=== PATIENT | female | born 1965 | race Caucasian/White ===

== ENCOUNTER → 2020-09-01 12:28 | Outpatient (BNVA) | payer MEDICAID, SELFPAY | PROVIDERS: Family Provider Family Medicine; PCP Family Medicine; Visit Provider Psychiatry & Neurology Psychiatry | DX: F32.9 Major depressive disorder, single episode, unspecified (principal); F41.9 Anxiety disorder, unspecified | CPT/HCPCS: 90792 ==

== ENCOUNTER → 2020-10-15 08:15 | Outpatient (BNVA) | payer MEDICAID, SELFPAY | PROVIDERS: Family Provider Family Medicine; PCP Family Medicine; Visit Provider Psychiatry & Neurology Psychiatry | DX: F41.9 Anxiety disorder, unspecified (principal); F32.9 Major depressive disorder, single episode, unspecified | CPT/HCPCS: 99214 ==

== ENCOUNTER → 2021-01-19 14:35 | Outpatient (BNVA) | payer MEDICAID, SELFPAY | PROVIDERS: Family Provider Family Medicine; PCP Nurse Practitioner Family; Visit Provider Psychiatry & Neurology Psychiatry | DX: F41.9 Anxiety disorder, unspecified (principal); F32.9 Major depressive disorder, single episode, unspecified | CPT/HCPCS: 99214 ==

== ENCOUNTER → 2021-02-18 12:47 | Outpatient (BNVA) | payer MEDICAID, SELFPAY | PROVIDERS: Family Provider Family Medicine; PCP Nurse Practitioner Family; Visit Provider Psychiatry & Neurology Psychiatry | DX: F41.9 Anxiety disorder, unspecified (principal); F32.9 Major depressive disorder, single episode, unspecified | CPT/HCPCS: 99214 ==

== ENCOUNTER → 2021-05-17 18:03 | Outpatient (BNVA) | payer MEDICAID, SELFPAY | PROVIDERS: Family Provider Family Medicine; PCP Nurse Practitioner Family; Visit Provider Nurse Practitioner | DX: R39.9 Unspecified symptoms and signs involving the genitourinary system (principal); R31.9 Hematuria, unspecified | CPT/HCPCS: 81000 ==

== ENCOUNTER 2021-05-18 18:59 | Emergency (ER) | payer MEDICAID, SELFPAY ==
[2021-05-18 19:32] VITALS: BP 135/88; PULSE 81; RESP 16; TEMP 36.7; O2SAT 97; BMI 24.3
--- NOTE | 2021-05-18 19:43 | W.ED.FEMALGU ---
HPI - Female Genitourinary General: Chief complaint: Urogenital-Female Stated complaint: Cant Pee Time Seen by Provider: 05/18/21 19:38 History of Present Illness: HPI Narrative: Patient is a 56-year-old female comes to the ED with urinary retention. Patient says for the past 3 weeks she is been having decreased urine output. Its progressed and gotten worse over the past couple days. She states that today she is only been able to urinate out a small amount. Denies any pain with urination. She currently feels like her bladder is really full and that she needs to urinate but is unable to. Associated symptoms: Deny abdominal pain, headache(s) or nausea Review of Systems Const: Denies: fever(s), chills or fatigue Eyes: Denies: change in vision or eye discomfort ENMT: Denies: throat pain, odynophagia, nasal discharge or nasal congestion Card: Denies: chest pain, palpitations, edema, swelling of feet/ankles, dyspnea on exertion or orthopnea Resp: Denies: dyspnea, productive cough or non-productive cough GI: Denies: abdominal pain, nausea, vomiting, diarrhea, constipation or hematochezia : Reports: difficulty voiding and oliguria; Denies: flank pain, dysuria or hematuria Musc: Denies: neck pain, back pain or extremity swelling Skin/Breast: Denies: rash or new lesions Neuro: Denies: headache(s), numbness in extremities or weakness in extremities [facility] ED PFSH: Medical History Anxiety Anxiety MDD (major depressive disorder) Family History Other Family history unremarkable Social History Smoking and tobacco status: current every day smoker cigarettes Packs smoked per day: 1 Years cigarettes smoked: 22 Second hand smoke exposure: Yes Alcohol intake: never Lives independently: No Household members: family Marital status: Single service: No Current occupational status: disabled History of recent travel: No Current gender identity: Female Special ramin needs: No Agree to transfusion: Yes Physical Exam Const: COMMON NORMALS: patient oriented x3, healthy appearing and alert GENERAL APPEARANCE: cooperative and in distress (Patient appears uncomfortable and in some pain) HENMT: COMMON NORMALS: normocephalic HEAD & SCALP: normocephalic MOUTH: Normal oral and palatal mucosa present THROAT: posterior oropharynx normal and uvula midline Neck/C-Spine: COMMON NORMALS: supple GENERAL: Yes normal visual inspection Resp: COMMON NORMALS: normal respiratory effort, No retractions, No use of accessory muscles and clear to auscultation bilaterally AUSCULTATION: clear to auscultation bilaterally Cardio: COMMON NORMALS: regular rate, regular rhythm, S1 normal heart sound present, S2 normal heart sound present, No gallops present (Cardio), No clicks present (Cardio), No murmurs present (Cardio) and Peripheral pulses 2+ throughout RATE: regular rate RHYTHM: regular rhythm HEART SOUNDS: S1 normal heart sound present and S2 normal heart sound present PERIPHERAL PULSES: Peripheral pulses 2+ throughout GI: COMMON NORMALS: Normal to inspection, nondistended, normoactive bowel sounds present, Soft to palpation, non-tender and no masses PALPATION: Yes Soft to palpation and Yes Bladder palpation abnormal : COMMON NORMALS: Yes no CVA tenderness BLADDER/KIDNEY EXAM: Yes no CVA tenderness and Yes Bladder palpation abnormal Bladder abnormal details: tender and distended midway to the umbilicus Back/Pelvis: COMMON NORMALS: no CVA tenderness Extremity: COMMON NORMALS: normal to inspection Neuro: COMMON NORMALS: patient oriented x3 and moves all extremities SENSORIUM/ORIENTATION: Yes alert Skin: GENERAL SKIN EXAM: dry skin Course ED course: Nurse performed bladder scan and there is over 700 mL captured on scan. Reevaluation(s): Reevaluation #1: After nurse placed Eli catheter over 600 mL of urine drained into catheter bag. Patient felt immediate relief. Patient's bladder was no longer distended and firm. She reports feeling a lot better. Vital Signs: Vital signs: Vital Signs Temperature 98.1 F 05/18/21 19:32 Pulse Rate 87 05/18/21 20:21 Respiratory Rate 16 05/18/21 20:21 Blood Pressure 130/90 05/18/21 20:21 Pulse Oximetry 97 05/18/21 20:21 MDM - Female MDM Narrative: Medical decision making narrative: Patient is a 56-year-old female comes to the ED with urinary retention. Over the past 3 weeks she has had increased urinary retention and difficulty with urination. Over the past couple days has gotten worse and today she is only been able to urinate a little bit. Her bladder feels full and painful she feels like she has to urinate is unable to. Vitals stable. Exam shows a palpable bladder that is distended about midway to the umbilicus and is firm and tender. Nurse performed a bladder scan and over 700 mL were captured on scan. Eli catheter was then placed and patient had well over 600 mils of urine drained into cath bag. UA was unremarkable. I placed an order with case management to have patient referred to Dr. Rodríguez the urologist for further evaluation. Patient diagnosed with acute urinary retention. Eli catheter was left in place and patient was discharged with it and given instructions on how to care for Eli catheter. She was told case maker will contact her in the next several days set up appoint with Dr. Rodríguez. Return to ED precautions given. Patient understood agree with plan. Lab Data: Attestation: I reviewed the patient's lab results. Labs: Lab Results 05/18/21 20:14 Urine Color Yellow (Yellow) Urine Appearance Clear (CLEAR) Urine pH 5 (5-7) Ur Specific Gravit y 1.010 (1.005-1.030) Urine Protein Neg (Negative) Urine Glucose (UA) Norm (Normal) Urine Ketones Negative (Negative) Urine Blood Neg (Negative) Urine Nitrate Negative (Negative) Urine Bilirubin Neg (Negative) Urine Urobilinogen Neg mg/dL mg/dL (Negative) Ur Leukocyte Kiana ase Negative (Negative) Discharge Plan Discharge Patient Disposition: Home Clinical Impression: Acute urinary retention Condition: Stable Prescriptions: No Action buspirone 10 mg tablet 10 mg PO TID 30 Days Qty: 90 RF: 3 mupirocin 2 % ointment 1 applic topical TID 7 Days Qty: 22 RF: 0 ondansetron HCl [Zofran] 4 mg tablet 4 mg PO Q6H PRN (Reason: nausea and vomiting) Qty: 10 RF: 0 Discharge Orders: Discharge ED (Routine); Ordered 05/18/21 Ordered By: Andrew Grey Discharge Diet: Regular Discharge Activity: Increase activity as tolerated Patient Instructions: Eli Catheter Placement and Care (ED), Acute Urinary Retention in Women (ED) Activity Restrictions/Additional Instructions: Follow-up with medical provider as directed. Case management will be contacting you next several days set up an appointment with Dr. Rodríguez the urologist. Continue taking all home medications as previously prescribed. Follow Eli catheter care instructions given by nurse before DC. Return to the ER or your medical provider if condition worsens. Please read and understand discharge instructions. Thank you for choosing [facility] for your healthcare needs today. Please realize this is an emergency room and that we are providing you with a medical screening exam and this may not be complete and all inclusive of all the testing and or work up that you may need to determine your ailment or severity of your illness. It is very important that you follow up as instructed or that you return to the Emergency Department should you have concerns or if your condition changes or worsens in any way. Coding Level of Care Code ED [employer] for Pritesh Gill Exam Comprehensive
[2021-05-18 20:21] VITALS: BP 130/90; PULSE 87; RESP 16; O2SAT 97
[2021-05-18 20:28] LABS: Add Urine Microscopic? NO; Charge for UA Resulting for Rev
[2021-05-18 20:35] LABS: Bilirubin Urine Neg (Negative); Blood Urine Neg (Negative); Glucose Urine UA Norm (Normal); Ketones Urine Negative (Negative); Leukocyte Esterase Urine Negative (Negative); Nitrate Urine Negative (Negative); Protein Urine Neg (Negative); Urine Appearance Clear (CLEAR); Urine Color Yellow (Yellow); Urobilinogen Urine Neg (Negative); pH Urine 5 (5-7)
--- NOTE | 2021-05-19 10:56 | DCPLANNER ---
senior risk manager had message to schedule a followup appointment for patient with Dr. Rordíguez. senior risk manager emailed patients information to Pascual Chow and Sudha at the office of Dr. Rodríguez. Patients information will be printed and reviewed. Clinic will call patient with appointment information.
--- NOTE | 2021-05-26 08:33 | DCPLANNER ---
Patient has a follow up appointment scheduled for Monday, May 31, 2021 at 3:[address] Rodríguez. Clinic will call patient with appointment information.
--- NOTE | 2021-06-18 11:49 | DCPLANNER ---
Patient had a follow up appointment scheduled for 05.31.[address] Rodríguez - patient did not attend appointment.
== END 2021-05-18 22:05 | disposition home or self-care (01) ==
PROVIDERS: Emergency Provider Physician Assistant
DX: R33.9 Retention of urine, unspecified (principal); F17.210 Nicotine dependence, cigarettes, uncomplicated
CPT/HCPCS: 51702; 51798; 81003; 99283

== ENCOUNTER 2021-05-19 22:16 | Emergency (ER) | payer MEDICAID, SELFPAY ==
[2021-05-19 22:31] VITALS: BP 132/79; PULSE 86; RESP 16; TEMP 36.6; O2SAT 98; BMI 23.8
--- NOTE | 2021-05-19 22:37 | ED_ITS ---
Documented by User: ANGEL Cuevas 05/20/21 01:13 HPI - Female Genitourinary General: Chief complaint: Urogenital-Female Stated complaint: Cant Pee Time Seen by Provider: 05/19/21 22:37 History of Present Illness: HPI Narrative: Patient is a 56-year-old female comes to the ED with catheter complaint. Patient was seen here in the ED yesterday for acute urinary retention and Benoit catheter was placed and patient was discharged home. She says her Benoit catheter has been working good last night and into today. She feels like the last couple hours the catheter is not draining as much. She feels like her bladder might be filling a little bit. She denies any pain or discomfort. She says her bladder does not hurt like it did yesterday when she came to the ED and could not urinate. Associated symptoms: Deny abdominal pain, headache(s) or nausea Review of Systems Const: Denies: fever(s), chills or fatigue Eyes: Denies: change in vision or eye discomfort ENMT: Denies: throat pain, odynophagia, nasal discharge or nasal congestion Card: Denies: chest pain, palpitations, edema, swelling of feet/ankles, dyspnea on exertion or orthopnea Resp: Denies: dyspnea, productive cough or non-productive cough GI: Denies: abdominal pain, nausea, vomiting, diarrhea, constipation or hematochezia : Reports: difficulty voiding and other (benoit catheter issue); Denies: flank pain, dysuria or hematuria Musc: Denies: neck pain, back pain or extremity swelling Skin/Breast: Denies: rash or new lesions Neuro: Denies: headache(s), numbness in extremities or weakness in extremities PFSH ED PFSH: Medical History Anxiety Anxiety MDD (major depressive disorder) Family History Other Family history unremarkable Social History Smoking and tobacco status: current every day smoker cigarettes Packs smoked per day: 1 Years cigarettes smoked: 22 Second hand smoke exposure: Yes Alcohol intake: never Lives independently: No Household members: family Marital status: Single service: No Current occupational status: disabled History of recent travel: No Current gender identity: Female Special ramin needs: No Agree to transfusion: Yes Physical Exam Const: COMMON NORMALS: no acute distress, patient oriented x3 and alert GENERAL APPEARANCE: cooperative and comfortable HENMT: COMMON NORMALS: normocephalic HEAD & SCALP: normocephalic MOUTH: Normal oral and palatal mucosa present THROAT: posterior oropharynx normal and uvula midline Neck/C-Spine: COMMON NORMALS: supple GENERAL: Yes normal visual inspection Resp: COMMON NORMALS: normal respiratory effort, No retractions, No use of accessory muscles and clear to auscultation bilaterally AUSCULTATION: clear to auscultation bilaterally Cardio: COMMON NORMALS: regular rate, regular rhythm, S1 normal heart sound present, S2 normal heart sound present, No gallops present (Cardio), No clicks present (Cardio), No murmurs present (Cardio) and Peripheral pulses 2+ throughout RATE: regular rate RHYTHM: regular rhythm HEART SOUNDS: S1 normal heart sound present and S2 normal heart sound present PERIPHERAL PULSES: Peripheral pulses 2+ throughout GI: COMMON NORMALS: Normal to inspection, nondistended, normoactive bowel sounds present, Soft to palpation, non-tender and no masses PALPATION: Yes Soft to palpation and Yes Bladder palpation abnormal : COMMON NORMALS: Yes no CVA tenderness BLADDER/KIDNEY EXAM: Yes no CVA tenderness and Yes Bladder palpation abnormal Bladder abnormal details: tender and distended midway to the umbilicus Back/Pelvis: COMMON NORMALS: no CVA tenderness Extremity: COMMON NORMALS: normal to inspection Neuro: COMMON NORMALS: patient oriented x3 and moves all extremities SENSORIUM/ORIENTATION: Yes alert Skin: GENERAL SKIN EXAM: dry skin Course Vital Signs: Vital signs: Vital Signs Temperature 97.8 F 05/19/21 22:31 Pulse Rate 71 05/20/21 00:50 Respiratory Rate 20 H 05/20/21 00:50 Blood Pressure 128/78 05/20/21 01:18 Pulse Oximetry 97 05/20/21 00:50 MDM - Female MDM Narrative: Medical decision making narrative: Patient is a 56-year-old female comes to the ED with urinary catheter issue. Patient was seen here in the ED yesterday for urinary retention and a Benoit catheter was placed and she was discharged with it and. Said her Benoit had been draining well nurse performed flush on the Benoit catheter couple times and that did not seem to help flush Benoit. Nurse then performed a bladder scan and she had over 900 mils of urine in her bladder. I told the nurse to pull existing Benoit catheter and to insert new Benoit catheter and patient. After reinserting new Benoit, she was still having minimal output in bag and bladder scan was showing over [address] Tran went in and performed an ultrasound and it showed that the Benoit catheter was not fully in bladder. They reinserted Benoit and still minimal to no urine drained out. Dr. Tran thought issue was likely false tract of urethra. [facility] did not have a urologist business analyst consultant, so Dr. Tran contacted [facility] and patient is being transferred to [facility] for further treatment/management. Lab Data: Attestation: I reviewed the patient's lab results. Labs: Lab Results 05/19/21 23:33 Urine Color Yellow (Yellow) Urine Appearance Clear (CLEAR) Urine pH 5 (5-7) Ur Specific Gravit y 1.010 (1.005-1.030) Urine Protein 1+ H (Negative) Urine Glucose (UA) Norm (Normal) Urine Ketones Negative (Negative) Urine Blood 3+ H (Negative) Urine Nitrate Negative (Negative) Urine Bilirubin Neg (Negative) Urine Urobilinogen Neg mg/dL mg/dL (Negative) Ur Leukocyte Kiana ase 1+ H (Negative) Urine RBC 5-10 /hpf H /hpf (0-2) Urine WBC 25-40 /hpf H /hpf (0-5) Ur Squamous Epith Cells 0-4 /hpf H /hpf (0-5) Amorphous Sediment Not Reportable Urine Bacteria Trace /hpf /hpf (NONE) Discharge Plan Discharge Patient Disposition: Transfer to ED Clinical Impression: False passage of urethra Condition: Stable Prescriptions: No Action buspirone 10 mg tablet 10 mg PO TID 30 Days Qty: 90 RF: 3 mupirocin 2 % ointment 1 applic topical TID 7 Days Qty: 22 RF: 0 ondansetron HCl [Zofran] 4 mg tablet 4 mg PO Q6H PRN (Reason: nausea and vomiting) Qty: 10 RF: 0 Coding Level of Care Code ED [employer]p [employer] for Chg Fwd Exam Comprehensive Documented by User: Carla Tran MD 05/20/21 01:27 HPI - Female Genitourinary General: Chief complaint: Urogenital-Female Stated complaint: Cant Pee Time Seen by Provider: 05/19/21 22:37 PFSH ED PFSH: Medical History Anxiety Anxiety MDD (major depressive disorder) Family History Other Family history unremarkable Social History Smoking and tobacco status: current every day smoker cigarettes Packs smoked per day: 1 Years cigarettes smoked: 22 Second hand smoke exposure: Yes Alcohol intake: never Lives independently: No Household members: family Marital status: Single service: No Current occupational status: disabled History of recent travel: No Current gender identity: Female Special ramin needs: No Agree to transfusion: Yes Course Vital Signs: Vital signs: Vital Signs Temperature 97.8 F 05/19/21 22:31 Pulse Rate 71 05/20/21 00:50 Respiratory Rate 20 H 05/20/21 00:50 Blood Pressure 128/78 05/20/21 01:18 Pulse Oximetry 97 05/20/21 00:50 MDM - Female MDM Narrative: Medical decision making narrative: I saw patient with above midlevel I was in the room I nurses made multiple attempts at Benoit I believe patient likely has a false passage did ultrasound of abdomen was able to see the Benoit bulb above the bladder was not in the bladder will transfer to [facility] as we do not have urology here and she will need urology to place a Benoit likely or suprapubic catheter. Lab Data: Labs: Lab Results 05/19/21 23:33 Urine Color Yellow (Yellow) Urine Appearance Clear (CLEAR) Urine pH 5 (5-7) Ur Specific Gravit y 1.010 (1.005-1.030) Urine Protein 1+ H (Negative) Urine Glucose (UA) Norm (Normal) Urine Ketones Negative (Negative) Urine Blood 3+ H (Negative) Urine Nitrate Negative (Negative) Urine Bilirubin Neg (Negative) Urine Urobilinogen Neg mg/dL mg/dL (Negative) Ur Leukocyte Kiana ase 1+ H (Negative) Urine RBC 5-10 /hpf H /hpf (0-2) Urine WBC 25-40 /hpf H /hpf (0-5) Ur Squamous Epith Cells 0-4 /hpf H /hpf (0-5) Amorphous Sediment Not Reportable Urine Bacteria Trace /hpf /hpf (NONE) Discharge Plan Discharge Patient Disposition: Transfer to ED Clinical Impression: False passage of urethra Condition: Stable Prescriptions: No Action buspirone 10 mg tablet 10 mg PO TID 30 Days Qty: 90 RF: 3 mupirocin 2 % ointment 1 applic topical TID 7 Days Qty: 22 RF: 0 ondansetron HCl [Zofran] 4 mg tablet 4 mg PO Q6H PRN (Reason: nausea and vomiting) Qty: 10 RF: 0 Coding Level of Care Code ED Vp [employer] for Chg Fwd Exam Comprehensive
[2021-05-19 23:49] LABS: Add Urine Microscopic? YES; Bilirubin Urine Neg (Negative); Blood Urine 3+ (Negative); Glucose Urine UA Norm (Normal); Ketones Urine Negative (Negative); Leukocyte Esterase Urine 1+ (Negative); Nitrate Urine Negative (Negative); Protein Urine 1+ (Negative); Urine Appearance Clear (CLEAR); Urine Color Yellow (Yellow); Urobilinogen Urine Neg (Negative); pH Urine 5 (5-7)
[2021-05-19 23:52] LABS: Squamous Epithelial Cell Urine 0-4 /hpf (0-5); WBC Urine 25-40 /hpf (0-5)
[2021-05-19 23:53] LABS: Add Urine Culture? Yes; Bacteria Urine TRACE /hpf
[2021-05-20] MEDS: HYDROcodone-acetaminophen 5-325 mg Tablet 1 TAB PO (00:12)
[2021-05-20 00:50] VITALS: BP 148/95; PULSE 71; RESP 20; O2SAT 97
[2021-05-20 01:18] VITALS: BP 128/78
[2021-05-20 02:30] VITALS: BP 123/87; PULSE 78; RESP 18; O2SAT 97
--- NOTE | 2021-05-20 06:15 | PC.NURSE ---
pt rq to go outside to her car at this time. this nurse educated pt on our policy for pts not leaving the facility when they are admitted. this nurse offered to go pt car and get pt phone conveyor line battery charger and pt stated 'no i dont allow anyone to to do that'
[2021-05-20 06:18] VITALS: BP 124/81; PULSE 78; RESP 16; O2SAT 98
== END 2021-05-20 07:10 ==
PROVIDERS: Emergency Provider Physician Assistant
DX: N36.5 Urethral false passage (principal); F17.210 Nicotine dependence, cigarettes, uncomplicated; F41.9 Anxiety disorder, unspecified
CPT/HCPCS: 51702; 51798; 81001; 87086; 99284

== ENCOUNTER 2021-09-18 10:41 | Emergency (ER) | payer MEDICAID, SELFPAY ==
[2021-09-18 11:37] VITALS: BP 99/65; PULSE 87; RESP 16; TEMP 36.8; O2SAT 97; BMI 23.8
[2021-09-18 14:36] LABS: Basophils % 0.5 %; Eosinophils # 0.1 10^3/uL (0.0-0.8); Eosinophils % 1.8 %; Hematocrit 41.3 % (37.0-47.0); Hemoglobin 13.4 g/dL (11.5-15.3); Lymphocytes # 0.9 10^3/uL (0.8-4.8); Lymphocytes % 21.8 %; Mean Corpuscular HGB Conc 32.4 g/dL (30.0-36.0); Mean Corpuscular Hemoglobin 29.1 pg (28.0-34.0); Mean Corpuscular Volume 89.6 fl (81-99); Mean Platelet Volume 9.2 fL (7.4-10.4); Monocytes # 0.6 10^3/uL (0.2-0.9); Monocytes % 14.5 %; Neutrophils % 60.9 %; Nucleated Red Blood Cells % 0 %; Platelet Count 283 10^3/cmm (130-400); Red Blood Count 4.61 10^6/uL (4.1-5.3); Red Cell Distribution Width 12.6 % (12.1-15.1); White Blood Count 3.9 10^3/uL (4.0-10.0)
[2021-09-18 14:44] LABS: Alanine Aminotransferase 11 U/L (0-33); Albumin Level 4.5 g/dL (3.5-5.2); Alkaline Phosphatase 71 IU/L (35-105); Anion Gap 13.8 (5-19); Aspartate Amino Transferase 14 U/L (0-32); Blood Urea Nitrogen 7 mg/dL (6-20); Calcium 9.3 mg/dL (8.5-10.5); Carbon Dioxide 26 mmol/L (22-29); Chloride 98 mmol/L (98-107); Globulin 2.6 g/dL (1.3-4.6); Glomerular Filtration Rate 104.2 mL/min (90-130); Glucose 98 mg/dL (65-115); Lipase 25 U/L (13-60); Osmolality Calculated 276 mOsm/kg (285-295); Potassium 3.8 mmol/L (3.5-5.1); Sodium 134 mmol/L (136-145); Total Bilirubin 0.4 mg/dL (0.15-1.2); Total Protein 7.1 g/dL (6.6-8.7)
--- NOTE | 2021-09-18 15:01 | ED_ITS ---
HPI - Nausea/Vomiting/Diarrhea General: Chief complaint: Nausea/Vomiting/Diarrhea Stated complaint: nausea diarrhea vomiting Time Seen by Provider: 09/18/21 14:59 Source: patient Mode of arrival: ambulatory Limitations: no limitations History of Present Illness: Patient is a 56-year-old female who presents to ED today with a complaint of nausea, vomiting, diarrhea that began about 2 hours after eating [place] food. Patient states she has had approximately 20 episodes of non-bloody watery diarrhea and has vomited 5-6 times. Patient states she does feel better today but still feels a little weak. She reports low-grade fevers yesterday. She states 3 other individuals that she ate with also became ill. She is not having any abdominal pain currently. MD elicited complaint: nausea, vomiting and diarrhea Onset (ago): hour(s) Description of diarrhea: watery Associated nausea: Yes Associated abdominal pain: No Exacerbating factors: eating Associated symtoms: Reports nausea; Denies change in vision, chest pain, dysuria, fatigue, headache(s) or malaise Review of Systems Const: Reports: fever(s) (subjective low grade); Denies: body aches, fatigue or malaise Eyes: Denies: change in vision Card: Denies: chest pain Resp: Denies: dyspnea GI: Reports: nausea, vomiting and diarrhea; Denies: abdominal pain, hematemesis, hematochezia or melena : Denies: flank pain or dysuria Musc: Denies: neck pain or back pain Skin/Breast: Denies: rash Neuro: Denies: headache(s) PFSH ED PFSH: Medical History Anxiety Anxiety MDD (major depressive disorder) Family History Other Family history unremarkable Social History Smoking and tobacco status: current every day smoker cigarettes Packs smoked per day: 1 Years cigarettes smoked: 22 Second hand smoke exposure: Yes Alcohol intake: never Lives independently: No Household members: family Marital status: Single service: No Current occupational status: disabled History of recent travel: No Current gender identity: Female Special ramin needs: No Agree to transfusion: Yes Physical Exam Const: COMMON NORMALS: no acute distress, average body habitus, patient oriented x3, no limitations, alert and well nourished HENMT: COMMON NORMALS: normocephalic and atraumatic HEAD & SCALP: normocephalic and atraumatic Resp: COMMON NORMALS: normal respiratory effort and clear to auscultation bilaterally AUSCULTATION: clear to auscultation bilaterally Cardio: COMMON NORMALS: regular rate and regular rhythm RATE: regular rate RHYTHM: regular rhythm GI: COMMON NORMALS: Normal to inspection, nondistended, normoactive bowel sounds present, Soft to palpation, non-tender, No hepatosplenomegaly present and no masses PALPATION: Yes Soft to palpation and Yes No hepatosplenomegaly present Extremity: COMMON NORMALS: normal to inspection Neuro: ANGELO COMA SCALE: document GCS findings Summers coma scale eye opening: Spontaneous Angelo coma scale verbal response: Orientated Angelo coma scale motor response: Obey commands Angelo coma scale total score: 15 COMMON NORMALS: patient oriented x3, moves all extremities, no focal motor deficits, no sensory deficits noted and gait normal SENSORIUM/ORIENTATION: Yes alert Skin: COMMON NORMALS: no rashes or lesions noted GENERAL SKIN EXAM: no rashes or lesions noted Course Vital Signs: Vital signs: Vital Signs Temperature 98.2 F 09/18/21 11:37 Pulse Rate 87 09/18/21 11:37 Respiratory Rate 16 09/18/21 11:37 Blood Pressure 99/65 09/18/21 11:37 Pulse Oximetry 97 09/18/21 11:37 MDM - Nausea/Vomiting/Diarrhea Medical Decision Making Patient clinically appears in no acute distress. She has no abdominal pain at this time. Labs are unremarkable. Symptoms began 2 hours after eating [place] food and she had several other individuals who ate the same food and also became ill. Discussed how most cases of gastroenteritis/food poisoning are self- limited and treatment is geared towards staying hydrated. She does states she feels better today than she did yesterday I would anticipate she continue to improve over the next 24 to 48 hours. She was given a liter of fluids here. Give her something for the nausea at home if needed. Return to ED precautions given. Lab Data : 09/18/21 14:21 09/18/21 14:21 Laboratory Results WBC 3.9 10^3/uL (4.0-10.0) L 09/18/21 14: RBC 4.61 10^6/uL (4.1-5.3) 09/18/21 14:21 Hgb 13.4 g/dL (11.5-15.3) 09/18/21 14:21 Hct 41.3 % (37.0-47.0) 09/18/21 14:21 MCV 89.6 fl (81-99) 09/18/21 14:21 MCH 29.1 pg (28.0-34.0) 09/18/21 14:21 MCHC 32.4 g/dL (30.0-36.0) 09/18/21 14:21 RDW 12.6 % (12.1-15.1) 09/18/21 14:21 Plt Count 283 10^3/cmm (130-400) 09/18/21 14:21 MPV 9.2 fL (7.4-10.4) 09/18/21 14:21 Neut % (Auto) 60.9 % 09/18/21 14:21 Lymph % (Auto) 21.8 % 09/18/21 14:21 Gregg % (Auto) 14.5 % 09/18/21 14:21 Eos % (Auto) 1.8 % 09/18/21 14:21 Baso % (Auto) 0.5 % 09/18/21 14: Neut # (Auto) 2.40 10^3/uL (1.8-7.7) 09/18/21 14:21 Lymph # (Auto) 0.9 10^3/uL (0.8-4.8) 09/18/21 14:21 Gregg # (Auto) 0.6 10^3/uL (0.2-0.9) 09/18/21 14:21 Eos # (Auto) 0.1 10^3/uL (0.0-0.8) 09/18/21 14:21 Baso # (Auto) 0.0 10^3/uL (0.0-0.1) 09/18/21 14:21 Nucleated RBC % (auto) 0 % 09/18/21 14: Nucleated RBCs # 0.0 /100WBC 09/18/21 14:21 Sodium 134 mmol/L (136-145) L 09/18/21 14:21 Potassium 3.8 mmol/L (3.5-5.1) 09/18/21 14:21 Chloride 98 mmol/L (98-107) 09/18/21 14:21 Carbon Dioxide 26 mmol/L (22-29) 09/18/21 14:21 Anion Gap 13.8 (5-19) 09/18/21 14:21 BUN 7 mg/dL (6-20) 09/18/21 14:21 Creatinine 0.6 mg/dL (0.5-0.9) 09/18/21 14:21 GFR Calculation 104.2 mL/min (90-130) 09/18/21 14:21 Glucose 98 mg/dL (65-115) 09/18/21 14:21 Calculated Osmolality 276 mOsm/kg (285-295) L 09/18/21 14:21 Calcium 9.3 mg/dL (8.5-10.5) 09/18/21 14:21 Total Bilirubin 0.4 mg/dL (0.15-1.2) 09/18/21 14:21 AST 14 U/L (0-32) 09/18/21 14:21 ALT 11 U/L (0-33) 09/18/21 14:21 Alkaline Phosphatase 71 IU/L (35-105) 09/18/21 14:21 Total Protein 7.1 g/dL (6.6-8.7) 09/18/21 14:21 Albumin 4.5 g/dL (3.5-5.2) 09/18/21 14:21 Globulin 2.6 g/dL (1.3-4.6) 09/18/21 14:21 Lipase 25 U/L (13-60) 09/18/21 14:21 Urine Color Straw (Yellow) 09/18/21 14:30 Urine Appearance Clear (CLEAR) 09/18/21 14:30 Urine pH 5 (5-7) 09/18/21 14:30 Ur Specific [place] 1.005 (1.005-1.030) 09/18/21 14:30 Urine Protein Neg (Negative) 09/18/21 14:30 Urine Glucose (UA) Norm (Normal) 09/18/21 14:30 Urine Ketones Negative (Negative) 09/18/21 14:30 Urine Blood Neg (Negative) 09/18/21 14:30 Urine Nitrate Negative (Negative) 09/18/21 14:30 Urine Bilirubin Neg (Negative) 09/18/21 14:30 Urine Urobilinogen Norm mg/dL (Negative) 09/18/21 14:30 Ur Leukocyte Esterase Negative (Negative) 09/18/21 14:30 Discharge Plan Discharge Patient Disposition: Home Clinical Impression: Gastroenteritis Condition: Stable Prescriptions: Continued Zofran 4 mg tablet 4 mg PO Q6H PRN (Reason: nausea and vomiting) Qty: 10 0RF No Action buspirone 10 mg tablet 10 mg PO TID 30 Days Qty: 90 3RF mupirocin 2 % ointment 1 applic topical TID 7 Days Qty: 22 0RF cephalexin 750 mg capsule 750 mg PO BID Qty: 20 0RF Discharge Orders: Discharge ED (Routine); Ordered 09/18/21 Ordered By: Roberta Brooks Patient Instructions: Gastroenteritis (ED), Food Poisoning - Adult Coding Level of Care Code ED Industrial Engineering Director for Chg Fwd Exam Comprehensive
[2021-09-18 15:11] LABS: Add Urine Microscopic? NO; Charge for UA Resulting for Rev
[2021-09-18] MEDS: sodium chloride 0.9% 1,000 ML 999 ML IV (15:18)
[2021-09-18 15:19] LABS: Bilirubin Urine Neg (Negative); Blood Urine Neg (Negative); Glucose Urine UA Norm (Normal); Ketones Urine Negative (Negative); Leukocyte Esterase Urine Negative (Negative); Nitrate Urine Negative (Negative); Protein Urine Neg (Negative); Specific Gravity, Urine 1.005 (1.005-1.030); Urine Appearance Clear (CLEAR); Urine Color Straw (Yellow); Urobilinogen Urine Norm (Negative); pH Urine 5 (5-7)
[2021-09-18] MEDS: ondansetron 2 mg/ML SDV 2 mL 4 MG IVP (15:36)
== END 2021-09-18 17:03 | disposition home or self-care (01) ==
PROVIDERS: Emergency Provider Physician Assistant
DX: K52.9 Noninfective gastroenteritis and colitis, unspecified (principal); F17.210 Nicotine dependence, cigarettes, uncomplicated
CPT/HCPCS: 36415; 80053; 81003; 83690; 85025; 96361; 96374; 99283; J2405; J7030

== ENCOUNTER → 2021-10-28 15:35 | Outpatient (BNVA) | payer MEDICAID, SELFPAY | PROVIDERS: Visit Provider Obstetrics & Gynecology | DX: N83.209 Unspecified ovarian cyst, unspecified side (principal) | CPT/HCPCS: 76856 ==

== ENCOUNTER 2022-02-09 11:25 | Outpatient (CLI) | payer MEDICAID, SELFPAY ==
--- NOTE | 2022-02-09 11:33 | CT_ITS ---
WS: [id number] CT ABDOMEN PELVIS TECHNIQUE: Noncontrast CT of the abdomen and pelvis with coronal and sagittal reformatted images. CLINICAL INFORMATION: PELVIC MASS COMPARISON: US 10/28/21 DLP: 830.[address] scans at [facility] use at least one of these dose optimization techniques: automated e xposure control; mA and/or kV adjustment per patient size (includes targeted exams where dose is matc hed to clinical indication); or iterative reconstruction. FINDINGS: Noncontrast examination. Again seen is the large cystic pelvic mass suspicious for ovarian neoplasm. Associated septations wit h increased vascularity seen on the prior ultrasound. Today this measures approximately 11.0 x 18.8 x 25.0 cm. Previously this measured 10.7 x 16.7 x 20.6 cm. Recommend [employer] consultation for resection. 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 This is increased s lightly today compared to the prior ultrasound. Displacement of the surrounding bowel loops. Pelvic mass compresses the sigmoid colon posteriorly in the bladder/uterus anteriorly. Lung bases are well aerated. Noncontrast liver appears normal. Noncontrast spleen appears normal. Nor mal GE junction. Adrenal glands are normal. No hydronephrosis in either kidney. RIGHT renal cysts. No rmal caliber abdominal aorta. No visualized periaortic or inguinal lymphadenopathy. CT/CT abdomen pelvis con [id number] IMPRESSION: 1. Large cystic pelvic mass suspicious for ovarian neoplasm increased in size slightly compared to October 28, 2021 described above. Associated septations. Findi ngs suspicious for ovarian neoplasm and recommend [employer] consultation for resectio n. 2. No other acute findings on this noncontrast examination.
== END 2022-02-09 11:26 | disposition home or self-care (01) ==
LOC: RAD 11:26
PROVIDERS: Visit Provider Obstetrics & Gynecology
DX: R19.00 Intra-abdominal and pelvic swelling, mass and lump, unspecified site (principal)
CPT/HCPCS: 74176

== ENCOUNTER 2022-10-06 15:44 | Emergency (ER) | payer MEDICAID, SELFPAY | END 2022-10-06 16:33 | disposition left against medical advice (07) | LOC: ER 15:45 | PROVIDERS: Emergency Provider Family Medicine; PCP Family Medicine | DX: Z53.21 Procedure and treatment not carried out due to patient leaving prior to being seen by health care provider (principal) | CPT/HCPCS: 80053; 80306 ==

== ENCOUNTER 2022-11-30 13:47 | Emergency (ER) | payer MEDICAID, SELFPAY ==
[2022-11-30 14:17] VITALS: BP 108/79; PULSE 65; RESP 17; TEMP 36.6; O2SAT 94; BMI 23.8
--- NOTE | 2022-11-30 14:25 | W.ED.DENTAL ---
HPI - Dental/Oral General: Chief complaint: Dental/Oral Stated complaint: headache, red sore gums, slight fever Time Seen by Provider: 11/30/22 14:23 Source: patient Mode of arrival: ambulatory Limitations: no limitations History of Present Illness: Patient is a 57-year-old female presents to ED today with a complaint of gum pain. She is essentially edentulous to her lowers apart from a few teeth. She states the remainder of the teeth were extracted several months ago. She has not noticed any swelling to the gums or any obvious abscess formations. She is not complaining of facial or neck swelling. Patient reportedly has been seen multiple times for dental infections. Onset (ago): day(s) Duration: constant Severity: mild Relieving factors: nothing Exacerbating factors: chewing Context: history of dental caries and poor dental care Associated symptoms: Reports no associated symptoms; Denies fever(s) or odynophagia Treatment prior to arrival: none Review of Systems Const: Denies: fever(s), chills, body aches or fatigue ENMT: Reports: mouth pain; Denies: odynophagia, swelling of lips/tongue, oral sores, bleeding gums or halitosis Card: Denies: chest pain Resp: Denies: dyspnea GI: Denies: nausea or vomiting Musc: Denies: neck pain Neuro: Denies: headache(s) PFS ED PFSH: Medical History Anxiety Chronic headache Generalized anxiety disorder History of vaginal delivery MDD (major depressive disorder) Nicotine dependence, cigarettes, in remission Osteoarthritis Post-traumatic stress disorder, chronic Psychiatric care Surgical History History of tubal ligation Family History Other Family history unremarkable Social History Smoking and tobacco status: smoker, details unknown cigarettes [ Other cigarette details: 24yr Hx, 10PY] Alcohol intake: never Substance/Drug Use: never Female Reproductive History: Date of menopause: 06/26/19 Physical Exam Const: COMMON NORMALS: no acute distress, average body habitus, patient oriented x3, no limitations, alert and well nourished HENMT: FACE & SINUS: normal facial exam MOUTH: Normal oral and palatal mucosa present, lip normal and tongue normal TEETH & GINGIVA: Yes edentulous (to lower apart from 23-26 teeth which appear healthy) and Yes other (no obvious gingival inflammation or dental abscess present) THROAT: posterior oropharynx normal, tonsils normal and uvula midline Neck/C-Spine: COMMON NORMALS: full ROM and no lymphadenopathy GENERAL: No anterior neck swelling and No submandibular swelling Neuro: COMMON NORMALS: patient oriented x3 SENSORIUM/ORIENTATION: Yes alert Course Vital Signs: Vital signs: Vital Signs Temperature 98 F 11/30/22 14:17 Pulse Rate 65 11/30/22 14:17 Respiratory Rate 17 11/30/22 14:17 Blood Pressure 108/79 11/30/22 14:17 Pulse Oximetry 94 11/30/22 14:17 Oxygen Delivery Me thod Room Air 11/30/22 14:17 MDM - Dental/Oral Medical Decision Making I do not appreciate any dental infection or dental abscess at this time. We will give patient Peridex mouth rinse that she can use twice daily in addition to routine mouth care. Recommend she follow-up with a dentist. She does states she has an appointment scheduled next month. Discharge Plan Discharge Patient Disposition: Home Clinical Impression: Pain in gums Condition: Stable Prescriptions: New Peridex 0.12 % mouthwash 15 ml BUCCAL BID Qty: 473 0RF Rx Instructions: Swish 15ml for 60 seconds then spit; can do twice daily No Action cephalexin 500 mg capsule 500 mg PO Q8H 10 Days Qty: 30 0RF acetaminophen [Tylenol] 325 mg capsule 325 mg PO QID PRN (Reason: pain) Qty: 20 0RF bupropion HCl 100 mg tablet sustained-release 12 hr 100 mg PO BID Qty: 60 0RF Rx Instructions: Take one tablet twice daily- at 8 AM and at 2 PM lorazepam 0.5 mg tablet 0.5 mg PO BID PRN (Reason: anxiety) Qty: 60 0RF Rx Instructions: Take one tablet morning and evening, if needed for anxiety cephalexin 500 mg capsule 500 mg PO TID 7 Days Qty: 21 0RF OraMagicRx Mouthwash See Rx Instructions mucous membrane TID PRN (Reason: pain) Qty: 60 0RF Rx Instructions: swish 5ml to affected mucosal area three times daily PRN; swish then spit Discharge Orders: Discharge ED (Routine); Ordered 11/30/22 Ordered By: Roberta Brooks Referrals: Austin Salmeron MD [Primary Care Provider] - Coding Level of Care Code ED Toll Booth Operator for Pritesh Gill
== END 2022-11-30 14:54 | disposition home or self-care (01) ==
PROVIDERS: Emergency Provider Physician Assistant; PCP Family Medicine
DX: K06.9 Disorder of gingiva and edentulous alveolar ridge, unspecified (principal)
CPT/HCPCS: 99283

== ENCOUNTER → 2023-01-17 12:05 | Outpatient (BNVA) | payer MEDICAID, SELFPAY | PROVIDERS: Visit Provider Nurse Practitioner Family | DX: K04.7 Periapical abscess without sinus (principal); F41.9 Anxiety disorder, unspecified; F32.9 Major depressive disorder, single episode, unspecified; F33.1 Major depressive disorder, recurrent, moderate | CPT/HCPCS: 80053; 84443 ==

== ENCOUNTER 2023-01-20 09:37 | Emergency (ER) | payer MEDICAID, SELFPAY ==
[2023-01-20 09:41] VITALS: BP 125/105; PULSE 75; RESP 16; TEMP 36.5; O2SAT 98; BMI 23.2
--- NOTE | 2023-01-20 09:52 | ED_ITS ---
HPI - Animal Bite General: Chief Complaint: Animal Bite Stated Complaint: bug bites on left foot Time Seen by Provider: 01/20/23 09:40 Source: patient Mode of arrival: ambulatory History of Present Illness: 57-year-old female who presents emergency room complaining of being bitten by a spider. States she found a spider in her sock off her left foot she has 8 small raised areas with no erythema no necrosis no induration no vesicles. They are moderately tender. No drainage. complaint: other (Insect bite) Onset (ago): day(s) Animal: other (Insect) Mechanism: bite Location - Extremities: Left: foot Associated symptoms: Deny chills or fever(s) Review of Systems Const: Denies: fever(s) or chills Skin/Breast: Reports: skin tenderness and new lesions [facility] ED PFSH: Medical History Anxiety Chronic headache Generalized anxiety disorder History of vaginal delivery MDD (major depressive disorder) Nicotine dependence, cigarettes, in remission Osteoarthritis Post-traumatic stress disorder, chronic Psychiatric care Surgical History History of tubal ligation Family History Other Family history unremarkable Social History Smoking and tobacco status: smoker, details unknown cigarettes [ Other cigarette details: 24yr Hx, 10PY] Alcohol intake: never Substance/Drug Use: never Female Reproductive History: Date of menopause: 06/26/19 Physical Exam Const: COMMON NORMALS: no acute distress GENERAL APPEARANCE: cooperative and comfortable ORIENTATION/CONSCIOUSNESS: Yes awake, Yes oriented to person, Yes oriented to place and Yes oriented to time Extremity: OTHER: Left foot small distinct raised areas around no vesicles no drainage no purulence no erythema no induration. Did not appear to be fluid-filled. There is no urticarial wheal or flare. They are tender to the touch. No popliteal lymphadenopathy. No lymphangitic streaking. Neuro: SENSORIUM/ORIENTATION: Yes oriented to person, Yes oriented to place and Yes oriented to time Course Vital Signs: Vital signs: Vital Signs Temperature 97.7 F 01/20/23 09:41 Pulse Rate 75 01/20/23 09:41 Respiratory Rate 16 01/20/23 09:41 Blood Pressure 125/105 01/20/23 09:41 Pulse Oximetry 98 01/20/23 09:41 Oxygen Delivery Me thod Room Air 01/20/23 09:41 MDM - Animal Bite Medical Decision Making Localized irritation from potential insect bite no centralized necrosis. No sign of infection. Apply topical triamcinolone twice daily if not improving or change recheck with primary care Medical Records I reviewed the patient's medical records. Lab Data I reviewed the patient's lab results. Discharge Plan Discharge Patient Disposition: Home Clinical Impression: Insect bite Condition: Stable Prescriptions: New triamcinolone acetonide 0.1 % cream 1 applic topical BID Qty: 30 0RF No Action bupropion HCl 100 mg tablet sustained-release 12 hr 100 mg PO BID Qty: 60 1RF Rx Instructions: Take one tablet twice daily- at 8 AM and at 2 PM lorazepam 0.5 mg tablet 0.5 mg PO BID PRN (Reason: anxiety) Qty: 60 1RF Rx Instructions: Take one tablet morning and evening, if needed for anxiety Discharge Orders: Discharge ED (Routine); Ordered 01/20/23 Ordered By: Brendon Lentz Discharge Diet: Usual diet Discharge Activity: Resume usual activity Patient Instructions: Opioid Safety, Pain Management Activity Restrictions/Additional Instructions: Apply topical steroid cream twice daily to the affected areas. If not improving follow-up with your primary care doctor. Coding Level of Care Code ED Truck Switcher for Pritesh Gill
== END 2023-01-20 09:55 | disposition home or self-care (01) ==
LOC: ER 09:51
PROVIDERS: Emergency Provider Family Medicine
DX: T63.301A Toxic effect of unspecified spider venom, accidental (unintentional), initial encounter (principal); L98.9 Disorder of the skin and subcutaneous tissue, unspecified; F17.210 Nicotine dependence, cigarettes, uncomplicated
CPT/HCPCS: 99283

== ENCOUNTER 2023-04-02 21:11 | Emergency (ER) | payer MEDICAID, SELFPAY ==
[2023-04-02 21:14] VITALS: BP 144/89; PULSE 75; RESP 14; TEMP 36.6; O2SAT 98; BMI 23.0
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
[2023-04-02] MEDS: ketorolac 60 mg/2 mL INJ IM (21:56)
[2023-04-02 21:59] VITALS: BP 134/91; PULSE 78; RESP 14; O2SAT 100
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
[2023-04-02 23:19] VITALS: BP 136/89; PULSE 76; RESP 14; O2SAT 99
== END 2023-04-02 23:23 | disposition home or self-care (01) ==
PROVIDERS: Emergency Provider Emergency Medicine
DX: Z04.1 Encounter for examination and observation following transport accident (principal); M79.18 Myalgia, other site; F17.210 Nicotine dependence, cigarettes, uncomplicated; V89.2XXA Person injured in unspecified motor-vehicle accident, traffic, initial encounter
CPT/HCPCS: 72125; 72128; 72131; 96372; 99284; J1885

== ENCOUNTER 2023-09-02 12:48 | Emergency (ER) | payer MEDICAID, SELFPAY ==
[2023-09-02 12:57] VITALS: BP 133/82; PULSE 71; RESP 16; TEMP 36.6; O2SAT 100; BMI 26.2
[2023-09-02 13:10] VITALS: BP 133/82; PULSE 70; RESP 18; O2SAT 98
--- NOTE | 2023-09-02 13:26 | CTR_ITS ---
PROCEDURE INFORMATION: Exam: CT Abdomen And Pelvis With Contrast Exam date and time: 09/02/2023 2:09 PM Age: 58 years old Clinical indication: Pain; Bloating; Other: Back; Prior surgery; Surgery date: 6+ months; Surgery type: Tubal; Additional info: Dizziness, reported HX of mass TECHNIQUE: Imaging protocol: Computed tomography of the abdomen and pelvis with contrast. Radiation optimization: All CT scans at this facility use at least one of these dose optimization techniques: automated exposure control; mA and/or kV adjustment per patient size (includes targeted exams where dose is matched to clinical indication); or iterative reconstruction. Contrast material: [id number]; Contrast volume: 80 ml; Contrast route: INTRAVENOUS (IV); COMPARISON: CT abdomen pelvis wo con [id number] 02/09/2022 11:42 AM RADIATION DOSE METRICS: Total DLP (mGy-cm): 431.47 FINDINGS: Lungs: Lung bases are clear. Liver: The liver is normal. Gallbladder and bile ducts: The gallbladder is normal. There is no biliary dilation. Pancreas: There is a 7 mm cyst in the pancreatic body along the course of the pancreatic duct. Spleen: The spleen is unremarkable. Adrenal glands: The adrenal glands are unremarkable. Kidneys and ureters: There are simple cysts in the right kidney. Largest right renal cyst measures 3 cm. There are subcentimeter simple cysts in the left kidney. Moderate right hydronephrosis and hydroureter to the level of the pelvic inlet where the ureter is compressed by the large abdominal cystic lesion. No stones. There is no hydronephrosis or ureteral dilation on the left. Stomach and bowel: The stomach is decompressed, preventing meaningful evaluation of wall thickness. The small bowel is nondilated. The colon is unremarkable. Appendix: The appendix is not visible. Intraperitoneal space: There is no free air or significant intraperitoneal free fluid. Vasculature: There is mild aortic atherosclerotic disease. The portal, splenic and superior mesenteric veins are patent. Lymph nodes: There is no lymphadenopathy in the retroperitoneum, mesentery, pelvis or inguinal regions. Urinary bladder: The urinary bladder is compressed and is thin walled. Reproductive: There is a multilocular cyst extending from the deep pelvis into the upper abdomen measuring 23 x 15 cm axial and 29 cm craniocaudal dimension. The cyst demonstrates a thin smooth wall and thin enhancing septations. The cyst is significantly increased in size since 02/09/2022 when it measured approximately 17 x 12 x 25 cm. The uterus is displaced anteriorly and the right. The ovaries are not clearly visible. Bones/joints: There is mild degenerative disease in the lower lumbar spine. The pelvis and hips are unremarkable. Soft tissues: There is a small fat containing umbilical hernia. CT/CT abdomen pelvis w con* [id number] IMPRESSION: 1. Massive multilocular cyst extending from the deep pelvis into the upper abdomen is increased in size since 02/09/2022 and is suspicious for ovarian neoplasm. Approximate volume is 5 L. Recommend surgical consultation. 2. New moderate right hydronephrosis likely due to ureteral compression at the pelvic inlet. 3. 7 mm pancreatic cyst. Reimaging every 1 year for 5 years is recommended. (Reference: Alysha, 2017) 4. Incidental findings above. COMMENTS: Consistent with the [employer]'s Incidental Findings Committee white paper (J Am Edward Radiol 2018): Any incidental renal lesion less than 1 cm or classified as too small to characterize, or any incidental cystic renal lesion characterized as simple-appearing, is likely benign. No follow-up imaging is recommended for these lesions per consensus recommendations based on imaging criteria. REFERENCES: Alysha YU, et al. Management of Incidental Pancreatic Cysts: A White Paper of the ACR Incidental Findings Committee. J Am Edward Radiol. 2017;14(7):911-923.
[2023-09-02 13:44] VITALS: BP 131/94; BP 137/91; BP 150/80; PULSE 63; PULSE 71; PULSE 72
--- NOTE | 2023-09-02 13:45 | ED_ITS ---
Documented by User: ANGEL Reagan 09/02/23 16:23 HPI - Dizziness 2 General: Chief Complaint: Dental/Oral Stated Complaint: Mouth Pain / Dizziness Time Seen by Provider: 09/02/23 13:00 Source: patient Mode of arrival: ambulatory Limitations: no limitations History of Present Illness: HPI Narrative: Patient is a 58-year-old female who presents the emergency department complaining of dizziness onset 2 days. Patient initially stated that 4-5 days ago she was having some dental pain, and soon started to become dizzy. She has never had this dizziness before, and states it feels like she is drunk. She says she takes buprenorphine as needed, and has been taking her doses infrequently. She also notes inadequate fluid intake. 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 The mass was diagnosed by imaging, per the patient, but has not been followed up since. She does not have a primary care doctor, and says her buprenorphine is prescribed from [facility]. She also notes significantly worsening back pain, and thinks that this might be attributing to her dizziness. She denies any visual changes, headaches, numbness/weakness/tingling, fevers, or any other symptoms. MD elicited complaint: dizziness Pertinent past history: other ( Ovarian mass x 2 years ) Onset (ago): day(s) (2) Timing: sudden onset Description: off-balance Context: other (infrequent buprenorphine use) History of similar symptoms: No Relieving factors: lying down Associated symptoms: Denies chest pain, chills, headache(s), nausea, palpitations, syncope or vomiting Review of Systems 2 General: Reports: 10 or more systems reviewed and unremarkable except in HPI and below Const: Denies: fever(s), chills or fatigue Eyes: Denies: change in vision or blurry vision ENMT: Reports: mouth pain; Denies: throat pain Card: Denies: chest pain, palpitations, irregular heart rhythm, edema, lightheadedness or syncope Resp: Denies: dyspnea, productive cough or wheezing GI: Reports: bloating; Denies: abdominal pain, nausea, vomiting, diarrhea, constipation, change in bowel habits or hematochezia : Denies: flank pain, difficulty voiding, dysuria, urinary frequency, urinary urgency, urinary hesitancy or hematuria Musc: Reports: back pain; Denies: neck pain, extremity pain or joint pain Skin/Breast: Denies: rash or pruritus Neuro: Reports: dizziness; Denies: headache(s) PFSH ED 2 PFSH: Medical History Insect bite Nicotine dependence, cigarettes, in remission Post-traumatic stress disorder, chronic Generalized anxiety disorder Psychiatric care Chronic headache History of vaginal delivery Osteoarthritis Anxiety MDD (major depressive disorder) Surgical History History of tubal ligation Family History Other Family history unremarkable Social History Smoking and tobacco/nicotine status: tobacco/nicotine user, details unknown cigarettes [ Other cigarette details: 24yr Hx, 10PY] Alcohol intake: never Substance/Drug Use: never Female Reproductive History: Date of menopause: 06/26/19 Physical Exam 2 Const: COMMON NORMALS: no acute distress, patient oriented x3, no limitations and alert GENERAL APPEARANCE: cooperative and comfortable O RIENTATION/CONSCIOUSNESS: Yes awake, Yes oriented to person, Yes oriented to place and Yes oriented to time HENMT: COMMON NORMALS: normocephalic, atraumatic, hearing grossly normal bilaterally, external ears normal, EAC's normal, Normal nasal mucous membranes and turbinates present, moist oral mucous membranes and oropharynx normal H EAD & SCALP: normocephalic and atraumatic FACE & SINUS: normal facial exam NOSE: Normal nasal mucous membranes and turbinates present EXTERNAL EAR: Yes external ears normal EXTERNAL AUDITORY CANAL: EAC's normal MOUTH: Normal oral and palatal mucosa present and Abnormal salivary glands and ducts (Left salivary gland swollen with no signs of acute infection) TEETH & GINGIVA: Yes poor dentition THROAT: posterior oropharynx normal Eye: COMMON NORMALS: EOMs intact bilaterally and conjunctivae normal C ONJUNCTIVA: Yes conjunctivae normal Neck/C-Spine: COMMON NORMALS: full ROM and supple Resp: COMMON NORMALS: normal respiratory effort, No retractions, No use of accessory muscles and clear to auscultation bilaterally AUSCULTATION: clear to auscultation bilaterally Cardio: COMMON NORMALS: regular rate, regular rhythm, S1 normal heart sound present, S2 normal heart sound present, No gallops present (Cardio), No clicks present (Cardio), No murmurs present (Cardio) and No rub (Cardio) RATE: r egular rate RHYTHM: regular rhythm HEART SOUNDS: S1 normal heart sound present and S2 normal heart sound present GI: COMMON NORMALS: non-tender INSPECTION: No Anasarca, Yes abdominal distension and No scar AUSCULTATION: Yes normoactive bowel sounds P ALPATION: Yes Firmness to palpation present (GI) RECTAL EXAM: deferred Back/Pelvis: COMMON NORMALS: thoracic and lumbar spine normal to inspection, no thoracic nor lumbar tenderness and thoraco-lumbar ROM normal Extremity: COMMON NORMALS: normal to inspection and full ROM Neuro: COMMON NORMALS: patient oriented x3, CN's II-XII intact bilaterally, moves all extremities, no focal motor deficits and no sensory deficits noted SENSORIUM/ORIENTATION: Yes alert, Yes oriented to person, Yes oriented to place and Yes oriented to time SPEECH: speech normal GAIT: Yes Unable to assess gait MOTOR EXAM: 5/5 motor strength present throughout and Pronator motor function not present Psych: COMMON NORMALS: mental status grossly normal Skin: COMMON NORMALS: no rashes or lesions noted GENERAL SKIN EXAM: no rashes or lesions noted Course 2 Vital Signs: Vital signs: Vital Signs Temperature 97.8 F 09/02/23 16:11 Pulse Rate 13 L 09/02/23 16:11 Respiratory Rate 16 09/02/23 16:11 Blood Pressure 129/80 09/02/23 16:11 Pulse Oximetry 97 09/02/23 16:11 Oxygen Delivery Me thod Room Air 09/02/23 13:10 [facility] - Dizziness Medical Decision Making Patient was seen and evaluated in the emergency department today with 2 days of dizziness. Patient also dealing with no pain for the last 4-5 days, but upon further examination of this determine the patient dealing with inflammation versus stone in the salivary gland. On examination patient's abdomen was moderately distended and upon further history was able to gather that patient diagnosed with an ovarian mass 2 years ago, in which she never followed up. She also noting some increasing back pain that has steadily gotten worse. I ordered labs which were all essentially unremarkable. Vitals have also been normal throughout her ED course. Started on a liter of fluids and upon recheck states she felt better. Orthostatic vital signs were negative. I ordered an abdomen pelvis CT with contrast, that showed a massive multilocular cyst that extended from the pelvis into the upper abdomen that was suspicious for ovarian neoplasm. I consulted with Dr. Centeno, WASTE REDUCTION COORDINATOR, in regards to patient's case and CT findings. She recommended that patient follow-up with WASTE REDUCTION COORDINATOR to order a CA-125 with potential referral to oncology if this was positive. Patient will also be established with primary care so that she can be referred as necessary, however I will put in WASTE REDUCTION COORDINATOR referral from the ED. Dr. Centeno further stated that there was nothing acute that needed managed, so the patient would be okay to discharge home pending rest of her workup was negative. I discussed this with the patient and discussed with her the importance of following up for further evaluation, which she agrees with. I gave patient dose of IV Toradol prior to leaving, patient discharged home. Medical Records I reviewed the patient's medical records. Lab Data I reviewed the patient's lab results. 09/02/23 13:45 09/02/23 13:45 Radiology Impressions Abdomen/Pelvis CT 09/02/23 13:26 IMPRESSION: 1. Massive multilocular cyst extending from the deep pelvis into the upper abdomen is increased in size since 02/09/2022 and is suspicious for ovarian neoplasm. Approximate volume is 5 L. Recommend surgical consultation. 2. New moderate right hydronephrosis likely due to ureteral compression at the pelvic inlet. 3. 7 mm pancreatic cyst. Reimaging every 1 year for 5 years is recommended. (Reference: Alysha, 2017) 4. Incidental findings above. COMMENTS: Consistent with the [place] [employer]'s Incidental Findings Committee white paper (J Am Edward Radiol 2018): Any incidental renal lesion less than 1 cm or classified as too small to characterize, or any incidental cystic renal lesion characterized as simple-appearing, is likely benign. No follow-up imaging is recommended for these lesions per consensus recommendations based on imaging criteria. REFERENCES: Alysha YU, et al. Management of Incidental Pancreatic Cysts: A White Paper of the ACR Incidental Findings Committee. J Am Edward Radiol. 2017;14(7):911-923. Laboratory Results WBC 6.60 10^3/uL (3.29-11.43) 09/02/23 13:45 RBC 4.06 10^6/uL (3.85-5.65) 09/02/23 13:45 Hgb 11.90 g/dL (11.27-16.99) 09/02/23 13:45 Hct 38.0 % (36-47) 09/02/23 13:45 MCV 93.6 fl (85-98) 09/02/23 13:45 MCH 29.3 pg (27-33) 09/02/23 13:45 MCHC 31.3 g/dL (30-55) 09/02/23 13:45 RDW 12.7 % (12.1-15.1) 09/02/23 13:45 Plt Count 238 10^3/cmm (157-399) 09/02/23 13:45 MPV 8.9 fL (7.4-10.4) 09/02/23 13:45 Neut % (Auto) 62.7 % 09/02/23 13:45 Lymph % (Auto) 27.0 % 09/02/23 13:45 [place]ette % (Auto) 7.1 % 09/02/23 13:45 Eos % (Auto) 2.0 % 09/02/23 13:45 Baso % (Auto) 0.9 % 09/02/23 13:45 Neut # (Auto) 4.14 10^3/uL (1.8-7.7) 09/02/23 13:45 Lymph # (Auto) 1.8 10^3/uL (0.8-4.8) 09/02/23 13:45 [place] # (Auto) 0.5 10^3/uL (0.2-0.9) 09/02/23 13:45 Eos # (Auto) 0.1 10^3/uL (0.0-0.8) 09/02/23 13:45 Baso # (Auto) 0.1 10^3/uL (0.0-0.1) 09/02/23 13:45 Nucleated RBC % (auto) 0 % 09/02/23 13:45 Nucleated RBCs # 0.0 /100WBC 09/02/23 13:45 Sodium 139 mmol/L (136-145) 09/02/23 13:45 Potassium 4.4 mmol/L (3.5-5.1) 09/02/23 13:45 Chloride 104 mmol/L (98-107) 09/02/23 13:45 Carbon Dioxide 25 mmol/L (22-29) 09/02/23 13:45 Anion Gap 14.4 (5-19) 09/02/23 13:45 BUN 11 mg/dL (6-20) 09/02/23 13:45 Creatinine 0.6 mg/dL (0.5-0.9) 09/02/23 13:45 GFR Calculation 103.4 mL/min (90-130) 09/02/23 13:45 Glucose 92 mg/dL (65-115) 09/02/23 13:45 Calculated Osmolality 287 mOsm/kg (285-295) 09/02/23 13:45 Calcium 8.7 mg/dL (8.5-10.5) 09/02/23 13:45 Total Bilirubin 0.3 mg/dL (0.15-1.2) 09/02/23 13:45 AST 15 U/L (0-32) 09/02/23 13:45 ALT 11 U/L (0-33) 09/02/23 13:45 Alkaline Phosphatase 51 U/L (35-105) 09/02/23 13:45 Total Protein 6.6 g/dL (6.6-8.7) 09/02/23 13:45 Albumin 4.0 g/dL (3.5-5.2) 09/02/23 13:45 Globulin 2.6 g/dL (1.3-4.6) 09/02/23 13:45 Lipase 48 U/L (13-60) 09/02/23 13:45 Urine Color Straw (Yellow) 09/02/23 13:52 Urine Appearance Clear (CLEAR) 09/02/23 13:52 Urine pH 6 (5-7) 09/02/23 13:52 Ur Specific Isabella 1.010 (1.005-1.030) 09/02/23 13:52 Urine Protein Neg (Negative) 09/02/23 13:52 Urine Glucose (UA) Norm (Normal) 09/02/23 13:52 Urine Ketones Negative (Negative) 09/02/23 13:52 Urine Blood Neg (Negative) 09/02/23 13:52 Urine Nitrate Negative (Negative) 09/02/23 13:52 Urine Bilirubin Neg (Negative) 09/02/23 13:52 Urine Urobilinogen Norm mg/dL (Negative) 09/02/23 13:52 Ur Leukocyte Esterase Negative (Negative) 09/02/23 13:52 All radiology interpretation(s) finalized by discharge Discharge Plan Discharge Patient Disposition: Home Clinical Impression: Pelvic mass, Sialadenitis Condition: Stable Prescriptions: No Action doxepin 10 mg capsule 10 mg PO DAILY PRN (Reason: insomnia) Qty: 30 1RF bupropion HCl 200 mg tablet sustained-release 12 hr 200 mg PO QAM Qty: 30 1RF lorazepam 1 mg tablet 1 mg PO BID PRN (Reason: anxiety) Qty: 60 1RF meclizine 50 mg tablet 50 mg PO BID PRN (Reason: dizziness) Qty: 30 0RF ibuprofen 800 mg tablet 800 mg PO TID PRN (Reason: pain) Qty: 30 0RF magnesium 250 mg Tablet 250 mg PO DAILY vitamin E 268 mg (400 unit) Capsule 268 mg PO DAILY ferrous sulfate 27 mg iron Tablet 27 mg PO DAILY potassium citrate 99 mg Capsule 99 mg PO DAILY Collagen Skin Renewal 30-833.3 mg Tablet 1 tab PO DAILY Discharge Orders: Discharge ED (Routine); Ordered 09/02/23 Ordered By: Werner Brown Discharge Diet: Usual diet Discharge Activity: Increase activity as tolerated Patient Instructions: Sialoadenitis (ED) Activity Restrictions/Additional Instructions: Follow-up with primary care and WASTE REDUCTION COORDINATOR as instructed next week. Tylenol/ibuprofen for mouth pain. Gentle massage of the salivary gland as needed. Return if you develop any new or worsening symptoms. Coding Level of Care Code ED Unit Coordinator for Chg Fwd Documented by User: Brendon Lentz DO 09/04/23 09:31 HPI - Dizziness 2 General: Chief Complaint: Dental/Oral Stated Complaint: Mouth Pain / Dizziness Time Seen by Provider: 09/02/23 13:00 [facility] ED 2 PFSH: Medical History Insect bite Nicotine dependence, cigarettes, in remission Post-traumatic stress disorder, chronic Generalized anxiety disorder Psychiatric care Chronic headache History of vaginal delivery Osteoarthritis Anxiety MDD (major depressive disorder) Surgical History History of tubal ligation Family History Other Family history unremarkable Social History Smoking and tobacco/nicotine status: tobacco/nicotine user, details unknown cigarettes [ Other cigarette details: 24yr Hx, 10PY] Alcohol intake: never Substance/Drug Use: never Course 2 Vital Signs: Vital signs: Vital Signs Temperature 97.8 F 09/02/23 16:11 Pulse Rate 13 L 09/02/23 16:11 Respiratory Rate 16 09/02/23 16:11 Blood Pressure 129/80 09/02/23 16:11 Pulse Oximetry 97 09/02/23 16:11 Oxygen Delivery Me thod Room Air 09/02/23 13:10 MDM - Dizziness Medical Decision Making Patient was seen and evaluated in the emergency department today with 2 days of dizziness. Patient also dealing with no pain for the last 4-5 days, but upon further examination of this determine the patient dealing with inflammation versus stone in the salivary gland. On examination patient's abdomen was moderately distended and upon further history was able to gather that patient diagnosed with an ovarian mass 2 years ago, in which she never followed up. She also noting some increasing back pain that has steadily gotten worse. I ordered labs which were all essentially unremarkable. Vitals have also been normal throughout her ED course. Started on a liter of fluids and upon recheck states she felt better. Orthostatic vital signs were negative. I ordered an abdomen pelvis CT with contrast, that showed a massive multilocular cyst that extended from the pelvis into the upper abdomen that was suspicious for ovarian neoplasm. I consulted with Dr. Centeno, WASTE REDUCTION COORDINATOR, in regards to patient's case and CT findings. She recommended that patient follow-up with WASTE REDUCTION COORDINATOR to order a CA-125 with potential referral to oncology if this was positive. Patient will also be established with primary care so that she can be referred as necessary, however I will put in WASTE REDUCTION COORDINATOR referral from the ED. Dr. Centeno further stated that there was nothing acute that needed managed, so the patient would be okay to discharge home pending rest of her workup was negative. I discussed this with the patient and discussed with her the importance of following up for further evaluation, which she agrees with. I gave patient dose of IV Toradol prior to leaving, patient discharged home. Chart reviewed Lab Data 09/02/23 13:45 09/02/23 13:45 Radiology Impressions Abdomen/Pelvis CT 09/02/23 13:26 IMPRESSION: 1. Massive multilocular cyst extending from the deep pelvis into the upper abdomen is increased in size since 02/09/2022 and is suspicious for ovarian neoplasm. Approximate volume is 5 L. Recommend surgical consultation. 2. New moderate right hydronephrosis likely due to ureteral compression at the pelvic inlet. 3. 7 mm pancreatic cyst. Reimaging every 1 year for 5 years is recommended. (Reference: Alysha 2017) 4. Incidental findings above. COMMENTS: Consistent with the [place] [employer]'s Incidental Findings Committee white paper (J Am Edward Radiol 2018): Any incidental renal lesion less than 1 cm or classified as too small to characterize, or any incidental cystic renal lesion characterized as simple-appearing, is likely benign. No follow-up imaging is recommended for these lesions per consensus recommendations based on imaging criteria. REFERENCES: Alysha YU, et al. Management of Incidental Pancreatic Cysts: A White Paper of the ACR Incidental Findings Committee. J Am Edward Radiol. 2017;14(7):911-923. Laboratory Results WBC 6.60 10^3/uL (3.29-11.43) 09/02/23 13:45 RBC 4.06 10^6/uL (3.85-5.65) 09/02/23 13:45 Hgb 11.90 g/dL (11.27-16.99) 09/02/23 13:45 Hct 38.0 % (36-47) 09/02/23 13:45 MCV 93.6 fl (85-98) 09/02/23 13:45 MCH 29.3 pg (27-33) 09/02/23 13:45 MCHC 31.3 g/dL (30-55) 09/02/23 13:45 RDW 12.7 % (12.1-15.1) 09/02/23 13:45 Plt Count 238 10^3/cmm (157-399) 09/02/23 13:45 MPV 8.9 fL (7.4-10.4) 09/02/23 13:45 Neut % (Auto) 62.7 % 09/02/23 13:45 Lymph % (Auto) 27.0 % 09/02/23 13:45 Payette % (Auto) 7.1 % 09/02/23 13:45 Eos % (Auto) 2.0 % 09/02/23 13:45 Baso % (Auto) 0.9 % 09/02/23 13:45 Neut # (Auto) 4.14 10^3/uL (1.8-7.7) 09/02/23 13:45 Lymph # (Auto) 1.8 10^3/uL (0.8-4.8) 09/02/23 13:45 [place] # (Auto) 0.5 10^3/uL (0.2-0.9) 09/02/23 13:45 Eos # (Auto) 0.1 10^3/uL (0.0-0.8) 09/02/23 13:45 Baso # (Auto) 0.1 10^3/uL (0.0-0.1) 09/02/23 13:45 Nucleated RBC % (auto) 0 % 09/02/23 13:45 Nucleated RBCs # 0.0 /100WBC 09/02/23 13:45 Sodium 139 mmol/L (136-145) 09/02/23 13:45 Potassium 4.4 mmol/L (3.5-5.1) 09/02/23 13:45 Chloride 104 mmol/L (98-107) 09/02/23 13:45 Carbon Dioxide 25 mmol/L (22-29) 09/02/23 13:45 Anion Gap 14.4 (5-19) 09/02/23 13:45 BUN 11 mg/dL (6-20) 09/02/23 13:45 Creatinine 0.6 mg/dL (0.5-0.9) 09/02/23 13:45 GFR Calculation 103.4 mL/min (90-130) 09/02/23 13:45 Glucose 92 mg/dL (65-115) 09/02/23 13:45 Calculated Osmolality 287 mOsm/kg (285-295) 09/02/23 13:45 Calcium 8.7 mg/dL (8.5-10.5) 09/02/23 13:45 Total Bilirubin 0.3 mg/dL (0.15-1.2) 09/02/23 13:45 AST 15 U/L (0-32) 09/02/23 13:45 ALT 11 U/L (0-33) 09/02/23 13:45 Alkaline Phosphatase 51 U/L (35-105) 09/02/23 13:45 Total Protein 6.6 g/dL (6.6-8.7) 09/02/23 13:45 Albumin 4.0 g/dL (3.5-5.2) 09/02/23 13:45 Globulin 2.6 g/dL (1.3-4.6) 09/02/23 13:45 Lipase 48 U/L (13-60) 09/02/23 13:45 Urine Color Straw (Yellow) 09/02/23 13:52 Urine Appearance Clear (CLEAR) 09/02/23 13:52 Urine pH 6 (5-7) 09/02/23 13:52 Ur Specific Isabella 1.010 (1.005-1.030) 09/02/23 13:52 Urine Protein Neg (Negative) 09/02/23 13:52 Urine Glucose (UA) Norm (Normal) 09/02/23 13:52 Urine Ketones Negative (Negative) 09/02/23 13:52 Urine Blood Neg (Negative) 09/02/23 13:52 Urine Nitrate Negative (Negative) 09/02/23 13:52 Urine Bilirubin Neg (Negative) 09/02/23 13:52 Urine Urobilinogen Norm mg/dL (Negative) 09/02/23 13:52 Ur Leukocyte Esterase Negative (Negative) 09/02/23 13:52 Discharge Plan Discharge Patient Disposition: Home Clinical Impression: Pelvic mass, Sialadenitis Condition: Stable Prescriptions: No Action doxepin 10 mg capsule 10 mg PO DAILY PRN (Reason: insomnia) Qty: 30 1RF bupropion HCl 200 mg tablet sustained-release 12 hr 200 mg PO QAM Qty: 30 1RF lorazepam 1 mg tablet 1 mg PO BID PRN (Reason: anxiety) Qty: 60 1RF meclizine 50 mg tablet 50 mg PO BID PRN (Reason: dizziness) Qty: 30 0RF ibuprofen 800 mg tablet 800 mg PO TID PRN (Reason: pain) Qty: 30 0RF magnesium 250 mg Tablet 250 mg PO DAILY vitamin E 268 mg (400 unit) Capsule 268 mg PO DAILY ferrous sulfate 27 mg iron Tablet 27 mg PO DAILY potassium citrate 99 mg Capsule 99 mg PO DAILY Collagen Skin Renewal 30-833.3 mg Tablet 1 tab PO DAILY Discharge Orders: Discharge ED (Routine); Ordered 09/02/23 Ordered By: Werner Brown Discharge Diet: Usual diet Discharge Activity: Increase activity as tolerated Patient Instructions: Sialoadenitis (ED) Activity Restrictions/Additional Instructions: Follow-up with primary care and WASTE REDUCTION COORDINATOR as instructed next week. Tylenol/ibuprofen for mouth pain. Gentle massage of the salivary gland as needed. Return if you develop any new or worsening symptoms. Coding Level of Care Code ED Unit Coordinator for Pritesh Gill
[2023-09-02] MEDS: sodium chloride 0.9% 1,000 ML 999 ML IV (14:02)
[2023-09-02 14:03] LABS: Basophils # 0.1 10^3/uL (0.0-0.1); Basophils % 0.9 %; Eosinophils # 0.1 10^3/uL (0.0-0.8); Lymphocytes # 1.8 10^3/uL (0.8-4.8); Mean Corpuscular HGB Conc 31.3 g/dL (30-55); Mean Corpuscular Hemoglobin 29.3 pg (27-33); Mean Corpuscular Volume 93.6 fl (85-98); Mean Platelet Volume 8.9 fL (7.4-10.4); Monocytes # 0.5 10^3/uL (0.2-0.9); Monocytes % 7.1 %; Neutrophils # 4.14 10^3/uL (1.8-7.7); Neutrophils % 62.7 %; Nucleated Red Blood Cells % 0 %; Platelet Count 238 10^3/cmm (157-399); Red Blood Count 4.06 10^6/uL (3.85-5.65); Red Cell Distribution Width 12.7 % (12.1-15.1)
[2023-09-02 14:03] LABS: Add Urine Microscopic? NO; Charge for UA Resulting for Rev
[2023-09-02 14:10] LABS: Bilirubin Urine Neg (Negative); Blood Urine Neg (Negative); Glucose Urine UA Norm (Normal); Ketones Urine Negative (Negative); Leukocyte Esterase Urine Negative (Negative); Nitrate Urine Negative (Negative); Protein Urine Neg (Negative); Urine Appearance Clear (CLEAR); Urine Color Straw (Yellow); Urobilinogen Urine Norm (Negative); pH Urine 6 (5-7)
[2023-09-02] MEDS: iohexol 350 mg/mL 500 mL Btl (per mL) IV (14:10)
[2023-09-02 14:25] LABS: Alanine Aminotransferase 11 U/L (0-33); Alkaline Phosphatase 51 U/L (35-105); Anion Gap 14.4 (5-19); Aspartate Amino Transferase 15 U/L (0-32); Blood Urea Nitrogen 11 mg/dL (6-20); Calcium 8.7 mg/dL (8.5-10.5); Carbon Dioxide 25 mmol/L (22-29); Chloride 104 mmol/L (98-107); Globulin 2.6 g/dL (1.3-4.6); Glomerular Filtration Rate 103.4 mL/min (90-130); Glucose 92 mg/dL (65-115); Lipase 48 U/L (13-60); Osmolality Calculated 287 mOsm/kg (285-295); Potassium 4.4 mmol/L (3.5-5.1); Sodium 139 mmol/L (136-145); Total Bilirubin 0.3 mg/dL (0.15-1.2); Total Protein 6.6 g/dL (6.6-8.7)
--- NOTE | 2023-09-02 14:43 | PC.PHAR ---
Pt states she takes/uses k2.
[2023-09-02] MEDS: ketorolac 60 mg/2 mL INJ 10 MG IVP (15:57)
[2023-09-02 16:11] VITALS: BP 129/80; PULSE 13; RESP 16; TEMP 36.6; O2SAT 97
--- NOTE | 2023-09-04 07:24 | DCPLANNER ---
A message was sent to [facility] on 09/04/23 at 0724. [facility] to contact patient
[2023-09-04 12:03] LABS: CA 125 15.6 U/mL (0-35)
== END 2023-09-02 16:12 | disposition home or self-care (01) ==
PROVIDERS: Family Medicine; Emergency Provider Physician Assistant
DX: R19.00 Intra-abdominal and pelvic swelling, mass and lump, unspecified site (principal); K11.20 Sialoadenitis, unspecified; F17.210 Nicotine dependence, cigarettes, uncomplicated
CPT/HCPCS: 36415; 74177; 80053; 81003; 83690; 85025; 86304; 96361; 96374; 99285; J1885; J7030; Q9967

== ENCOUNTER → 2023-12-27 08:09 | Outpatient (BNVA) | payer MEDICAID, SELFPAY | PROVIDERS: Visit Provider Nurse Practitioner Psychiatric/Mental Health | DX: F33.1 Major depressive disorder, recurrent, moderate (principal) | CPT/HCPCS: 80061; 83036 ==

== ENCOUNTER 2024-01-31 18:39 | Emergency (ER) | payer MEDICAID, SELFPAY ==
[2024-01-05 11:20] VITALS: BP 117/83; BMI 22.0
[2024-01-31 19:13] VITALS: BP 128/78; PULSE 72; RESP 16; TEMP 36.5; O2SAT 98
--- NOTE | 2024-01-31 19:30 | ECG_ITS ---
[facility] Test Date: 2024-01-31 Pat Name: Jenifer Cesar Department: Room: Gender: Female Emotionally Impaired Teacher: : 1965 Requested By: Carla Tran Order Number: [id number] Vadim MD: Hugh Blancas M.D. Measurements Intervals [place] Rate: 67 P: 77 [place]: 153 QRS: 57 QRSD: 90 T: 74 QT: 407 QTc: 432 Interpretive Statements SINUS RHYTHM WITH SINUS ARRHYTHMIA No previous ECG available for comparison Electronically Signed On 02-01-2024 9:57:26 CDT by Hugh Blancas M.D. [id number]
--- NOTE | 2024-01-31 19:30 | XRR_ITS ---
PROCEDURE INFORMATION: Exam: XR Chest Exam date and time: 01/31/2024 7:47 PM Age: 58 years old Clinical indication: Shortness of breath; Additional info: SOB TECHNIQUE: Imaging protocol: Radiologic exam of the chest. Views: 1 view. COMPARISON: CT abdomen pelvis w con* [id number] 09/02/2023 2:09 PM FINDINGS: Lungs: The lungs are adequately expanded. No focal consolidations or pulmonary edema. Pleural spaces: No pleural effusions or pneumothorax. Heart/Mediastinum: No cardiomegaly. Bones/joints: No acute fractures. XR/XR chest 1V portable [id number] IMPRESSION: No acute pulmonary disease.
--- NOTE | 2024-01-31 19:50 | ED_ITS ---
HPI - Extremity Problem 2 General: Chief complaint: Extremity Problem,Nontraumatic Stated complaint: Swollen legs Time Seen by Provider: 01/31/24 19:29 Source: patient Mode of arrival: ambulatory Limitations: no limitations History of Present Illness: 58-year-old female who states that she h as had some extremity swelling over the last week. States she is on her feet a lot she had a history of a pelvic mass states she is getting followed for currently but has had no treatment. Since mild dyspnea she denies any difficulty urinating. Associated symptoms: Deny chest pain, fever(s) or rash Review of Systems 2 Const: Denies: fever(s), chills, body aches or change in appetite ENMT: Denies: throat pain or dental pain Card: Denies: chest pain Resp: Denies: dyspnea GI: Denies: abdominal pain, nausea, vomiting or diarrhea Musc: Reports: extremity swelling; Denies: neck pain or back pain Skin/Breast: Denies: rash Neuro: Denies: headache(s) PFSH ED 2 PFSH: Medical History Insect bite Nicotine dependence, cigarettes, in remission Post-traumatic stress disorder, chronic Generalized anxiety disorder Psychiatric care Chronic headache History of vaginal delivery Osteoarthritis Anxiety MDD (major depressive disorder) Surgical History History of tubal ligation Family History Other Family history unremarkable Social History Smoking and tobacco/nicotine status: never used tobacco/nicotine Alcohol intake: never Substance/Drug Use: never Adopted: No Caregiver/support person: No Lives independently: Yes Household members: none Housing: Apartment Marital status: Highest education level completed: High School Graduate service: No Current occupational status: unemployed Current occupational exposures/hazards: No Pets and animals: No Leisure activites: exercise, art and music Sexually active: No Do you think of yourself as: Straight/Heterosexual Current gender identity: Female Special ramin needs: No Agree to transfusion: Yes Female Reproductive History: Spontaneous abortions: No Date of menopause: 0 06/26/19 Physical Exam 2 Const: COMMON NORMALS: no acute distress, patient oriented x3 and healthy appearing HENMT: COMMON NORMALS: normocephalic and atraumatic HEAD & SCALP: n ormocephalic and atraumatic Neck/C-Spine: COMMON NORMALS: full ROM and supple Chest: COMMONS NORMALS: normal inspection of the chest Resp: COMMON NORMALS: normal respiratory effort, No retractions, No use of accessory muscles and clear to auscultation bilaterally AUSCULTATION: clear to auscultation bilaterally Cardio: COMMON NORMALS: regular rate, regular rhythm and No murmurs present (Cardio) RATE: regular rate RHYTHM: regular rhythm GI: OTHER: distended abdomen Extremity: COMMON NORMALS: normal to inspection and full ROM OTHER: Mild edema to lower extremities Neuro: COMMON NORMALS: patient oriented x3, moves all extremities and no focal motor deficits Psych: COMMON NORMALS: mental status grossly normal, Normal thought process present and cooperative THOUGHT PROCESS: Normal thought process present Skin: COMMON NORMALS: no rashes or lesions noted and no wounds GENERAL SKIN EXAM: no rashes or lesions noted Course 2 Vital Signs: Vital signs: Vital Signs Temperature 97.7 F 01/31/24 19:13 Pulse Rate 68 01/31/24 20:33 Respiratory Rate 16 01/31/24 20:33 Blood Pressure 128/78 01/31/24 19:13 Pulse Oximetry 96 01/31/24 20:33 Oxygen Delivery Me thod Room Air 01/31/24 20:33 MDM - Extremity (Nontraumatic) Medical Decision Making Patient presents for some mild lower extremity edema she has no signs of heart failure x-ray is normal no signs of DVTs or cellulitis she is stable for discharge she is to elevate her legs and wear compression stockings follow-up with her PCP return if worsening. Medical Records I reviewed the patient's medical records. Lab Data I reviewed the patient's lab results. 01/31/24 19:43 01/31/24 19:43 Radiology Impressions Chest X-Ray 01/31/24 19:30 IMPRESSION: No acute pulmonary disease. Laboratory Results WBC 7.33 10^3/uL (3.29-11.43) 01/31/24 19:43 RBC 4.01 10^6/uL (3.85-5.65) 01/31/24 19:43 Hgb 11.90 g/dL (11.27-16.99) 01/31/24 19:43 Hct 37.2 % (36-47) 01/31/24 19:43 MCV 92.8 fl (85-98) 01/31/24 19:43 MCH 29.7 pg (27-33) 01/31/24 19:43 MCHC 32.0 g/dL (30-55) 01/31/24 19:43 RDW 12.6 % (12.1-15.1) 01/31/24 19:43 Plt Count 224 10^3/cmm (157-399) 01/31/24 19:43 MPV 9.6 fL (7.4-10.4) 01/31/24 19:43 Neut % (Auto) 56.0 % 01/31/24 19:43 Lymph % (Auto) 33.4 % 01/31/24 19:43 [place] % (Auto) 7.2 % 01/31/24 19:43 Eos % (Auto) 2.3 % 01/31/24 19:43 Baso % (Auto) 0.7 % 01/31/24 19:43 Neut # (Auto) 4.10 10^3/uL (1.8-7.7) 01/31/24 19:43 Lymph # (Auto) 2.5 10^3/uL (0.8-4.8) 01/31/24 19:43 [place] # (Auto) 0.5 10^3/uL (0.2-0.9) 01/31/24 19:43 Eos # (Auto) 0.2 10^3/uL (0.0-0.8) 01/31/24 19:43 Baso # (Auto) 0.1 10^3/uL (0.0-0.1) 01/31/24 19:43 Nucleated RBC % (auto) 0 % 01/31/24 19:43 Nucleated RBCs # 0.0 /100WBC 01/31/24 19:43 Sodium 141 mmol/L (136-145) 01/31/24 19:43 Potassium 3.7 mmol/L (3.5-5.1) 01/31/24 19:43 Chloride 104 mmol/L (98-107) 01/31/24 19:43 Carbon Dioxide 25 mmol/L (22-29) 01/31/24 19:43 Anion Gap 15.7 (5-19) 01/31/24 19:43 BUN 10 mg/dL (6-20) 01/31/24 19:43 Creatinine 0.5 mg/dL (0.5-0.9) 01/31/24 19:43 GFR Calculation 127.6 mL/min (90-130) 01/31/24 19:43 Glucose 99 mg/dL (65-115) 01/31/24 19:43 Calculated Osmolality 291 mOsm/kg (285-295) 01/31/24 19:43 Calcium 9.0 mg/dL (8.5-10.5) 01/31/24 19:43 Total Bilirubin 0.2 mg/dL (0.15-1.2) 01/31/24 19:43 AST 17 U/L (0-32) 01/31/24 19:43 ALT 10 U/L (0-33) 01/31/24 19:43 Alkaline Phosphatase 51 U/L (35-105) 01/31/24 19:43 NT-Pro-B Natriuret Pep < 36 pg/mL (0-125) 01/31/24 19:43 Total Protein 6.9 g/dL (6.6-8.7) 01/31/24 19:43 Albumin 4.3 g/dL (3.5-5.2) 01/31/24 19:43 Globulin 2.6 g/dL (1.3-4.6) 01/31/24 19:43 All radiology interpretation(s) finalized by discharge EKG Data EKG 1: I personally reviewed and interpreted this EKG as follows: EKG interpretation date: 01/31/24 EKG interpretation time: 19:39 Interpretation: nsr hr [address] or t wave abnormalities qrs 90 qtc 423 Discharge Plan Discharge Patient Disposition: Home Clinical Impression: Lower extremity edema Condition: Stable Prescriptions: No Action bupropion HCl 200 mg tablet sustained-release 12 hr 200 mg PO QAM Qty: 30 2RF Rx Instructions: Take one tablet by mouth every morning doxepin 10 mg capsule 10 mg PO .q hs PRN (Reason: insomnia) Qty: 30 2RF Rx Instructions: Take one tablet daily at bedtime, if needed for insomnia lorazepam 0.5 mg tablet 0.5 mg PO TID PRN (Reason: anxiety) Qty: 90 2RF Rx Instructions: Take 1 tab up to 3 times a day, if needed for anxiety, at least 4 hours apart ibuprofen 800 mg tablet 800 mg PO TID PRN (Reason: pain) Qty: 30 0RF albuterol sulfate 90 mcg/actuation HFA aerosol inhaler 2 puff inhalation Q6H PRN (Reason: shortness of breath or wheezing) Qty: 8.5 0RF nystatin 100,000 unit/mL suspension 100,000 unit PO DAILY Qty: 60 0RF Rx Instructions: administer 1/2 of dose in each side of the mouth vitamin E 268 mg (400 unit) Capsule 268 mg PO DAILY potassium citrate 99 mg Capsule 99 mg PO DAILY Discharge Orders: Discharge ED (Routine); Ordered 01/31/24 Ordered By: Carla Tran Discharge Diet: Advance as tolerated Discharge Activity: Resume usual activity Patient Instructions: Leg Edema (ED) Coding Level of Care Code ED Hide And Skin Fleshing Machine Operator for Pritesh Gill
[2024-01-31 19:54] LABS: Basophils # 0.1 10^3/uL (0.0-0.1); Basophils % 0.7 %; Eosinophils # 0.2 10^3/uL (0.0-0.8); Eosinophils % 2.3 %; Hematocrit 37.2 % (36-47); Lymphocytes # 2.5 10^3/uL (0.8-4.8); Lymphocytes % 33.4 %; Mean Corpuscular Hemoglobin 29.7 pg (27-33); Mean Corpuscular Volume 92.8 fl (85-98); Mean Platelet Volume 9.6 fL (7.4-10.4); Monocytes # 0.5 10^3/uL (0.2-0.9); Monocytes % 7.2 %; Nucleated Red Blood Cells % 0 %; Platelet Count 224 10^3/cmm (157-399); Red Blood Count 4.01 10^6/uL (3.85-5.65); Red Cell Distribution Width 12.6 % (12.1-15.1); White Blood Count 7.33 10^3/uL (3.29-11.43)
[2024-01-31 20:28] LABS: Alanine Aminotransferase 10 U/L (0-33); Albumin Level 4.3 g/dL (3.5-5.2); Alkaline Phosphatase 51 U/L (35-105); Blood Urea Nitrogen 10 mg/dL (6-20); Carbon Dioxide 25 mmol/L (22-29); Chloride 104 mmol/L (98-107); Creatinine Clr Calc Pharmacy 111.5133; Globulin 2.6 g/dL (1.3-4.6); Glomerular Filtration Rate 127.6 mL/min (90-130); Glucose 99 mg/dL (65-115); NT Pro B Type Natriuretic Pept < 36 pg/mL (0-125); Osmolality Calculated 291 mOsm/kg (285-295); Sodium 141 mmol/L (136-145); Total Bilirubin 0.2 mg/dL (0.15-1.2); Total Protein 6.9 g/dL (6.6-8.7)
[2024-01-31 20:33] VITALS: PULSE 68; RESP 16; O2SAT 96
[2024-01-31] MEDS: FUROsemide 10 mg/mL SDV 4mL 40 MG IVP (20:42)
[2024-01-31 20:44] LABS: Anion Gap 15.7 (5-19); Aspartate Amino Transferase 17 U/L (0-32); Potassium 3.7 mmol/L (3.5-5.1)
[2024-01-31] MEDS: LORazepam 2 mg/mL INJ 1 mL 0.5 MG IVP (20:48)
== END 2024-01-31 21:18 | disposition home or self-care (01) ==
PROVIDERS: Emergency Provider Emergency Medicine
DX: R60.0 Localized edema (principal)
CPT/HCPCS: 36415; 71045; 80053; 83880; 85025; 93005; 96374; 96375; 99285; J1940; J2060

== ENCOUNTER 2024-03-06 08:25 | Emergency (ER) | payer MEDICAID, SELFPAY ==
[2024-01-05 11:20] VITALS: BP 117/83; BMI 22.0
[2024-03-06 08:38] VITALS: BP 139/86; PULSE 78; RESP 18; TEMP 36.9; O2SAT 100; BMI 21.1
[2024-03-06 08:42] VITALS: BP 139/86; PULSE 78; RESP 18; TEMP 36.9; O2SAT 100
--- NOTE | 2024-03-06 08:43 | CT_ITS ---
WS: [id number] CT ABDOMEN PELVIS TECHNIQUE: Contrast-enhanced CT of the abdomen and pelvis with coronal and sagittal reformatted image s. CLINICAL INFORMATION: abd pain/ovarian mass 08/2023 COMPARISON: CT 09/02/2023 and 02/09/2022 DLP: 390.[address] scans at [facility] use at least one of these dose optimization techniques: automated e xposure control; mA and/or kV adjustment per patient size (includes targeted exams where dose is matc hed to clinical indication); or iterative reconstruction. FINDINGS: Again seen is the massive low-attenuation multiloculated cystic mass extending from the deep pelvis i nto the upper abdomen. Findings suspicious for ovarian neoplasm. This is increased in size since 2021 and slightly increased in size since 09/02/2023. Today this measures approximately 17.1 x 24.4 x 30.6 cm Moderate RIGHT hydronephrosis similar to previous. Stable previously described 7 mm pancreatic cyst. Associated compression with displacement of the abdominal organs and vasculature. Bowel is displaced peripherally and into the upper abdomen. Compression of the liver portal vein and splenic vein. Compr ession and effacement of the IVC. Prominent LEFT extrarenal pelvis. Significant compression of the RI GHT common iliac artery. Lung bases are well aerated. CT/CT abdomen pelvis w con* [id number] IMPRESSION: 1. Similar-appearing massive multiloculated ovarian lesion suspicious for neop lasm slightly increased in size compared to 09/02/2023 and significantly increase d since 2021 described above. Recommend surgical resection 2. Associated displacement with compression of the abdominal organs and GI tra ct. 3. Moderate RIGHT hydronephrosis with multifocal cysts similar to previous. 4. Small 7 mm pancreatic cyst appears stable. 5. No other new findings.
--- NOTE | 2024-03-06 09:11 | ED_ITS ---
HPI - Abdominal Pain 2 General: Chief Complaint: Abdominal Pain Stated Complaint: stomach swelling and pain Time Seen by Provider: 03/06/24 08:26 History of Present Illness: 59-year-old female presents to the [facility] ency room she has a known large ovarian mass that was seen in August of this year. She had seen Dr. Rodriguez in [place] and had declined to go forward with an excision. She tells me she has a follow-up later this month she does not have surgery scheduled at this time. She feels like the mass is getting quite a bit bigger. She still is able to have normal bowel and bladder function although she did note significant decrease in bowel caliber. She also has noted significant weight loss. Denies any hematochezia or melena. Associated Symptoms: Denies chills, dysuria and fever(s) Related Data Home Medications Medication Instructions Recorded Confirmed budesonide-formoterol HFA 80 2 puff inhalation BID 03/06/24 03/06/24 mcg-4.5 mcg/actuation aerosol inhaler (Symbicort) tramadol 50 mg tablet 50 mg PO BID 03/06/24 03/06/24 Previous Rx's Medication Instructions Recorded bupropion HCl 200 mg tablet,12 hr 200 mg PO QAM #30 tabs 01/01/24 sustained-release lorazepam 0.5 mg tablet 0.5 mg PO TID PRN anxiety #90 tabs 01/02/24 albuterol sulfate 90 mcg/actuation 2 puff inhalation Q6H PRN 02/07/24 aerosol inhaler shortness of breath or wheezing #8.5 grams Allergies Allergy/AdvReac Type Severity Reaction Status Date / Time amoxicillin [From Amoxil] Allergy Unknown ALGY-Rash Verified 02/07/24 13:50 aspirin Allergy Unknown Verified 02/07/24 13:50 clindamycin AdvReac ADR-Abdominal Verified 02/07/24 13:50 Pain Review of Systems 2 Const: Denies: fever(s) or chills Card: Denies: chest pain Resp: Denies: dyspnea GI: Denies: abdominal pain : Denies: dysuria, urinary frequency or urinary urgency Musc: Denies: neck pain or back pain Skin/Breast: Denies: rash PFSH ED 2 PFSH: Medical History (Updated 03/06/24 @ 13:08 by Brendon Lentz DO) Asthma Insect bite Nicotine dependence, cigarettes, in remission Post-traumatic stress disorder, chronic Generalized anxiety disorder Psychiatric care Chronic headache History of vaginal delivery Osteoarthritis Anxiety MDD (major depressive disorder) Surgical History History of tubal ligation Family History Other Family history unremarkable Social History Smoking and tobacco/nicotine status: former use of tobacco/nicotine Alcohol intake: never Substance/Drug Use: never Adopted: No Caregiver/support person: No Lives independently: Yes Household members: none Housing: Apartment Marital status: Highest education level completed: High School Graduate service: No Current occupational status: unemployed Current occupational exposures/hazards: No Pets and animals: No Leisure activites: exercise, art and music Sexually active: No Do you think of yourself as: Straight/Heterosexual Current gender identity: Female Special ramin needs: No Agree to transfusion: Yes Female Reproductive History: Spontaneous abortions: No Date of menopause: 0 06/26/19 Physical Exam 2 Const: COMMON NORMALS: no acute distress GENERAL APPEARANCE: cooperative and comfortable ORIENTATION/CONSCIOUSNESS: Yes awake, Yes oriented to person, Yes oriented to place and Yes oriented to time HENMT: COMMON NORMALS: normocephalic, atraumatic and hearing grossly normal bilaterally HEAD & SCALP: normocephalic and atraumatic Resp: COMMON NORMALS: normal respiratory effort, No retractions, No use of accessory muscles and clear to auscultation bilaterally AUSCULTATION: clear to auscultation bilaterally Cardio: COMMON NORMALS: regular rate, regular rhythm and No murmurs present (Cardio) RATE: regular rate RHYTHM: regular rhythm GI: COMMON NORMALS: Soft to palpation and No hepatosplenomegaly present A USCULTATION: Yes normoactive bowel sounds PALPATION: Yes Soft to palpation, No Tenderness to palpation present (GI), No Guarding due to palpation present (GI) and Yes No hepatosplenomegaly present Extremity: COMMON NORMALS: normal to inspection, capillary refill normal, no clubbing, cyanosis or edema, no calf tenderness and no pedal edema Neuro: SENSORIUM/ORIENTATION: Yes oriented to person, Yes oriented to place and Yes oriented to time Skin: COMMON NORMALS: no rashes or lesions noted GENERAL SKIN EXAM: no rashes or lesions noted Course 2 Vital Signs: Vital signs: Vital Signs Temperature 98.4 F 03/06/24 08:42 Pulse Rate 80 03/06/24 11:46 Respiratory Rate 18 03/06/24 11:46 Blood Pressure 130/90 03/06/24 11:46 Pulse Oximetry 98 03/06/24 11:46 Oxygen Delivery Me thod Room Air 03/06/24 11:46 MDM - Abdominal Pain Medical Decision Making Patient has exceedingly large ovarian cyst she has been tracking this for a long period of time. She has seen Dr. Rodriguez multiple times I did discuss with him or forwarding me films for him to review that were done today. He is well aware of this issue he has recommended surgery to her multiple times. At this point given labs and her clinical presentation he does not feel that it is emergent. She can follow-up with him on outpatient basis. I discussed with the patient that she should follow-up with Dr. Rodriguez as soon as she is able if she still wishes to pursue removal and he can get something scheduled for her. At this point she is not scheduled for anything. She did express a desire to Dr. Rodriguez to have it done in April but is not actually scheduled. He asked that she contact his office. Medical Records I reviewed the patient's medical records. Lab Data I reviewed the patient's lab results. 03/06/24 08:58 03/06/24 08:58 Labs/Radiology: Radiology Impressions Abdomen/Pelvis CT 03/06/24 08:43 IMPRESSION: 1. Similar-appearing massive multiloculated ovarian lesion suspicious for neoplasm slightly increased in size compared to 09/02/2023 and significantly increased since 2021 described above. Recommend surgical resection 2. Associated displacement with compression of the abdominal organs and GI tract. 3. Moderate RIGHT hydronephrosis with multifocal cysts similar to previous. 4. Small 7 mm pancreatic cyst appears stable. 5. No other new findings. Laboratory Results WBC 5.46 10^3/uL (3.29-11.43) 03/06/24 08:58 RBC 4.50 10^6/uL (3.85-5.65) 03/06/24 08:58 Hgb 13.20 g/dL (11.27-16.99) 03/06/24 08:58 Hct 41.0 % (36-47) 03/06/24 08:58 MCV 91.1 fl (85-98) 03/06/24 08:58 MCH 29.3 pg (27-33) 03/06/24 08:58 MCHC 32.2 g/dL (30-55) 03/06/24 08:58 RDW 12.7 % (12.1-15.1) 03/06/24 08:58 Plt Count 281 10^3/cmm (157-399) 03/06/24 08:58 MPV 8.8 fL (7.4-10.4) 03/06/24 08:58 Neut % (Auto) 63.2 % 03/06/24 08:58 Lymph % (Auto) 25.6 % 03/06/24 08:58 [place] % (Auto) 8.4 % 03/06/24 08:58 Eos % (Auto) 1.5 % 03/06/24 08:58 Baso % (Auto) 0.9 % 03/06/24 08:58 Neut # (Auto) 3.45 10^3/uL (1.8-7.7) 03/06/24 08:58 Lymph # (Auto) 1.4 10^3/uL (0.8-4.8) 03/06/24 08:58 [place] # (Auto) 0.5 10^3/uL (0.2-0.9) 03/06/24 08:58 Eos # (Auto) 0.1 10^3/uL (0.0-0.8) 03/06/24 08:58 Baso # (Auto) 0.1 10^3/uL (0.0-0.1) 03/06/24 08:58 Nucleated RBC % (auto) 0 % 03/06/24 08:58 Nucleated RBCs # 0.0 /100WBC 03/06/24 08:58 Sodium 142 mmol/L (136-145) 03/06/24 08:58 Potassium 3.8 mmol/L (3.5-5.1) 03/06/24 08:58 Chloride 105 mmol/L (98-107) 03/06/24 08:58 Carbon Dioxide 27 mmol/L (22-29) 03/06/24 08:58 Anion Gap 13.8 (5-19) 03/06/24 08:58 BUN 11 mg/dL (6-20) 03/06/24 08:58 Creatinine 0.6 mg/dL (0.5-0.9) 03/06/24 08:58 GFR Calculation 103.0 mL/min (90-130) 03/06/24 08:58 Glucose 91 mg/dL (65-115) 03/06/24 08:58 Calculated Osmolality 293 mOsm/kg (285-295) 03/06/24 08:58 Lactic Acid 1.2 mmol/L (0.5-2.2) 03/06/24 08:58 Calcium 9.5 mg/dL (8.5-10.5) 03/06/24 08:58 Total Bilirubin 0.5 mg/dL (0.15-1.2) 03/06/24 08:58 AST 15 U/L (0-32) 03/06/24 08:58 ALT 11 U/L (0-33) 03/06/24 08:58 Alkaline Phosphatase 56 U/L (35-105) 03/06/24 08:58 Creatine Kinase 48 U/L (26-192) 03/06/24 08:58 Total Protein 7.3 g/dL (6.6-8.7) 03/06/24 08:58 Albumin 4.5 g/dL (3.5-5.2) 03/06/24 08:58 Globulin 2.8 g/dL (1.3-4.6) 03/06/24 08:58 Lipase 46 U/L (13-60) 03/06/24 08:58 Urine Color Yellow (Yellow) 03/06/24 09:18 Urine Appearance Clear (CLEAR) 03/06/24 09:18 Urine pH 8.5 (5-7) A 03/06/24 09:18 Ur Specific [place] 1.014 (1.005-1.030) 03/06/24 09:18 Urine Protein 2+ (Negative) A 03/06/24 09:18 Urine Glucose (UA) Negative (Normal) 03/06/24 09:18 Urine Ketones Negative (Negative) 03/06/24 09:18 Urine Blood Negative (Negative) 03/06/24 09:18 Urine Nitrate Negative (Negative) 03/06/24 09:18 Urine Bilirubin Negative (Negative) 03/06/24 09:18 Urine Urobilinogen 1.0 mg/dL (Negative) 03/06/24 09:18 Ur Leukocyte Esterase Negative (Negative) 03/06/24 09:18 Urine RBC 0-2 /hpf (0-2) 03/06/24 09:18 Urine WBC 0-5 /hpf (0-5) 03/06/24 09:18 Ur Squamous Epith Cells 0-5 /hpf (0-5) 03/06/24 09:18 Amorphous Sediment Not Reportable 03/06/24 09:18 Urine Bacteria None seen /hpf (NONE) 03/06/24 09:18 Hyaline Casts 7.42 /lpf 03/06/24 09:18 All radiology interpretation(s) finalized by discharge Discharge Plan Discharge Patient Disposition: Home Clinical Impression: Pelvic mass Condition: Stable Prescriptions: No Action bupropion HCl 200 mg tablet sustained-release 12 hr 200 mg PO QAM Qty: 30 2RF lorazepam 0.5 mg tablet 0.5 mg PO TID PRN (Reason: anxiety) Qty: 90 2RF albuterol sulfate 90 mcg/actuation HFA aerosol inhaler 2 puff inhalation Q6H PRN (Reason: shortness of breath or wheezing) Qty: 8.5 2RF Symbicort 80-4.5 mcg/actuation HFA aerosol inhaler 2 puff INHALATION BID tramadol 50 mg tablet 50 mg PO BID Discharge Orders: Discharge ED (Routine); Ordered 03/06/24 Ordered By: Brendon Lentz Referrals: Kelsea Matos NP [Primary Care Provider] - Discharge Diet: Usual diet Discharge Activity: Resume usual activity Patient Instructions: Opioid Safety, Pain Management Activity Restrictions/Additional Instructions: Thank you for choosing [facility] for your healthcare needs today. It is very important that you follow up as instructed or that you return to the Emergency Department should you have concerns or if your condition changes or worsens in any way. We discussed your case with Dr. Rodriguez at [facility]. He recommends that you contact his office for follow-up. At this point he does not feel it is emergent to remove this but it should be done sometime in the relatively near future. Contact his office after you leave the emergency room. Coding Level of Care Code ED Commissions Specialist for Pritesh Gill
[2024-03-06 09:25] LABS: Basophils # 0.1 10^3/uL (0.0-0.1); Basophils % 0.9 %; Eosinophils # 0.1 10^3/uL (0.0-0.8); Eosinophils % 1.5 %; Lymphocytes # 1.4 10^3/uL (0.8-4.8); Lymphocytes % 25.6 %; Mean Corpuscular HGB Conc 32.2 g/dL (30-55); Mean Corpuscular Hemoglobin 29.3 pg (27-33); Mean Corpuscular Volume 91.1 fl (85-98); Mean Platelet Volume 8.8 fL (7.4-10.4); Monocytes # 0.5 10^3/uL (0.2-0.9); Monocytes % 8.4 %; Neutrophils # 3.45 10^3/uL (1.8-7.7); Neutrophils % 63.2 %; Nucleated Red Blood Cells % 0 %; Platelet Count 281 10^3/cmm (157-399); Red Cell Distribution Width 12.7 % (12.1-15.1); White Blood Count 5.46 10^3/uL (3.29-11.43)
[2024-03-06 09:41] LABS: Alanine Aminotransferase 11 U/L (0-33); Albumin Level 4.5 g/dL (3.5-5.2); Alkaline Phosphatase 56 U/L (35-105); Anion Gap 13.8 (5-19); Aspartate Amino Transferase 15 U/L (0-32); Blood Urea Nitrogen 11 mg/dL (6-20); Calcium 9.5 mg/dL (8.5-10.5); Carbon Dioxide 27 mmol/L (22-29); Chloride 105 mmol/L (98-107); Creatine Phosphokinase 48 U/L (26-192); Globulin 2.8 g/dL (1.3-4.6); Glucose 91 mg/dL (65-115); Lipase 46 U/L (13-60); Osmolality Calculated 293 mOsm/kg (285-295); Potassium 3.8 mmol/L (3.5-5.1); Sodium 142 mmol/L (136-145); Total Bilirubin 0.5 mg/dL (0.15-1.2); Total Protein 7.3 g/dL (6.6-8.7)
[2024-03-06 09:42] LABS: Lactic Sepsis W/Reflex 1.2 mmol/L (0.5-2.2)
[2024-03-06 09:46] LABS: Bacteria Urine None Seen /hpf; Hyaline Casts Urine 7.42 /lpf; RBC Urine 0-2 /hpf (0-2); Squamous Epithelial Cell Urine 0-5 /hpf (0-5); WBC Urine 0-5 /hpf (0-5)
[2024-03-06 09:49] LABS: Add Urine Microscopic? YES; Bilirubin Urine Negative (Negative); Blood Urine Negative (Negative); Glucose Urine UA Negative (Normal); Ketones Urine Negative (Negative); Leukocyte Esterase Urine Negative (Negative); Nitrate Urine Negative (Negative); Protein Urine 2+ (Negative); Specific Gravity, Urine 1.014 (1.005-1.030); Urine Color Yellow (Yellow); pH Urine 8.5 (5-7)
[2024-03-06 09:50] LABS: Urine Appearance Clear (CLEAR)
[2024-03-06 09:52] LABS: Add Urine Culture? No
[2024-03-06] MEDS: ondansetron 2 mg/ML SDV 2 mL 4 MG IVP (11:22)
[2024-03-06 11:23] VITALS: RESP 18; O2SAT 99
[2024-03-06] MEDS: morphine 4 mg/mL SDV 1 mL IVP (11:23)
[2024-03-06 11:46] VITALS: BP 130/90; PULSE 80; RESP 18; O2SAT 98
[2024-03-06] MEDS: iohexol 350 mg/mL 500 mL Btl (per mL) IV (11:57)
[2024-03-06 13:14] VITALS: BP 133/105; PULSE 82; O2SAT 97
== END 2024-03-06 13:15 | disposition home or self-care (01) ==
PROVIDERS: Emergency Provider Family Medicine
DX: R19.00 Intra-abdominal and pelvic swelling, mass and lump, unspecified site (principal); Z87.891 Personal history of nicotine dependence
CPT/HCPCS: 36415; 74177; 80053; 81001; 82550; 83605; 83690; 85025; 87040; 96374; 96375; 99285; J2270; J2405

== ENCOUNTER 2024-03-06 13:27 | Emergency (ER) | payer MEDICAID, SELFPAY ==
[2024-01-05 11:20] VITALS: BP 117/83; BMI 22.0
[2024-03-06] VITALS (20 sets, daily range): BP systolic 85–137; BP diastolic 64–88; PULSE 73–103; RESP 10–24; TEMP 36.5; O2SAT 93–100; BMI 21.1
--- NOTE | 2024-03-06 13:49 | ECG_ITS ---
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
[2024-03-06] MEDS: sodium chloride 0.9% 1,000 ML 999 ML IV (13:58)
--- NOTE | 2024-03-06 14:02 | W.ED.SYNCOPE ---
HPI - Syncope General: Chief Complaint: Syncope Stated Complaint: weak/feels faint Time Seen by Provider: 03/06/24 13:31 History of Present Illness: 59-year-old female returns to the emergency room she was literally just discharged as she was leaving the waiting room she said she got lightheaded and dizzy felt like she is in a pass out and she returned. She was seen for a large mass in her abdomen so present for extended period of time she did not previously CT showed enlargement we discussed with Dr. Rodriguez and he recommended follow-up on outpatient basis to make it scheduled to be removed. She has refused up till now to have it removed despite being offered this several times she denies any chest pain or shortness of breath associated with the event that she is leaving Associated symptoms: Deny abdominal pain, chest pain or fever(s) Related Data Home Medications Medication Instructions Recorded Confirmed budesonide-formoterol HFA 80 2 puff inhalation BID 03/06/24 03/06/24 mcg-4.5 mcg/actuation aerosol inhaler (Symbicort) tramadol 50 mg tablet 50 mg PO BID 03/06/24 03/06/24 Previous Rx's Medication Instructions Recorded bupropion HCl 200 mg tablet,12 hr 200 mg PO QAM #30 tabs 01/01/24 sustained-release lorazepam 0.5 mg tablet 0.5 mg PO TID PRN anxiety #90 tabs 01/02/24 albuterol sulfate 90 mcg/actuation 2 puff inhalation Q6H PRN 02/07/24 aerosol inhaler shortness of breath or wheezing #8.5 grams Allergies Allergy/AdvReac Type Severity Reaction Status Date / Time amoxicillin [From Amoxil] Allergy Unknown ALGY-Rash Verified 02/07/24 13:50 aspirin Allergy Unknown Verified 02/07/24 13:50 clindamycin AdvReac ADR-Abdominal Verified 02/07/24 13:50 Pain Review of Systems Const: Denies: fever(s) or chills Card: Denies: chest pain Resp: Denies: dyspnea GI: Denies: abdominal pain : Denies: dysuria, urinary frequency or urinary urgency Musc: Denies: neck pain or back pain Skin/Breast: Denies: rash PFSH ED PFSH: Medical History Asthma Insect bite Nicotine dependence, cigarettes, in remission Post-traumatic stress disorder, chronic Generalized anxiety disorder Psychiatric care Chronic headache History of vaginal delivery Osteoarthritis Anxiety MDD (major depressive disorder) Surgical History History of tubal ligation Family History Other Family history unremarkable Social History Smoking and tobacco/nicotine status: former use of tobacco/nicotine Alcohol intake: never Substance/Drug Use: never Adopted: No Caregiver/support person: No Lives independently: Yes Household members: none Housing: Apartment Marital status: Highest education level completed: High School Graduate service: No Current occupational status: unemployed Current occupational exposures/hazards: No Pets and animals: No Leisure activites: exercise, art and music Sexually active: No Do you think of yourself as: Straight/Heterosexual Current gender identity: Female Special ramin needs: No Agree to transfusion: Yes Female Reproductive History: Spontaneous abortions: No Date of menopause: 06/26/19 Physical Exam Const: GENERAL APPEARANCE: cooperative ORIENTATION/CONSCIOUSNESS: Yes awake, Yes oriented to person, Yes oriented to place and Yes oriented to time HENMT: COMMON NORMALS: normocephalic, atraumatic and hearing grossly normal bilaterally HEAD & SCALP: normocephalic and atraumatic Resp: COMMON NORMALS: normal respiratory effort, No retractions, No use of accessory muscles and clear to auscultation bilaterally AUSCULTATION: clear to auscultation bilaterally Cardio: COMMON NORMALS: regular rate, regular rhythm and No murmurs present (Cardio) RATE: regular rate RHYTHM: regular rhythm GI: COMMON NORMALS: Soft to palpation and No hepatosplenomegaly present AUSCULTATION: Yes normoactive bowel sounds PALPATION: Yes Soft to palpation, No Tenderness to palpation present (GI), No Guarding due to palpation present (GI) and Yes No hepatosplenomegaly present Extremity: COMMON NORMALS: normal to inspection, capillary refill normal, no clubbing, cyanosis or edema, no calf tenderness and no pedal edema Neuro: SENSORIUM/ORIENTATION: Yes oriented to person, Yes oriented to place and Yes oriented to time Skin: COMMON NORMALS: no rashes or lesions noted GENERAL SKIN EXAM: no rashes or lesions noted Course Vital Signs: Vital signs: Vital Signs Temperature 97.7 F 03/06/24 13:36 Pulse Rate 74 03/06/24 15:51 Respiratory Rate 10 L 03/06/24 15:40 Blood Pressure 129/84 03/06/24 15:51 Pulse Oximetry 100 03/06/24 15:51 Oxygen Delivery Me thod Room Air 03/06/24 14:07 MDM - Syncope Medical Decision Making Patient feeling better after IV fluids orthostatic vitals are unchanged she ambulated further symptoms. Suspect some of this may be her standing for period time additionally mass is large enough it is impinging to her inferior vena cava although she does not have any swelling in the lower extremities. Encouraged her to follow-up as week with bided earlier with Dr. Rodriguez as soon as she is able to arrange for this to be excised. No radiology studies performed this visit Discharge Plan Discharge Patient Disposition: Home Clinical Impression: Postural hypotension, Pelvic mass Condition: Stable Prescriptions: No Action bupropion HCl 200 mg tablet sustained-release 12 hr 200 mg PO QAM Qty: 30 2RF lorazepam 0.5 mg tablet 0.5 mg PO TID PRN (Reason: anxiety) Qty: 90 2RF albuterol sulfate 90 mcg/actuation HFA aerosol inhaler 2 puff inhalation Q6H PRN (Reason: shortness of breath or wheezing) Qty: 8.5 2RF Symbicort 80-4.5 mcg/actuation HFA aerosol inhaler 2 puff INHALATION BID tramadol 50 mg tablet 50 mg PO BID Discharge Orders: Discharge ED (Routine); Ordered 03/06/24 Ordered By: Brendon Lentz Referrals: Kelsea Matos NP [Primary Care Provider] - Discharge Diet: Usual diet Discharge Activity: Increase activity as tolerated Patient Instructions: Opioid Safety, Pain Management Activity Restrictions/Additional Instructions: Thank you for choosing [facility] for your healthcare needs today. It is very important that you follow up as instructed or that you return to the Emergency Department should you have concerns or if your condition changes or worsens in any way. You were seen in the emergency room after feeling like you are going to pass out. This is likely combination of standing for a period of time and the effect with a large mass in your abdomen has. Very important for you to follow-up with Dr. Rodriguez as soon as you are able to have this mass scheduled to be removed. We have talked to Dr. Rodriguez today he recommends follow-up through his office. Coding Level of Care Code ED Slide Machine Tender for Pritesh Gill
== END 2024-03-06 15:52 | disposition home or self-care (01) ==
PROVIDERS: Emergency Provider Family Medicine
DX: I95.1 Orthostatic hypotension (principal); R19.00 Intra-abdominal and pelvic swelling, mass and lump, unspecified site; Z87.891 Personal history of nicotine dependence
CPT/HCPCS: 93005; 99284; J7030

== ENCOUNTER 2024-04-15 13:47 | Emergency (ER) | payer MEDICAID, SELFPAY ==
[2024-01-05 11:20] VITALS: BP 117/83; BMI 22.0
[2024-04-15] VITALS (10 sets, daily range): BP systolic 99–125; BP diastolic 67–90; PULSE 73–98; RESP 14–19; TEMP 36.6; O2SAT 97–99
[2024-04-15 14:17] LABS: Bilirubin Urine Negative (Negative); Blood Urine Negative (Negative); Glucose Urine UA Negative (Normal); Ketones Urine Negative (Negative); Leukocyte Esterase Urine Negative (Negative); Nitrate Urine Negative (Negative); Protein Urine Negative (Negative); Specific Gravity, Urine 1.016 (1.005-1.030); Urine Appearance Clear (CLEAR); Urine Color Yellow (Yellow); Urobilinogen Urine 0.2 mg/dL (Negative)
[2024-04-15 14:22] LABS: Add Urine Microscopic? YES; Bacteria Urine None Seen /hpf; Hyaline Casts Urine 0.81 /lpf; RBC Urine 0-2 /hpf (0-2); Squamous Epithelial Cell Urine 0-5 /hpf (0-5); WBC Urine 0-5 /hpf (0-5)
[2024-04-15 15:19] LABS: Basophils # 0.1 10^3/uL (0.0-0.1); Basophils % 0.9 %; Eosinophils # 0.1 10^3/uL (0.0-0.8); Eosinophils % 1.4 %; Hematocrit 34.9 % (36-47); Lymphocytes # 1.4 10^3/uL (0.8-4.8); Lymphocytes % 17.1 %; Mean Corpuscular HGB Conc 31.2 g/dL (30-55); Mean Corpuscular Hemoglobin 29.5 pg (27-33); Mean Corpuscular Volume 94.3 fl (85-98); Mean Platelet Volume 8.3 fL (7.4-10.4); Monocytes # 0.6 10^3/uL (0.2-0.9); Monocytes % 6.8 %; Neutrophils # 6.14 10^3/uL (1.8-7.7); Neutrophils % 72.9 %; Nucleated Red Blood Cells % 0 %; Platelet Count 405 10^3/cmm (157-399); Red Cell Distribution Width 12.6 % (12.1-15.1); White Blood Count 8.43 10^3/uL (3.29-11.43)
--- NOTE | 2024-04-15 15:38 | CTR_ITS ---
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 Radiation optimization: All CT scans at this facility use at least one of these dose optimization techniques: automated exposure control; mA and/or kV adjustment per patient size (includes targeted exams where dose is matched to clinical indication); or iterative reconstruction. COMPARISON: CT abdomen pelvis w con* [id number] 03/06/2024 11:53 AM RADIATION DOSE METRICS: Total DLP (mGy-cm): 305.9 FINDINGS: Liver: Normal. No mass. Gallbladder and biliary ducts: Normal. No calcified stones. No ductal dilation. Pancreas: Normal. No ductal dilation. Spleen: Normal. No splenomegaly. Adrenal glands: Normal. No mass. Kidneys and ureters: Right simple appearing renal cysts are present which do not need further follow-up, as well as other subcentimeter hypodensities which are too small to adequately characterize. Stomach and bowel: No bowel obstruction. Appendix: No evidence of appendicitis. Intraperitoneal space: Postsurgical changes along the anterior abdominal midline. Tiny locule of air just anterior to the bladder (series 3, image 65) thought likely to be postsurgical in nature. Vasculature: Unremarkable. No abdominal aortic aneurysm. Lymph nodes: Unremarkable. No enlarged lymph nodes. Urinary bladder: See Intraperitoneal space finding. Reproductive: Unremarkable as visualized. Bones/joints: Unremarkable. No acute fracture. Soft tissues: No large hematoma. CT/CT abdomen pelvis wo con [id number] IMPRESSION: 1. Postsurgical changes along the anterior abdominal midline. Tiny locule of air just anterior to the bladder (series 3, image 65) thought likely to be postsurgical in nature. 2. No large hematoma. 3. No bowel obstruction. COMMENTS: Consistent with the [employer]'s Incidental Findings Committee white paper (J Am Edward Radiol 2018): Any incidental renal lesion less than 1 cm or classified as too small to characterize, or any incidental cystic renal lesion characterized as simple-appearing, is likely benign. No follow-up imaging is recommended for these lesions per consensus recommendations based on imaging criteria.
--- NOTE | 2024-04-15 15:38 | ED_ITS ---
Documented by User: ANGEL Jansen 04/15/24 17:10 HPI - Abdominal Pain 2 General: Chief Complaint: Abdominal Pain Stated Complaint: abd & back pain Time Seen by Provider: 04/15/24 14:46 Source: patient Mode of arrival: ambulatory Limitations: no limitations History of Present Illness: Patient is a 59-year-old female presents to ED today with a complaint of abdominal and back pain. She states she is 10 days postop from a right ovarian mass resection from Dr. Rodriguez in [place]. Mass at her last emergency visit here measured [id number]. Patient states I have been overdoing it stating she has been driving, lifting, among other activities she is supposed to be restricted from. She has not noticed any wound dehiscence or significant drainage. She does have bruising to her abdomen. Upon arrival, she appears in no acute distress and vital signs are stable. Follow-up appointment with surgeon as scheduled for 05/02. No fevers. No vomiting or changes to bowel habits. No urinary complaints. MD elicited complaint: abdominal pain Onset (ago): day(s) Pain Consistency: constant Location: Diffuse Severity: moderate Radiation: none Migration to: no migration Exacerbating factors: nothing Relieving factors: nothing Context: recent surgery/procedure Associated Symptoms: Reports no associated symptoms; Denies chills, diarrhea, dysuria, fever(s), hematochezia, hematemesis, melena, nausea and vomiting Related Data Home Medications Medication Instructions Recorded Confirmed budesonide-formoterol HFA 80 2 puff inhalation BID 03/06/24 03/06/24 mcg-4.5 mcg/actuation aerosol inhaler (Symbicort) tramadol 50 mg tablet 50 mg PO BID 03/06/24 03/06/24 Previous Rx's Medication Instructions Recorded bupropion HCl 200 mg tablet,12 hr 200 mg PO QAM #30 tabs 01/01/24 sustained-release lorazepam 0.5 mg tablet 0.5 mg PO TID PRN anxiety #90 tabs 01/02/24 albuterol sulfate 90 mcg/actuation 2 puff inhalation Q6H PRN 02/07/24 aerosol inhaler shortness of breath or wheezing #8.5 grams Allergies Allergy/AdvReac Type Severity Reaction Status Date / Time amoxicillin [From Amoxil] Allergy Unknown ALGY-Rash Verified 04/15/24 13:59 aspirin Allergy Unknown Verified 04/15/24 13:59 clindamycin AdvReac ADR-Abdominal Verified 04/15/24 13:59 Pain Review of Systems 2 Const: Denies: fever(s), chills, body aches, fatigue or malaise Card: Denies: chest pain Resp: Denies: dyspnea GI: Reports: abdominal pain; Denies: nausea, vomiting, hematemesis, diarrhea, hematochezia or melena : Denies: flank pain, difficulty voiding, dysuria, urinary frequency, urinary urgency or urinary hesitancy Musc: Reports: back pain; Denies: neck pain, extremity pain, extremity swelling, joint pain or joint swelling Skin/Breast: Denies: rash Neuro: Denies: headache(s), numbness in extremities, weakness in extremities, sensory changes or dizziness PFSH ED 2 PFSH: Medical History Asthma Insect bite Nicotine dependence, cigarettes, in remission Post-traumatic stress disorder, chronic Generalized anxiety disorder Psychiatric care Chronic headache History of vaginal delivery Osteoarthritis Anxiety MDD (major depressive disorder) Surgical History History of tubal ligation Family History Other Family history unremarkable Social History Smoking and tobacco/nicotine status: former use of tobacco/nicotine Alcohol intake: never Substance/Drug Use: never Adopted: No Caregiver/support person: No Lives independently: Yes Household members: none Housing: Apartment Marital status: Highest education level completed: High School Graduate service: No Current occupational status: unemployed Current occupational exposures/hazards: No Pets and animals: No Leisure activites: exercise, art and music Sexually active: No Do you think of yourself as: Straight/Heterosexual Current gender identity: Female Special ramin needs: No Agree to transfusion: Yes Female Reproductive History: Spontaneous abortions: No Date of menopause: 0 06/26/19 Physical Exam 2 Const: COMMON NORMALS: no acute distress, average body habitus, patient oriented x3, no limitations, healthy appearing, alert and well nourished Eye: COMMON NORMALS: no scleral icterus Resp: COMMON NORMALS: normal respiratory effort and clear to auscultation bilaterally AUSCULTATION: clear to auscultation bilaterally Cardio: COMMON NORMALS: regular rate and regular rhythm RATE: regular rate RHYTHM: regular rhythm GI: COMMON NORMALS: Soft to palpation AUSCULTATION: Yes normoactive bowel sounds PALPATION: Yes Soft to palpation, Yes Tenderness to palpation present (GI), No Guarding due to palpation present (GI) and No Rigid due to palpation OTHER: vertical midline abdominal scar from recent surgery appears well healing without drainage or wound dehiscence; mild abdominal wall ecchymosis-old/healing and normal post operative : COMMON NORMALS: Yes no CVA tenderness BLADDER/KIDNEY EXAM: Yes no CVA tenderness Back/Pelvis: COMMON NORMALS: no CVA tenderness, thoracic and lumbar spine normal to inspection and no thoracic nor lumbar tenderness THORACIC SPINE/UPPER BACK: No thoracic spinal tenderness and No paraspinal muscle tenderness LUMBAR SPINE/LOWER BACK: Yes paraspinal muscle tenderness P ERICH: Yes buttocks normal and No sciatic notch tenderness SACROILIAC JOINTS: Yes SI joints normal SACRUM: no tenderness COCCYX: no tenderness Extremity: COMMON NORMALS: normal to inspection, full ROM, capillary refill normal, no joint enlargement, no clubbing, cyanosis or edema, no calf tenderness and no pedal edema GENERAL: Yes normal exam except as noted Neuro: ANGELO COMA SCALE: document GCS findings Angelo coma scale eye opening: Spontaneous Angelo coma scale verbal response: Orientated Angelo coma scale motor response: Obey commands [place] coma scale total score: 15 COMMON NORMALS: patient oriented x3, moves all extremities, no focal motor deficits, no sensory deficits noted and gait normal SENSORIUM/ORIENTATION: Yes alert Course 2 Vital Signs: Vital signs: Vital Signs Temperature 97.9 F 04/15/24 13:51 Pulse Rate 98 04/15/24 17:43 Respiratory Rate 18 04/15/24 17:43 Blood Pressure 99/67 04/15/24 17:43 Pulse Oximetry 99 04/15/24 17:43 Oxygen Delivery Me thod Room Air 04/15/24 13:51 MDM - Abdominal Pain Lab Data 04/15/24 15:04 04/15/24 15:04 Labs/Radiology: Radiology Impressions Abdomen/Pelvis CT 04/15/24 15:38 IMPRESSION: 1. Postsurgical changes along the anterior abdominal midline. Tiny locule of air just anterior to the bladder (series 3, image 65) thought likely to be postsurgical in nature. 2. No large hematoma. 3. No bowel obstruction. COMMENTS: Consistent with the [employer] [place] [employer]'s Incidental Findings Committee white paper (J Am Edward Radiol 2018): Any incidental renal lesion less than 1 cm or classified as too small to characterize, or any incidental cystic renal lesion characterized as simple-appearing, is likely benign. No follow-up imaging is recommended for these lesions per consensus recommendations based on imaging criteria. Laboratory Results WBC 8.43 10^3/uL (3.29-11.43) 04/15/24 15:04 RBC 3.70 10^6/uL (3.85-5.65) L 04/15/24 15:04 Hgb 10.90 g/dL (11.27-16.99) L 04/15/24 15:04 Hct 34.9 % (36-47) L 04/15/24 15:04 MCV 94.3 fl (85-98) 04/15/24 15:04 MCH 29.5 pg (27-33) 04/15/24 15:04 MCHC 31.2 g/dL (30-55) 04/15/24 15:04 RDW 12.6 % (12.1-15.1) 04/15/24 15:04 Plt Count 405 10^3/cmm (157-399) H 04/15/24 15:04 MPV 8.3 fL (7.4-10.4) 04/15/24 15:04 Neut % (Auto) 72.9 % 04/15/24 15:04 Lymph % (Auto) 17.1 % 04/15/24 15:04 [place] % (Auto) 6.8 % 04/15/24 15:04 Eos % (Auto) 1.4 % 04/15/24 15:04 Baso % (Auto) 0.9 % 04/15/24 15:04 Neut # (Auto) 6.14 10^3/uL (1.8-7.7) 04/15/24 15:04 Lymph # (Auto) 1.4 10^3/uL (0.8-4.8) 04/15/24 15:04 [place] # (Auto) 0.6 10^3/uL (0.2-0.9) 04/15/24 15:04 Eos # (Auto) 0.1 10^3/uL (0.0-0.8) 04/15/24 15:04 Baso # (Auto) 0.1 10^3/uL (0.0-0.1) 04/15/24 15:04 Nucleated RBC % (auto) 0 % 04/15/24 15:04 Nucleated RBCs # 0.0 /100WBC 04/15/24 15:04 Sodium 134 mmol/L (136-145) L 04/15/24 15:04 Potassium 3.5 mmol/L (3.5-5.1) 04/15/24 15:04 Chloride 97 mmol/L (98-107) L 04/15/24 15:04 Carbon Dioxide 29 mmol/L (22-29) 04/15/24 15:04 Anion Gap 11.5 (5-19) 04/15/24 15:04 BUN 12 mg/dL (6-20) 04/15/24 15:04 Creatinine 0.4 mg/dL (0.5-0.9) L 04/15/24 15:04 GFR Calculation 164.5 mL/min (90-130) H 04/15/24 15:04 Glucose 106 mg/dL (65-115) 04/15/24 15:04 Calculated Osmolality 278 mOsm/kg (285-295) L 04/15/24 15:04 Calcium 8.7 mg/dL (8.5-10.5) 04/15/24 15:04 Total Bilirubin 0.2 mg/dL (0.15-1.2) 04/15/24 15:04 AST 20 U/L (0-32) 04/15/24 15:04 ALT 41 U/L (0-33) H 04/15/24 15:04 Alkaline Phosphatase 84 U/L (35-105) 04/15/24 15:04 Total Protein 6.5 g/dL (6.6-8.7) L 04/15/24 15:04 Albumin 3.9 g/dL (3.5-5.2) 04/15/24 15:04 Globulin 2.6 g/dL (1.3-4.6) 04/15/24 15:04 Lipase 50 U/L (13-60) 04/15/24 15:04 Urine Color Yellow (Yellow) 04/15/24 14:05 Urine Appearance Clear (CLEAR) 04/15/24 14:05 Urine pH 7.0 (5-7) 04/15/24 14:05 Ur Specific [place] 1.016 (1.005-1.030) 04/15/24 14:05 Urine Protein Negative (Negative) 04/15/24 14:05 Urine Glucose (UA) Negative (Normal) 04/15/24 14:05 Urine Ketones Negative (Negative) 04/15/24 14:05 Urine Blood Negative (Negative) 04/15/24 14:05 Urine Nitrate Negative (Negative) 04/15/24 14:05 Urine Bilirubin Negative (Negative) 04/15/24 14:05 Urine Urobilinogen 0.2 mg/dL (Negative) 04/15/24 14:05 Ur Leukocyte Esterase Negative (Negative) 04/15/24 14:05 Urine RBC 0-2 /hpf (0-2) 04/15/24 14:05 Urine WBC 0-5 /hpf (0-5) 04/15/24 14:05 Ur Squamous Epith Cells 0-5 /hpf (0-5) 04/15/24 14:05 Amorphous Sediment Not Reportable 04/15/24 14:05 Urine Bacteria None seen /hpf (NONE) 04/15/24 14:05 Hyaline Casts 0.81 /lpf 04/15/24 14:05 Discharge Plan Discharge Patient Disposition: Home Clinical Impression: Postoperative abdominal pain Condition: Stable Prescriptions: No Action bupropion HCl 200 mg tablet sustained-release 12 hr 200 mg PO QAM Qty: 30 2RF lorazepam 0.5 mg tablet 0.5 mg PO TID PRN (Reason: anxiety) Qty: 90 2RF albuterol sulfate 90 mcg/actuation HFA aerosol inhaler 2 puff inhalation Q6H PRN (Reason: shortness of breath or wheezing) Qty: 8.5 2RF Symbicort 80-4.5 mcg/actuation HFA aerosol inhaler 2 puff INHALATION BID tramadol 50 mg tablet 50 mg PO BID Discharge Orders: Discharge ED (Routine); Ordered 04/15/24 Ordered By: Werner Brown Referrals: Kelsea Matos NP [Primary Care Provider] - Patient Instructions: Abdominal Pain (ED), Opioid Safety, Pain Management Activity Restrictions/Additional Instructions: Call your surgeon in the morning to discuss ED visit. Alternate ice and heat to your abdomen for any musculoskeletal pain. Your labs and imaging today were unremarkable, however please return with any new or worsening of symptoms. Sign Out Sign Out Data: Patient Sign Out occurred on 04/15/24 at 18:23. Patient's care was discussed, and care was transferred from ANGEL Jansen to ANGEL Reagan. Coding Level of Care Code ED Power Lineworker for Chg Fwd Documented by User: ANGEL Reagan 04/15/24 18:32 HPI - Abdominal Pain 2 General: Chief Complaint: Abdominal Pain Stated Complaint: abd & back pain Time Seen by Provider: 04/15/24 14:46 Related Data Home Medications Medication Instructions Recorded Confirmed budesonide-formoterol HFA 80 2 puff inhalation BID 03/06/24 03/06/24 mcg-4.5 mcg/actuation aerosol inhaler (Symbicort) tramadol 50 mg tablet 50 mg PO BID 03/06/24 03/06/24 Previous Rx's Medication Instructions Recorded bupropion HCl 200 mg tablet,12 hr 200 mg PO QAM #30 tabs 01/01/24 sustained-release lorazepam 0.5 mg tablet 0.5 mg PO TID PRN anxiety #90 tabs 01/02/24 albuterol sulfate 90 mcg/actuation 2 puff inhalation Q6H PRN 02/07/24 aerosol inhaler shortness of breath or wheezing #8.5 grams Allergies Allergy/AdvReac Type Severity Reaction Status Date / Time amoxicillin [From Amoxil] Allergy Unknown ALGY-Rash Verified 04/15/24 13:59 aspirin Allergy Unknown Verified 04/15/24 13:59 clindamycin AdvReac ADR-Abdominal Verified 04/15/24 13:59 Pain PFSH ED 2 PFSH: Medical History Asthma Insect bite Nicotine dependence, cigarettes, in remission Post-traumatic stress disorder, chronic Generalized anxiety disorder Psychiatric care Chronic headache History of vaginal delivery Osteoarthritis Anxiety MDD (major depressive disorder) Surgical History History of tubal ligation Family History Other Family history unremarkable Social History Smoking and tobacco/nicotine status: former use of tobacco/nicotine Alcohol intake: never Substance/Drug Use: never Adopted: No Caregiver/support person: No Lives independently: Yes Household members: none Housing: Apartment Marital status: Highest education level completed: High School Graduate service: No Current occupational status: unemployed Current occupational exposures/hazards: No Pets and animals: No Leisure activites: exercise, art and music Sexually active: No Do you think of yourself as: Straight/Heterosexual Current gender identity: Female Special ramin needs: No Agree to transfusion: Yes Physical Exam 2 Neuro: ANGELO COMA SCALE: document GCS findings Angelo coma scale total score: 15 Course 2 Vital Signs: Vital signs: Vital Signs Temperature 97.9 F 04/15/24 13:51 Pulse Rate 98 04/15/24 17:43 Respiratory Rate 18 04/15/24 17:43 Blood Pressure 99/67 04/15/24 17:43 Pulse Oximetry 99 04/15/24 17:43 Oxygen Delivery Me thod Room Air 04/15/24 13:51 MDM - Abdominal Pain Medical Decision Making Care of patient transferred to [facility] by Roberta Brooks at shift change. She is 10 days postop ovarian mass resection, this was performed in [place]. Her complaint was some worsening abdominal pain extending around to the back, she did report to me that she thinks she overdid it in regards to exertional pain. Labs were ordered and essentially unremarkable considering her postoperative nature, likely your hemoglobin is slightly low. A CT ordered to evaluate for any postoperative abscess or other abnormality, this was negative and it appears that her pain is either normal postsurgical versus musculoskeletal pain from her exerting herself recently. Because of this, instructed her to apply heat to the area and take Tylenol and ibuprofen, and also to call her surgeon in the morning to discuss ED visit and see if they have any further recommendations. I spoke with the patient following imaging and labs, she states she does feel better and is ready to go home at this time. Lab Data 04/15/24 15:04 04/15/24 15:04 Labs/Radiology: Radiology Impressions Abdomen/Pelvis CT 04/15/24 15:38 IMPRESSION: 1. Postsurgical changes along the anterior abdominal midline. Tiny locule of air just anterior to the bladder (series 3, image 65) thought likely to be postsurgical in nature. 2. No large hematoma. 3. No bowel obstruction. COMMENTS: Consistent with the [place] [employer]'s Incidental Findings Committee white paper (J Am Edward Radiol 2018): Any incidental renal lesion less than 1 cm or classified as too small to characterize, or any incidental cystic renal lesion characterized as simple-appearing, is likely benign. No follow-up imaging is recommended for these lesions per consensus recommendations based on imaging criteria. Laboratory Results WBC 8.43 10^3/uL (3.29-11.43) 04/15/24 15:04 RBC 3.70 10^6/uL (3.85-5.65) L 04/15/24 15:04 Hgb 10.90 g/dL (11.27-16.99) L 04/15/24 15:04 Hct 34.9 % (36-47) L 04/15/24 15:04 MCV 94.3 fl (85-98) 04/15/24 15:04 MCH 29.5 pg (27-33) 04/15/24 15:04 MCHC 31.2 g/dL (30-55) 04/15/24 15:04 RDW 12.6 % (12.1-15.1) 04/15/24 15:04 Plt Count 405 10^3/cmm (157-399) H 04/15/24 15:04 MPV 8.3 fL (7.4-10.4) 04/15/24 15:04 Neut % (Auto) 72.9 % 04/15/24 15:04 Lymph % (Auto) 17.1 % 04/15/24 15:04 [place] % (Auto) 6.8 % 04/15/24 15:04 Eos % (Auto) 1.4 % 04/15/24 15:04 Baso % (Auto) 0.9 % 04/15/24 15:04 Neut # (Auto) 6.14 10^3/uL (1.8-7.7) 04/15/24 15:04 Lymph # (Auto) 1.4 10^3/uL (0.8-4.8) 04/15/24 15:04 [place] # (Auto) 0.6 10^3/uL (0.2-0.9) 04/15/24 15:04 Eos # (Auto) 0.1 10^3/uL (0.0-0.8) 04/15/24 15:04 Baso # (Auto) 0.1 10^3/uL (0.0-0.1) 04/15/24 15:04 Nucleated RBC % (auto) 0 % 04/15/24 15:04 Nucleated RBCs # 0.0 /100WBC 04/15/24 15:04 Sodium 134 mmol/L (136-145) L 04/15/24 15:04 Potassium 3.5 mmol/L (3.5-5.1) 04/15/24 15:04 Chloride 97 mmol/L (98-107) L 04/15/24 15:04 Carbon Dioxide 29 mmol/L (22-29) 04/15/24 15:04 Anion Gap 11.5 (5-19) 04/15/24 15:04 BUN 12 mg/dL (6-20) 04/15/24 15:04 Creatinine 0.4 mg/dL (0.5-0.9) L 04/15/24 15:04 GFR Calculation 164.5 mL/min (90-130) H 04/15/24 15:04 Glucose 106 mg/dL (65-115) 04/15/24 15:04 Calculated Osmolality 278 mOsm/kg (285-295) L 04/15/24 15:04 Calcium 8.7 mg/dL (8.5-10.5) 04/15/24 15:04 Total Bilirubin 0.2 mg/dL (0.15-1.2) 04/15/24 15:04 AST 20 U/L (0-32) 04/15/24 15:04 ALT 41 U/L (0-33) H 04/15/24 15:04 Alkaline Phosphatase 84 U/L (35-105) 04/15/24 15:04 Total Protein 6.5 g/dL (6.6-8.7) L 04/15/24 15:04 Albumin 3.9 g/dL (3.5-5.2) 04/15/24 15:04 Globulin 2.6 g/dL (1.3-4.6) 04/15/24 15:04 Lipase 50 U/L (13-60) 04/15/24 15:04 Urine Color Yellow (Yellow) 04/15/24 14:05 Urine Appearance Clear (CLEAR) 04/15/24 14:05 Urine pH 7.0 (5-7) 04/15/24 14:05 Ur Specific [place] 1.016 (1.005-1.030) 04/15/24 14:05 Urine Protein Negative (Negative) 04/15/24 14:05 Urine Glucose (UA) Negative (Normal) 04/15/24 14:05 Urine Ketones Negative (Negative) 04/15/24 14:05 Urine Blood Negative (Negative) 04/15/24 14:05 Urine Nitrate Negative (Negative) 04/15/24 14:05 Urine Bilirubin Negative (Negative) 04/15/24 14:05 Urine Urobilinogen 0.2 mg/dL (Negative) 04/15/24 14:05 Ur Leukocyte Esterase Negative (Negative) 04/15/24 14:05 Urine RBC 0-2 /hpf (0-2) 04/15/24 14:05 Urine WBC 0-5 /hpf (0-5) 04/15/24 14:05 Ur Squamous Epith Cells 0-5 /hpf (0-5) 04/15/24 14:05 Amorphous Sediment Not Reportable 04/15/24 14:05 Urine Bacteria None seen /hpf (NONE) 04/15/24 14:05 Hyaline Casts 0.81 /lpf 04/15/24 14:05 All radiology interpretation(s) finalized by discharge Discharge Plan Discharge Patient Disposition: Home Clinical Impression: Postoperative abdominal pain Condition: Stable Prescriptions: No Action bupropion HCl 200 mg tablet sustained-release 12 hr 200 mg PO QAM Qty: 30 2RF lorazepam 0.5 mg tablet 0.5 mg PO TID PRN (Reason: anxiety) Qty: 90 2RF albuterol sulfate 90 mcg/actuation HFA aerosol inhaler 2 puff inhalation Q6H PRN (Reason: shortness of breath or wheezing) Qty: 8.5 2RF Symbicort 80-4.5 mcg/actuation HFA aerosol inhaler 2 puff INHALATION BID tramadol 50 mg tablet 50 mg PO BID Discharge Orders: Discharge ED (Routine); Ordered 04/15/24 Ordered By: Werner Brown Referrals: Kelsea Matos, [employer] [Primary Care Provider] - Patient Instructions: Abdominal Pain (ED), Opioid Safety, Pain Management Activity Restrictions/Additional Instructions: Call your surgeon in the morning to discuss ED visit. Alternate ice and heat to your abdomen for any musculoskeletal pain. Your labs and imaging today were unremarkable, however please return with any new or worsening of symptoms. Sign Out Sign Out Data: Patient Sign Out occurred on 04/15/24 at 18:23. Patient's care was discussed, and care was transferred from ANGEL Jansen to ANGEL Reagan. Coding Level of Care Code ED Power Lineworker for Pritesh Gill
[2024-04-15 15:48] LABS: Alanine Aminotransferase 41 U/L (0-33); Albumin Level 3.9 g/dL (3.5-5.2); Alkaline Phosphatase 84 U/L (35-105); Anion Gap 11.5 (5-19); Aspartate Amino Transferase 20 U/L (0-32); Blood Urea Nitrogen 12 mg/dL (6-20); Calcium 8.7 mg/dL (8.5-10.5); Carbon Dioxide 29 mmol/L (22-29); Chloride 97 mmol/L (98-107); Creatinine Clr Calc Pharmacy 129.2878; Globulin 2.6 g/dL (1.3-4.6); Glomerular Filtration Rate 164.5 mL/min (90-130); Glucose 106 mg/dL (65-115); Lipase 50 U/L (13-60); Osmolality Calculated 278 mOsm/kg (285-295); Potassium 3.5 mmol/L (3.5-5.1); Sodium 134 mmol/L (136-145); Total Bilirubin 0.2 mg/dL (0.15-1.2); Total Protein 6.5 g/dL (6.6-8.7)
[2024-04-15] MEDS: ondansetron 2 mg/ML SDV 2 mL 4 MG IVP (16:26)
[2024-04-15] MEDS: morphine 4 mg/mL SDV 1 mL IVP (16:26)
== END 2024-04-15 19:05 | disposition home or self-care (01) ==
PROVIDERS: Emergency Medicine; Emergency Provider Physician Assistant
DX: G89.18 Other acute postprocedural pain (principal); R10.9 Unspecified abdominal pain; Z98.890 Other specified postprocedural states
CPT/HCPCS: 36415; 74176; 80053; 81001; 83690; 85025; 96374; 96375; 99285; J2270; J2405

== ENCOUNTER 2024-06-03 09:15 | Emergency (ER) | payer MEDICAID, SELFPAY ==
[2024-01-05 11:20] VITALS: BP 117/83; BMI 22.0
[2024-06-03 09:23] VITALS: BP 111/43; PULSE 85; RESP 15; TEMP 36.6; O2SAT 98
--- NOTE | 2024-06-03 10:44 | XR_ITS ---
WS: [id number] Exam: XR knee LT 3V* [id number] Date/Time of Exam: 06/03/2024 10:44 AM Reason For Exam: pain No fracture noted. The joints are preserved. No joint effusion. Normal soft tissues. XR/XR knee LT 3V* [id number] IMPRESSION: 1. Normal LEFT knee.
--- NOTE | 2024-06-03 11:19 | USCV_ITS ---
Jenifer Cesar Age: 59 Gender: F : 1965 Exam Date: 06/03/2024 11:52 Ordering Phys: Carla Tran MD Technologist: R Exam Location: [facility] – [place], [place] Indication: pain HISTORY: Lower extremity pain. PROCEDURES: Venous duplex imaging was performed in only the left lower extremity. The following venous structures were evaluated: common femoral vein, profunda vein, proximal portion of the greater saphenous vein, superficial femoral vein, and the popliteal vein. In addition, the posterior tibial and peroneal trunk were evaluated. FINDINGS: Normal 2-D Doppler and augmentation and compressibility throughout the lower extremity venous structures. Additional imaging through the proximal calf veins also reveals no thrombus. Limited evaluation of the greater saphenous vein is patent with no thrombus. CONCLUSIONS No DVT left lower extremity. Dr. Leydi Bailey DO (Electronically Signed) Final Date: 03 June 2024 12:39 S
--- NOTE | 2024-06-03 11:26 | ED_ITS ---
HPI - Extremity Problem General: Chief complaint: Extremity Problem,Nontraumatic Stated complaint: pain in knee and leg Time Seen by Provider: 06/03/24 10:44 Source: patient Mode of arrival: ambulatory Limitations: no limitations History of Present Illness: 59-year-old female states she had surger y April 04 for an abdominal mass states she is concerned she may have a blood clot in her left leg now states she been having some pain behind her left knee it has been going on for few days had some slight swelling she denies any fevers denies any injuries Associated symptoms: Deny chest pain, fever(s) or rash Related Data Home Medications Medication Instructions Recorded Confirmed budesonide-formoterol HFA 80 2 puff inhalation BID 03/06/24 06/03/24 mcg-4.5 mcg/actuation aerosol inhaler (Symbicort) tramadol 50 mg tablet 50 mg PO QID 03/06/24 06/03/24 acetaminophen 500 mg tablet 500 mg PO QID PRN Pain 06/03/24 06/03/24 Previous Rx's Medication Instructions Recorded albuterol sulfate 90 mcg/actuation 2 puff inhalation Q6H PRN 02/07/24 aerosol inhaler shortness of breath or wheezing #8.5 grams bupropion HCl 200 mg tablet,12 hr 200 mg PO QAM #30 tabs 04/23/24 sustained-release lorazepam 0.5 mg tablet 0.5 mg PO TID PRN anxiety #90 tabs 04/23/24 Allergies Allergy/AdvReac Type Severity Reaction Status Date / Time amoxicillin [From Amoxil] Allergy Unknown ALGY-Rash Verified 04/23/24 13:23 aspirin Allergy Unknown Verified 04/23/24 13:23 clindamycin AdvReac ADR-Abdominal Verified 04/23/24 13:23 Pain Review of Systems Const: Denies: fever(s), chills, body aches or change in appetite ENMT: Denies: throat pain or dental pain Card: Denies: chest pain Resp: Denies: dyspnea GI: Denies: abdominal pain, nausea, vomiting or diarrhea Musc: Reports: extremity pain and extremity swelling; Denies: neck pain or back pain Skin/Breast: Denies: rash Neuro: Denies: headache(s) PFSH ED PFSH: Medical History Asthma Insect bite Nicotine dependence, cigarettes, in remission Post-traumatic stress disorder, chronic Generalized anxiety disorder Psychiatric care Chronic headache History of vaginal delivery Osteoarthritis Anxiety MDD (major depressive disorder) Surgical History History of tubal ligation Family History Other Family history unremarkable Social History Smoking and tobacco/nicotine status: former use of tobacco/nicotine Alcohol intake: never Substance/Drug Use: never Adopted: No Caregiver/support person: No Lives independently: Yes Household members: none Housing: Apartment Marital status: Highest education level completed: High School Graduate service: No Current occupational status: unemployed Current occupational exposures/hazards: No Pets and animals: No Leisure activites: exercise, art and music Sexually active: No Do you think of yourself as: Straight/Heterosexual Current gender identity: Female Special ramin needs: No Agree to transfusion: Yes Female Reproductive History: Spontaneous abortions: No Date of menopause: 06/26/19 Physical Exam Const: COMMON NORMALS: no acute distress, patient oriented x3 and healthy appearing HENMT: COMMON NORMALS: normocephalic and atraumatic HEAD & SCALP: normocephalic and atraumatic Neck/C-Spine: COMMON NORMALS: full ROM and supple Chest: COMMONS NORMALS: normal inspection of the chest Resp: COMMON NORMALS: normal respiratory effort Cardio: COMMON NORMALS: regular rate RATE: regular rate Extremity: COMMON NORMALS: full ROM NARRATIVE EXTREMITY EXAM: No obvious swelling to left leg no warmth to touch distal pulses intact Neuro: COMMON NORMALS: patient oriented x3, moves all extremities and no focal motor deficits Psych: COMMON NORMALS: mental status grossly normal, Normal thought process present and cooperative THOUGHT PROCESS: Normal thought process present Skin: COMMON NORMALS: no rashes or lesions noted and no wounds GENERAL SKIN EXAM: no rashes or lesions noted Course Vital Signs: Vital signs: Vital Signs Temperature 97.8 F 06/03/24 09:23 Pulse Rate 85 06/03/24 09:23 Respiratory Rate 15 06/03/24 09:23 Blood Pressure 111/43 06/03/24 09:23 Pulse Oximetry 98 06/03/24 09:23 Oxygen Delivery Me thod Room Air 06/03/24 09:23 MDM - Extremity (Nontraumatic) Medical Decision Making Patient presents with left leg pain ultrasound here is negative her exam is benign she has no signs of cellulitis no signs septic joint she is well- appearing here she stable for discharge follow-up with PCP return if worsening. Medical Records I reviewed the patient's medical records. Lab Data Radiology Impressions Knee X-Ray 06/03/24 10:44 IMPRESSION: 1. Normal LEFT knee. All radiology interpretation(s) finalized by discharge Discharge Plan Discharge Patient Disposition: Home Clinical Impression: Leg pain, left Condition: Stable Prescriptions: No Action albuterol sulfate 90 mcg/actuation HFA aerosol inhaler 2 puff inhalation Q6H PRN (Reason: shortness of breath or wheezing) Qty: 8.5 2RF bupropion HCl 200 mg tablet sustained-release 12 hr 200 mg PO QAM Qty: 30 2RF lorazepam 0.5 mg tablet 0.5 mg PO TID PRN (Reason: anxiety) Qty: 90 2RF budesonide-formoterol [Symbicort] 80-4.5 mcg/actuation HFA aerosol inhaler 2 puff INHALATION BID tramadol 50 mg tablet 50 mg PO QID acetaminophen [Tylenol Ex Str Rapid Release] 500 mg Tablet 500 mg PO QID PRN (Reason: Pain) Discharge Orders: Discharge ED (Routine); Ordered 06/03/24 Ordered By: Carla Tran Referrals: Kelsea Matos, [employer]OM[employer]ST OWNER [Primary Care Provider] - Discharge Diet: Advance as tolerated Discharge Activity: Resume usual activity Patient Instructions: Leg Pain (ED) Coding Level of Care Code ED Assistant Director Of Nursing for Pritesh Gill
[2024-06-03 12:15] VITALS: RESP 18; O2SAT 96
[2024-06-03] MEDS: morphine 4 mg/mL SDV 1 mL IM (12:15)
[2024-06-03 12:20] VITALS: BP 126/69; PULSE 69; RESP 18; O2SAT 97
== END 2024-06-03 12:22 | disposition home or self-care (01) ==
PROVIDERS: Emergency Provider Emergency Medicine
DX: M79.605 Pain in left leg (principal)
CPT/HCPCS: 73562; 81000; 87086; 93971; 96372; 99284; J2270

== ENCOUNTER 2024-07-11 12:40 | Emergency (ER) | payer MEDICAID, SELFPAY ==
[2024-01-05 11:20] VITALS: BP 117/83; BMI 22.0
[2024-07-11 12:44] VITALS: BP 136/79; PULSE 91; RESP 16; TEMP 36.8; O2SAT 97
--- NOTE | 2024-07-11 13:17 | ED_ITS ---
HPI - Back Pain/Injury General: Chief Complaint: Extremity Problem,Nontraumatic Stated Complaint: left leg hip pain Time Seen by Provider: 07/11/24 12:51 Source: patient Mode of arrival: ambulatory Limitations: no limitations History of Present Illness: Patient is a 59-year-old female presents to the ED today with a complaint of left lower back pain with radiation into her left lower extremity. Patient states symptoms started approximately 2 days ago. She states she was lifting something heavy, approximately 50 pounds, when she felt something pull in her lower back. She states symptoms started slightly after this. Pain radiates down into the left buttock and down the posterior aspect of her left leg. She is ambulatory here without difficulty or assistance. She denies numbness, tingling, loss of sensation to the leg. She has not noticed any leg weakness. She is not having any saddle anesthesia or bowel or bladder dysfunction. She arrives in no acute distress with normal vital signs. MD elicited complaint: back pain Onset (ago): day(s) Timing: constant Severity: moderate Similar Symptoms Previously: Yes Location: left lower back Radiation: left leg below the knee Exacerbating factors: none Relieving factors: none Context: while lifting Associated symptoms: Reports no associated symptoms; Deny abdominal pain, difficulty walking, dysuria, fever(s) or hematuria Work related injury: No Related Data Home Medications Medication Instructions Recorded Confirmed budesonide-formoterol HFA 80 2 puff inhalation BID 03/06/24 06/03/24 mcg-4.5 mcg/actuation aerosol inhaler (Symbicort) tramadol 50 mg tablet 50 mg PO QID 03/06/24 06/03/24 acetaminophen 500 mg tablet 500 mg PO QID PRN Pain 06/03/24 06/03/24 Previous Rx's Medication Instructions Recorded albuterol sulfate 90 mcg/actuation 2 puff inhalation Q6H PRN 02/07/24 aerosol inhaler shortness of breath or wheezing #8.5 grams bupropion HCl 200 mg tablet,12 hr 200 mg PO QAM #30 tabs 04/23/24 sustained-release lorazepam 0.5 mg tablet 0.5 mg PO TID PRN anxiety #90 tabs 04/23/24 diclofenac sodium 50 mg 50 mg PO Q12H PRN pain #20 tabs 07/11/24 tablet,delayed release methylprednisolone 4 mg tablets in See Rx Instructions PO .COMPLEX 07/11/24 a dose pack (Medrol (Marcos)) #21 ea Allergies Allergy/AdvReac Type Severity Reaction Status Date / Time amoxicillin [From Amoxil] Allergy Unknown ALGY-Rash Verified 06/03/24 13:59 aspirin Allergy Unknown Verified 06/03/24 13:59 clindamycin AdvReac ADR-Abdominal Verified 06/03/24 13:59 Pain Review of Systems Const: Denies: fever(s) Card: Denies: chest pain Resp: Denies: dyspnea GI: Denies: abdominal pain : Denies: flank pain, dysuria or hematuria Musc: Reports: back pain and extremity pain; Denies: neck pain, extremity swelling, joint pain, joint swelling, joint redness, joint warmth, joint stiffness, limited range of motion, muscle cramps, muscle weakness or decrease in muscle mass Skin/Breast: Denies: rash Neuro: Denies: numbness in extremities, weakness in extremities, sensory changes or difficulty walking PFS ED PFSH: Medical History Postoperative pelvic peritoneal adhesions Asthma Insect bite Nicotine dependence, cigarettes, in remission Post-traumatic stress disorder, chronic Generalized anxiety disorder Psychiatric care Chronic headache History of vaginal delivery Osteoarthritis Anxiety MDD (major depressive disorder) Surgical History History of tubal ligation Family History Other Family history unremarkable Social History Smoking and tobacco/nicotine status: former use of tobacco/nicotine Alcohol intake: never Substance/Drug Use: never Adopted: No Caregiver/support person: No Lives independently: Yes Household members: none Housing: Apartment Marital status: Highest education level completed: High School Graduate service: No Current occupational status: unemployed Current occupational exposures/hazards: No Pets and animals: No Leisure activites: exercise, art and music Sexually active: No Do you think of yourself as: Straight/Heterosexual Current gender identity: Female Special ramin needs: No Agree to transfusion: Yes Female Reproductive History: Spontaneous abortions: No Date of menopause: 06/26/19 Physical Exam Const: COMMON NORMALS: no acute distress, average body habitus, patient oriented x3, no limitations, alert and well nourished GENERAL APPEARANCE: cooperative ORIENTATION/CONSCIOUSNESS: Yes awake, Yes oriented to person, Yes oriented to place and Yes oriented to time Neck/C-Spine: CERVICAL SPINE: Yes cervical ROM normal and No Cervical spine tenderness Resp: COMMON NORMALS: normal respiratory effort and clear to auscultation bilaterally AUSCULTATION: clear to auscultation bilaterally Cardio: COMMON NORMALS: regular rate and regular rhythm RATE: regular rate RHYTHM: regular rhythm GI: COMMON NORMALS: Normal to inspection, nondistended, normoactive bowel sounds present, Soft to palpation and no masses PALPATION: Yes Soft to palpation : COMMON NORMALS: Yes no CVA tenderness BLADDER/KIDNEY EXAM: Yes no CVA tenderness Back/Pelvis: COMMON NORMALS: no CVA tenderness, thoracic and lumbar spine normal to inspection, no thoracic nor lumbar tenderness, thoraco-lumbar ROM normal and straight leg raise negative bilaterally LUMBAR SPINE/LOWER BACK: No lumbar spinal tenderness and Yes straight leg raise negative bilaterally PELVIS: Yes sciatic notch tenderness on the left SACRUM: no tenderness COCCYX: no tenderness Extremity: COMMON NORMALS: normal to inspection, full ROM, capillary refill normal, no joint enlargement, no clubbing, cyanosis or edema, no calf tenderness and no pedal edema GENERAL: Yes normal exam except as noted Neuro: COMMON NORMALS: patient oriented x3, moves all extremities, no focal motor deficits, no sensory deficits noted and gait normal SENSORIUM/ORIENTATION: Yes alert, Yes oriented to person, Yes oriented to place and Yes oriented to time GAIT: Yes Normal gait present MOTOR EXAM: 5/5 motor strength present throughout Skin: COMMON NORMALS: no rashes or lesions noted GENERAL SKIN EXAM: no rashes or lesions noted Course Vital Signs: Vital signs: Vital Signs Temperature 98.2 F 07/11/24 12:44 Pulse Rate 91 07/11/24 12:44 Respiratory Rate 16 07/11/24 12:44 Blood Pressure 136/79 07/11/24 12:44 Pulse Oximetry 97 07/11/24 12:44 Oxygen Delivery Me thod Room Air 07/11/24 12:44 MDM - Back Pain/Injury Medical Decision Making Patient will be treated with anti-inflammatories and steroids. She declines muscle relaxers. Recommend she follow-up with primary care in 1 to 2 weeks if symptoms do not seem to be improving. Return to ED precautions given. Differential Diagnosis Likely lumbar radiculopathy, sciatica and strain of lumbar region Medical Records I reviewed the patient's medical records. No radiology studies performed this visit Discharge Plan Discharge Patient Disposition: Home Clinical Impression: Sciatica of left side Condition: Stable Prescriptions: New diclofenac sodium 50 mg tablet,delayed release (DR/EC) 50 mg PO Q12H PRN (Reason: pain) Qty: 20 0RF methylprednisolone [Medrol (Marcos)] 4 mg tablets,dose pack See Rx Instructions .ROUTE .COMPLEX Qty: 21 0RF Rx Instructions: orally per package directions No Action albuterol sulfate 90 mcg/actuation HFA aerosol inhaler 2 puff inhalation Q6H PRN (Reason: shortness of breath or wheezing) Qty: 8.5 2RF bupropion HCl 200 mg tablet sustained-release 12 hr 200 mg PO QAM Qty: 30 2RF lorazepam 0.5 mg tablet 0.5 mg PO TID PRN (Reason: anxiety) Qty: 90 2RF budesonide-formoterol [Symbicort] 80-4.5 mcg/actuation HFA aerosol inhaler 2 puff INHALATION BID tramadol 50 mg tablet 50 mg PO QID acetaminophen [Tylenol Ex Str Rapid Release] 500 mg Tablet 500 mg PO QID PRN (Reason: Pain) Discharge Orders: Discharge ED (Routine); Ordered 07/11/24 Ordered By: Roberta Brooks Referrals: Kelsea Matos, CONCRETE PIPE MACHINE OPERATOR [Primary Care Provider] - Activity Restrictions/Additional Instructions: Please follow-up with primary care in 1 to 2 weeks if symptoms do not seem to be improving. You may return to the emergency department at anytime for any further concerns you may have. Coding Level of Care Code ED Distributor Operator for Pritesh Gill
[2024-07-11] MEDS: dexamethasone 10 mg/mL INJ 6 MG PO (14:22)
== END 2024-07-11 14:32 | disposition home or self-care (01) ==
PROVIDERS: Emergency Provider Physician Assistant
DX: M54.32 Sciatica, left side (principal); Z87.891 Personal history of nicotine dependence
CPT/HCPCS: 99284; J1100; J1885

== ENCOUNTER 2024-12-25 15:27 | Emergency (ER) | payer MEDICAID, SELFPAY ==
[2024-01-05 11:20] VITALS: BP 117/83; BMI 22.0
--- OUTSIDE RECORDS SUMMARY | 2024-10-01 08:20 | XMS_ITS ---
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 Name Role Phone TREVON RAMOS MD Primary Care Provider UnavailZoya Robert Unavailable [phone] REASON FOR VISIT 1 month f/u Medications Medication SIG (Take, Route, Frequency, Duration) Notes Start Date End Date Status traMADol HCl 50 MG 1 tablet as needed Orally every 4-6 hours for 30 days As needed not to exceed 3 per day except on occasion fill 09/12/24 09/10/2024 10/12/2024 Active Cephalexin 500 MG 1 capsule Orally every 6 hrs Active Sudafed 30 MG 2 tablets as needed Orally every 6 hrs Active Acetaminophen Extra Strength 500 MG 1-2 tablets Orally every 6 hrs Active Wellbutrin SR 200 MG 1 tablet in the morning Orally Once a day BHC Not-Taking Keflex Not-Taking Ondansetron HCl 4 MG 1 tablet Orally Once a day Not-Taking Sudafed 30 MG 2 tablets as needed Orally every 6 hrs Not-Taking Encounters Encounter Location Date Provider Diagnosis Replaced By [facility] [address] [place] [address] 10/01/2024 Zoya Calle e Chronic pain syndrome G89.4 ; Spondylosis without myelopathy or radiculopathy, lumbosacral region M47.817 and retirement (current) use of opiate analgesic Z79.891 Assessments Encounter Date Diagnosis (ICD Code) Assessment Notes Treatment Notes Treatment Clinical Notes Section Notes 10/01/2024 Chronic pain syndrome (ICD-10 - G89.4) Ms. Cesar presents today for reevaluation. She has not gone to get the lumbosacral X-ray that we've tried for her to get for several months. She reports she did not talk to her primary care about potentially switching to longer acting anxiety medications. I'll drop her down by 10 tablets to 110 as we need to be weaning either her opioids or her benzodiazepines per recommendations from the CDC. Follow up in one month. The options for treatment were explained in detail, this included PT, medications, injections, lifestyle modifications and exercise. The patient presents to clinic for medication evaluation and management. The patient is stable on their current medication regimen and endorses adequate analgesia, increased ADLs, denies abuse and side effects. 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 UDS reviewed and is as expected. A bowel regimen was discussed with the patient. 10/01/2024 Spondylosis without myelopathy or radiculopathy, lumbosacral region (ICD-10 - M47.817) 10/01/2024 retirement (current) use of opiate analgesic (ICD-10 - Z79.891) Plan Of Treatment Treatment Notes Assessment Notes Chronic pain syndrome Ms. Cesar presents t lars for reevaluation. She has not gone to get the lumbosacral X-ray that we've tried for her to get for several months. She reports she did not talk to her primary care about potentially switching to longer acting anxiety medications. I'll drop her down by 10 tablets to 110 as we need to be weaning either her opioids or her benzodiazepines per recommendations from the CDC. Follow up in one month. The options for treatment were explained in detail, this included PT, medications, injections, lifestyle modifications and exercise. The patient presents to clinic for medication evaluation and management. The patient is stable on their current medication regimen and endorses adequate analgesia, increased ADLs, denies abuse and side effects. 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 UDS reviewed and is as expected. A bowel regimen was discussed with the patient. Progress Notes * Jenifer CESAROB:1965 (59 yo F)Acc No.[id number]:10/01/2024 Progress Notes Patient: Jenifer CHESTER Provider: Nola Baker MD :1965 A ge:59 Y S ex:Female Date:10/01/2024 Address:[address] [place], [place] [id number] Pcp:TREVON RAMOS MD Subjective: * Chief Complaints: * 1 . 1 month f/u MD. * HPI: Ankit hunt Details: Pain Location : . Quality : . Severity of pain at its worst : . Severity of pain at its best : . Severity of pain on medication : . Severity of average pain : . When did you last take your pain medicine : . M edication Details: Do you have a lock box or safe place for medication away from minors and/or others? Y es. Do you have any leftover pain medication building up at your house? N o. Do you understand that pain medication can be addicting and can cause overdose? Y es. Do you feel you can REDUCE the amount of medication you take today? N o. O pioid Assessment Tools: Pill Count : . Last Urine Drug Screen : . [place] Prescription Monitoring Program : . Ankit hale Note: Patient presents today for re-evaluation. - - - - - - - - - - - - - - - - - - - - - - - - - - - - - - - - - - - - - - - - - Last UDS Confirmation: 06/2824, consistent with prescribed medication Consent for chronic opioid therapy/clinic policies: FLAVIO: 5 6% 07/09/24 SOAPP-R: 8 Physical Therapy: yes, dates: 2022 Bowel/bladder incontinence - d enies. Interventions: pending Pertinent Imaging: XR L spine 03/20/2019 L1-L2: no signfiicant dis bulge or herniation, no severe spinal canal stenosis. No significant neural foraminal narrowing. L2-L3: Small posterior disc bulge. No foraminal or central canal stenosis. L3-L4: Mild posterior disc bulge. No foraminal or central canal stenosis. L4-L5: Mild posterior disc bulge. No foraminal or central canal stenosis. L5-S1: Mild posterior disc bulge. No foraminal or central canal stenosis. Original HPI: Patient presents today to my clinic to establish care. She reports axial low back pain with no radiation d own her legs. She previously had radiation down her legs, but now it's focalized around her lower back. A t times, the pain can be 10/10. No inciting event, and she is unsure of when it started occurring. She d escribes the pain as aching, stabbing, sharp, throbbing, and deep. Standing or laying down seems to a lleviate some of her symptoms. Sitting for a prolonged period tends to aggravate her symptoms. In the p ast, she's been to a previous pain clinic. She can't quite recall why she needed up leaving that clinic. She h as not undergone PT or any other interventional pain procedures as far as she knows. She has been m anaged on Tramadol 50 mg BID by her PCP. Of note, patient has had an abdominal mass that has p rogressively grown over the course of several years. Upon reviewing the surgeons notes, she finally had t his removed about 12 days ago. She reports her lower back pain has improved as this mass has been r emoved. It was a septated 18.7 x 13.6 x 11.3 cm cystic mass located centrally within the pelvis that was p resumed gynecological in origin.Original HPI: Ankit luo presents today to my clinic to establish care. She reports axial low back pain with no radiation d own her legs. She previously had radiation down her legs, but now it's focalized around her lower back. A t times, the pain can be 10/10. No inciting event, and she is unsure of when it started occurring. She d escribes the pain as aching, stabbing, sharp, throbbing, and deep. Standing or laying down seems to a lleviate some of her symptoms. Sitting for a prolonged period tends to aggravate her symptoms. In the p ast, she's been to a previous pain clinic. She can't quite recall why she needed up leaving that clinic. She h as not undergone PT or any other interventional pain procedures as far as she knows. She has been m anaged on Tramadol 50 mg BID by her PCP. Of note, patient has had an abdominal mass that has p rogressively grown over the course of several years. Upon reviewing the surgeons notes, she finally had t his removed about 12 days ago. She reports her lower back pain has improved as this mass has been r emoved. It was a septated 18.7 x 13.6 x 11.3 cm cystic mass located centrally within the pelvis that was?presumed gynecological in origin. * Medical History: * Medications: T aking Acetaminophen Extra Strength 500 MG Tablet 1-2 tablets Orally every 6 hrs , Taking Cephalexin 500 MG Capsule 1 capsule Orally every 6 hrs , Taking Sudafed 30 MG Tablet 2 tablets as needed Orally every 6 hrs , Taking traMADol HCl 50 MG Tablet 1 tablet as needed Orally every 4-6 hours As needed not to exceed 3 per day except on occasion, stop date 10/12/2024, Notes to Pharmacist: fill 09/12/24, Not-Taking Keflex , Not-Taking Ondansetron HCl 4 MG Tablet 1 tablet Orally Once a day , Not-Taking Sudafed 30 MG Tablet 2 tablets as needed Orally every 6 hrs , Not-Taking Wellbutrin SR 200 MG Tablet Extended Release 12 Hour 1 tablet in the morning Orally Once a day , Notes to Pharmacist: [facility] Objective: * Vitals: Assessment: * Assessment: 1. C hronic pain syndrome - G89.4 (Primary) 2 . S pondylosis without myelopathy or radiculopathy, lumbosacral region - M47.817 3 . L kavitha term (current) use of opiate analgesic - Z79.891 Plan: * Treatment: Forms: * Billing Information: * Visit Code: * Procedure Codes: Care Plan Details* * Electronic signature of Melina Baker MD on 12/25/2024 at 03:33 PM CDT Sign off status: Pending * Provider: Nola Baker MD Date: 0 10/01/2024 Generated for Tiffanie painter/Era/Neil on: 0 12/25/2024 03:33 PM CDT History and Physical Notes * HPI (History of Present Illness) Category Sub-Category Detail Notes Category Not es Provider Note Interventions: pending Pertinent Imaging: XR L spine 03/20/2019 L1-L2: no signfiicant dis bulge or herniation, no severe spinal canal stenosis. No significant neural foraminal narrowing. L2-L3: Small posterior disc bulge. No foraminal or central canal stenosis. L3-L4: Mild posterior disc bulge. No foraminal or central canal stenosis. L4-L5: Mild posterior disc bulge. No foraminal or central canal stenosis. L5-S1: Mild posterior disc bulge. No foraminal or central canal stenosis. Original HPI: Patient presents today to my clinic to establish care. She reports axial low back pain with no radiation down her legs. She previously had radiation down her legs, but now it's focalized around her lower back. At times, the pain can be 10/10. No inciting event, and she is unsure of when it started occurring. She describes the pain as aching, stabbing, sharp, throbbing, and deep. Standing or laying down seems to alleviate some of her symptoms. Sitting for a prolonged period tends to aggravate her symptoms. In the past, she's been to a previous pain clinic. She can't quite recall why she needed up leaving that clinic. She has not undergone PT or any other interventional pain procedures as far as she knows. She has been managed on Tramadol 50 mg BID by her PCP. Of note, patient has had an abdominal mass that has progressively grown over the course of several years. Upon reviewing the surgeons notes, she finally had this removed about 12 days ago. She reports her lower back pain has improved as this mass has been removed. It was a septated 18.7 x 13.6 x 11.3 cm cystic mass located centrally within the pelvis that was presumed gynecological in origin. Original HPI: Patient presents today to my clinic to establish care. She reports axial low back pain with no radiation down her legs. She previously had radiation down her legs, but now it's focalized around her lower back. At times, the pain can be 10/10. No inciting event, and she is unsure of when it started occurring. She describes the pain as aching, stabbing, sharp, throbbing, and deep. Standing or laying down seems to alleviate some of her symptoms. Sitting for a prolonged period tends to aggravate her symptoms. In the past, she's been to a previous pain clinic. She can't quite recall why she needed up leaving that clinic. She has not undergone PT or any other interventional pain procedures as far as she knows. She has been managed on Tramadol 50 mg BID by her PCP. Of note, patient has had an abdominal mass that has progressively grown over the course of several years. Upon reviewing the surgeons notes, she finally had this removed about 12 days ago. She reports her lower back pain has improved as this mass has been removed. It was a septated 18.7 x 13.6 x 11.3 cm cystic mass located centrally within the pelvis that was presumed gynecological in origin. Pain Details Pain Location : Quality : Severity of pain at its worst : Severity of pain at its best : Severity of average pain : Severity of pain on medication : When did you last take your pain medicin e : Medication Details Do you have a lock b ox or safe place for medication away from minors and/or others? Yes Do you have any leftover pain medication building up at your house? No Do you understand that pain medication c an be addicting and can cause overdose? Yes Do you feel you can REDUCE the amount of medication you take today? No Opioid Assessment Tools Pill Count : Last Urine Drug Screen : [place] Prescription Monitoring Program :
--- OUTSIDE RECORDS SUMMARY | 2024-12-18 10:00 | XMS_ITS | Encounter Summary ---
Author Organization [facility] Address [address] [place] [address] Care Team Providers Care [employer] Learning Support Teacher Name Role Phone Joselin Delgadillo MD Primary Care Provider [phone] Reason for Referral * Eval and Treat (Routine) - Closed Specialty Diagnoses / Procedures Referred By Margo bah Referred To Contact Neurosurgery Diagnoses Sciatica of right side Procedures SC OFFICE/OUTPATIENT ESTABLISHED MOD MDM 30 MIN SC OFFICE/OUTPATIENT NEW MODERATE MDM 45 MINUTES Roberta Washington FNP [address] [place] [phone] Phone: tel: fax: [facility] Neurosurgery [address] [place] [address] Phone: tel: fax: Referral ID Status Reason Start Date Expiration Date Visits Re quested Visits Authorized [id number] Closed 12/18/2024 12/18/2025 1 1 Reason for Visit * Reason Comments Back Pain Encounter Details Date Type Department Care Team (Late st Contact Info) Description 12/18/2024 10:00 AM CDT Office Visit [facility] Family Medicine [address] [address] Roberta Washington FNP [address] [place] [phone] Sciatica of right side (Primary Dx) Social History Tobacco Use Types Packs/Day Years Used Date Smoking Tobacco: Former Cigarettes 1 20 1 2009 Smokeless Tobacco: Never Alcohol Use Standard Drinks/Week Comments No 0 (1 standard drink = 0.6 oz pur e alcohol) Feeling Safe Answer Date Recorded Are you in a relationship wi th someone who hurts you emotionally and/or physically? 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 Gender Identity Not on file Sexual Orientation Not on file documented as of this encounter Last Filed Vital Signs Vital Sign Reading Time Taken Comments Blood Pressure 117/86 12/18/2024 9:57 AM CDT Pulse 80 12/18/2024 9:57 AM CDT Temperature 36.4 C (97.5 F) 12/18/2024 9:57 AM CDT Respiratory Rate 16 12/18/2024 9:57 AM CDT Oxygen Saturation 99% 12/18/2024 9:57 AM CDT Inhaled Oxygen Concentration - - Weight 55.2 kg (121 lb 12.8 oz) 12/18/2024 9:57 AM CDT Height 162.6 cm (5' 4 ) 12/18/2024 9:57 AM CDT Body Mass Index 20.91 12/18/2024 9:57 AM CDT documented in this encounter Progress Notes * Roberta Washington, PRIETO - 12/18/2024 10:15 AM CDT [facility] [place] 12/18/2024 Subjective: Jenifer Cesar is a 59 y.o. female who comes today for evaluation of Back Pain . History of Present Illness The patient is a 59-year-old female who presents with sciatic pain. She reports experiencing back pain that started yesterday, which has been severe enough to disrupt her sleep. She has a history of similar episodes of back pain, with the most recent one occurring four days ago. She also mentions a history of a curved back and slipped disc but does not recall any specific incident that could have triggered the current episode. She expresses interest in receiving a steroid injection for her condition. Additionally, she is considering physical therapy as a potential treatment option. She reports no loss of bowel or bladder control, numbness, tingling, or saddleparesthesia. Review of Systems Constitutional: Negative for chills, fever and malaise/fatigue. HENT: Negative for congestion, ear pain and sore throat. Eyes: Negative for blurred vision. Respiratory: Negative for cough and shortness of breath. Cardiovascular: Negative for chest pain. Gastrointestinal: Negative for abdominal pain, blood in stool, constipation, diarrhea, nausea and vomiting. Genitourinary: Negative for dysuria, flank pain, frequency, hematuria and urgency. Musculoskeletal: Positive for back pain. Negative for joint pain and myalgias. Neurological: Negative for dizziness, tingling, sensory change, focal weakness, loss of consciousness, weakness and headaches. All other systems reviewed and are negative. Objective: Vitals: 12/18/24 0957 Temp: 97.5 ??F (36.4 ??C) Pulse: 80 BP: 117/86 Resp: 16 SpO2: 99% Physical Exam Constitutional: General: She is not in acute distress. Appearance: Normal appearance. She is not ill-appearing or toxic-appearing. HENT: Head: Normocephalic and atraumatic. Right Ear: Tympanic membrane normal. Left Ear: Tympanic membrane normal. Nose: Nose normal. Mouth/Throat: Mouth: Mucous membranes are moist. Eyes: Extraocular Movements: Extraocular movements intact. Pupils: Pupils are equal, round, and reactive to light. Neck: Vascular: No JVD. Cardiovascular: Rate and Rhythm: Normal rate and regular rhythm. Pulses: Normal pulses. Heart sounds: Normal heart sounds. Pulmonary: Effort: Pulmonary effort is normal. No respiratory distress. Breath sounds: Normal breath sounds and air entry. No decreased air movement. No wheezing, rhonchi or rales. Abdominal: General: Abdomen is flat. Bowel sounds are normal. Palpations: Abdomen is soft. Tenderness: There is no abdominal tenderness. Musculoskeletal: General: Normal range of motion. Cervical back: Normal range of motion and neck supple. Skin: General: Skin is warm and dry. Neurological: General: No focal deficit present. Mental Status: She is alert and oriented to person, place, and time. Psychiatric: Mood and Affect: Mood normal. Behavior: Behavior normal. Past medical history, surgical history and social history reviewed. Past Medical History: Diagnosis Date Anxiety Asthma Chronic PID - chronic pelvic inflammatory disease Fibroid uterus Headache(784.0) MDD (major depressive disorder) Migraine Psychiatric problem anxiety Procedures Assessment/Plan: ICD-10-CM ICD-9-CM 1. Sciatica of right side M54.31 724.3 dexAMETHasone (DECADRON) injection 4 mg methylPREDNISolone acetate (DEPO-Medrol) injection 40 mg AMB REFERRAL TO NEUROSURGERY Assessment & Plan 1. Sciatica. - Reports experiencing back pain that started yesterday, severe enough to disrupt sleep. History ofsimilar episodes, most recent one occurring four days ago. - Physical exam findings include no loss of bowel or bladder control function, numbness and tingling, no saddle paresthesia. - Discussed history of curved back and slipped disc. Considering physical therapy. Referral to neurosurgeon in [place] for further evaluation. - Steroid injection will be administered today. Prescription for Voltaren, a potent NSAID, will be provided. PRIETO Farley- This note was automatically generated by a Generative AI technology ([employer]), reviewed, edited, and finalized by PRIETO Farley. The author of this note, patient (or authorized student services representative), and all other persons present consent to the audio recording of this visit for charting documentation purposes. documented in this encounter Plan of Treatment Upcoming Encounters Date Type Department Care Team (Late st Contact Info) Description 12/30/2024 11:20 AM CDT Office Visit [address] [phone] Joselin Delgadillo MD [address] [place] [phone] 02/12/2025 1:30 PM CDT Appointment [facility] [address] [facility] [address] [place] [address] Joselin Delgadillo MD [address] [place] [phone] 03/11/2025 1:20 PM CDT Office Visit [address] [phone] Joselin Delgadillo MD [address] [phone] Scheduled Referrals Name Type Priority Associated Diagnoses Order Schedule AMB REFERRAL TO NEUROSURGERY Outpatient Referral Routine Sciatica of right side Ordered: 12/18/2024 documented as of this encounter Visit Diagnoses Diagnosis Sciatica of right side- Primary Sciatica documented in this encounter Administered Medications Inactive Administered Medications - up to 3 most recent administrations Medication Order MAR Action Action Date Dose Rate Site dexAMETHasone (DECADRON) injection 4 mg 4 mg, IM, ONE TIME ONLY, 1 dose, On Mon12/18/24 at 1015, RoutineIndications:Sciat ica of right side Given 12/18/2024 10:25 AM CDT 4 mg Ventrogluteal, Right methylPREDNISolone acetate (DEPO-Medrol) injection 40 mg 40 mg, IM, ONE TIME ONLY, 1 dose, On Mon12/18/24 at 1015, RoutineIndications:Sciat ica of right side Given 12/18/2024 10:25 AM CDT 40 mg Ventrogluteal, Right documented in this encounter Additional Health Concerns Assessment Noted Time PHQ-9 Depression Total Score: 2 07/08/19 1:25 PM CHICKEN PICKER documented as of this encounter Care Teams [employer] Learning Support Teacher Relationship Specialty Start Date End Date Joselin Delgadillo MD [address] [phone] PCP - General Family Practice 07/08/24 documented as of this encounter
--- OUTSIDE RECORDS SUMMARY | 2024-12-21 07:58 | XMS_ITS | Encounter Summary ---
Author Organization [facility] Address [address] [place] [address] Care Team Providers Care Tool Worker Name Role Phone Joselin Delgadillo MD Primary Care Provider +1- [phone] Reason for Visit * Reason Comments Vaginal Bleeding Encounter Details Date Type Department Care Team (Late st Contact Info) Description 12/21/2024 7:58 AM CDT - 12/21/2024 9:19 AM CDT Emergency [facility] Emergency Medicine [address] [address] Wilfredo Coker MD [address] [facility] [address] [place] [phone] Abnormal vaginal bleeding in postmenopausal patient (Primary Dx) Discharge Disposition: Home or Self Care Social History Tobacco Use Types Packs/Day Years Used Date Smoking Tobacco: Former Cigarettes 1 2009 Smokeless Tobacco: Never Alcohol Use Standard Drinks/Week Comments No 0 (1 standard drink = 0.6 oz pur e alcohol) Feeling Safe Answer Date Recorded Are you in a relationship wi th someone who hurts you emotionally and/or physically? 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 Gender Identity Not on file Sexual Orientation Not on file documented as of this encounter Last Filed Vital Signs Vital Sign Reading Time Taken Comments Blood Pressure 161/105 12/21/2024 9:15 AM CDT MD aware Pulse - - Temperature 36.1 C (96.9 F) 12/21/2024 8:03 AM CDT Respiratory Rate 17 12/21/2024 9:15 AM CDT Oxygen Saturation 97% 12/21/2024 9:15 AM CDT Inhaled Oxygen Concentration - - Weight 54.6 kg (120 lb 6.4 oz) 12/21/2024 8:03 A M CDT Height 160 cm (5' 3 ) 12/21/2024 8:03 AM CDT Body Mass Index 21.33 12/21/2024 8:03 AM CDT documented in this encounter Discharge Instructions * Discharge Instructions* Wilfredo Coker MD - 12/21/2024 9:00 AM CDT Please discuss with Dr. Delgadillo about getting Ultrasound of the uterus for further evaluation of the uterine lining. If you notice that the bleeding is coming more or it is coming from the bowel more, or you develop any worsening symptoms, please return to the ER for further evaluation. * Attachments The following attachments cannot be sent through Care Everywhere. * Vaginal Bleeding: Postmenopausal (Slovak) documented in this encounter Medications at Time of Discharge HYDROcodone-aceta minophen (NORCO) 5-325 mg tabletIndications :Chronic midline low back pain with bilateral sciatica Take 1 Tablet by mouth every 8 hours as needed for Pain, Moderate. Max Daily Amount: 3 Tablets 90 Tablet 12/19/2024 clonazePAM (KlonoPIN) 0.5 mg TabletIndications :AGUEDA (generalized anxiety disorder) Take 1 Tablet (0.5 mg) by mouth 3 times daily as needed for Anxiety. 90 Tablet 5 01/08/2025 omeprazole (PriLOSEC) 40 mg Capsule, Delayed Release(E.C.)Melissa cations:Gastroeso phageal reflux disease without esophagitis TAKE 1 CAPSULE(40 MG) BY MOUTH DAILY 30 Capsule 11/07/2024 cetirizine (ZyrTEC) 10 mg tabletIndications :Post-nasal drainage Take 1 Tablet (10 mg) by mouth daily. 90 Tablet 1 09/30/2024 Wellbutrin SR 200 mg Sustained Release 12 hour tablet Symbicort 80-4.5 mcg/actuation HFA Aerosol InhalerIndication s:Simple chronic bronchitis (CMS/HCC) INHALE 2 PUFFS BY MOUTH TWICE DAILY 10.2 Gram 2 07/12/2024 Ventolin HFA 90 mcg/actuation inhaler Take 2 Puffs by inhalation every 6 hours as needed. 03/16/2024 naloxone (NARCAN) 4 mg/spray [place], Non-Aerosol EMERGENCY USE ONLY: Administer 1 spray (4 mg) in one nostril one time. May repeat in alternating nostrils every 2-3 min until responsive or EMS arrives. 2 Each 3 02/12/2024 documented as of this encounter ED Notes * Constance Rodriguez RN - 12/21/2024 8:16 AM CDT Patient arrives POV ambulatory with steady gait, A&O times 4, with c/o vaginal bleeding. Patient had 1 episode of scant amount of bright red blood on tissues paper after urinating this morning. Patient has midline lower abdominal pain that is sharp and cramping in nature. Reports having fibroustissue removed from right ovary last March, has not had a hysterectomy. * Wilfredo Coker MD - 12/21/2024 7:56 AM CDT HISTORY OF PRESENT ILLNESS Jenifer Cesar, a 59 y.o. female presents to the ED with a Chief Complaint of Vaginal Bleeding Subjective The patient presents to the Emergency Department with concerns of gastrointestinal distress and possible vaginal or rectal bleeding. She has a history of ovarian cyst removal in March 2024. Yesterday, the patient experienced nausea, sweating, and diarrhea after consuming chocolate muffins. Today, she noticed blood on toilet paper after using the bathroom, but is unsure if it originated from her vagina or rectum. She describes the blood as looking like mucus. The patient reports abdominal pain, localized to a specific area in the suprapubic area. She denies any current vomiting, but mentions no diarrhea since yesterday. Denied hematochezia or melena. The patient's medical history includes an anxiety disorder, currently treated with medication. She had a large ovarian cyst removed in March 2024. The patient reports allergies to aspirin, ibuprofen, amoxicillin, and clindamycin. History provided by: The patient Arrived by: Private vehicle Arrived from: Home REVIEW OF SYSTEMS Review of Systems All other systems reviewed and are negative. PAST MEDICAL HISTORY REVIEWED MEDICAL: Patient has a past medical history of Anxiety, Asthma, Chronic PID - chronic pelvic inflammatory disease, Fibroid uterus, Headache(784.0), MDD (major depressive disorder), Migraine, and Psychiatric problem. SURGICAL: Patient has a past surgical history that includes laparoscopy abdomen diagnostic (01/2008); surgicalother (2002); and tubal ligation. FAMILY: Patient's family history includes Alzheimer's Disease in her maternal grandmother; Cancer in her maternal grandfather; Diabetes in her maternal grandmother. SOCIAL: reports that she quit smoking about 15 years ago. Her smoking use included cigarettes. She started smoking about 35 years ago. She has a 20 pack-year smoking history. She has never used smokeless tobacco. She reports that she does not drink alcohol, does not use drugs, and does not engage in sexualactivity. No history on file. Social History Other Topics Concern Not on file ALLERGIES Amoxicillin, Aspirin, Clindamycin, and Ibuprofen HOME MEDICATIONS Patient's Home Medications Current Home Medications CETIRIZINE (ZYRTEC) 10 MG TABLET CLONAZEPAM (KLONOPIN) 0.5 MG TABLET HYDROCODONE-ACETAMINOPHEN (NORCO) 5-325 MG TABLET NALOXONE (NARCAN) 4 MG/SPRAY SPRAY, NON-AEROSOL OMEPRAZOLE (PRILOSEC) 40 MG CAPSULE, DELAYED RELEASE(E.C.) SYMBICORT 80-4.5 MCG/ACTUATION HFA AEROSOL INHALER VENTOLIN HFA 90 MCG/ACTUATION INHALER WELLBUTRIN SR 200 MG SUSTAINED RELEASE 12 HOUR TABLET Medications Modified during this Encounter No medications on file Medications Discontinued during this Encounter No medications on file Objective PHYSICAL EXAM INITIAL VS BP: (!) 153/104 (12/21/24802), Heart Rate: 80 bpm (12/21/24802), Resp: 17 (12/21/24802), Pulse: (not recorded), Temp: 96.9 ??F (36.1 ??C) (12/21/24802), Temp src: Tympanic (12/21/24802), SpO2: 98 % (12/21/24802), Height: 5' 3 (160 cm) (12/21/24802), Weight: 54.6 kg (120 lb 6.4 oz) (12/21/24802), BMI (Calculated): 21.33 (12/21/24 0803) No LMP recorded. Patient is postmenopausal. Physical Exam Vitals and nursing note reviewed. Constitutional: General: She is not in acute distress. Appearance: Normal appearance. She is normal weight. She is not ill-appearing. HENT: Mouth/Throat: Mouth: Mucous membranes are moist. Eyes: Extraocular Movements: Extraocular movements intact. Pupils: Pupils are equal, round, and reactive to light. Cardiovascular: Rate and Rhythm: Normal rate and regular rhythm. Pulses: Normal pulses. Pulmonary: Effort: Pulmonary effort is normal. No respiratory distress. Abdominal: General: Abdomen is flat. There is no distension. Palpations: Abdomen is soft. Tenderness: There is abdominal tenderness (suprapubic tenderness). There is no right CVA tenderness, left CVA tenderness, guarding or rebound. Comments: Laparotomy scar of the abdomen. Musculoskeletal: Cervical back: Neck supple. Skin: General: Skin is warm and dry. Capillary Refill: Capillary refill takes less than 2 seconds. Neurological: General: No focal deficit present. Mental Status: She is alert and oriented to person, place, and time. Mental status is at baseline. Cranial Nerves: No cranial nerve deficit. Sensory: No sensory deficit. Psychiatric: Mood and Affect: Mood normal. Behavior: Behavior normal. DIAGNOSTICS LAB: URINALYSIS WITH REFLEX MICROSCOPIC - Normal Result Value COLOR UA Pale Yellow CLARITY UA Clear SPECIFIC GRAVITY UA 1.010 PH UA 7.0 LEUKOCYTE ESTERASE UA Negative NITRITE UA Negative PROTEIN UA Negative GLUCOSE UA Negative KETONES UA Negative UROBILINOGEN UA 0.2 BILIRUBIN UA Negative BLOOD UA Negative RADIOLOGY: No orders to display EKG: PROCEDURES Procedures MEDICAL DECISION MAKING AND PLAN OF CARE Medical Decision Making Patient presented to emergency department with complaint of having blood on wiping this morning, however patient was unsure whether the blood was coming from the rectal area or vaginal area and this was 1 episode. Patient denies any blood in stool or vomiting with the couple episodes of diarrhea that she had yesterday which has now resolved. Patient also was complaining of a little bit of epigastric pain and cramping and provided patient with pantoprazole and Bentyl in the meantime. Urinalysis was negative for any acute findings as well. Offered for the patient to have an order of ultrasound to be done outpatient since it is not available at the hospital today, however patient stated that she does not want it to be done at this hospital and would like to have it in [place] because it is closer to her home. Explained to the patient that would not be able to order it myself as would not be able to follow-up since it is from outside hospital and advised that PCP would have to order that for her then. Advised patient that if she develops worsening symptoms, abdominal pain or notices specifically where the bleeding is from, to return to the emergency department immediately for further evaluation. Advised patient not to delay her ultrasound for too long if it is truly coming from the uterus. Patient voiced understanding of the instructions and will follow-up accordingly. Upon review of history and physical examination and other diagnostic tests, believe that patient isstable for discharge home with self-care and close monitoring of symptoms. Discussed the plan with the patient and the red flag symptoms to return to the emergency department. Explained that follow-up is very important and patient should make an appointment with their primary care doctor within the next 3-5 days. They have voiced understanding and are comfortable with theplan of care. Amount and/or Complexity of Data Reviewed Labs: ordered. Risk Prescription drug management. Clinical Scoring & Consults Medications Administered During the ED Stay from 12/21/2024 0757 to 12/21/2024 0914 Date/Time Order Dose Route Action 12/21/2024837 CDT pantoprazole (PROTONIX) tablet 40 mg 40 mg Oral Given 12/21/2024837 CDT dicyclomine (BENTYL) capsule 20 mg 20 mg Oral Given . New Prescriptions for this Encounter LAST VS BP: (!) 153/104 (12/21/24802), Heart Rate: 80 bpm (12/21/24802), Resp: 17 (12/21/24802), Pulse: (not recorded), Temp: 96.9 ??F (36.1 ??C) (12/21/24802), Temp src: Tympanic (12/21/24802), SpO2: 98 % (12/21/24802) CLINICAL IMPRESSION Final diagnoses: [N95.0] Abnormal vaginal bleeding in postmenopausal patient (Primary) DISPOSITION, EDUCATION AND MEDICATION RECONCILIATION Medications reconciled. See after visit summary for patient education on discharged patients. ED Disposition ED Disposition Discharge Condition Stable User Day, Wilfredo Vaca MD Date/Time Sat Dec 21, 2024 9:02 AM Comment -- ATTESTATION STATEMENTS documented in this encounter Miscellaneous Notes * Gen AI BECKY - GENERATIVE AI HANDOFF NOTE - 12/21/2024 10:27 AM CDT ## ER_course: ## # DIAGNOSIS: Abnormal vaginal bleeding in postmenopausal patient. # The patient, Jenifer Cesar, a 59-year-old female, presented to the ED with concerns of vaginal bleeding and gastrointestinal distress. She reported one episode of scant bright red blood on tissue paper after urination, unsure if it was vaginal or rectal. She also experienced nausea, sweating, and diarrhea after consuming chocolate muffins the previous day. The patient described sharp, cramping abdominal pain localized to the suprapubic area. # During the ER visit, the patient's blood pressure was elevated at 153/104. She was administered pantoprazole and dicyclomine for epigastric pain and cramping. Urinalysis was negative for acute findings. No imaging was performed due to the patient's preference for an ultrasound at a different facility closer to her home. # The patient was advised to return to the ED if symptoms worsen or if she identifies the source of bleeding. She was deemed stable for discharge with self-care and close monitoring of symptoms. ## Follow_up_orders: ## # The patient was advised to follow up with her primary care doctor within the next 3-5 days for further evaluation and to arrange an ultrasound, as it was not available at the hospital during her visit. The ultrasound is recommended to assess the source of bleeding, particularly if it is uterine. # No new prescriptions were provided during this encounter, and no home medications were modified or discontinued. ## Home_Situation: ## # The patient prefers to have her ultrasound done in [place], closer to her home, indicating potential transportation considerations. No other factors impairing follow-up care were noted. documented in this encounter Plan of Treatment Upcoming Encounters Date Type Department Care Team (Late st Contact Info) Description 12/30/2024 11:20 AM CDT Office Visit [facility] [address] [phone] Joselin Delgadillo MD [address] [phone] 02/12/2025 1:30 PM CDT Appointment [facility] [address] [place] [address] Joselin Delgadillo MD [address] [phone] 03/11/2025 1:20 PM CDT Office Visit [address] [phone] Joselin Delgadillo MD [address] [place] [phone] documented as of this encounter Procedures Procedure Name Priority Date/Time Associated Diagnosis Comments URINALYSIS W/REFLEX MICROSCOPIC Stat 12/21/2024 8:40 AM CDT documented in this encounter Results * URINALYSIS WITH REFLEX MICROSCOPIC (12/21/2024 8:40 AM CDT) COLOR UA Pale Yellow Pale to Dark Yellow 12/21/2024 8:48 AM CDT [facility] CLARITY UA Clear Clear 12/21/2024 8:48 AM CDT [facility] SPECIFIC GRAVITY UA 1.010 1.003 - 1.035 12/21/2024 8:48 AM CDT [facility] PH UA 7.0 5.0 - 8.0 12/21/2024 8:48 AM CDT [facility] LEUKOCYTE ESTERASE UA Negative Negative 12/21/2024 8:48 AM CDT [facility] NITRITE UA Negative Negative 12/21/2024 8:48 AM CDT [facility] PROTEIN UA Negative Negative 12/21/2024 8:48 AM CDT [facility] GLUCOSE UA Negative Negative 12/21/2024 8:48 AM CDT [facility] KETONES UA Negative Negative 12/21/2024 8:48 AM CDT [facility] UROBILINOGEN UA 0.2 <2.0 mg/dL 8:48 AM CDT [facility] BILIRUBIN UA Negative Negative 12/21/2024 8:48 AM CDT [facility] BLOOD UA Negative Negative 12/21/2024 8:48 AM CDT [facility] Urine URINE SPECIMEN OBTAINED BY CLEAN CATCH PROCEDURE / Unknown 12/21/2024 8:40 AM CDT 12/21/2024 8:43 AM CDT us Wilfredo Coker MD URINE ORDERABLES Final [id number] [address] [place] [address] documented in this encounter Visit Diagnoses Diagnosis Abnormal vaginal bleeding in postmenopausal patient- Primary Abnormal vaginal bleeding in postmenopausal patient documented in this encounter Administered Medications Inactive Administered Medications - up to 3 most recent administrations Medication Order MAR Action Action Date Dose Rate Site dicyclomine (BENTYL) capsule 20 mg 20 mg, Oral, ONE TIME ONLY, 1 dose, On 12/21/24 at 0830, Routine Given 12/21/2024 8:38 AM CDT 20 mg pantoprazole (PROTONIX) tablet 40 mg 40 mg, Oral, ONE TIME ONLY, 1 dose, On 12/21/24 at 0830, Routine, Indication: Gastroesophageal reflux disease (GERD) Given 12/21/2024 8:38 AM CDT 40 mg documented in this encounter Active and Recently Administered Medications Times are shown in CDT. Scheduled Medication Order 12/19/2024 12/20/2024 12/21/2024 dicyclomine (BENTYL) capsule 20 mg (COMPLETED) 20 mg, Oral, ONE TIME ONLY, 1 dose, On 12/21/24 at 0830, Routine 0838 (Given - Provid er: Constance Rodriguez RN) pantoprazole (PROTONIX) tablet 40 mg (COMPLETED) 40 mg, Oral, ONE TIME ONLY, 1 dose, On 12/21/24 at 0830, Routine, Indication: Gastroesophageal reflux disease (GERD) 0838 (Given - Provid er: Constance Rodriguez RN) documented in this encounter Additional Health Concerns Assessment Noted Time PHQ-9 Depression Total Score: 2 07/08/19 25 1:25 PM WELDING MACHINE OPERATOR HELPER ARC documented as of this encounter Care Teams Tool Worker Relationship Specialty Start Date End Date Joselin Delgadillo MD [address] [place] [phone] PCP - General Family Practice 07/08/24 documented as of this encounter
--- OUTSIDE RECORDS SUMMARY | 2024-12-25 15:32 | XMS_ITS | Encounter Summary ---
Author Organization [facility] Address [address] [place] [address] Care Team Providers Care Oil And Gas Lease Pumper Name Role Phone Joselin Delgadillo MD Primary Care Provider +1- [phone] Reason for Visit * Reason Comments Question Encounter Details Date Type Department Care Team (Late st Contact Info) Description 12/18/[address] 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 Topic: Patient or Caregiver Communication Request >> Dec 18, 2024 9:32 AM Michael Leija wrote: Patient or Caregiver requesting that a message be sent to Care Team Caller: Jenifer Cesar Patient/Caregiver Callback Number: Telephone Information: Call Notes: states she is going to the hospital for sciatic pain in her back and feet to get a shotand wants to make us aware. documented in this encounter Plan of Treatment Upcoming Encounters Date Type Department Care Team (Late st Contact Info) Description 12/30/2024 11:20 AM CDT Office Visit [address] [phone] Joselin Delgadillo MD [address] [place] [phone] 02/12/2025 1:30 PM CDT Appointment [facility] [address] [phone] Joselin Delgadillo MD [address] [place] [phone] 03/11/2025 1:20 PM CDT Office Visit [address] [phone] Joselin Delgadillo MD [address] [place] [phone] documented as of this encounter Visit Diagnoses Not on filedocumented in this encounter Additional Health Concerns Assessment Noted Time PHQ-9 Depression Total Score: 2 07/08/19 1:25 PM EMPLOYMENT SECURITY OFFICER documented as of this encounter Care Teams Oil And Gas Lease Pumper Relationship Specialty Start Date End Date Joselin Delgadillo MD [address] [place] [phone] PCP - General Family Practice 07/08/24 documented as of this encounter
--- OUTSIDE RECORDS SUMMARY | 2024-12-25 15:32 | XMS_ITS | Encounter Summary ---
Author Organization [facility] Address [address] [place] [address] Care Team Providers Care Reprographics Associate Name Role Phone Joselin Delgadillo MD Primary Care Provider +1- [phone] Reason for Visit * Reason Comments Medication Refill Encounter Details Date Type Department Care Team (Late st Contact Info) Description 12/18/2024 Refill [facility] Medicine [address] [phone] Joselin Delgadillo MD [address] [phone] Social History Tobacco Use Types Packs/Day Years Used Date Smoking Tobacco: Former Cigarettes 2009 Smokeless Tobacco: Never Alcohol Use Standard Drinks/Week Comments No 0 (1 standard drink = 0.6 oz pur e alcohol) Feeling Safe Answer Date Recorded Are you in a relationship wi th someone who hurts you emotionally and/or physically? 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 * Telephone Encounter - KarKaleb Kindra - 12/18/2024 11:03 AM CDT Copied from [facility] #[id number]. Topic: Medication Request >> Dec 18, 2024 11:01 AM Kaleb Doyle wrote: Caller Name: Jenifer Cesar Callback Number: [phone] Medication (Ask patient/caregiver to spell if possible): HYDROcodone- acetaminophen (NORCO) 5-325 mgtablet Note: All medication prescriptions can be requested using one [facility] [address] [place] [address] [address] [facility] [address] Call Notes: Patient is needing a refill as soon as possible as she is out of the medication and in extreme pain today Please call back when sent Did caller contact the correct clinic for prescribing provider? Yes Ask caller if the refill is for a controlled medication. Is this for a controlled Medication? Unsure Is there an encounter open? No documented in this encounter Plan of Treatment Upcoming Encounters Date Type Department Care Team (Late st Contact Info) Description 12/30/2024 11:20 AM CDT Office Visit [address] [phone] Joselin Delgadillo MD [address] [place] [phone] 02/12/2025 1:30 PM CDT Appointment [facility] [address] [phone] Joselin Delgadillo MD [address] [place] [phone] 03/11/2025 1:20 PM CDT Office Visit [address] [phone] Joselin Delgadillo MD [address] [place] [phone] documented as of this encounter Visit Diagnoses Not on filedocumented in this encounter Additional Health Concerns Assessment Noted Time PHQ-9 Depression Total Score: 2 07/08/19 25 1:25 PM DENTAL INSTRUMENT MAKER documented as of this encounter Care Teams Reprographics Associate Relationship Specialty Start Date End Date Joselin Delgadillo MD [address] [place] [phone] PCP - General Family Practice 07/08/24 documented as of this encounter
--- OUTSIDE RECORDS SUMMARY | 2024-12-25 15:32 | XMS_ITS | Encounter Summary ---
Author Organization [facility] Address 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 Gender Identity Not on file Sexual Orientation Not on file documented as of this encounter Plan of Treatment Upcoming Encounters Date Type Department Care Team (Late st Contact Info) Description 12/30/2024 11:20 AM CDT Office Visit [facility] Family Medicine [place] [address] [phone] oJselin Delgadillo MD [address] [phone] 02/12/2025 1:30 PM CDT Appointment [place] [id number] [email or web address] [address] [place] [phone] Joselin Delgadillo MD [address] [phone] 03/11/2025 1:20 PM CDT Office Visit [facility] [address] [phone] Joselin Delgadillo MD [address] [phone] documented as of this encounter Visit Diagnoses Not on filedocumented in this encounter Additional Health Concerns Assessment Noted Time PHQ-9 Depression Total Score: 2 07/08/19 1:25 PM INSTALLMENT DEALER documented as of this encounter Care Teams Campus Receptionist Relationship Specialty Start Date End Date Joselin Delgadillo MD [address] [phone] PCP - General Family Practice 07/08/24 documented as of this encounter
--- OUTSIDE RECORDS SUMMARY | 2024-12-25 15:32 | XMS_ITS | Encounter Summary ---
Author Organization [facility] Address [address] [place] [address] Care Team Providers Care Speech Therapist Technician Name Role Phone Joselin Delgadillo MD Primary Care Provider +1- [phone] Reason for Visit * Reason Comments Information Encounter Details Date Type Department Care Team (Late st Contact Info) Description 12/23/2024 Telephone 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 Topic: Established Patient Care >> Dec 23, 2024 8:43 AM Divina Leija wrote: Is the patient established with a [facility] provider? Yes, select appropriate option in Discharge Facility SmartList Caller Name: Jenifer Cesar Callback Number: Telephone Information: Call Notes: er follow up [facility]- abnormal bleeding. 12/21 Patient is Rising Risk Where was the patient discharged from? Emergency Department (ED/ER) Is there availability to schedule the patient within 5 calendar days of discharge? Yes, but patientwants to schedule an in person appointment outside 5 day guideline documented in this encounter Plan of Treatment Upcoming Encounters Date Type Department Care Team (Late st Contact Info) Description 12/30/2024 11:20 AM CDT Office Visit [address] [phone] Joselin Delgadillo MD [address] [place] [phone] 02/12/2025 1:30 PM CDT Appointment [facility] [place] [address] [phone] Joselin Delgadillo MD [address] [place] [phone] 03/11/2025 1:20 PM CDT Office Visit [address] [phone] Joselin Delgadillo MD [address] [place] [phone] documented as of this encounter Visit Diagnoses Not on filedocumented in this encounter Additional Health Concerns Assessment Noted Time PHQ-9 Depression Total Score: 2 07/08/19 1:25 PM BULLET LUBRICANT MIXER documented as of this encounter Care Teams Speech Therapist Technician Relationship Specialty Start Date End Date Joselin Delgadillo MD [address] [place] [phone] PCP - General Family Practice 07/08/24 documented as of this encounter
--- OUTSIDE RECORDS SUMMARY | 2024-12-25 15:32 | XMS_ITS | Encounter Summary ---
Author Organization [facility] Address 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 [address] [place] [phone] Joselin Delgadillo MD [address] [phone] 03/11/2025 1:20 PM CDT Office Visit [facility] [address] [phone] Joselin Delgadillo MD [address] [phone] documented as of this encounter Visit Diagnoses Not on filedocumented in this encounter Additional Health Concerns Assessment Noted Time PHQ-9 Depression Total Score: 2 07/08/19 1:25 PM SUBSTATION OPERATOR HELPER documented as of this encounter Care Teams Research Chef Relationship Specialty Start Date End Date Joselin Delgadillo MD [address] [phone] PCP - General Family Practice 07/08/24 documented as of this encounter
--- OUTSIDE RECORDS SUMMARY | 2024-12-25 15:32 | XMS_ITS | Encounter Summary ---
Author Organization [facility] Address [address] [place] [address] Care Team Providers Care Sheep Rancher Name Role Phone Joselin Delgadillo MD Primary Care Provider +1- [phone] Reason for Referral * Radiology Services (Routine) - Open Specialty Diagnoses / Procedures Referred By Contac t Referred To Contact Diagnoses Vaginal bleeding Procedures US PELVIS COMPLETE Joselin Delgadillo MD [address] [place] [phone] Phone: tel: fax: [address] [address] Phone: tel: fax: Referral ID Status Reason Start Date Expiration Date Visits Requested Visits Authorized [id number] Open Ordering Department To Schedule 12/23/2024 01/23/2026 1 1 Encounter Details Date Type Department Care Team (Late st Contact Info) Description 12/23/2024 Orders Only [facility] Family Medicine [address] [phone] Joselin Delgadillo MD [address] [place] [phone] Vaginal bleeding (Primary Dx) Social History Tobacco Use Types Packs/Day Years Used Date Smoking Tobacco: Former Cigarettes 1 20 1 - 2009 Smokeless Tobacco: Never Alcohol Use Standard Drinks/Week Comments No 0 (1 standard drink = 0.6 oz pur e alcohol) Feeling Safe Answer Date Recorded Are you in a relationship wi th someone who hurts you emotionally and/or physically? 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 No US available at the time. ER physician reachedout to have me order as patient requested [place]. US ordered. documented in this encounter Plan of Treatment Upcoming Encounters Date Type Department Care Team (Late st Contact Info) Description 12/30/2024 11:20 AM CDT Office Visit [address] [phone] Joselin Delgadillo MD [address] [place] [phone] 02/12/2025 1:30 PM CDT Appointment [facility] [address] [phone] Joselin Delgadillo MD [address] [place] [phone] 03/11/2025 1:20 PM CDT Office Visit [address] [phone] Joselin Delgadillo MD [address] [place] [phone] Scheduled Orders Name Type Priority Associated Diagnoses Orde r Schedule US PELVIS COMPLETE Imaging Routine Vaginal bleeding 1 Occurrences starting 12/23/2024 until 12/23/2025 documented as of this encounter Visit Diagnoses Diagnosis Vaginal bleeding- Primary Other specified noninflammatory disorder of vagina documented in this encounter Additional Health Concerns Assessment Noted Time PHQ-9 Depression Total Score: 2 07/08/19 25 1:25 PM AUTOMATIC CORN GRINDER OPERATOR documented as of this encounter Care Teams Sheep Rancher Relationship Specialty Start Date End Date Joselin Delgadillo MD [address] [place] [phone] PCP - General Family Practice 07/08/24 documented as of this encounter
--- OUTSIDE RECORDS SUMMARY | 2024-12-25 15:32 | XMS_ITS | Encounter Summary ---
Author Organization [facility] Address 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 I was unable to speak tot he pt at the time of contact. Message with callback information was provided. Call center be advised: if the pt calls back please reschedule her appointment at her convenience. Roxanne documented in this encounter Plan of Treatment Upcoming Encounters Date Type Department Care Team (Late st Contact Info) Description 12/30/2024 11:20 AM CDT Office Visit [address] [phone] Joselin Delgadillo MD [address] [place] [phone] 02/12/2025 1:30 PM CDT Appointment [facility] [address] [facility] [address] [place] [phone] Joselin Delgadillo MD [address] [place] [phone] 03/11/2025 1:20 PM CDT Office Visit [address] [phone] Joselin Delgadillo MD [address] [place] [phone] documented as of this encounter Visit Diagnoses Not on filedocumented in this encounter Additional Health Concerns Assessment Noted Time PHQ-9 Depression Total Score: 2 07/08/19 1:25 PM TAILER OUT documented as of this encounter Care Teams Structures Mechanic Relationship Specialty Start Date End Date Joselin Delgadillo MD [address] [place] [phone] PCP - General Family Practice 07/08/24 documented as of this encounter
--- OUTSIDE RECORDS SUMMARY | 2024-12-25 15:32 | XMS_ITS | Clinical Summary ---
Author Organization [place] Address [address] [facility] [address] [place]ann: Epic Prelude ADT MICHAEL DURAN [address] Care Team Providers Care Yield Loss Inspector Name Role Phone Joselin Delgadillo MD Primary Care Provider +1- [phone] Allergies Active Allergy Reactions Criticality Noted Date Comments Amoxicillin Diarrhea Low 06/30/2021 Aspirin Nausea and Vomiting Low 02/17/2009 Clindamycin Nausea and Vomiting Low 02/08/2022 Ibuprofen Swelling Low 01/12/2015 Medications naloxone (NARCAN) 4 mg/spray [place], Non-Aerosol EMERGENCY USE ONLY: Administer 1 spray (4 mg) in one nostril one time. May repeat in alternating nostrils every 2-3 min until responsive or EMS arrives. 2 Each 3 02/12/20 24 Active Ventolin HFA 90 mcg/actuation inhaler Take 2 Puffs by inhalation every 6 hours as needed. 03/16/20 24 Active Symbicort 80-4.5 mcg/actuation HFA Aerosol InhalerIndicati ons:Simple chronic bronchitis (CMS/HCC) INHALE 2 PUFFS BY MOUTH TWICE DAILY 10.2 Gram 2 07/12/19 25 Active Wellbutrin SR 200 mg Sustained Release 12 hour tablet Active cetirizine (ZyrTEC) 10 mg tabletIndicatio ns:Post-nasal drainage Take 1 Tablet (10 mg) by mouth daily. 90 Tablet 1 10/01/19 25 Active omeprazole (PriLOSEC) 40 mg Capsule, Delayed Release(E.C.)In dications:Gastr oesophageal reflux disease without esophagitis TAKE 1 CAPSULE(40 MG) BY MOUTH DAILY 30 Capsule 11/08/19 25 Active Additional Information Patient taking differently:40 mg OralDAILY PRN, Reported on 12/21/2024 HYDROcodone-raúl taminophen (NORCO) 5-325 mg tabletIndicatio ns:Chronic midline low back pain with bilateral sciatica Take 1 Tablet by mouth every 8 hours as needed for Pain, Moderate. Max Daily Amount: 3 Tablets 90 Tablet 12/20/19 25 Active clonazePAM (KlonoPIN) 0.5 mg TabletIndicatio ns:AGUEDA (generalized anxiety disorder) Take 1 Tablet (0.5 mg) by mouth 3 times daily as needed for Anxiety. 90 Tablet 5 01/09/20 25 Active traMADoL (ULTRAM) 50 mg tabletIndicatio ns:Chronic midline low back pain with bilateral sciatica Take 1 Tablet (50 mg) by mouth every 6 hours as needed for Pain. 120 Tablet 5 07/12/19 25 025 Discontinu ed(Ineffec tive) clonazePAM (KlonoPIN) 0.5 mg TabletIndicatio ns:AGUEDA (generalized anxiety disorder) Take 1 Tablet (0.5 mg) by mouth 3 times daily as needed for Anxiety. 90 Tablet 5 07/11/19 25 025 Discontinu ed(Reorder ) HYDROcodone-raúl taminophen (NORCO) 5-325 mg tabletIndicatio ns:Chronic midline low back pain with bilateral sciatica Take 1 Tablet by mouth every 8 hours as needed for Pain, Moderate. Max Daily Amount: 3 Tablets 21 Tablet 12/04/19 25 025 Discontinu ed(Reorder ) HYDROcodone-raúl taminophen (NORCO) 5-325 mg tabletIndicatio ns:Chronic midline low back pain with bilateral sciatica Take 1 Tablet by mouth every 8 hours as needed for Pain, Moderate. Max Daily Amount: 3 Tablets 21 Tablet 12/10/19 25 025 Discontinu ed(Reorder ) triamcinolone acetonide (KENALOG) 0.1 % Cream Apply to affected area 2 times daily for 7 days. 20 Gram 12/13/19 25 025 Hospital, Clinic, or Other Facility Administered Medication Ordered Dose Route Frequency Start Date End Date Status dexAMETHasone (DECADRON) injection 4 mgIndications:Sciatica of right side 4 mg IM ONE TIME ONLY 12/18/2024 12/18/2024 Ended methylPREDNISolone acetate (DEPO-Medrol) injection 40 mgIndications:Sciatica of right side 40 mg IM ONE TIME ONLY 12/18/2024 12/18/2024 Ended Active Problems Problem Noted Date Diagnosed Date Abnormal vaginal bleeding in postmenopausal peri ent 12/21/2024 Dyspareunia in female 12/03/2024 AGUEDA (generalized anxiety disorder) 03/28/2024 Chronic midline low back pain with bilateral sci atica 02/12/2024 Ovarian mass 02/12/2024 Encounters Date Type Department Care Team Description 12/24/2024 External Device Data STL ABSTRACTION Provider, Abstract 12/24/2024 External Device Data STL ABSTRACTION Provider, Abstract 12/24/2024 External Device Data STL ABSTRACTION Provider, Abstract 12/23/[address] [phone] Joselin Delgadillo MD Information 12/23/2024 Orders Only [address] [phone] Joselin Delgadillo MD Vaginal bleeding (Primary Dx) 12/21/2024 7:58 AM CDT - 12/21/2024 9:19 AM CDT Emergency [facility] Emergency Medicine [address] [phone] Wilfredo Coker MD Abnormal vaginal bleeding in postmenopausal patient (Primary Dx) Discharge Disposition: Home or Self Care 12/18/2024 10:00 AM CDT Office Visit [address] [phone] Roberta Washington FNP Sciatica of right side (Primary Dx) 12/18/[address] [phone] Mana Sol FNP Reschedule Appointment 12/18/[address] [phone] Joselin Delgadillo MD 12/18/[address] [phone] Joselni Delgadillo MD Question 12/17/[address] [phone] Joselin Delgadillo MD Chronic midline low back pain with bilateral sciatica; AGUEDA (generalized anxiety disorder) 12/12/2024 10:40 AM CDT Office Visit [address] [phone] Lesion of skin of breast (Primary Dx) 12/09/[address] [phone] Arik Russell MD Chronic midline low back pain with bilateral sciatica 12/03/2024 2:40 PM CDT Office Visit [address] [phone] Joselin Delgadillo MD Chronic midline low back pain with bilateral sciatica (Primary Dx); Dyspareunia in female; AGUEDA (generalized anxiety disorder); Breast cancer screening by mammogram; Screening for cervical cancer; Encounter for colorectal cancer screening 12/03/[address] [phone] Joselin Delgadillo MD Patient Communication; Patient Communication 11/19/2024 External Device Data STL ABSTRACTION Provider, Abstract 11/14/2024 External Device Data STL ABSTRACTION Provider, Abstract 11/13/2024 External Device Data STL ABSTRACTION Provider, Abstract 11/07/[address] [phone] Roberta Washington, PRIETO Gastroesophageal reflux disease without esophagitis 11/05/2024 External Device Data STL ABSTRACTION Provider, Abstract 10/29/2024 External Device Data STL ABSTRACTION Provider, Abstract 10/29/2024 External Device Data STL ABSTRACTION Provider, Abstract 10/14/[address] [phone] Joselin Delgadillo MD Medication Review 10/11/2024 Refill [facility] [address] [phone] Joselin Delgadillo MD AGUEDA (generalized anxiety disorder) 09/30/2024 2:00 PM CDT Office Visit [facility] 104 [facility] 60 [place] [phone] Roberta Washington, BUSINESS SYSTEMS MANAGER Burning chest pain (Primary Dx); Post-nasal drainage; Gastroesophageal reflux disease without esophagitis from Last 3 Months Immunizations Immunization Administration Dates Next Due (TDVAX)(7 YRS UP) TETANUS AN D DIPHTHERIA TOXOIDS, ADSORBED (2 LF OF TETANUS TOXOID AND 2 LF OF DIPHTHERIA TOXOID), 0.5ML (PF), IM 03/06/2009,07/28/2000 Family History Medical History Relation Name Comments Cancer Maternal Grandfather Alzheimer's Disease Maternal Grandmother Diabetes Maternal Grandmother Breast Cancer Neg Hx Colon Cancer Neg Hx Ovarian Cancer Neg Hx Uterine Cancer Neg Hx Relation Name Status Comments Father Alive Maternal Grandfather Maternal Grandmother Mother Alive Social History Tobacco Use Types Packs/Day Years Used Date Smoking Tobacco: Former Cigarettes 1 20 1 - 2009 Smokeless Tobacco: Never Tobacco Cessation:Counseling Given: Not Answered Alcohol Use Standard Drinks/Week Comments No 0 (1 standard drink = 0.6 oz pur e alcohol) Feeling Safe Answer Date Recorded Are you in a relationship wi th someone who hurts you emotionally and/or physically? 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 Sex Female 8:34 AM NC MANAGER Gender Identity Not on file Sexual Orientation Not on file Last Filed Vital Signs Vital Sign Reading Time Taken Comments Blood Pressure 161/105 12/21/2024 9:15 AM CDT MD aware Pulse 80 12/18/2024 9:57 AM CDT Temperature 36.1 C (96.9 F) 12/21/2024 8:03 AM CDT Respiratory Rate 17 12/21/2024 9:15 AM CDT Oxygen Saturation 97% 12/21/2024 9:15 AM CDT Inhaled Oxygen Concentration - - Weight 54.6 kg (120 lb 6.4 oz) 12/21/2024 8:03 A M CDT Height 160 cm (5' 3 ) 12/21/2024 8:03 AM CDT Body Mass Index 21.33 12/21/2024 8:03 AM CDT Plan of Treatment Upcoming Encounters Date Type Department Care Team (Late st Contact Info) Description 12/30/2024 11:20 AM CDT Office Visit [address] [phone] Joselin Delgadillo MD [address] [place] [phone] 02/12/2025 1:30 PM CDT Appointment [facility] [place] [address] [address] [place] [phone] Joselin Delgadillo MD [address] [place] [phone] 03/11/2025 1:20 PM CDT Office Visit [address] [phone] Joselin Delgadillo MD [address] [place] [phone] Health Maintenance Due Date Last Done Comments HEPATITIS B VACCINES (1 of 3 - 19+ 3-dose series) 1986 Preventative Visit-Managed Medicaid 1986 HPV/Cotest (21-29) 02/24/1988 CERVICAL CANCER SCREENING 1997 HPV/Cotest (30-65) 1997 PAP SMEAR 1997 BREAST CANCER SCREENING 2007 DTAP/TDAP/TD VACCINES (1 - Tdap) 03/07/2009 03/06/20 09, 07/28/2000 COLORECTAL SCREENING 02/24/2012 Colorectal Cancer Screening 02/24/2012 FIT-DNA Q 3 years 02/24/2012 FIT/FOBT Q 1 year 02/24/2012 Flex Sig/CT Colonography Q 5 years 02/24/2012 ZOSTER VACCINE (1 of 2) 2017 INFLUENZA VACCINE (#1) 2025 , 03/12/2024, 09/05/2023 Procedures Procedure Name Priority Date/Time Associated Diagnosis Comments URINALYSIS W/REFLEX MICROSCOPIC Stat 12/21/2024 8:40 AM CDT RI ECG ROUTINE ECG W/LEAST 12 LDS W/I&R Routine 09/30/2024 2:00 PM CDT Burning chest pain from Last 3 Months Results * URINALYSIS WITH REFLEX MICROSCOPIC (12/21/2024 8:40 AM CDT) COLOR UA Pale Yellow Pale to Dark Yellow 12/21/2024 8:48 AM CDT [facility] CLARITY UA Clear Clear 12/21/2024 8:48 AM T [facility] SPECIFIC GRAVITY UA 1.010 1.003 - 1.035 12/21/2024 8:48 AM T [facility] PH UA 7.0 5.0 - 8.0 12/21/2024 8:48 AM [facility] LEUKOCYTE ESTERASE UA Negative Negative 12/21/2024 8:48 AM [facility] NITRITE UA Negative Negative 12/21/2024 8:48 AM [facility] PROTEIN UA Negative Negative 12/21/2024 8:48 AM T [facility] GLUCOSE UA Negative Negative 12/21/2024 8:48 AM T [facility] KETONES UA Negative Negative 12/21/2024 8:48 AM T [facility] UROBILINOGEN UA 0.2 <2.0 mg/dL 8:48 AM [facility] BILIRUBIN UA Negative Negative 12/21/2024 8:48 AM [facility] BLOOD UA Negative Negative 12/21/2024 8:48 AM [facility] Urine URINE SPECIMEN OBTAINED BY CLEAN CATCH PROCEDURE / Unknown 12/21/2024 8:40 AM CDT 12/21/2024 8:43 AM CDT us Wilfredo Coker MD URINE ORDERABLES Final Result Performing Organization Address [facility] Co de Phone Number [facility] CLIA # [id number] [address] [place] [address] * RI ECG ROUTINE ECG W/LEAST 12 LDS W/I&R (09/30/2024 2:00 PM CDT) Narrative [facility] - 09/30/2024 2:00 PM CDT Mc Mata MD 09/30/2024 5:46 PM EKG 12-LEAD Date/Time: 09/30/2024 2:00 PM Performed by: Mc Mata MD Authorized by: Roberta Washington FNP Comparison: not compared with previous ECG Previous ECG: no previous ECG available Rhythm: sinus rhythm Rate: normal BPM: 73 QRS axis: normal Conduction: conduction normal ST Segments: ST segments normal T Waves: T waves normal Other: no other findings Clinical impression: normal ECG us Roberta MOREAU ECG ORDERABLES Edited Resu lt - Final Performing Organization Address [facility] Co de Phone Number [facility] CLIA# [id number] [address] [facility] [address] [facility] [address] [place] [address] from Last 3 Months Insurance MEDICAID [place] Care Teams Yield Loss Inspector Relationship Specialty Start Date End Date Joselin Delgadillo MD [address] [place] [phone] PCP - General Family Practice 07/08/24
--- OUTSIDE RECORDS SUMMARY | 2024-12-25 15:32 | XMS_ITS | Encounter Summary ---
Author Organization [facility] Address [address] [place] [address] Care Team Providers Care Warehouse Puller Name Role Phone Joselin Delgadillo MD Primary Care Provider [phone]- [phone] Reason for Visit * Reason Comments Medication Refill Medication Assistance Medication Refill Encounter Details Date Type Department Care Team (Late st Contact Info) Description 12/17/2024 Refill [facility] [address] [phone] Joselin Delgadillo MD [address] [phone] Chronic midline low back pain with bilateral sciatica; AGUEDA (generalized anxiety disorder) Social History Tobacco Use Types Packs/Day Years [...] on file 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 Gender Identity Not on file Sexual Orientation Not on file documented as of this encounter Miscellaneous Notes * Telephone Encounter - Yaritza Busch LPN - 12/18/2024 9:33 AM CDT Medication Refill Request Last Fill Date:12/09/24 Recent and Future Visits: Recent Visits Date Type Provider Dept 12/03/24 Office Visit Joselin Delgadillo MD [facility] 07/08/24 Office Visit Joselin Delgadillo MD [facility] Showing recent visits within past 540 days with a meds authorizing provider and meeting all other requirements Today's Visits Date Type Provider Dept 12/18/24 Appointment Sultana Ashford FNP [facility] Showing today's visits with a meds authorizing provider and meeting all other requirements Future Appointments Date Type Provider Dept 03/11/25 Appointment Joselin Delgadillo MD [facility] Showing future appointments within next 365 days with a meds authorizing provider and meeting all other requirements * Telephone Encounter - Michael Angelo - 12/18/2024 9:31 AM CDT Copied from [facility] #[id number]. Topic: Medication Request >> Dec 18, 2024 9:30 AM Michael Leija wrote: Caller Name: Jenifer Cesar . Callback Number: Telephone Information: Medication (Ask patient/caregiver to spell if possible): hydrocodone Note: All medication prescriptions can be requested using one CRM Preferred Pharmacy: [facility] Call Notes: refill Did caller contact the correct clinic for prescribing provider? Yes Ask caller if the refill is for a controlled medication. Is this for a controlled Medication? Yes Is there an encounter open? Yes * Telephone Encounter - Alex Capps - 12/17/2024 3:30 PM CDT Copied from [facility] #[id number]. Topic: Medication Request >> Dec 17, 2024 3:27 PM Alex Fox wrote: Caller Name: Jenifer Cesar Callback Number: Telephone Information: Medication (Ask patient/caregiver to spell if possible): HYDROcodone- acetaminophen (NORCO) 5-325 mgtablet Note: All medication prescriptions can be requested using one CRM Caller is requesting: Medication Question from Patient (not involving new prescription or refill) Preferred Pharmacy: [id number] - [place], [place] - [address] [facility] [address] Call Notes: Patient requesting if she can get more than 7 days worth of her medication, states thatit is difficult going back and forth to the pharmacy and having to call every week. Patient requesting a call back to discuss please. Is there an encounter open? Yes * Telephone Encounter - Eva Marinelli RN - 12/17/2024 9:06 AM CDT Medication Refill Request 12/17/2024 Last fill date:12/09/24 Correct Pharmacy: Yes Recent Visits Date Type Provider Dept 12/03/24 Office Visit Joselin Delgadillo MD [facility] 07/08/24 Office Visit Joselin Delgadillo MD [facility] Showing recent visits within past 400 days with a meds authorizing provider and meeting all other requirements Future Appointments Date Type Provider Dept 03/11/25 Appointment Joselin Delgadillo MD [facility] Showing future appointments within next 400 days with a meds authorizing provider and meeting all other requirements Eva GAMA * Telephone Encounter - Michael Angelo - 12/17/2024 8:53 AM CDT Copied from [facility] #[id number]. Topic: Medication Request >> Dec 17, 2024 8:52 AM Michael Leija wrote: Caller Name: Jenifer Cesar Callback Number: Telephone Information: Medication (Ask patient/caregiver to spell if possible): Klonopin, hydrocodone Note: All medication prescriptions can be requested using one [facility] Preferred Pharmacy: [facility] Call Notes: refill Did caller contact the correct clinic for prescribing provider? Yes Ask caller if the refill is for a controlled medication. Is this for a controlled Medication? Yes Is there an encounter open? No documented in this encounter Plan of Treatment Upcoming Encounters Date Type Department Care Team (Late st Contact Info) Description 12/30/2024 11:20 AM CDT Office Visit [address] [phone] Joselin Delgadillo MD [address] [place] [phone] 02/12/2025 1:30 PM CDT Appointment [facility] [place] [address] [place] [phone] Joselin Delgadillo MD [address] [place] [phone] 03/11/2025 1:20 PM CDT Office Visit [address] [phone] Joselin Delgadillo MD [address] [place] [phone] documented as of this encounter Visit Diagnoses Diagnosis Chronic midline low back pain with bilateral sciatica AGUEDA (generalized anxiety disorder) Generalized anxiety disorder documented in this encounter Additional Health Concerns Assessment Noted Time PHQ-9 Depression Total Score: 2 07/08/19 1:25 PM PROTECTION 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
--- OUTSIDE RECORDS SUMMARY | 2024-12-25 15:33 | XMS_ITS | Encounter Summary ---
Author Organization [facility] Address [address] [place] [address] Care Team Providers Care Freight Manager Name Role Phone Unavailable Primary Care Provider Unavailabl e Encounter Details Date Type Department Care Team (Latest Contact Info) Description 07/18/2001 Outpatient Historical [facility] Family [facility] [place] [address] 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
--- OUTSIDE RECORDS SUMMARY | 2024-12-25 15:33 | XMS_ITS | Clinical Summary ---
Author Organization [facility] Address [address] [place] [address] Care Team Providers Care Director Property Name Role Phone Unavailable Primary Care Provider Unavailabl e Allergies Active Allergy Reactions Criticality Noted Date Comments Aspirin Nausea and Vomiting Low 02/17/2009 Ibuprofen Swelling Low 01/12/2015 Medications traMADol (ULTRAM) 50 mg tablet Take 100 mg by mouth every 4 hours as needed for Pain. Active acetaminophen (TYLENOL) 325 mg tablet Take 975 mg by mouth every 4 hours as needed. Active amoxicillin (AMOXIL) 500 mg capsule Take 1 Cap (500 mg) by mouth 3 times daily. 30 Cap None 01/12/2015 Active Immunizations Immunization Administration Dates Next Due (TDVAX)(7 YRS UP) TETANUS AN D DIPHTHERIA TOXOIDS, ADSORBED (2 LF OF TETANUS TOXOID AND 2 LF OF DIPHTHERIA TOXOID), 0.5ML (PF), IM 03/06/2009,07/28/2000 Family History Medical History Relation Name Comments Cancer Maternal Grandfather Alzheimer's Disease Maternal Grandmother Diabetes Maternal Grandmother Relation Name Status Comments Father Alive Maternal Grandfather Maternal Grandmother Mother Alive Social History Tobacco Use Types Packs/Day Years Used Date Smoking Tobacco: Former Smokeless Tobacco: Never Alcohol Use Standard Drinks/Week Comments No 0 (1 standard drink = 0.6 oz pur e alcohol) Comments No Sex and Gender Information Value Date Recorded Sex Assigned at Not on file 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 Gender Identity Not on file Sexual Orientation Not on file Last Filed Vital Signs Vital Sign Reading Time Taken Comments Blood Pressure 112/71 01/12/2015 7:48 PM CDT Pulse - - Temperature 36.9 C (98.4 F) 01/12/2015 7:48 PM CDT Respiratory Rate 16 01/12/2015 7:48 PM CDT Oxygen Saturation 99% 01/12/2015 7:48 PM CDT Inhaled Oxygen Concentration - - Weight 56.4 kg (124 lb 6.4 oz) 01/12/2015 6:34 P M CDT Height 157.5 cm (5' 2 ) 01/12/2015 6:34 PM CDT Body Mass Index 22.75 01/12/2015 6:34 PM CDT Plan of Treatment Health Maintenance Due Date Last Done Comments HEPATITIS B VACCINES (1 of 3 - 19+ 3-dose series) 1986 HPV/Cotest (21-29) 02/24/1988 CERVICAL CANCER SCREENING 1997 HPV/Cotest (30-65) 1997 PAP SMEAR 1997 BREAST CANCER SCREENING 2007 DTAP/TDAP/TD VACCINES (1 - Tdap) 03/07/2009 03/06/20 09, 07/28/2000 COLORECTAL SCREENING 02/24/2012 Colorectal Cancer Screening 02/24/2012 FIT-DNA Q 3 years 02/24/2012 FIT/FOBT Q 1 year 02/24/2012 Flex Sig/CT Colonography Q 5 years 02/24/2012 ZOSTER VACCINE (1 of 2) 2017 INFLUENZA VACCINE (#1) 2024 Insurance [place]ICAID [place]
--- OUTSIDE RECORDS SUMMARY | 2024-12-25 15:33 | XMS_ITS | Encounter Summary ---
Author Organization [facility] Address [address] [place] [address] Care Team Providers Care Making Line Worker Name Role Phone Unavailable Primary Care Provider Unavailabl e Encounter Details Date Type Department Care Team (Late st Contact Info) Description 02/12/2003 Outpatient Historical [facility] Claudia, Randolph Albarran MD [address] [phone] SURGERY FOLLOWUP, UNSPEC (Primary Dx) Social History Tobacco Use Types Packs/Day Years Used Date Smoking Tobacco: Never Assessed Comments Unknown Sex and Gender Information Value Date Recorded Sex Assigned at Not on file 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
--- OUTSIDE RECORDS SUMMARY | 2024-12-25 15:33 | XMS_ITS | Encounter Summary ---
Author Organization [facility] Address 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 Gender Identity Not on file Sexual Orientation Not on file documented as of this encounter Plan of Treatment Upcoming Encounters Date Type Department Care Team (Late st Contact Info) Description 12/30/2024 11:20 AM CDT Office Visit [facility] Family Medicine [place] [address] [phone] Joselin Delgadillo MD [address] [phone] 02/12/2025 1:30 PM CDT Appointment [place] [phone] [facility] [address] [place] [phone] Joselin Delgadillo MD [address] [phone] 03/11/2025 1:20 PM CDT Office Visit [facility] [address] [phone] Joselin Delgadillo MD [address] [phone] documented as of this encounter Visit Diagnoses Not on filedocumented in this encounter Additional Health Concerns Assessment Noted Time PHQ-9 Depression Total Score: 2 07/08/19 1:25 PM DIABETES SOLUTIONS SPECIALIST documented as of this encounter Care Teams Digital Marketing Officer Relationship Specialty Start Date End Date Joselin Delgadillo MD [address] [phone] PCP - General Family Practice 07/08/24 documented as of this encounter
--- OUTSIDE RECORDS SUMMARY | 2024-12-25 15:33 | XMS_ITS | Encounter Summary ---
Author Organization [facility] Address [address] [place] [address] Care Team Providers Care Database Operator Name Role Phone Unavailable Primary Care Provider Unavailabl e Encounter Details Date Type Department Care Team (Late st Contact Info) Description 01/27/2003 Outpatient Historical [facility] Claudia, Randolph Albarran MD [address] [phone] FOREIGN BODY FOREARM (Primary Dx) Social History Tobacco Use Types Packs/Day Years Used Date Smoking Tobacco: Never Assessed Comments Unknown Sex and Gender Information Value Date Recorded Sex Assigned at Not on file 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
--- OUTSIDE RECORDS SUMMARY | 2024-12-25 15:33 | XMS_ITS | Patient Health Record ---
Author Organization [facility] Address [address] [place] [address] Care Team Providers Care Executive Sales Assistant Name Role Phone TREVON RAMOS MD Primary Care Provider Unavailab Zoya Melissa Unavailable Allergies Allergen (clinical drug ingredient) Drug/Non Drug Allergy documented on EMR Reaction Allergy Type Onset Date Status Amoxil rash Drug Allergy Active aspirin Aspirin rash Drug Allergy Active clindamycin Clindamycin HCl chest pain, diarrhea, stomach pain Drug Allergy Active Results Component Value Reference Range Notes Urine Drug Screen (cup read) - [id number] Reviewed date:05/14/2024 06:18:30 PM Interpretation: Performing Lab: Notes/Report: AMP - LUIS DANIEL - BUP - BZO - MDMA - OPI - PCP - OXY - MTD - MAMP - zzzUrine Drug Screen (confir mation by instrument) - [id number] Reviewed date:05/16/2024 11:41:28 AM Interpretation: Performing Lab: Notes/Report: zzzUrine Drug Screen (confir mation by instrument) - [id number] Reviewed date:07/30/2024 01:32:16 PM Interpretation: Performing Lab: Notes/Report: zzzUrine Drug Screen (confir mation by instrument) - [id number] Reviewed date:08/15/2024 12:32:56 PM Interpretation: Performing Lab: Notes/Report: Urine Confirmation Panel (in strument) - [id number] Reviewed date:08/22/2024 11:06:33 PM Interpretation: Performing Lab: Notes/Report: 6-Acetylmorphine 0 <6 ng/mL This test w as developed and its performance characteristics determined by [facility]. It has not been cleared or approved by the U.S. Food and Drug Administration. 7-Aminoclonazepam 42 <60 ng/mL This test was developed and its performance characteristics determined by [facility]. It has not been cleared or approved by the U.S. Food and Drug Administration. Alprazolam 0 <60 ng/mL This test was d eveloped and its performance characteristics determined by [facility]. It has not been cleared or approved by the U.S. Food and Drug Administration. Amphetamine 4 <75 ng/mL This test was d eveloped and its performance characteristics determined by [facility]. It has not been cleared or approved by the U.S. Food and Drug Administration. aOH-Alprazolam 0 <60 ng/mL This test was developed and its performance characteristics determined by [facility]. It has not been cleared or approved by the U.S. Food and Drug Administration. Buprenorphine 1.0 <7.5 ng/mL This test was developed and its performance characteristics determined by [facility]. It has not been cleared or approved by the U.S. Food and Drug Administration. Norbuprenorphine 0.0 <37.5 ng/mL This test w as developed and its performance characteristics determined by [facility]. It has not been cleared or approved by the U.S. Food and Drug Administration. Carisoprodol 0 <75 ng/mL This test was d eveloped and its performance characteristics determined by [facility]. It has not been cleared or approved by the U.S. Food and Drug Administration. Codeine 0 <75 ng/mL This test was d eveloped and its performance characteristics determined by [facility]. It has not been cleared or approved by the U.S. Food and Drug Administration. EDDP 0 <75 ng/mL This test was d eveloped and its performance characteristics determined by [facility]. It has not been cleared or approved by the U.S. Food and Drug Administration. Fentanyl 0 <6 ng/mL This test was d eveloped and its performance characteristics determined by [facility]. It has not been cleared or approved by the U.S. Food and Drug Administration. Hydrocodone 0 <75 ng/mL This test was d eveloped and its performance characteristics determined by [facility]. It has not been cleared or approved by the U.S. Food and Drug Administration. Hydromorphone 0 <75 ng/mL This test was developed and its performance characteristics determined by [facility]. It has not been cleared or approved by the U.S. Food and Drug Administration. Lorazepam 367 <60 ng/mL This test was d eveloped and its performance characteristics determined by [facility]. It has not been cleared or approved by the U.S. Food and Drug Administration. MDMA 0 <75 ng/mL This test was d eveloped and its performance characteristics determined by [facility]. It has not been cleared or approved by the U.S. Food and Drug Administration. Meperidine 0.0 <37.5 ng/mL This test was d eveloped and its performance characteristics determined by [facility]. It has not been cleared or approved by the U.S. Food and Drug Administration. Meprobamate 0 <75 ng/mL This test was d eveloped and its performance characteristics determined by [facility]. It has not been cleared or approved by the U.S. Food and Drug Administration. Methamphetamine 0 <75 ng/mL This test wa s developed and its performance characteristics determined by [facility]. It has not been cleared or approved by the U.S. Food and Drug Administration. Methadone 0 <75 ng/mL This test was d eveloped and its performance characteristics determined by [facility]. It has not been cleared or approved by the U.S. Food and Drug Administration. Morphine 0 <75 ng/mL This test was d eveloped and its performance characteristics determined by [facility]. It has not been cleared or approved by the U.S. Food and Drug Administration. Nordiazepam 0 <60 ng/mL This test was d eveloped and its performance characteristics determined by [facility]. It has not been cleared or approved by the U.S. Food and Drug Administration. Norfentanyl 0 <6 ng/mL This test was d eveloped and its performance characteristics determined by [facility]. It has not been cleared or approved by the U.S. Food and Drug Administration. Normeperidine 0.0 <37.5 ng/mL This test was developed and its performance characteristics determined by [facility]. It has not been cleared or approved by the U.S. Food and Drug Administration. O-desmethyltramadol >5000 <75 ng/mL This ran t was developed and its performance characteristics determined by [facility]. It has not been cleared or approved by the U.S. Food and Drug Administration. Oxazepam 0 <60 ng/mL This test was d eveloped and its performance characteristics determined by [facility]. It has not been cleared or approved by the U.S. Food and Drug Administration. Oxycodone 0.0 <37.5 ng/mL This test was d eveloped and its performance characteristics determined by [facility]. It has not been cleared or approved by the U.S. Food and Drug Administration. Oxymorphone 0 <75 ng/mL This test was d eveloped and its performance characteristics determined by [facility]. It has not been cleared or approved by the U.S. Food and Drug Administration. Phencyclidine 0.0 <7.5 ng/mL This test was developed and its performance characteristics determined by [facility]. It has not been cleared or approved by the U.S. Food and Drug Administration. Tapentadol 3.3 <37.5 ng/mL This test was d eveloped and its performance characteristics determined by [facility]. It has not been cleared or approved by the U.S. Food and Drug Administration. Temazepam 0 <60 ng/mL This test was d eveloped and its performance characteristics determined by [facility]. It has not been cleared or approved by the U.S. Food and Drug Administration. Tramadol >5000 <75 ng/mL This test was d eveloped and its performance characteristics determined by [facility]. It has not been cleared or approved by the U.S. Food and Drug Administration. Norhydrocodone 0 <75 ng/mL This test was developed and its performance characteristics determined by [facility]. It has not been cleared or approved by the U.S. Food and Drug Administration. Noroxycodone 0 <38 ng/mL This test was d eveloped and its performance characteristics determined by [facility]. It has not been cleared or approved by the U.S. Food and Drug Administration. Pregabalin 0 <225 ng/mL This test was d eveloped and its performance characteristics determined by [facility]. It has not been cleared or approved by the U.S. Food and Drug Administration. Gabapentin 0 <225 ng/mL This test was d eveloped and its performance characteristics determined by [facility]. It has not been cleared or approved by the U.S. Food and Drug Administration. Benzoylecgonine 0.0 <37.5 ng/mL This test wa s developed and its performance characteristics determined by [facility]. It has not been cleared or approved by the U.S. Food and Drug Administration. 4-Hydroxy Xylazine 0 <25 ng/mL This test was developed and its performance characteristics determined by [facility]. It has not been cleared or approved by the U.S. Food and Drug Administration. Tox Results Reviewed date:08/19/2024 07:57:58 AM Interpretation: Performing Lab: Notes/Report: Reason For Referral No Information Medications Medication SIG (Take, Route, Frequency, Duration) Notes Start Date End Date Status Keflex Not-Taking Cephalexin 500 MG 1 capsule Orally aayush ry 6 hrs Active Sudafed 30 MG 2 tablets as needed Orally every 6 hrs Active Ondansetron HCl 4 MG 1 tablet Orally Onc e a day Not-Taking Sudafed 30 MG 2 tablets as needed Orally every 6 hrs Not-Taking Acetaminophen Extra Strength 500 MG 1-2 tablets Orally every 6 hrs Active Wellbutrin SR 200 MG 1 tablet in the morning Orally Once a day BHC Not-Taking Social History Tobacco Use: Social History Observation Description Date Details (start date - stop date) Current Smoker NA - NA Household Question Answer Notes Marital status: single Level of education: finished high school xTobacco Use/Smoking Question Answer Notes Are you a current smoker How often do you smoke cigarettes? every day How many cigarettes a day do you smoke? 6-10 How soon after you wake up d o you smoke your first cigarette? 6-30 minutes Are you interested in quitting? Thinking about q uitting Alcohol Screen (Audit-C) Question Answer Notes Did you have a drink containing alcohol in the p ast year? No Points 0 Interpretation Negative Section Notes: denies alcohol non smoker denies illicit drug use currently not working/on disability single denies alcohol non smoker denies illicit drug use currently not working/on disability single denies alcohol non smoker denies illicit drug use currently not working/on disability single denies alcohol non smoker denies illicit drug use currently not working/on disability single Problems Problem Type SNOMED Code ICD Code Onset Dates Problem Status W/U Status Risk Notes Problem Chronic pain syndrome (827795186) Chronic pain syndrome (G89.4) Active confirmed Problem 68832292 Spondylosis without myelopathy or radiculopathy, lumbosacral region (M47.817) Active confirmed Problem Lumbosacral spondylosis without myelopathy (24434565) Other spondylosis, lumbar region (M47.896) Active confirmed Problem High risk drug monitoring status (511301847) Chronic prescription opiate use (Z79.891) Active confirmed Problem [id number] Uterine mass (N85.8) Active confirmed Problem 224547449 H/O pelvic mass (Z87.898) Active confirmed Problem 01952139 Generalized anxiety disorder (F41.1) 009 Active confirmed Alejandro-98 5911- Problem Lumbosacral spondylosis without myelopathy (07035476) 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 Alejandro-98 5911- Problem Screening for malignant neoplasm of colon (447337072) Screening for cancer of colon (V76.51) 019 Active confirmed Alejandro-98 5911- Problem Screening for malignant neoplasm of breast (835829104) Screening for breast cancer, unspecified (V76.10) 015 Active confirmed Alejandro-98 5911- Problem Drug withdrawal (656127661) Drug withdrawal (292.0) 009 Problem resolved confirmed [facility]andro-98 5911- Problem Acute sinusitis (06326268) Acute sinusitis, unspecified (461.9) 016 Problem resolved confirmed [facility]andro-98 5911- Problem Dysmenorrhea (266524096) Dysmenorrhea (625.3) 016 Problem resolved confirmed [facility]andro-98 5911- Problem Irregular menstrual cycle (94279659) Irregular menstrual cycle (626.4) 016 Problem resolved confirmed [facility]andro-98 5911- Problem Fever (791118940) Fever, unspeci fied (780.60) 016 Problem resolved confirmed [facility]andro-98 5911- Problem Memory loss (71489486) Memory loss (780.93) 012 Problem resolved confirmed [facility]andro-98 5911- Problem Headache (85870692) Headache (784.0) 02/25 06/27 009 Problem resolved confirmed [facility]andro-98 5911- Problem Cough (85505517) Cough (786.2) 012 Problem resolved confirmed [facility]andro-98 5911- Problem Diarrhea (77696069) Diarrhea (787.91) 13/08 014 Problem resolved confirmed [facility]andro-98 5911- Problem Dysuria (01570691) Dysuria (788.1) 015 Problem resolved confirmed [facility]andro-98 5911- Problem Gynecological examination normal (345876822986518) Routine gynecological examination (V72.31) 008 Problem resolved confirmed [facility]andro-98 5911- Problem Anemia (833851829) Anemia, unspecified (285.9) 016 Problem resolved confirmed [facility]-98 5911- Problem Rash (768291149) Rash (782.1) 009 Problem resolved confirmed [facility]andro-98 5911- Problem Dizziness (028866199) Dizziness (780.4) 010 Problem resolved confirmed [facility]andro-98 5911- Problem Low back pain (271169637) Low back pain (724.2) 009 Problem resolved confirmed [facility]andro-98 5911- Problem Back pain (723885813) Back pain (724.5) 019 Problem resolved confirmed [facility]andro-98 5911- Problem Iron deficiency anemia (92470035) Iron deficiency anemia, unspecified (280.9) 017 Problem resolved confirmed [facility]andro-98 5911- Problem Arthralgia of temporomandibular joint (49574951) TMJ arthralgias (524.62) 017 Problem resolved confirmed [facility]andro-98 5911- Problem Uterine fibroids (98325499) Uterine fibroids (654.10) 011 Problem resolved confirmed [facility]andro-98 5911- Problem Ear pain (98777834) Ear pain (388.70) 22/08 016 Problem resolved confirmed [facility]-98 5911- Problem Fibrocystic breast changes (11581140) Fibrocystic breast disease (610.1) 018 Problem resolved confirmed [facility]-98 5911- Problem Headache (16807117) Headache (307.81) 05/27 018 Problem resolved confirmed [facility]-98 5911- Problem Hypotension (72671870) Hypotension, other (458.8) 018 Problem resolved confirmed [facility]andro-98 5911- Problem Open wound of finger without complication (6498391) Laceration on the finger(s) (883.0) 018 Problem resolved confirmed [facility]andro-98 5911- Problem Urinary tract infection (75416724) UTI (599.0) 016 Problem resolved confirmed [facility]andro-98 5911- Problem Candidal vulvovaginitis (23073596) Yeast vaginitis (112.1) 013 Problem resolved confirmed [facility]andro-98 5911- Problem Disease of the oral soft tissues (65943646) Other disease of the oral soft tissues (528.9) 017 Problem resolved confirmed [facility]andro-98 5911- Problem Carbuncle of trunk (46539777) Perineal carbuncle (680.2) 013 Problem resolved confirmed [facility]andro-98 5911- Problem Screening for cardiovascular system disease (procedure) (951180530) Screening for cardiovascular conditions (V81.2) 019 Problem resolved confirmed [facility]andro-98 5911- Problem Screening for colon cancer (113227411) Screening for colon cancer (V76.49) 019 Problem resolved confirmed [facility]andro-98 5911- Problem Acute sinusitis (43495348) Acute sinusitis (461.9) 017 Problem resolved confirmed [facility]andro-98 5911- Problem Allergic rhinitis due to allergen (81860272) Allergic rhinitis, other allergen-induced, NEC (477.8) 015 Problem resolved confirmed [facility]-98 5911- Problem Allergic rhinitis caused by pollen (59906308) Allergies (477.0) 016 Problem resolved confirmed [facility]-98 5911- Problem Night sweats (02665139) Night sweats (780.8) 013 Problem resolved confirmed [facility]-98 5911- Problem 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) Other abnormal findings on blood examination (790.99) 018 Problem resolved confirmed [facility]-98 5911- Problem Sore throat (938508611) Sore Throat (462) 012 Problem resolved confirmed [facility]-98 5911- Problem Epigastric pain (59317668) Abdominal pain (epigastric) (789.06) 015 Problem resolved confirmed [facility]-98 5911- Problem Abrasion of head (745211968) Abrasion to nose (910.0) 013 Problem resolved confirmed [facility]andro-98 5911- Problem Atypical mole syndrome (297877136) Atypical mole (238.2) 009 Problem resolved confirmed [facility]andro-98 5911- Problem Breast lump (42772965) Breast lump (611.72) 015 Problem resolved confirmed [facility]andro-98 5911- Problem Hemorrhage of rectum and anus (856032261) Bright red blood per rectum (BRBPR) (569.3) 011 Problem resolved confirmed Alejandro-98 5911- Problem Generalized abdominal pain (523419701) Generalized abdominal pain (789.07) 011 Problem resolved confirmed [facility]andro-98 5911- Problem Generalized osteoarthritis (474716973) Generalized osteoarthritis, 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) 010 Problem resolved confirmed [facility]jandro-98 5911- Problem Hand pain (09612242) Hand pain (729.5) 018 Problem resolved confirmed [facility]andro-98 5911- Problem Irritable bowel syndrome (47981821) IBS, diarrhea prominent type (564.1) 015 Problem resolved confirmed [facility]andro-98 5911- Problem Ear ache (11979736) Ear ache (388.71) 16/08 009 Problem resolved confirmed [facility]andro-98 5911- Problem Insomnia (448984084) Insomnia (307.41) 009 Problem resolved confirmed [facility]andro-98 5911- Problem Pain in limb (19170893) Leg pain (729.5) 008 Problem resolved confirmed [facility]andro-98 5911- Problem Missed period (75472010) Missed period (626.4) 009 Problem resolved confirmed [facility]andro-98 5911- Problem Precordial pain (92278779) Precordial chest pain (786.51) 010 Problem resolved confirmed [facility]andro-98 5911- Problem Screening for malignant neoplasm of colon (699715591) Screening for colorectal cancer (V76.49) 014 Problem resolved confirmed [facility]jandro-98 5911- Problem Sinus tachycardia (38793816) Sinus tachycardia (427.89) 009 Problem resolved confirmed [facility]-98 5911- Problem Acute gingivitis (16406467) Acute gingivitis NOS (523.00) 016 Problem resolved confirmed [facility]-98 5911- Problem Breast tenderness (95548149) Breast tenderness (611.71) 011 Problem resolved confirmed [facility]-98 5911- Problem Iron deficiency anemia (78649534) Other specified iron deficiency anemia (280.8) 018 Problem resolved confirmed [facility]andro-98 5911- Problem Neoplasm of breast (084719233) Unspecified growth in breast tissue (239.3) 017 Problem resolved confirmed [facility]andro-98 5911- Problem Carbuncle of thigh (07388988) Carbuncle of thigh (680.6) 013 Problem resolved confirmed [facility]andro-98 5911- Problem Swollen gums (070061123) Swollen gums (784.2) 018 Problem resolved confirmed [facility]andro-98 5911- Problem Acute otitis media (2700314) Acute otitis media (382.00) 015 Problem resolved confirmed [facility]andro-98 5911- Problem Neoplasm of uncertain behavior of skin (66673303) Atypical skin lesion (238.2) 008 Problem resolved confirmed [facility]andro-98 5911- Problem Cellulitis and abscess of face (513175820) Cellulitis of the face (682.0) 016 Problem resolved confirmed [facility]andro-98 5911- Problem Constipation (44280056) Constipation (564.01) 011 Problem resolved confirmed [facility]andro-98 5911- Problem Multiple joint pain (46380586) Joint pain, multiple sites (719.49) 009 Problem resolved confirmed [facility]jandro-98 5911- Problem Knee pain (5929336760) Knee pain (719.46) 015 Problem resolved confirmed [facility]andro-98 5911- Problem Urinary tract infection (71075768) Urinary tract infection (595.0) 012 Problem resolved confirmed [facility]andro-98 5911- Problem Abdominal pain (79626128) Abdominal pain (789.00) 009 Problem resolved confirmed [facility]andro-98 5911- Problem Blood chemistry abnormal (784647746) Elevated blood iron concentration (790.6) 018 Problem resolved confirmed [facility]-98 5911- Problem Knee joint effusion (391646969) Knee swelling (719.06) 017 Problem resolved confirmed [facility]-98 5911- Problem Toothache (39050080) Toothache (525.9) 017 Problem resolved confirmed [facility]-98 5911- Problem Bloating (00667446) Bloating (787.3) 09/25 07/28 015 Problem resolved confirmed [facility]-98 5911- Problem Gastrointestinal bleeding (93397743) Gastrointestinal bleeding (537.89) 013 Problem resolved confirmed [facility]-98 5911- Problem Generalized osteoarthritis (474554786) Generalized osteoarthritis (715.09) 016 Problem resolved confirmed [facility]-98 5911- Problem Insect bite (981677903) Insect bite (919.4) 017 Problem resolved confirmed [facility]andro-98 5911- Problem Cramp in lower limb (292781796) Leg cramps (729.82) 018 Problem resolved confirmed [facility]andro-98 5911- Problem Mouth ulcer (44672202) Mouth ulcer (528.2) 017 Problem resolved confirmed [facility]andro-98 5911- Problem Perimenopausal disorder (814329737) Perimenopausal disorder (627.9) 018 Problem resolved confirmed [facility]-98 5911- Problem 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) 018 Problem resolved confirmed [facility]andro-98 5911- Problem Dry mouth (35008094) Dry mouth (527.7) 014 Problem resolved confirmed [facility]andro-98 5911- Problem External hemorrhoids without complication (39463024) Hemorrhoids, external (455.3) 011 Problem resolved confirmed [facility]andro-98 5911- Problem Opioid dependence (37097894) Opioid dependence (304.00) 013 Problem resolved confirmed [facility]andro-98 5911- Problem Possible STD exposure (V15.85) 009 Problem resolved confirmed Alejandro-98 5911- Problem Neoplasm of uncertain behavior of connective and other soft tissues (01838927) Unspecified skin lesion (239.2) 008 Problem resolved confirmed Alejandro-98 5911- Problem General examination of patient (254679174) Yearly physical exam (V70.0) 008 Problem resolved confirmed [facility]jandro-98 5911- Problem Aphthous ulcer (499644188) Aphthous ulcer (528.2) 015 Problem resolved confirmed [facility]andro-98 5911- Problem Exposure to communicable disease (624041465) Contact with or exposure to communicable diseases, unspecified (V01.9) 015 Problem resolved confirmed [facility]jandro-98 5911- Problem Screening mammography (57684845) Screening mammogram - other (V76.12) 019 Problem resolved confirmed Alejandro-98 5911- Vital Signs Weight-kg 55.34 kg 07/09/2024 Height 62 in 08/06/2024 Weight 122 lbs 07/09/2024 BMI 22.31 kg/m2 07/09/2024 Encounters Encounter Location Date Provider Diagnosis [facility] [address] [address] 07/22/2024 Zoya Lyuksyutova-Pric e [facility] [address] [address] 07/23/2024 Zoya Lyuksyutova-Pric e [facility] [address] [address] 05/14/2024 Zoya Lyuksyutova-Pric e Chronic pain syndrome G89.4 ; Spondylosis without myelopathy or radiculopathy, lumbosacral region M47.817 and Chronic prescription opiate use Z79.891 [facility] [address] [address] 07/09/2024 Zoya Lyuksyutova-Pric e Chronic pain syndrome G89.4 ; Spondylosis without myelopathy or radiculopathy, lumbosacral region M47.817 and Chronic prescription opiate use Z79.891 [facility] [address] [address] 08/06/2024 Zoya GilCassandra e Chronic pain syndrome G89.4 ; Spondylosis without myelopathy or radiculopathy, lumbosacral region M47.817 and meterman (current) use of opiate analgesic Z79.891 [facility] [place] [address] [place] [address] 09/10/[address] Zo[address] Calle e Chronic pain syndrome G89.4 ; Spondylosis without myelopathy or radiculopathy, lumbosacral region M47.817 and prison (current) use of opiate analgesic Z79.891 Assessments Encounter Date Diagnosis (ICD Code) Assessment Notes Treatment Notes Treatment Clinical Notes Section Notes 05/14/2024 Chronic pain syndrome (ICD-10 - G89.4) Ms. Cesar is a patient with history and physical exam suggestive of lumbosacral spondylosis mediated pain. She currently is recovering from a very large abdominal mass removal in March. I looked at her incision, It looks healed. I encouraged her to follow up with her surgeon for pathology reports as well as incision care. Will continue with Tramadol 50 mg at this time.She got herself scheduled in May for lumbosacral xrays. PDMP reviewed. Patient has a bowel regimen in place. UDS will be obtained Reviewed last UDS, positive for lorazepam, which is not on her PDMP, will obtain another UDS today to re-evaluate, patient given warning regarding not taking medications from other people. RECOMMEND URINE TESTING TODAYUrine drug screening will be performed today to monitor compliance with opioid therapy or to serve as a baseline screen for a patient who may be a candidate for opioid therapy in the future, pending UDS results. We will monitor with in-office testing (rapid testing) today and review the results prior to dispensing prescription. All positive results will be sent for quantitative analysis to ensure accuracy and quantify amounts. Any expected positive results that return negative will also be sent for quantitative analysis. Any questionable read or any medication we cannot test for in the office confidently will be sent for quantitative analysis, as well. Patient has been made aware of this policy and agrees to abide by our urine testing policy. 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 Cesar is a pleasant patient with a longstanding history of lumbosacral spondylosis mediated pain. She denies any side effects from her current medication regimen. I will refill her Tramadol 50 mg every 4-6 hours not to exceed 4 a day #120. 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 Cesar is a pleasant patient with history and physical exam of lumbosacral spondylosis mediated pain. She denies any side effects on her medication regimen. It's medically necessary to obtain a lumbosacral X-ray to evaluate her spondylosis mediated pain and to help for pre-procedure planning. I suspect in the future, she would benefit from bilateral L4/5 L5/S1 diagnostic medial branch blocks. I will see her back in 1 month for reevaluation. She did get her Tramadol prescription from her primary care physician for 07/14/24. I counseled the patient that she should not get prescriptions from multiple sources as this is a violation of a pain contract. The patient presents to clinic for medication evaluation and management. The patient is stable on their current medication regimen and endorses adequate analgesia, increased ADLs, denies abuse and side effects. The BUSBOY was reviewed with no untoward events noted. A bowel regimen was discussed with the patient. The options for treatment were explained in detail, this included PT, medications, injections, lifestyle modifications and exercise. 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 [...] ADLs, denies abuse and side effects. The BUSBOY was reviewed with no untoward events noted. UDS reviewed and is as expected. A bowel regimen was discussed with the patient. 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 This includes time spent before the visit reviewing the chart, time spent during the visit, and time spent after the visit on documentation 07/09/2024 Camilla Rand am scribing for Dr. Kelley. Dr. Warren Ramirez, personally performed the services described in this documentation, as scribed by Camilla Sotelo, and it is both accurate and complete. The patient was informed that the combination of benzodiazepines with opiates may cause serious health problems. These problems can be life-threatening. Patient was advised to never to take these two medications together. 08/06/2024 Camilla Rand am scribing for Dr. Kelley. Dr. Warren Ramirez, personally performed the services described in this documentation, as scribed by Camilla Sotelo, and it is both accurate and complete. RECOMMEND URINE TESTING TODAY Urine drug screening will be performed today to monitor compliance with opioid therapy or to serve as a baseline screen for a patient who may be a candidate for opioid therapy in the future, pending UDS results. We will monitor with in-office testing (rapid testing) today and review the results prior to dispensing prescription. All positive results will be sent for quantitative analysis to ensure accuracy and quantify amounts. Any expected positive results that return negative will also be sent for quantitative analysis. Any questionable read or any medication we cannot test for in the office confidently will be sent for quantitative analysis, as well. Patient has been made aware of this policy and agrees to abide by our urine testing policy. 09/10/2024 Other I, Camilla Sotelo, am scribing for Dr. Kellye. I, Dr. Kelley, personally performed the services described in this documentation, as scribed by Camilla Sotelo, and it is both accurate and complete. Plan Of Treatment Pending Test Test Name Order Date Lumbosacral Spine Comp AP/Lat w/ Obl-721 10 08/06/2024 DRUG MONITOR, PANEL 1, W/CONF, URINE Insurance Providers Payer Name Payer Address Payer Phone Subscriber Number Group Number Insured Name Patient Relationship to Insured Coverage Start Date Coverage End Date [place] Medicaid [address] [place] [address] [id number] Jenifer uRiz Self - patient is the insured Medical (General) History Medical History History ICD Code Osteoarthritis Lumbar spondylarthritis Generalized anxiety disorder Fibrocystic breast disease Tooth infection migraine headaches Surgical History Surgery Date(Month/Year) Tubal Ligation Hospitalization History Reason Date(Month/Year) Child
[2024-12-25 15:34] VITALS: BP 131/93; PULSE 90; RESP 18; TEMP 36.8; O2SAT 97
--- NOTE | 2024-12-25 16:08 | ED_ITS ---
HPI - Abdominal Pain 2 General: Chief Complaint: Abdominal Pain Stated Complaint: abd pain Time Seen by Provider: 12/25/24 15:57 Source: patient Mode of arrival: ambulatory Limitations: no limitations History of Present Illness: Patient is a 59-year-old female presents to ED today with a complaint of abdominal pain over the past few days. Patient states a few days ago she was seen at [facility] and had labs obtained. She states they did not have the capability for CT or ultrasound imaging. She states she was discharged home. She feels like maybe she overdid it as she is still recovering from a pelvic mass removal surgery in March 2024. She is not vomiting. She is still passing stool and flatulence. She is not running any fevers. She clinically appears no acute distress with stable vital signs. MD elicited complaint: abdominal pain Pain Consistency: constant Location: Diffuse and Periumbilical Severity: moderate Radiation: none Migration to: no migration Exacerbating factors: nothing Relieving factors: nothing Associated Symptoms: Reports no associated symptoms; Denies change in bowel habits, chills, dysuria, fever(s), hematuria and vomiting Related Data Home Medications ?Medication ?Instructions ?Recorded ?Confirmed budesonide-formoterol HFA 80 2 puff inhalation BID 05/1909/16/24 mcg-4.5 mcg/actuation aerosol inhaler (Symbicort) acetaminophen 500 mg tablet 500 mg PO QID PRN Pain 03/1909/16/24 Previous Rx's ?Medication ?Instructions ?Recorded albuterol sulfate 90 mcg/actuation 2 puff inhalation Q 6H PRN 02/07/24 aerosol inhaler shortness of breath or wheez ing #8.5 grams lorazepam 0.5 mg tablet 0.5 mg PO TID PRN anxiety #9 0 tabs 04/23/24 benzonatate 200 mg capsule 200 mg PO TID PRN cough #20 caps 08/02/24 cetirizine 10 mg tablet (Zyrtec) 10 mg PO DAILY PRN al lergy 08/02/24 symptoms #90 tabs diclofenac sodium 50 mg 50 mg PO Q12H PRN pain #20 t abs 09/16/24 tablet,delayed release Allergies Allergy/AdvReac Type Severity Reaction Status Date / Time amoxicillin (From Amoxil) Allergy Unknown ALGY-Rash Verified 09/16/24 09:29 clindamycin AdvReac ADR-Abdominal Verified 09/16/24 09:29 Pain Review of Systems 2 Const: Denies: fever(s), chills, body aches, fatigue or malaise Card: Denies: chest pain Resp: Denies: dyspnea GI: Reports: abdominal pain; Denies: vomiting or change in bowel habits : Denies: flank pain, difficulty voiding, dysuria, urinary frequency, hematuria or pelvic pain Musc: Reports: back pain (chronic); Denies: neck pain, extremity pain, extremity swelling, joint pain or joint swelling Skin/Breast: Denies: rash Neuro: Denies: headache(s), numbness in extremities, weakness in extremities, sensory changes or dizziness PFSH ED 2 PFSH: Medical History Acute back pain with sciatica Acute bronchitis and bronchiolitis Postoperative pelvic peritoneal adhesions Asthma Insect bite Nicotine dependence, cigarettes, in remission Post-traumatic stress disorder, chronic Generalized anxiety disorder Psychiatric care Chronic headache History of vaginal delivery Osteoarthritis Anxiety MDD (major depressive disorder) Surgical History History of tubal ligation Family History Other Family history unremarkable Social History Smoking and tobacco/nicotine status: never used tobacco/nicotine Alcohol intake: never Substance/Drug Use: never Adopted: No Caregiver/support person: No Lives independently: Yes Household members: none Housing: Apartment Marital status: Highest education level completed: High School Graduate service: No Current occupational status: unemployed Current occupational exposures/hazards: No Pets and animals: No Leisure activites: exercise, art and music Sexually active: No Do you think of yourself as: Straight/Heterosexual Current gender identity: Female Special ramin needs: No Agree to transfusion: Yes Female Reproductive History: Spontaneous abortions: No Date of menopause: 0 06/26/19 Physical Exam 2 Const: COMMON NORMALS: no acute distress, average body habitus, patient oriented x3, no limitations, alert and well nourished GENERAL APPEARANCE: c ooperative Eye: COMMON NORMALS: no scleral icterus Resp: COMMON NORMALS: normal respiratory effort and clear to auscultation bilaterally AUSCULTATION: clear to auscultation bilaterally Cardio: COMMON NORMALS: regular rate and regular rhythm RATE: regular rate RHYTHM: regular rhythm GI: COMMON NORMALS: Normal to inspection, nondistended, normoactive bowel sounds present, Soft to palpation, No hepatosplenomegaly present and no masses INSPECTION: Yes normal to inspection AUSCULTATION: Yes normoactive bowel sounds PALPATION: Yes Soft to palpation, Yes Tenderness to palpation present (GI) (diffusely but max tenderness periumbilical), No Guarding due to palpation present (GI), No Rigid due to palpation and Yes No hepatosplenomegaly present : COMMON NORMALS: Yes no CVA tenderness BLADDER/KIDNEY EXAM: Yes no CVA tenderness Back/Pelvis: COMMON NORMALS: no CVA tenderness Neuro: COMMON NORMALS: patient oriented x3 SENSORIUM/ORIENTATION: Yes alert Course 2 Vital Signs: Vital signs: Vital Signs Temperature 98.3 F 12/25/24 15:34 Pulse Rate 90 12/25/24 15:34 Respiratory Rate 18 12/25/24 16:30 Blood Pressure 131/93 12/25/24 15:34 Pulse Oximetry 99 12/25/24 16:30 Oxygen Delivery Me thod Room Air 12/25/24 15:34 MDM - Abdominal Pain Medical Decision Making Patient appears no acute distress. Her vital signs are stable. Initially ordered CT imaging but patient adamantly declines stating she does not want the radiation. Ultrasound of her abdomen was unremarkable. Her blood work is unremarkable. UA is clear. Discussed how there are etiologies that are best seen on CT imaging but patient still declines. She would like to follow-up with her primary care provider regarding her abdominal pain. Return to ED precautions discussed. Medical Records I reviewed the patient's medical records. Lab Data I reviewed the patient's lab results. 12/25/24 16:04 12/25/24 16:04 Labs/Radiology: Laboratory Results WBC 7.70 10^3/uL (3.29-11.43) 12/25/24 16:04 RBC 4.14 10^6/uL (3.85-5.65) 12/25/24 16:04 Hgb 12.00 g/dL (11.27-16.99) 12/25/24 16:04 Hct 38.2 % (36-47) 12/25/24 16:04 MCV 92.3 fl (85-98) 12/25/24 16:04 MCH 29.0 pg (27-33) 12/25/24 16:04 MCHC 31.4 g/dL (30-55) 12/25/24 16:04 RDW 12.7 % (12.1-15.1) 12/25/24 16:04 Plt Count 266 10^3/cmm (157-399) 12/25/24 16:04 MPV 8.9 fL (7.4-10.4) 12/25/24 16:04 Neut % (Auto) 63.2 % 12/25/24 16:04 Lymph % (Auto) 26.4 % 12/25/24 16:04 [place] % (Auto) 7.9 % 12/25/24 16:04 Eos % (Auto) 1.2 % 12/25/24 16:04 Baso % (Auto) 0.8 % 12/25/24 16:04 Neut # (Auto) 4.87 10^3/uL (1.8-7.7) 12/25/24 16:04 Lymph # (Auto) 2.0 10^3/uL (0.8-4.8) 12/25/24 16:04 [place] # (Auto) 0.6 10^3/uL (0.2-0.9) 12/25/24 16:04 Eos # (Auto) 0.1 10^3/uL (0.0-0.8) 12/25/24 16:04 Baso # (Auto) 0.1 10^3/uL (0.0-0.1) 12/25/24 16:04 Nucleated RBC % (auto) 0 % 12/25/24 16:04 Nucleated RBCs # 0.0 /100WBC 12/25/24 16:04 Sodium 140 mmol/L (136-145) 12/25/24 16:04 Potassium 3.6 mmol/L (3.5-5.1) 12/25/24 16:04 Chloride 105 mmol/L (98-107) 12/25/24 16:04 Carbon Dioxide 22 mmol/L (22-29) 12/25/24 16:04 Anion Gap 16.6 (5-19) 12/25/24 16:04 BUN 8 mg/dL (6-20) 12/25/24 16:04 Creatinine 0.4 mg/dL (0.5-0.9) L 12/25/24 16:04 GFR Calculation 164.5 mL/min (90-130) H 12/25/24 16:04 Glucose 91 mg/dL (65-115) 12/25/24 16:04 Calculated Osmolality 288 mOsm/kg (285-295) 12/25/24 16:04 Calcium 8.8 mg/dL (8.5-10.5) 12/25/24 16:04 Total Bilirubin 0.2 mg/dL (0.15-1.2) 12/25/24 16:04 AST 13 U/L (0-32) 12/25/24 16:04 ALT 10 U/L (0-33) 12/25/24 16:04 Alkaline Phosphatase 71 U/L (35-105) 12/25/24 16:04 Total Protein 6.9 g/dL (6.6-8.7) 12/25/24 16:04 Albumin 4.0 g/dL (3.5-5.2) 12/25/24 16:04 Globulin 2.9 g/dL (1.3-4.6) 12/25/24 16:04 Lipase 36 U/L (13-60) 12/25/24 16:04 Urine Color Yellow (Yellow) 12/25/24 16:56 Urine Appearance Clear (CLEAR) 12/25/24 16:56 Urine pH 6.0 (5-7) 12/25/24 16:56 Ur Specific [place] 1.009 (1.005-1.030) 12/25/24 16:56 Urine Protein Negative (Negative) 12/25/24 16:56 Urine Glucose (UA) Negative (Normal) 12/25/24 16:56 Urine Ketones Negative (Negative) 12/25/24 16:56 Urine Blood Negative (Negative) 12/25/24 16:56 Urine Nitrate Negative (Negative) 12/25/24 16:56 Urine Bilirubin Negative (Negative) 12/25/24 16:56 Urine Urobilinogen 0.2 mg/dL (Negative) 12/25/24 16:56 Ur Leukocyte Esterase Negative (Negative) 12/25/24 16:56 Urine RBC 0-2 /hpf (0-2) 12/25/24 16:56 Urine WBC 0-5 /hpf (0-5) 12/25/24 16:56 Ur Squamous Epith Cells 0-5 /hpf (0-5) 12/25/24 16:56 Amorphous Sediment Not Reportable 12/25/24 16:56 Urine Bacteria None seen /hpf (NONE) 12/25/24 16:56 Hyaline Casts 0-4 /lpf H 12/25/24 16:56 XR interpretation done by ED provider, pending radiology final review (per Ray Wood, [facility]-normal) Discharge Plan Discharge Patient Disposition: Home Clinical Impression: Abdominal pain Condition: Stable Prescriptions: No Action cetirizine [Zyrtec] 10 mg tablet 10 mg PO DAILY PRN (Reason: allergy symptoms) Qty: 90 0RF benzonatate 200 mg capsule 200 mg PO TID PRN (Reason: cough) Qty: 20 0RF diclofenac sodium 50 mg tablet,delayed release (DR/EC) 50 mg PO Q12H PRN (Reason: pain) Qty: 20 0RF albuterol sulfate 90 mcg/actuation HFA aerosol inhaler 2 puff inhalation Q6H PRN (Reason: shortness of breath or wheezing) Qty: 8.5 2RF lorazepam 0.5 mg tablet 0.5 mg PO TID PRN (Reason: anxiety) Qty: 90 2RF budesonide-formoterol [Symbicort] 80-4.5 mcg/actuation HFA aerosol inhaler 2 puff INHALATION BID acetaminophen [Tylenol Ex Str Rapid Release] 500 mg Tablet 500 mg PO QID PRN (Reason: Pain) Discharge Orders: Discharge ED (Routine); Ordered 12/25/24 Ordered By: Roberta Brooks Patient Instructions: Abdominal Pain (ED), Patient Portal & Daria Instructions Activity Restrictions/Additional Instructions: As we discussed, your blood work here was unremarkable. Urine was clear. Ultrasound of your abdomen obtained and essentially unremarkable. You have declined CT imaging. Recommend you follow-up with primary care next week for reevaluation. You may return to the emergency department at anytime for any further concerns you may have. Print Language: Lithuanian Coding Level of Care Code ED Railroad Police Officer for Pritesh Gill
[2024-12-25 16:20] LABS: Hematocrit 38.2 % (36-47); Hemoglobin 12.00 g/dL (11.27-16.99); Mean Corpuscular HGB Conc 31.4 g/dL (30-55); Mean Corpuscular Hemoglobin 29.0 pg (27-33); Mean Corpuscular Volume 92.3 fl (85-98); Nucleated Red Blood Cells % 0 %; Platelet Count 266 10^3/cmm (157-399); Red Blood Count 4.14 10^6/uL (3.85-5.65); White Blood Count 7.70 10^3/uL (3.29-11.43)
--- NOTE | 2024-12-25 16:24 | USR_ITS ---
PROCEDURE INFORMATION: Exam: US Abdomen Complete Exam date and time: 12/25/2024 4:58 PM Age: 59 years old Clinical indication: Abdominal pain; Generalized; Additional info: Abdominal pain; Refuses CT scan TECHNIQUE: Imaging protocol: Real-time ultrasound of the abdomen with image documentation. Complete exam. COMPARISON: CT abdomen pelvis con [id number] 04/15/2024 5:08 PM FINDINGS: Liver: Normal. No mass. Liver measures 14.4 cm in length. Gallbladder: Normal. No gallstones. There is no gallbladder wall thickening. Biliary ducts: Normal. No stones. No dilation. Common bile duct measures up to 0.4 cm in caliber. Pancreas: Visualized pancreas is unremarkable. Right kidney: Normal. No mass. No hydronephrosis. 9.5 cm in length. Simple appearing cysts. Left kidney: Normal. No mass. No hydronephrosis. 9.8 cm in length. Spleen: Normal. No splenomegaly. Aorta: Normal. No aneurysm. Inferior vena cava: Normal. US/US abdomen complete* [id number] IMPRESSION: 1. No acute findings. 2. Simple right renal cysts.
[2024-12-25 16:30] VITALS: RESP 18; O2SAT 99
[2024-12-25] MEDS: ondansetron 2 mg/ML SDV 2 mL 4 MG IVP (16:30)
[2024-12-25] MEDS: morphine 4 mg/mL SDV 1 mL IVP (16:30)
[2024-12-25 16:32] LABS: Alanine Aminotransferase 10 U/L (0-33); Albumin Level 4.0 g/dL (3.5-5.2); Alkaline Phosphatase 71 U/L (35-105); Aspartate Amino Transferase 13 U/L (0-32); Blood Urea Nitrogen 8 mg/dL (6-20); Calcium 8.8 mg/dL (8.5-10.5); Carbon Dioxide 22 mmol/L (22-29); Chloride 105 mmol/L (98-107); Creatinine Clr Calc Pharmacy 132.3988; Globulin 2.9 g/dL (1.3-4.6); Glucose 91 mg/dL (65-115); Lipase 36 U/L (13-60); Osmolality Calculated 288 mOsm/kg (285-295); Sodium 140 mmol/L (136-145); Total Protein 6.9 g/dL (6.6-8.7)
[2024-12-25 16:37] LABS: Anion Gap 16.6 (5-19); Potassium 3.6 mmol/L (3.5-5.1)
[2024-12-25 17:17] LABS: Glucose Urine UA Negative (Normal); Nitrate Urine Negative (Negative); Specific Gravity, Urine 1.009 (1.005-1.030)
[2024-12-25 17:19] LABS: Add Urine Microscopic? YES
[2024-12-25 17:35] VITALS: BP 144/100; PULSE 87; O2SAT 98
== END 2024-12-25 17:46 | disposition home or self-care (01) ==
PROVIDERS: Emergency Medicine; Emergency Provider Physician Assistant
DX: R10.9 Unspecified abdominal pain (principal)
CPT/HCPCS: 76700; 80053; 81001; 83690; 85025; 96374; 96375; 99284; J2270; J2405

== ENCOUNTER 2025-01-09 10:00 | Emergency (ER) | payer MEDICAID, SELFPAY ==
[2024-01-05 11:20] VITALS: BP 117/83; BMI 22.0
--- OUTSIDE RECORDS SUMMARY | 2025-01-08 08:00 | XMS_ITS | Encounter Summary ---
Author Organization [facility] Address [address] [place] [address] Care Team Providers Care Public Records Researcher Name Role Phone Joselin Delgadillo MD Primary Care Provider [phone] Reason for Visit * Reason Comments Back Pain Encounter Details Date Type Department Care Team (Late st Contact Info) Description 01/08/2025 8:00 AM CDT Office Visit [facility] [address] [phone] Roberta [place] [address] [address] Need for tetanus, diphtheria, and acellular pertussis (Tdap) vaccine (Primary Dx); Muscle strain; HTN (hypertension), benign Social History Tobacco Use Types Packs/Day Years Used Date Smoking Tobacco: Former Cigarettes 1 2009 Smokeless Tobacco: Never Alcohol Use Standard Drinks/Week Comments No 0 (1 standard drink = 0.6 oz pur e alcohol) Comments No Sex and Gender Information Value Date Recorded Sex Assigned at Not on file Legal Sex Female 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 Gender Identity Not on file Sexual Orientation Not on file documented as of this encounter Last Filed Vital Signs Vital Sign Reading Time Taken Comments Blood Pressure 135/96 01/08/2025 8:02 AM CDT Pulse 87 01/08/2025 7:57 AM CDT Temperature 36.6 C (97.8 F) 01/08/2025 7:57 AM CDT Respiratory Rate 16 01/08/2025 7:57 AM CDT Oxygen Saturation 99% 01/08/2025 7:57 AM CDT Inhaled Oxygen Concentration - - Weight 55.6 kg (122 lb 9.6 oz) 01/08/2025 7:57 A M CDT Height 160 cm (5' 3 ) 01/08/2025 7:57 AM CDT Body Mass Index 21.72 01/08/2025 7:57 AM CDT documented in this encounter Progress Notes * [place] Roberta Dutta, GREEN HIDE INSPECTOR - 01/08/2025 8:31 AM CDT [facility] 01/08/2025 Subjective: Jenifer Cesar is a 59 y.o. female who comes today for evaluation of Back Pain . History of Present Illness The patient is a 59-year-old female who presents for evaluation of a pulled muscle. She reports that her dog, which she describes as heavy, was pulling on her yesterday. This incidentresulted in a sensation of muscle strain in her abdomen and back. She also mentions a feeling of strain in her suprapubic area. She does not experience any numbness or tingling. Following the incident, she rested by lying down. She has been consuming honey and soda, which led to her feeling unwell. She is uncertain if this isrelated to her back strain. Additionally, she notes that her belly button piercing appears to be infected. She was prescribed an antibiotic for this condition a few weeks ago, which she has nearly completed. She is considering the need for a tetanus shot due to some bites from her new dog. Social History: Hobbies: Rescuing animals ROS Objective: Vitals: 01/08/25 0757 01/08/25 0802 Temp: 97.8 ??F (36.6 ??C) Pulse: 87 BP: (!) 118/100 (!) 135/96 Resp: 16 SpO2: 99% Physical Exam Past medical history, surgical history and social history reviewed. Past Medical History: Diagnosis Date Anxiety Asthma Chronic PID - chronic pelvic inflammatory disease Fibroid uterus Headache(784.0) MDD (major depressive disorder) Migraine Psychiatric problem anxiety Procedures Assessment/Plan: ICD-10-CM ICD-9-CM 1. Need for tetanus, diphtheria, and acellular pertussis (Tdap) vaccine Z23 V06.1 (ADACEL/BOOSTRIX)(10 YR UP) TDAP VACCINE, IM 2. Muscle strain T14.8XXA 848.9 cyclobenzaprine (FLEXERIL) 5 mg Tablet 3. HTN (hypertension), benign I10 401.1 lisinopriL (PRINIVIL) 5 mg tablet Assessment & Plan 1. Muscle strain. - Reports muscle strain in the stomach and back due to her dog pulling on her. - No numbness or tingling reported; pain localized to the suprapubic area. - Discussed the incident and symptoms; no additional imaging or tests ordered at this time. - Prescribed a muscle relaxer for one week, to be taken at bedtime to alleviate muscle tension. 2. Belly button infection. - Irritation noted around the belly button ring. - Has almost completed abx for this that she received last week. Advised to remove the belly buttonring until cleared. - Discussed the importance of cleaning the area with soap and water twice daily; advised against using hydrogen peroxide. - Instructed to complete the remaining course of antibiotics. 3. Tetanus prophylaxis. - Due for a tetanus shot. - Tetanus injection will be administered today. 4. Hypertension - Blood pressure elevated last two visits. - Called in Lisinopril 5mg with instructions to take daily and return next week for f/u on bp PRIETO Farley- This note was automatically generated by a Generative AI technology [email or web address]), reviewed, edited, and finalized by PRIETO Farley. The author of this note, patient (or authorized telemarketing representative), and all other persons present consent to the audio recording of this visit for charting documentation purposes. documented in this encounter Plan of Treatment Upcoming Encounters Date Type Department Care Team (Late st Contact Info) Description 01/13/2025 3:20 PM CDT Procedure visit [facility] [address] [phone] Mana Sol FNP [address] [address] 02/12/2025 1:30 PM CDT Appointment [place] [id number] [phone] Joselin Delgadillo MD [address] [place] [phone] 03/11/2025 1:20 PM CDT Office Visit [address] [phone] Joselin Delgadillo MD [address] [place] [phone] documented as of this encounter Visit Diagnoses Diagnosis Need for tetanus, diphtheria, and acellular pertussis (Tdap) vaccine- Primary Muscle strain Unspecified site of sprain and strain HTN (hypertension), benign Essential hypertension, benign documented in this encounter Additional Health Concerns Assessment Noted Time PHQ-9 Depression Total Score: 2 07/08/19 1:25 PM RESEARCH HYDRAULIC ENGINEER documented as of this encounter Care Teams Public Records Researcher Relationship Specialty Start Date End Date Joselin Delgadillo MD [address] [place] [phone] PCP - General Family Practice 07/08/24 documented as of this encounter
--- OUTSIDE RECORDS SUMMARY | 2025-01-09 08:40 | XMS_ITS | Encounter Summary ---
Author Organization [facility] Address [address] [place] [address] Care Team Providers Care Finisher Polisher Name Role Phone Joselin Delgadillo MD Primary Care Provider +1- [phone] Reason for Referral * Laboratory Services (Routine) - Closed Specialty Diagnoses / Procedures Referred By Margo bah Referred To Contact Family Practice Diagnoses Suprapubic abdominal pain Procedures VAGINOSIS/VAGINITIS PANEL PLUS Roberta Washington FNP [address] [place] [address] Phone: tel: fax: [address] [address] Phone: tel: fax: Referral ID Status Reason Start Date Expiration Date Visits Re quested Visits Authorized [id number] Closed 01/09/2025 02/09/2026 1 1 Reason for Visit * Reason Comments Back Pain * Laboratory Services (Routine) - Closed Specialty Diagnoses / Procedures Referred By Margo bah Referred To Contact Family Practice Diagnoses Suprapubic abdominal pain Procedures VAGINOSIS/VAGINITIS PANEL PLUS Roberta Washington FNP [address] [place] [address] Phone: tel: fax: [address] [phone] Phone: tel: fax: Referral ID Status Reason Start Date Expiration Date Visits Re quested Visits Authorized [id number] Closed 01/09/2025 02/09/2026 1 1 Encounter Details Date Type Department Care Team (Late st Contact Info) Description 01/09/2025 8:40 AM CDT Office Visit 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 Gender Identity Not on file Sexual Orientation Not on file documented as of this encounter Last Filed Vital Signs Vital Sign Reading Time Taken Comments Blood Pressure 133/96 01/09/2025 8:45 AM CDT Pulse 84 01/09/2025 8:40 AM CDT Temperature 36.1 C (97 F) 01/09/2025 8:40 AM CDT Respiratory Rate 16 01/09/2025 8:40 AM CDT Oxygen Saturation 99% 01/09/2025 8:40 AM CDT Inhaled Oxygen Concentration - - Weight 55.2 kg (121 lb 9.6 oz) 01/09/2025 8:40 A M CDT Height 160 cm (5' 3 ) 01/09/2025 8:40 AM CDT Body Mass Index 21.54 01/09/2025 8:40 AM CDT documented in this encounter Plan of Treatment Upcoming Encounters Date Type Department Care Team (Late Contact Info) Description 01/13/2025 3:20 PM CDT Procedure visit [facility] [address] [address] Mana Sol, [facility] [address] [address] 02/12/2025 1:30 PM CDT Appointment [facility] Mammography [place] [address] [facility] [address] [place] [address] Joselin Delgadillo MD [address] [address] 03/11/2025 1:20 PM CDT Office Visit [facility] [address] [address] Joselin Delgadilol MD [address] [phone] Scheduled Orders Name Type Priority Associated Diagnoses Orde r Schedule XR THORACIC SPINE 3 VW Imaging Routine Acute bilateral thoracic back pain 1 Occurrences starting 01/09/2025 until 01/09/2026 XR LUMBAR SPINE 2 OR 3 VW Imaging Routine Acute bilateral thoracic back pain 1 Occurrences starting 01/09/2025 until 01/09/2026 VAGINOSIS/VAGINITIS PANEL PLUS Microbiology Routine Suprapubic abdominal pain Expected: 01/09/2025, Expires: 01/09/2026 documented as of this encounter Visit Diagnoses Diagnosis Acute bilateral thoracic back pain- Primary Suprapubic abdominal pain Abdominal pain, other specified site documented in this encounter Additional Health Concerns Assessment Noted Time PHQ-9 Depression Total Score: 2 07/08/19 1:25 PM PEARL GLUE OPERATOR documented as of this encounter Care Teams Finisher Polisher Relationship Specialty Start Date End Date Joselin Delgadillo MD [address] [address] PCP - General Family Practice 07/08/24 documented as of this encounter
[2025-01-09 10:19] VITALS: BP 121/78; PULSE 83; RESP 18; TEMP 36.8; O2SAT 98; BMI 24.9
--- OUTSIDE RECORDS SUMMARY | 2025-01-09 10:27 | XMS_ITS | Clinical Summary ---
Author Organization [employer] Address [address] [facility] [address] [place]ann: Epic Prelude ADT MICHAEL DURAN [address] Care Team Providers Care Customer Care Consultant Name Role Phone Joselin Delgadillo MD Primary Care Provider +1- [phone] Allergies Active Allergy Reactions Criticality Noted Date Comments Amoxicillin Diarrhea Low 06/30/2021 Aspirin Nausea and Vomiting Low 02/17/2009 Clindamycin Nausea and Vomiting Low 02/08/2022 Ibuprofen Swelling Low 01/12/2015 Medications naloxone (NARCAN) 4 mg/spray [place], Non-Aerosol EMERGENCY USE ONLY: Administer 1 spray [...] taking differently:40 mg OralDAILY PRN, Reported on 01/09/2025 HYDROcodone-raúl taminophen (NORCO) 5-325 mg tabletIndicatio ns:Chronic [...] Anxiety. 90 Tablet 5 01/09/20 25 Active cephALEXin (KEFLEX) 500 mg capsuleIndicati ons:Skin infection Take 1 Capsule (500 mg) by mouth 4 times daily for 14 days. 56 Capsule 12/27/19 25 025 Active docusate sodium (COLACE) 100 mg capsuleIndicati ons:Constipatio n, unspecified constipation type Take 1 Capsule (100 mg) by mouth 2 times daily for 14 days. 28 Capsule 12/27/19 25 025 Active cyclobenzaprine (FLEXERIL) 5 mg TabletIndicatio ns:Muscle strain Take 1 Tablet (5 mg) by mouth nightly as needed for Spasm. 7 Tablet 01/09/20 25 025 Active mupirocin (BACTROBAN) 2 % Ointment Apply to affected area daily for 7 days. 15 Gram 01/09/20 25 025 Active lisinopriL (PRINIVIL) 5 mg tabletIndicatio ns:HTN (hypertension), benign Take 1 Tablet (5 mg) by mouth daily. 100 Tablet 3 01/09/20 25 Active Additional Information Patient not taking.Reported on 01/09/2025 predniSONE (DELTASONE) 5 mg tabletIndicatio ns:Acute bilateral thoracic back pain Take 1 Tablet (5 mg) by mouth see administration instructions. 21 Tablet 01/10/20 25 Active clonazePAM (KlonoPIN) 0.5 mg TabletIndicatio [...] Encounters Date Type Department Care Team Description 01/09/2025 8:40 AM CDT Office Visit [address] [address] Roberta Washington FNP Acute bilateral thoracic back pain (Primary Dx); Suprapubic abdominal pain 01/08/2025 8:00 AM CDT Office Visit [address] [address] Roberta Washington FNP Need for tetanus, diphtheria, and acellular pertussis (Tdap) vaccine (Primary Dx); Muscle strain; HTN (hypertension), benign 12/30/2024 Telephone [facility] [address] [address] Joselin Delgadillo MD Question 12/26/2024 9:40 AM CDT Office Visit [address] [address] Roberta Washington FNP Skin infection (Primary Dx); Constipation, unspecified constipation type; AGUEDA (generalized anxiety disorder); HTN (hypertension), benign 12/24/2024 External Device Data STL ABSTRACTION Provider, Abstract 12/24/2024 External Device Data ST[facility] ABSTRACTION Provider, Abstract 12/24/2024 External Device Data [facility] ABSTRACTION Provider, Abstract 12/23/[address] [phone] Joselin Delgadillo MD Information 12/23/2024 Orders Only [address] [phone] Joselin Delgadillo MD Vaginal bleeding (Primary Dx) 12/21/2024 7:58 AM CDT - 12/21/2024 9:19 AM CDT Emergency [facility] Emergency Medicine [address] [phone] Wilfredo Coker MD Abnormal vaginal bleeding in postmenopausal patient (Primary Dx) Discharge Disposition: Home or Self Care 12/18/2024 10:00 AM CDT Office Visit [address] [phone] Roberta Washington, [facility] Sciatica of right side (Primary Dx) 12/18/[address] [phone] Mana Sol FNP Reschedule Appointment 12/18/[address] [phone] Joselin Delgadillo MD 12/18/[address] [phone] Joselin Delgadillo MD Question 12/17/[address] [phone] Joselin Delgadillo MD Chronic midline low back pain with bilateral sciatica; AGUEDA (generalized anxiety disorder) 12/12/2024 10:40 AM CDT Office Visit [address] [phone] Lesion of skin of breast (Primary Dx) 12/09/[address] [address] Arik Russell MD Chronic midline low back pain with bilateral sciatica 12/03/2024 2:40 PM CDT Office Visit [address] [phone] Joselin Delgadillo MD Chronic midline low back pain with bilateral sciatica (Primary Dx); Dyspareunia in female; AGUEDA (generalized anxiety disorder); Breast cancer screening by mammogram; Screening for cervical cancer; Encounter for colorectal cancer screening 12/03/[address] [phone] Joselin Delgadillo MD Patient Communication; Patient Communication 11/19/2024 External Device Data STL ABSTRACTION Provider, Abstract 11/14/2024 External Device Data [facility] ABSTRACTION Provider, Abstract 11/13/2024 External Device Data [facility] ABSTRACTION Provider, Abstract 11/07/[address] [phone] Roberta Washington, PR[facility] Gastroesophageal reflux disease without esophagitis 11/05/2024 External Device Data ST[facility] ABSTRACTION Provider, Abstract 10/29/2024 External Device Data ST[facility] ABSTRACTION Provider, Abstract 10/29/2024 External Device Data ST[facility] ABSTRACTION Provider, Abstract 10/14/[address] [phone] Joselin Delgadillo MD Medication Review 10/11/[address] [phone] Joselin Delgadillo MD AGUEDA (generalized anxiety disorder) from Last 3 Months Immunizations Immunization Administration Dates Next Due (ADACEL/BOOSTRIX)(10 YR UP) TDAP VACCINE, 0.5ML, IM 01/08/2025 (TDVAX)(7 YRS UP) TETANUS AN D DIPHTHERIA [...] Tobacco: Former Cigarettes 2009 Smokeless Tobacco: Never Tobacco Cessation:Counseling Given: Not Answered Alcohol Use Standard Drinks/Week Comments No 0 (1 standard drink = 0.6 oz pur e alcohol) Comments No Sex and Gender Information Value Date Recorded Sex Assigned at Not on file 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 Gender Identity Not on file Sexual Orientation [...] Mass Index 21.54 01/09/2025 8:40 AM CDT Plan of Treatment Upcoming Encounters Date Type Department Care Team (Late st Contact Info) Description 01/13/2025 3:20 PM CDT Procedure visit [facility] [address] [phone] Mana Sol FNP [address] [phone] 02/12/2025 1:30 PM CDT Appointment [facility] Mammography [place] [address] [place] [address] Joselin Delgadillo MD [address] [phone] 03/11/2025 1:20 PM CDT Office Visit [facility] [place] [address] [phone] Joselin Delgadillo MD [address] [phone] Health Maintenance Due Date Last Done Comments HEPATITIS B VACCINES (1 of 3 - 19+ 3-dose series) 1986 Preventative Visit-Managed Medicaid 1986 HPV/Cotest (21-29) 02/24/1988 CERVICAL CANCER SCREENING 1997 HPV/Cotest (30-65) 1997 PAP SMEAR 1997 BREAST CANCER SCREENING 2007 COLORECTAL SCREENING 02/24/2012 Colorectal Cancer Screening 02/24/2012 FIT-DNA Q 3 years 02/24/2012 FIT/FOBT Q 1 year 02/24/2012 Flex Sig/CT Colonography Q 5 years 02/24/2012 ZOSTER VACCINE (1 of 2) 2017 INFLUENZA VACCINE (#1) 2025 , 03/12/2024, 09/05/2023 DTAP/TDAP/TD VACCINES (2 - T d or Tdap) 01/08/2035 01/08/2025, 03/06/2009, 07/28/2000 Procedures Procedure Name Priority Date/Time Associated Diagnosis Comments URINALYSIS W/REFLEX MICROSCOPIC Stat 12/21/2024 8:40 AM CDT from Last 3 Months Results * URINALYSIS WITH REFLEX MICROSCOPIC (12/21/2024 8:40 AM CDT) COLOR UA Pale Yellow Pale to Dark Yellow 12/21/2024 8:48 AM CDT [facility] CLARITY UA Clear Clear 12/21/2024 8:48 AM T [facility] SPECIFIC GRAVITY UA 1.010 1.003 - 1.035 12/21/2024 8:48 AM T [facility] PH UA 7.0 5.0 - 8.0 12/21/2024 8:48 AM T [facility] LEUKOCYTE ESTERASE UA Negative Negative 12/21/2024 8:48 AM T [facility] NITRITE UA Negative Negative 12/21/2024 8:48 AM T [facility] PROTEIN UA Negative Negative 12/21/2024 8:48 AM T [facility] GLUCOSE UA Negative Negative 12/21/2024 8:48 AM T [facility] KETONES UA Negative Negative 12/21/2024 8:48 AM T [facility] UROBILINOGEN UA 0.2 <2.0 mg/dL 8:48 AM T [facility] BILIRUBIN UA Negative Negative 12/21/2024 8:48 AM T [facility] BLOOD UA Negative Negative 12/21/2024 8:48 AM [facility] Urine URINE SPECIMEN OBTAINED BY CLEAN CATCH PROCEDURE / Unknown 12/21/2024 8:40 AM CDT 12/21/2024 8:43 AM T us Wilfredo Coker MD URINE ORDERABLES Final Result [facility] CLIA # [id number] [address] [place] [id number] from Last 3 Months Insurance [place] Member Subscriber Plan / Payer (Ef fective 2021-Present) Name:Jenifer Cesar Relation to Subscriber:Self Name:Jenifer Cesar Payer ID:Not on file Group ID:Not on file Type:Medicaid Address: [place] [id number] Care Teams Customer Care Consultant Relationship Specialty Start Date End Date Joselin Delgadillo MD [address] [phone] PCP - General Family Practice 07/08/24
--- OUTSIDE RECORDS SUMMARY | 2025-01-09 10:27 | XMS_ITS | Encounter Summary ---
Author Organization [facility] Address [address] [place] [address] Care Team Providers Care Admissions Clinician Name Role Phone Joselin Delgadillo MD Primary Care Provider +1- [phone] Reason for Visit * Reason Comments Question Encounter Details Date Type Department Care Team (Late st Contact Info) Description 12/18/2024 Telephone [facility] [facility] [place] [address] [phone] Joselin Delgadillo MD [address] [phone] Question Social History Tobacco Use Types Packs/Day Years Used Date Smoking Tobacco: Former Cigarettes 1 2009 Smokeless Tobacco: Never Alcohol Use Standard Drinks/Week Comments No 0 (1 standard drink = 0.6 oz pur e alcohol) Comments No Sex and Gender Information Value Date Recorded Sex Assigned at Not on file 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 Topic: Patient or Caregiver Communication Request >> [...] Description 01/13/2025 3:20 PM CDT Procedure visit [facility] [address] [place] [phone] Mana Sol, LEAF TIER [address] [place] [address] 02/12/2025 1:30 PM CDT Appointment [facility] Mammography [place] [address] [place] [address] Joselin Delgadillo MD [address] [phone] 03/11/2025 1:20 PM CDT Office Visit 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
--- OUTSIDE RECORDS SUMMARY | 2025-01-09 10:28 | XMS_ITS | Encounter Summary ---
Author Organization [facility] Address [address] [place] [address] Care Team Providers Care Advanced Manufacturing Associate Name Role Phone Unavailable Primary Care Provider Unavailabl e Encounter Details Date Type Department Care Team (Late st Contact Info) Description 01/27/2003 Outpatient Historical [facility] Claudia, Randolph Albarran MD [address] [phone] FOREIGN BODY FOREARM (Primary Dx) Social History Tobacco Use Types Packs/Day Years Used Date Smoking Tobacco: Never Assessed Comments Unknown Sex and Gender Information Value Date Recorded Sex Assigned at Not on file 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
--- OUTSIDE RECORDS SUMMARY | 2025-01-09 10:28 | XMS_ITS | Patient Health Record ---
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 Name Role Phone TREVON RAMOS MD Primary Care Provider Unavailab Zoya Melissa Unavailable Allergies Allergen (clinical drug ingredient) Drug/Non Drug Allergy documented on EMR Reaction Allergy Type Onset Date Status Amoxil rash Drug Allergy Active aspirin Aspirin rash Drug Allergy Active clindamycin Clindamycin HCl chest pain, diarrhea, stomach pain Drug Allergy Active Results Component Value Reference Range Flag Notes Urine Drug Screen (cup read) - [id number] Reviewed date:05/14/2024 06:18:30 PM Interpretation: Performing Lab: Notes/Report: AMP - LUIS DANIEL - BUP - BZO - MDMA - OPI - PCP - OXY - MTD - MAMP - zzzUrine Drug Screen (confir mation by instrument) - [id number] Reviewed date:05/16/2024 11:41:28 AM Interpretation: Performing Lab: Notes/Report: zzzUrine Drug Screen (confir mation by instrument) - [id number] Reviewed date:07/30/2024 01:32:16 PM Interpretation: Performing Lab: Notes/Report: zzzUrine Drug Screen (confir mation by instrument) - [id number] Reviewed date:08/15/2024 12:32:56 PM Interpretation: Performing Lab: Notes/Report: Tox Results Reviewed date:08/19/2024 07:57:58 AM Interpretation: Performing Lab: Notes/Report: Urine Confirmation Panel (in strument) - [id number] Reviewed date:08/22/2024 11:06:33 PM Interpretation: Performing Lab: Notes/Report: 6-Acetylmorphine 0 <6 ng/mL N This ran t was developed and its performance characteristics determined by [facility]. It has not been cleared or approved by the U.S. Food and Drug Administration. 7-Aminoclonazepam 42 <60 ng/mL N This te st was developed and its performance characteristics determined by [facility]. It has not been cleared or approved by the U.S. Food and Drug Administration. Alprazolam 0 <60 ng/mL N This test was developed and its performance characteristics determined by [facility]. It has not been cleared or approved by the U.S. Food and Drug Administration. Amphetamine 4 <75 ng/mL N This test was developed and its performance characteristics determined by [facility]. It has not been cleared or approved by the U.S. Food and Drug Administration. aOH-Alprazolam 0 <60 ng/mL N This test was developed and its performance characteristics determined by [facility]. It has not been cleared or approved by the U.S. Food and Drug Administration. Buprenorphine 1.0 <7.5 ng/mL N This test w as developed and its performance characteristics determined by [facility]. It has not been cleared or approved by the U.S. Food and Drug Administration. Norbuprenorphine 0.0 <37.5 ng/mL N This te st was developed and its performance characteristics determined by [facility]. It has not been cleared or approved by the U.S. Food and Drug Administration. Carisoprodol 0 <75 ng/mL N This test wa s developed and its performance characteristics determined by [facility]. It has not been cleared or approved by the U.S. Food and Drug Administration. Codeine 0 <75 ng/mL N This test was developed and its performance characteristics determined by [facility]. It has not been cleared or approved by the U.S. Food and Drug Administration. EDDP 0 <75 ng/mL N This test was developed and its performance characteristics determined by [facility]. It has not been cleared or approved by the U.S. Food and Drug Administration. Fentanyl 0 <6 ng/mL N This test was developed and its performance characteristics determined by [facility]. It has not been cleared or approved by the U.S. Food and Drug Administration. Hydrocodone 0 <75 ng/mL N This test was developed and its performance characteristics determined by [facility]. It has not been cleared or approved by the U.S. Food and Drug Administration. Hydromorphone 0 <75 ng/mL N This test w as developed and its performance characteristics determined by [facility]. It has not been cleared or approved by the U.S. Food and Drug Administration. Lorazepam 367 <60 ng/mL H This test was developed and its performance characteristics determined by [facility]. It has not been cleared or approved by the U.S. Food and Drug Administration. MDMA 0 <75 ng/mL N This test was developed and its performance characteristics determined by [facility]. It has not been cleared or approved by the U.S. Food and Drug Administration. Meperidine 0.0 <37.5 ng/mL N This test was developed and its performance characteristics determined by [facility]. It has not been cleared or approved by the U.S. Food and Drug Administration. Meprobamate 0 <75 ng/mL N This test was developed and its performance characteristics determined by [facility]. It has not been cleared or approved by the U.S. Food and Drug Administration. Methamphetamine 0 <75 ng/mL N This test was developed and its performance characteristics determined by [facility]. It has not been cleared or approved by the U.S. Food and Drug Administration. Methadone 0 <75 ng/mL N This test was developed and its performance characteristics determined by [facility]. It has not been cleared or approved by the U.S. Food and Drug Administration. Morphine 0 <75 ng/mL N This test was developed and its performance characteristics determined by [facility]. It has not been cleared or approved by the U.S. Food and Drug Administration. Nordiazepam 0 <60 ng/mL N This test was developed and its performance characteristics determined by [facility]. It has not been cleared or approved by the U.S. Food and Drug Administration. Norfentanyl 0 <6 ng/mL N This test was developed and its performance characteristics determined by [facility]. It has not been cleared or approved by the U.S. Food and Drug Administration. Normeperidine 0.0 <37.5 ng/mL N This test was developed and its performance characteristics determined by [facility]. It has not been cleared or approved by the U.S. Food and Drug Administration. O-desmethyltramadol >5000 <75 ng/mL > This test was developed and its performance characteristics determined by [facility]. It has not been cleared or approved by the U.S. Food and Drug Administration. Oxazepam 0 <60 ng/mL N This test was developed and its performance characteristics determined by [facility]. It has not been cleared or approved by the U.S. Food and Drug Administration. Oxycodone 0.0 <37.5 ng/mL N This test was developed and its performance characteristics determined by [facility]. It has not been cleared or approved by the U.S. Food and Drug Administration. Oxymorphone 0 <75 ng/mL N This test was developed and its performance characteristics determined by [facility]. It has not been cleared or approved by the U.S. Food and Drug Administration. Phencyclidine 0.0 <7.5 ng/mL N This test w as developed and its performance characteristics determined by [facility]. It has not been cleared or approved by the U.S. Food and Drug Administration. Tapentadol 3.3 <37.5 ng/mL N This test was developed and its performance characteristics determined by [facility]. It has not been cleared or approved by the U.S. Food and Drug Administration. Temazepam 0 <60 ng/mL N This test was developed and its performance characteristics determined by [facility]. It has not been cleared or approved by the U.S. Food and Drug Administration. Tramadol >5000 <75 ng/mL > This test was developed and its performance characteristics determined by [facility]. It has not been cleared or approved by the U.S. Food and Drug Administration. Norhydrocodone 0 <75 ng/mL N This test was developed and its performance characteristics determined by [facility]. It has not been cleared or approved by the U.S. Food and Drug Administration. Noroxycodone 0 <38 ng/mL N This test wa s developed and its performance characteristics determined by [facility]. It has not been cleared or approved by the U.S. Food and Drug Administration. Pregabalin 0 <225 ng/mL N This test was developed and its performance characteristics determined by [facility]. It has not been cleared or approved by the U.S. Food and Drug Administration. Gabapentin 0 <225 ng/mL N This test was developed and its performance characteristics determined by [facility]. It has not been cleared or approved by the U.S. Food and Drug Administration. Benzoylecgonine 0.0 <37.5 ng/mL N This ran t was developed and its performance characteristics determined by [facility]. It has not been cleared or approved by the U.S. Food and Drug Administration. 4-Hydroxy Xylazine 0 <25 ng/mL N This t est was developed and its performance characteristics determined by [facility]. It has not been cleared or approved by the U.S. Food and Drug Administration. Reason For Referral No Information Medications Medication SIG (Take, Route, Frequency, Duration) Notes Start Date End Date Status Keflex Not-Taking Cephalexin 500 MG Capsule 1 capsule Oral ly every 6 hrs Active Sudafed 30 MG Tablet 2 tablets as needed Orally every 6 hrs Active Ondansetron HCl 4 MG Tablet 1 tablet Orally Once a day Not-Taking Sudafed 30 MG Tablet 2 tablets as needed Orally every 6 hrs Not-Taking Acetaminophen Extra Strength 500 MG Tablet 1-2 tablets Orally every 6 hrs Active Wellbutrin SR 200 MG Tablet Extended Release 12 Hour 1 tablet in the morning Orally Once a day BHC Not-Taking Social History Tobacco Use: Social History Observation Description Date Details (start date - stop date) Current Smoker NA - NA Social History Drugs/Alcohol: Social Info Question Answer Notes Alcohol Screen (Audit-C) Did you have a drink containing alcohol in the past year? No Points 0 Interpretation Negative Drugs Have you used drugs other than those for medical reasons in the past 12 months? No Household: Social Info Question Answer Notes Household Marital status: single Level of education: finished high school Tobacco Use: Social Info Question Answer Notes xTobacco Use/Smoking Are you a current smoker How often do you smoke cigarettes? every day How many cigarettes a day do you smoke? 6-10 How soon after you wake up do you smoke your first cigarette? 6-30 minutes Are you interested in quitting? Thinking about quitting Additional Details Category Social Info Options Details Drugs/Alcohol: Do you smoke marijuana? De nies Section Notes: denies alcohol non smoker denies [...] Problem Status W/U Status Risk Notes Problem Information temporarily unavailable Chronic pain syndrome (G89.4) Active confirmed Problem Information temporarily unavailable Spondylosis without myelopathy or radiculopathy, lumbosacral region (M47.817) Active confirmed Problem Information temporarily unavailable Other spondylosis, lumbar region (M47.896) Active confirmed Problem Information temporarily unavailable Chronic prescription opiate use (Z79.891) Active confirmed Problem Information temporarily unavailable Uterine mass (N85.8) Active confirmed Problem Information temporarily unavailable H/O pelvic mass (Z87.898) Active confirmed Problem Information temporarily unavailable Generalized anxiety disorder (F41.1) 03/16/20 09 Active confirmed Alejandro-985 911- Problem Information temporarily unavailable 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 Active confirmed Alejandro-985 911- Problem Information temporarily unavailable Screening for cancer of colon (V76.51) 07/06/19 19 Active confirmed Alejandro-985 911- Problem Information temporarily unavailable Screening for breast cancer, unspecified (V76.10) 08/20/19 15 Active confirmed Alejandro-985 911- Problem Information temporarily unavailable Drug withdrawal (292.0) 10/02/19 09 Problem resolved confirmed Alejandro-985 911- Problem Information temporarily unavailable Acute sinusitis, unspecified (461.9) 05/13/20 16 Problem resolved confirmed Alejandro-985 911- Problem Information temporarily unavailable Dysmenorrhea (625.3) 10/16/19 16 Problem resolved confirmed Alejandro-985 911- Problem Information temporarily unavailable Irregular menstrual cycle (626.4) 10/16/19 16 Problem resolved confirmed Alejandro-985 911- Problem Information temporarily unavailable Fever, unspecified (780.60) 12/04/19 16 Problem resolved confirmed Alejandro-985 911- Problem Information temporarily unavailable Memory loss (780.93) 05/09/20 12 Problem resolved confirmed Alejandro-985 911- Problem Information temporarily unavailable Headache (784.0) 03/16/20 09 Problem resolved confirmed Alejandro-985 911- Problem Information temporarily unavailable Cough (786.2) 05/09/20 12 Problem resolved confirmed Alejandro-985 911- Problem Information temporarily unavailable Diarrhea (787.91) 01/11/20 14 Problem resolved confirmed Alejandro-985 911- Problem Information temporarily unavailable Dysuria (788.1) 08/20/19 15 Problem resolved confirmed Alejandro-985 911- Problem Information temporarily unavailable Routine gynecological examination (V72.31) 01/30/20 08 Problem resolved confirmed Alejandro-985 911- Problem Information temporarily unavailable Anemia, unspecified (285.9) 04/04/20 16 Problem resolved confirmed Alejandro-985 911- Problem Information temporarily unavailable Rash (782.1) 12/05/19 09 Problem resolved confirmed Alejandro-985 911- Problem Information temporarily unavailable Dizziness (780.4) 04/30/20 10 Problem resolved confirmed Alejandro-985 911- Problem Information temporarily unavailable Low back pain (724.2) 01/09/20 09 Problem resolved confirmed Alejandro-985 911- Problem Information temporarily unavailable Back pain (724.5) 03/21/20 19 Problem resolved confirmed Alejandro-985 911- Problem Information temporarily unavailable Iron deficiency anemia, unspecified (280.9) 01/19/20 17 Problem resolved confirmed Alejandro-985 911- Problem Information temporarily unavailable TMJ arthralgias (524.62) 08/18/19 17 Problem resolved confirmed Alejandro-985 911- Problem Information temporarily unavailable Uterine fibroids (654.10) 10/28/19 11 Problem resolved confirmed Alejandro-985 911- Problem Information temporarily unavailable Ear pain (388.70) 04/21/20 16 Problem resolved confirmed Alejandro-985 911- Problem Information temporarily unavailable Fibrocystic breast disease (610.1) 01/12/20 18 Problem resolved confirmed Alejandro-985 911- Problem Information temporarily unavailable Headache (307.81) 08/07/19 18 Problem resolved confirmed Alejandro-985 911- Problem Information temporarily unavailable Hypotension, other (458.8) 08/07/19 18 Problem resolved confirmed Alejandro-985 911- Problem Information temporarily unavailable Laceration on the finger(s) (883.0) 01/12/20 18 Problem resolved confirmed Alejandro-985 911- Problem Information temporarily unavailable UTI (599.0) 08/19/19 16 Problem resolved confirmed Alejandro-985 911- Problem Information temporarily unavailable Yeast vaginitis (112.1) 01/01/20 13 Problem resolved confirmed Alejandro-985 911- Problem Information temporarily unavailable Other disease of the oral soft tissues (528.9) 08/12/19 17 Problem resolved confirmed Alejandro-985 911- Problem Information temporarily unavailable Perineal carbuncle (680.2) 01/01/20 13 Problem resolved confirmed Alejandro-985 911- Problem Information temporarily unavailable Screening for cardiovascular conditions (V81.2) 12/27/19 19 Problem resolved confirmed Alejandro-985 911- Problem Information temporarily unavailable Screening for colon cancer (V76.49) 03/28/20 19 Problem resolved confirmed Alejandro-985 911- Problem Information temporarily unavailable Acute sinusitis (461.9) 04/27/20 17 Problem resolved confirmed Alejandro-985 911- Problem Information temporarily unavailable Allergic rhinitis, other allergen-induced, NEC (477.8) 10/10/19 15 Problem resolved confirmed Alejandro-985 911- Problem Information temporarily unavailable Allergies (477.0) 06/24/20 16 Problem resolved confirmed Alejandro-985 911- Problem Information temporarily unavailable Night sweats (780.8) 11/10/19 13 Problem resolved confirmed Alejandro-985 911- Problem Information temporarily unavailable Other abnormal findings on blood examination (790.99) 09/12/19 18 Problem resolved confirmed Alejandro-985 911- Problem Information temporarily unavailable Sore Throat (462) 05/03/20 12 Problem resolved confirmed Alejandro-985 911- Problem Information temporarily unavailable Abdominal pain (epigastric) (789.06) 09/09/19 15 Problem resolved confirmed Alejandro-985 911- Problem Information temporarily unavailable Abrasion to nose (910.0) 11/10/19 13 Problem resolved confirmed Alejandro-985 911- Problem Information temporarily unavailable Atypical mole (238.2) 12/13/19 09 Problem resolved confirmed Alejandro-985 911- Problem Information temporarily unavailable Breast lump (611.72) 02/27/20 15 Problem resolved confirmed Alejandro-985 911- Problem Information temporarily unavailable Bright red blood per rectum (BRBPR) (569.3) 04/04/20 11 Problem resolved confirmed Alejandro-985 911- Problem Information temporarily unavailable Generalized abdominal pain (789.07) 05/12/20 11 Problem resolved confirmed Alejandro-985 911- Problem Information temporarily unavailable Generalized osteoarthritis, 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) 04/30/20 10 Problem resolved confirmed Alejandro-985 911- Problem Information temporarily unavailable Hand pain (729.5) 09/05/19 18 Problem resolved confirmed Alejandro-985 911- Problem Information temporarily unavailable IBS, diarrhea prominent type (564.1) 10/16/19 15 Problem resolved confirmed Alejandro-985 911- Problem Information temporarily unavailable Ear ache (388.71) 03/16/20 09 Problem resolved confirmed Alejandro-985 911- Problem Information temporarily unavailable Insomnia (307.41) 04/01/20 09 Problem resolved confirmed Alejandro-985 911- Problem Information temporarily unavailable Leg pain (729.5) 01/30/20 08 Problem resolved confirmed Alejandro-985 911- Problem Information temporarily unavailable Missed period (626.4) 01/08/20 09 Problem resolved confirmed Alejandro-985 911- Problem Information temporarily unavailable Precordial chest pain (786.51) 04/12/20 10 Problem resolved confirmed Alejandro-985 911- Problem Information temporarily unavailable Screening for colorectal cancer (V76.49) 01/18/20 14 Problem resolved confirmed Alejandro-985 911- Problem Information temporarily unavailable Sinus tachycardia (427.89) 10/16/19 09 Problem resolved confirmed Alejandro-985 911- Problem Information temporarily unavailable Acute gingivitis NOS (523.00) 04/21/20 16 Problem resolved confirmed Alejandro-985 911- Problem Information temporarily unavailable Breast tenderness (611.71) 04/25/20 11 Problem resolved confirmed Alejandro-985 911- Problem Information temporarily unavailable Other specified iron deficiency anemia (280.8) 02/10/20 18 Problem resolved confirmed Alejandro-985 911- Problem Information temporarily unavailable Unspecified growth in breast tissue (239.3) 08/18/19 17 Problem resolved confirmed Alejandro-985 911- Problem Information temporarily unavailable Carbuncle of thigh (680.6) 12/27/19 13 Problem resolved confirmed Alejandro-985 911- Problem Information temporarily unavailable Swollen gums (784.2) 08/07/19 18 Problem resolved confirmed Alejandro-985 911- Problem Information temporarily unavailable Acute otitis media (382.00) 02/27/20 15 Problem resolved confirmed Alejandro-985 911- Problem Information temporarily unavailable Atypical skin lesion (238.2) 01/30/20 08 Problem resolved confirmed Alejandro-985 911- Problem Information temporarily unavailable Cellulitis of the face (682.0) 07/27/19 16 Problem resolved confirmed Alejandro-985 911- Problem Information temporarily unavailable Constipation (564.01) 04/04/20 11 Problem resolved confirmed Alejandro-985 911- Problem Information temporarily unavailable Joint pain, multiple sites (719.49) 04/01/20 09 Problem resolved confirmed Alejandro-985 911- Problem Information temporarily unavailable Knee pain (719.46) 10/16/19 15 Problem resolved confirmed Alejandro-985 911- Problem Information temporarily unavailable Urinary tract infection (595.0) 11/25/19 12 Problem resolved confirmed Alejandro-985 911- Problem Information temporarily unavailable Abdominal pain (789.00) 12/13/19 09 Problem resolved confirmed Alejandro-985 911- Problem Information temporarily unavailable Elevated blood iron concentration (790.6) 03/12/20 18 Problem resolved confirmed Alejandro-985 911- Problem Information temporarily unavailable Knee swelling (719.06) 02/17/20 17 Problem resolved confirmed Alejandro-985 911- Problem Information temporarily unavailable Toothache (525.9) 10/20/19 17 Problem resolved confirmed Alejandro-985 911- Problem Information temporarily unavailable Bloating (787.3) 10/16/19 15 Problem resolved confirmed Alejandro-985 911- Problem Information temporarily unavailable Gastrointestinal bleeding (537.89) 11/03/19 13 Problem resolved confirmed Alejandro-985 911- Problem Information temporarily unavailable Generalized osteoarthritis (715.09) 09/24/19 16 Problem resolved confirmed Alejandro-985 911- Problem Information temporarily unavailable Insect bite (919.4) 11/04/19 17 Problem resolved confirmed Alejandro-985 911- Problem Information temporarily unavailable Leg cramps (729.82) 03/12/20 18 Problem resolved confirmed Alejandro-985 911- Problem Information temporarily unavailable Mouth ulcer (528.2) 01/19/20 17 Problem resolved confirmed Alejandro-985 911- Problem Information temporarily unavailable Perimenopausal disorder (627.9) 11/23/19 18 Problem resolved confirmed Alejandro-985 911- Problem Information temporarily unavailable Polyarticular osteoarthritis (715.09) 10/05/19 18 Problem resolved confirmed Alejandro-985 911- Problem Information temporarily unavailable Dry mouth (527.7) 03/20/20 14 Problem resolved confirmed Alejandro-985 911- Problem Information temporarily unavailable Hemorrhoids, external (455.3) 04/04/20 11 Problem resolved confirmed Alejandro-985 911- Problem Information temporarily unavailable Opioid dependence (304.00) 06/06/20 13 Problem resolved confirmed Alejandro-985 911- Problem Information temporarily unavailable Possible STD exposure (V15.85) 01/09/20 09 Problem resolved confirmed Alejandro-985 911- Problem Information temporarily unavailable Unspecified skin lesion (239.2) 01/21/20 08 Problem resolved confirmed Alejandro-985 911- Problem Information temporarily unavailable Yearly physical exam (V70.0) 01/21/20 08 Problem resolved confirmed Alejandro-985 911- Problem Information temporarily unavailable Aphthous ulcer (528.2) 11/22/19 15 Problem resolved confirmed Alejandro-985 911- Problem Information temporarily unavailable Contact with or exposure to communicable diseases, unspecified (V01.9) 08/20/19 15 Problem resolved confirmed Alejandro-985 911- Problem Information temporarily unavailable Screening mammogram - other (V76.12) 03/28/20 19 Problem resolved confirmed Alejandro-985 911- Vital Signs Weight-kg 55.34 kg 07/09/2024 Height 62 in 08/06/2024 Weight 122 lbs 07/09/2024 BMI 22.31 kg/m2 07/09/2024 Encounters Encounter Location Date Provider Diagnosis [facility] [place] [address] [place] [id number] 05/14/2024 Zoya Ojeda-Pric e Chronic pain syndrome G89.4 ; Spondylosis without myelopathy or radiculopathy, lumbosacral region M47.817 and Chronic prescription opiate use Z79.891 [facility] [place] [address] [place] [address] 07/09/2024 Zoya Tiwarisymartha-Pric e Chronic pain syndrome G89.4 ; Spondylosis without myelopathy or radiculopathy, lumbosacral region M47.817 and Chronic prescription opiate use Z79.891 [facility] [facility] [address] [place] [address] 08/06/2024 Zoya Tiwarisyutova-Pric e Chronic pain syndrome G89.4 ; Spondylosis without myelopathy or radiculopathy, lumbosacral region M47.817 and 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 Z79.891 [facility] [place] [address] [place] [place] [address] 09/10/2024 Zoya Rusty-Pric e Chronic pain syndrome G89.4 ; Spondylosis without myelopathy or radiculopathy, lumbosacral region M47.817 and retirement (current) use of opiate analgesic Z79.891 [facility] [place] [address] [place] [place] [address] 07/22/2024 Zoya Tesymartha-Pric e [facility] [place] [address] [place] [place] [address] 07/23/2024 Zoya Rusty-Pric e Assessments Encounter Date Diagnosis (ICD Code) Assessment [...] ADLs, denies abuse and side effects. The POSTAL TRANSPORTATION CLERK was reviewed with no untoward events noted. [...] ADLs, denies abuse and side effects. The POSTAL TRANSPORTATION CLERK was reviewed with no untoward events noted. UDS reviewed and is as expected. A bowel regimen was discussed with the patient. 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 This includes time spent before the visit reviewing the chart, time spent during the visit, and time spent after the visit on documentation 07/09/2024 Other Camilla Ramirez am scribing for Dr. Kelley. Dr. Warren [...] I, Camilla Sotelo, am scribing for Dr. Kelley. I, Dr. Kelley, personally performed the services [...] End Date [place] Medicaid [address] [place] [address] [id number] Jenifer Ruiz Self - patient is the insured Medical (General) History Medical History History ICD Code Osteoarthritis Lumbar spondylarthritis Generalized anxiety disorder Fibrocystic breast disease Tooth infection migraine headaches Surgical History Surgery Date(Month/Year) Tubal Ligation Hospitalization History Reason Date(Month/Year) Child
--- OUTSIDE RECORDS SUMMARY | 2025-01-09 10:28 | XMS_ITS | Encounter Summary ---
[facility] Organization [facility] Address [address] [place] [address] Care Team Providers Care House Superintendent Name Role Phone Unavailable Primary Care Provider Unavailabl e Encounter Details Date Type Department Care Team (Late st Contact Info) Description 02/12/2003 Outpatient Historical [facility] Claudia, Randolph Albarran MD [address] [id number] SURGERY FOLLOWUP, UNSPEC (Primary Dx) Social History Tobacco Use Types Packs/Day Years Used Date Smoking Tobacco: Never Assessed Comments Unknown Sex and Gender Information Value Date Recorded Sex Assigned at Not on file 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
--- OUTSIDE RECORDS SUMMARY | 2025-01-09 10:28 | XMS_ITS | Clinical Summary ---
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
--- OUTSIDE RECORDS SUMMARY | 2025-01-09 10:28 | XMS_ITS | Encounter Summary ---
Author Organization [facility] Address [address] [place] [address] Care Team Providers Care Felt Hat Mellowing Machine Operator Name Role Phone Unavailable Primary Care Provider Unavailabl e Encounter Details Date Type Department Care Team (Latest Contact Info) Description 07/18/2001 Outpatient Historical [facility] [place] [address] 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
[2025-01-09 11:19] LABS: Hematocrit 36.6 % (36-47); Hemoglobin 11.90 g/dL (11.27-16.99); Mean Corpuscular HGB Conc 32.5 g/dL (30-55); Mean Corpuscular Hemoglobin 29.8 pg (27-33); Mean Corpuscular Volume 91.5 fl (85-98); Nucleated Red Blood Cells % 0 %; Platelet Count 258 10^3/cmm (157-399); Red Blood Count 4.00 10^6/uL (3.85-5.65); White Blood Count 5.26 10^3/uL (3.29-11.43)
[2025-01-09 11:22] LABS: Glucose Urine UA Negative (Normal); Nitrate Urine Negative (Negative); Specific Gravity, Urine 1.005 (1.005-1.030)
--- NOTE | 2025-01-09 11:22 | ED_ITS ---
HPI - Abdominal Pain 2 General: Chief Complaint: Abdominal Pain Stated Complaint: bodyaches from lower back down Time Seen by Provider: 01/09/25 11:22 History of Present Illness: 59-year-old female with a history of chr onic pain syndrome and anxiety on tramadol and lorazepam according to the prescription monitoring program, asthma and depression who presents emergency room with pain. She is complaining of pain down the front of her abdomen and down the front of her legs and also down her back and down her back legs. She consistently states she wants a shot of morphine. When I discussed with her that I do not see any indication for narcotics she immediately tells me I am not a druggie . No no nausea or vomiting. Related Data Home Medications ?Medication ?Instructions ?Recorded ?Confirmed budesonide-formoterol HFA 80 2 puff inhalation BID 05/1901/07/25 mcg-4.5 mcg/actuation aerosol inhaler (Symbicort) acetaminophen 500 mg tablet 500 mg PO QID PRN Pain 03/1901/07/25 Previous Rx's ?Medication ?Instructions ?Recorded albuterol sulfate 90 mcg/actuation 2 puff inhalation Q 6H PRN 02/07/24 aerosol inhaler shortness of breath or wheez ing #8.5 grams lorazepam 0.5 mg tablet 0.5 mg PO TID PRN anxiety #9 0 tabs 04/23/24 benzonatate 200 mg capsule 200 mg PO TID PRN cough #20 caps 08/02/24 cetirizine 10 mg tablet (Zyrtec) 10 mg PO DAILY PRN al lergy 08/02/24 symptoms #90 tabs diclofenac sodium 50 mg 50 mg PO Q12H PRN pain #20 t abs 09/16/24 tablet,delayed release Allergies Allergy/AdvReac Type Severity Reaction Status Date / Time amoxicillin (From Amoxil) Allergy Unknown ALGY-Rash Verified 01/07/25 07:16 aspirin Allergy Unknown Verified 01/09/25 10:24 clindamycin AdvReac ADR-Abdominal Verified 01/07/25 07:16 Pain Review of Systems 2 Narrative: Constitutional symptoms: Negative except as documented in HPI. Skin symptoms: Negative except as documented in HPI. Eye symptoms: Negative except as documented in HPI. ENMT symptoms: Negative except as documented in HPI. Respiratory symptoms: Negative except as documented in HPI. Cardiovascular symptoms: Negative except as documented in HPI. Gastrointestinal symptoms: Negative except as documented in HPI. Genitourinary symptoms: Negative except as documented in HPI. Musculoskeletal symptoms: Negative except as documented in HPI. Neurologic symptoms: Negative except as documented in HPI. Psychiatric symptoms: Negative except as documented in HPI. Endocrine symptoms: Negative except as documented in HPI. PFSH ED 2 PFSH: Medical History (Updated 01/09/25 @ 12:31 by Sury Naranjo MD) Acute back pain with sciatica Acute bronchitis and bronchiolitis Postoperative pelvic peritoneal adhesions Asthma Insect bite Nicotine dependence, cigarettes, in remission Post-traumatic stress disorder, chronic Generalized anxiety disorder Psychiatric care Chronic headache History of vaginal delivery Osteoarthritis Anxiety MDD (major depressive disorder) Surgical History History of tubal ligation Family History Other Family history unremarkable Social History Smoking and tobacco/nicotine status: never used tobacco/nicotine Alcohol intake: never Substance/Drug Use: never Adopted: No Caregiver/support person: No Lives independently: Yes Household members: none Housing: Apartment Marital status: Highest education level completed: High School Graduate service: No Current occupational status: unemployed Current occupational exposures/hazards: No Pets and animals: No Leisure activites: exercise, art and music Sexually active: No Do you think of yourself as: Straight/Heterosexual Current gender identity: Female Special ramin needs: No Agree to transfusion: Yes Female Reproductive History: Spontaneous abortions: No Date of menopause: 0 06/26/19 Physical Exam 2 Narrative: EXAM NARRATIVE: General: Alert, no acute distress. Skin: Warm, dry. Head: Normocephalic, atraumatic. Neck: Supple, trachea midline. Eye: Extraocular movements are intact. Ears, nose, mouth and throat: mucosa moist. Cardiovascular: Regular, Normal peripheral perfusion. Respiratory: Lungs are clear to auscultation, respirations are non-labored, breath sounds are equal, Symmetrical chest wall expansion. Gastrointestinal: Soft, Nontender, Non distended Musculoskeletal: Normal ROM, no deformity. Neurological: Alert and oriented, No focal neurological deficit observed. Psychiatric: Cooperative, appropriate mood & affect. Course 2 Vital Signs: Vital signs: Vital Signs Temperature 98.2 F 01/09/25 10:19 Pulse Rate 81 01/09/25 11:56 Respiratory Rate 18 01/09/25 10:19 Blood Pressure 127/85 01/09/25 11:56 Pulse Oximetry 97 01/09/25 11:56 Oxygen Delivery Me thod Room Air 01/09/25 11:56 MDM - Abdominal Pain Medical Decision Making Medical decision making: Differential diagnosis including but not limited to and based on the above HPI, review of systems and physical exam: Ureterolithiasis. Urinary tract infection. Appendicitis. Cholecystis. Musculoskeletal / back pain. Pyelonephritis. Orders placed to evaluate differential diagnosis based on the above differential, HPI and physical exam Lab Review: Laboratory results were reviewed and interpreted by myself the emergency room physician. No leukocytosis. No anemia. No renal failure. Urinalysis is negative for infection. However her drug screen is positive for opiates. She is prescribed tramadol which would not test positive on her drug screen on the opiates category. CT of the abdomen pelvis: No kidney stones etc. No acute findings. This was reviewed and interpreted by myself the emergency room physician. I also reviewed the radiology report. I reviewed the patient's medical record. Reexamination: No increased work of breathing. No altered mental status. The patient continues to be angry about me not prescribing or giving her narcotic/opiate pain shots while she is here. She is very argumentative about this. I discussed with her that there is no indication for this and that her drug screen tested positive for opiates which could be an issue with her pain prescriber. When I tell her that she says that her doctor did give her some hydrocodone, however this is not present on her prescription monitoring program results. Assessment and plan: Chronic pain syndrome Malingering ? IV Toradol in the emergency room. - Discharged home - Discussed plan with patient. Answered any questions. - Evaluation and treatment of this problem were appropriate in the emergency setting. Lab Data 01/09/25 11:08 01/09/25 11:08 Labs/Radiology: Radiology Impressions Abdomen/Pelvis CT 01/09/25 11:28 IMPRESSION: 1. No obstructing renal or ureteral calculi. No hydronephrosis. 2. Stable RIGHT renal cysts. 3. Urine distended bladder. 4. Mild sigmoid and LEFT colon constipation. 5. Small fat-containing umbilical hernia. No herniated bowel. 6. No other acute findings. Laboratory Results WBC 5.26 10^3/uL (3.29-11.43) 01/09/25 11:08 RBC 4.00 10^6/uL (3.85-5.65) 01/09/25 11:08 Hgb 11.90 g/dL (11.27-16.99) 01/09/25 11:08 Hct 36.6 % (36-47) 01/09/25 11:08 MCV 91.5 fl (85-98) 01/09/25 11:08 MCH 29.8 pg (27-33) 01/09/25 11:08 MCHC 32.5 g/dL (30-55) 01/09/25 11:08 RDW 12.6 % (12.1-15.1) 01/09/25 11:08 Plt Count 258 10^3/cmm (157-399) 01/09/25 11:08 MPV 8.7 fL (7.4-10.4) 01/09/25 11:08 Neut % (Auto) 63.6 % 01/09/25 11:08 Lymph % (Auto) 25.7 % 01/09/25 11:08 Banner % (Auto) 8.2 % 01/09/25 11:08 Eos % (Auto) 1.3 % 01/09/25 11:08 Baso % (Auto) 1.0 % 01/09/25 11:08 Neut # (Auto) 3.35 10^3/uL (1.8-7.7) 01/09/25 11:08 Lymph # (Auto) 1.4 10^3/uL (0.8-4.8) 01/09/25 11:08 Banner # (Auto) 0.4 10^3/uL (0.2-0.9) 01/09/25 11:08 Eos # (Auto) 0.1 10^3/uL (0.0-0.8) 01/09/25 11:08 Baso # (Auto) 0.1 10^3/uL (0.0-0.1) 01/09/25 11:08 Nucleated RBC % (auto) 0 % 01/09/25 11:08 Nucleated RBCs # 0.0 /100WBC 01/09/25 11:08 Sodium 139 mmol/L (136-145) 01/09/25 11:08 Potassium 3.6 mmol/L (3.5-5.1) 01/09/25 11:08 Chloride 101 mmol/L (98-107) 01/09/25 11:08 Carbon Dioxide 29 mmol/L (22-29) 01/09/25 11:08 Anion Gap 12.6 (5-19) 01/09/25 11:08 BUN 6 mg/dL (6-20) 01/09/25 11:08 Creatinine 0.5 mg/dL (0.5-0.9) 01/09/25 11:08 GFR Calculation 127.2 mL/min (90-130) 01/09/25 11:08 Glucose 79 mg/dL (65-115) 01/09/25 11:08 Calculated Osmolality 285 mOsm/kg (285-295) 01/09/25 11:08 Calcium 9.1 mg/dL (8.5-10.5) 01/09/25 11:08 Total Bilirubin 0.4 mg/dL (0.15-1.2) 01/09/25 11:08 AST 15 U/L (0-32) 01/09/25 11:08 ALT 12 U/L (0-33) 01/09/25 11:08 Alkaline Phosphatase 62 U/L (35-105) 01/09/25 11:08 Total Protein 6.8 g/dL (6.6-8.7) 01/09/25 11:08 Albumin 4.0 g/dL (3.5-5.2) 01/09/25 11:08 Globulin 2.8 g/dL (1.3-4.6) 01/09/25 11:08 Urine Color Yellow (Yellow) 01/09/25 10:33 Urine Appearance Clear (CLEAR) 01/09/25 10:33 Urine pH 6.5 (5-7) 01/09/25 10:33 Ur Specific [place] 1.005 (1.005-1.030) 01/09/25 10:33 Urine Protein Negative (Negative) 01/09/25 10:33 Urine Glucose (UA) Negative (Normal) 01/09/25 10:33 Urine Ketones Negative (Negative) 01/09/25 10:33 Urine Blood Negative (Negative) 01/09/25 10:33 Urine Nitrate Negative (Negative) 01/09/25 10:33 Urine Bilirubin Negative (Negative) 01/09/25 10:33 Urine Urobilinogen 0.2 mg/dL (Negative) 01/09/25 10:33 Ur Leukocyte Esterase Negative (Negative) 01/09/25 10:33 Urine RBC 0-2 /hpf (0-2) 01/09/25 10:33 Urine WBC 0-5 /hpf (0-5) 01/09/25 10:33 Ur Squamous Epith Cells 0-5 /hpf (0-5) 01/09/25 10:33 Amorphous Sediment Not Reportable 01/09/25 10:33 Urine Bacteria None seen /hpf (NONE) 01/09/25 10:33 Hyaline Casts 0-4 /lpf H 01/09/25 10:33 Urine Opiates Screen Positive ng/mL (Negative) H 01/09/25 10:33 Ur Barbiturates Screen Negative ng/mL (Negative) 01/09/25 10:33 Ur Phencyclidine Scrn Negative ng/mL (Negative) 01/09/25 10:33 Ur Amphetamines Screen Negative ng/mL (Negative) 01/09/25 10:33 U Benzodiazepines Scrn Positive ng/mL (Negative) H 01/09/25 10:33 Urine Cocaine Screen Negative ng/mL (Negative) 01/09/25 10:33 U Marijuana (THC) Screen Negative ng/mL (Negative) 01/09/25 10:33 All radiology interpretation(s) finalized by discharge Discharge Plan Discharge Patient Disposition: Home Clinical Impression: Generalized pain, Chronic pain syndrome, Malingering Condition: Stable Prescriptions: No Action cetirizine [Zyrtec] 10 mg tablet 10 mg PO DAILY PRN (Reason: allergy symptoms) Qty: 90 0RF benzonatate 200 mg capsule 200 mg PO TID PRN (Reason: cough) Qty: 20 0RF diclofenac sodium 50 mg tablet,delayed release (DR/EC) 50 mg PO Q12H PRN (Reason: pain) Qty: 20 0RF albuterol sulfate 90 mcg/actuation HFA aerosol inhaler 2 puff inhalation Q6H PRN (Reason: shortness of breath or wheezing) Qty: 8.5 2RF lorazepam 0.5 mg tablet 0.5 mg PO TID PRN (Reason: anxiety) Qty: 90 2RF budesonide-formoterol [Symbicort] 80-4.5 mcg/actuation HFA aerosol inhaler 2 puff INHALATION BID acetaminophen [Tylenol Ex Str Rapid Release] 500 mg Tablet 500 mg PO QID PRN (Reason: Pain) Discharge Orders: Discharge ED (Routine); Ordered 01/09/25 Ordered By: Sury Naranjo Discharge Diet: Usual diet Discharge Activity: Increase activity as tolerated Patient Instructions: Opioid Safety, Pain Management, Patient Portal & Daria Instructions Activity Restrictions/Additional Instructions: Thank you for choosing [facility] for your healthcare needs today. You have been screened and evaluated and felt safe for discharge. Health conditions do change or evolve sometimes and as such it is important that you follow up with your Primary Doctor to be re checked, 3-5 days is a general good time frame for follow up. You are always welcome to return to the ED for re assessment if your symptoms are worsening or you have new concerns Print Language: Romansh Coding Level of Care Code ED Bread Wrapping Machine Feeder for Pritesh Gill
[2025-01-09 11:27] LABS: Add Urine Microscopic? YES
--- NOTE | 2025-01-09 11:28 | CT_ITS ---
WS: [id number] CT ABDOMEN PELVIS TECHNIQUE: Noncontrast CT of the abdomen and pelvis with coronal and sagittal reformatted images. CLINICAL INFORMATION: Abdominal pain COMPARISON: 04/15/2024 DLP: 308.[address] scans at [facility] use at least one of these dose optimization techniques: automated exposure control; mA and/or kV adjustment per patient size (includes targeted exams where dose is matched to clinical indication); or iterative reconstruction. FINDINGS: Lung bases are well aerated. Normal GE junction. Gallbladder is contracted. Normal caliber abdominal aorta. Minimal calcification. Small fat-containing umbilical hernia. Adrenal glands are normal. No hydronephrosis. RIGHT renal cysts unchanged from previous. No obstructing renal or ureteral calculi. Urine distended bladder. Mild sigmoid constipation. No evidence of high-grade small or large bowel obstruction. No other acute findin gs. CT/CT abdomen pelvis wo con [id number] IMPRESSION: 1. No obstructing renal or ureteral calculi. No hydronephrosis. 2. Stable RIGHT renal cysts. 3. Urine distended bladder. 4. Mild sigmoid and LEFT colon constipation. 5. Small fat-containing umbilical hernia. No herniated bowel. 6. No other acute findings.
[2025-01-09 11:42] LABS: Alanine Aminotransferase 12 U/L (0-33); Albumin Level 4.0 g/dL (3.5-5.2); Alkaline Phosphatase 62 U/L (35-105); Anion Gap 12.6 (5-19); Aspartate Amino Transferase 15 U/L (0-32); Blood Urea Nitrogen 6 mg/dL (6-20); Calcium 9.1 mg/dL (8.5-10.5); Carbon Dioxide 29 mmol/L (22-29); Chloride 101 mmol/L (98-107); Creatinine Clr Calc Pharmacy 115.8752; Globulin 2.8 g/dL (1.3-4.6); Glucose 79 mg/dL (65-115); Osmolality Calculated 285 mOsm/kg (285-295); Potassium 3.6 mmol/L (3.5-5.1); Sodium 139 mmol/L (136-145); Total Protein 6.8 g/dL (6.6-8.7)
[2025-01-09 11:51] LABS: PCP Screen Urine Negative (Negative)
[2025-01-09 11:56] VITALS: BP 127/85; PULSE 81; O2SAT 97
[2025-01-09 12:38] VITALS: BP 117/91; PULSE 75; RESP 16
--- NOTE | 2025-01-09 12:47 | PC.NURSE ---
PT states that doctor doesn't know medicine, he's a doctor he is supposed to give me pain medication, I asked for a shot of Morphine and you're giving me toradol that isn't going to do anything. I want a different doctor. you know what I'll just wait till that 's shift is over and then I'll be back later and get a shot of morphine then. Dr. Naranjo notified.
== END 2025-01-09 12:50 | disposition home or self-care (01) ==
PROVIDERS: Family Medicine; Emergency Provider Emergency Medicine
DX: G89.4 Chronic pain syndrome (principal); Z76.5 Malingerer [conscious simulation]
CPT/HCPCS: 74176; 80053; 80306; 81001; 85025; 96372; 99284; J1885

== ENCOUNTER 2025-02-09 17:50 | Emergency (ER) | payer MEDICAID, SELFPAY ==
[2024-01-05 11:20] VITALS: BP 117/83; BMI 22.0
--- OUTSIDE RECORDS SUMMARY | 2025-02-05 09:20 | XMS_ITS | Encounter Summary ---
Author Organization [facility] Address [address] [place] [address] Care Team Providers Care Medical Director/Head Team Physician Name Role Phone Joselin Delgadillo MD Primary Care Provider +1- [phone] Reason for Visit * Reason Comments Sinus Problem Encounter Details Date Type Department Care Team (Late st Contact Info) Description 02/05/2025 9:20 AM CDT Office Visit [facility] Medicine [address] [address] Roberta [place] [address] [address] Allergy, sequela (Primary Dx); Primary insomnia; Environmental and seasonal allergies Social History Tobacco Use Types Packs/Day Years Used Date Smoking Tobacco: Former Cigarettes 1 2009 Smokeless Tobacco: Never Alcohol Use Standard Drinks/Week Comments No 0 (1 standard drink = 0.6 oz pur e alcohol) Comments No Sex and Gender Information Value Date Recorded Sex Assigned at Not on file Legal Sex Female 8:34 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 Gender Identity Not on file Sexual Orientation Not on file documented as of this encounter Last Filed Vital Signs Vital Sign Reading Time Taken Comments Blood Pressure 120/88 02/05/2025 8:55 AM CDT Pulse 79 02/05/2025 8:55 AM CDT Temperature 36.8 C (98.2 F) 02/05/2025 8:55 AM CDT Respiratory Rate 16 02/05/2025 8:55 AM CDT Oxygen Saturation 99% 02/05/2025 8:55 AM CDT Inhaled Oxygen Concentration - - Weight 55.9 kg (123 lb 3.2 oz) 02/05/2025 8:55 A M CDT Height 160 cm (5' 3 ) 02/05/2025 8:55 AM CDT Body Mass Index 21.82 02/05/2025 8:55 AM CDT documented in this encounter Progress Notes * [place], Roberta Luzmaria, PLASTIC SHEETS FINISHING SUPERVISOR - 02/05/2025 9:18 AM CDT [facility] 02/05/2025 Subjective: Jenifer Cesar is a 59 y.o. female who comes today for evaluation of Sinus Problem . History of Present Illness The patient is a 59-year-old female who presents for medication refill. She reports that Flexeril has been beneficial in improving her sleep quality and requesting a refill for sleep. She has chronic sinus issues, which she describes as producing a snot-like discharge. These episodes are often accompanied by headaches. She spends a significant amount of time outdoors and owns fourcats and four dogs. She does not take Zyrtec daily as it made her sick. Review of Systems Constitutional: Negative for chills, fever and malaise/fatigue. HENT: Positive for congestion. Negative for ear pain and sore throat. Eyes: Negative for blurred vision. Respiratory: Negative for cough and shortness of breath. Cardiovascular: Negative for chest pain. Gastrointestinal: Negative for abdominal pain, constipation, diarrhea, nausea and vomiting. Genitourinary: Negative for dysuria and urgency. Musculoskeletal: Negative for joint pain and myalgias. Neurological: Negative for dizziness and headaches. Psychiatric/Behavioral: The patient has insomnia. All other systems reviewed and are negative. Objective: Vitals: 02/05/25 0855 Temp: 98.2 ??F (36.8 ??C) Pulse: 79 BP: 120/88 Resp: 16 SpO2: 99% Physical Exam Constitutional: General: She is not in acute distress. Appearance: Normal appearance. She is not ill-appearing or toxic-appearing. HENT: Head: Normocephalic and atraumatic. Right Ear: Tympanic membrane normal. Left Ear: Tympanic membrane normal. Nose: Nose normal. Right Turbinates: Not swollen. Left Turbinates: Not swollen. Right Sinus: No maxillary sinus tenderness or frontal sinus tenderness. Left Sinus: No maxillary sinus tenderness or frontal sinus tenderness. Mouth/Throat: Mouth: Mucous membranes are moist. Eyes: [...] problem anxiety Procedures Assessment/Plan: ICD-10-CM ICD-9-CM 1. Allergy, sequela T78.40XS 909.9 loratadine (Claritin) 10 mg tablet 2. Primary insomnia F51.01 307.42 traZODone (DESYREL) 50 mg tablet 3. Environmental and seasonal allergies J30.89 477.8 Assessment & Plan 1. Insomnia. - Reports difficulty sleeping and previous use of Flexeril for sleep. - Discussed the use of a dedicated sleep aid rather than muscle relaxer for sleep. Trazodone prescribed including instructions to take it only when in bed to avoid dizziness and unsteady walking. 2. Chronic allergies - Reports chronic sinus congestion with drainage and headaches. - Physical exam reveals some drainage in the nose but no significant swelling. - Requested sudafed, but explained that is intended for short course in setting of congestion with illness. - Recommended Flonase spray, but she cannot tolerate anything sprayed into her now. - Stopped taking Zyrtec as it made her sick. - Prescription for Claritin 10 mg provided. PRIETO Farley- This note was automatically generated by a Generative AI technology ([employer]), reviewed, edited, and finalized by PRIETO Farley. The author of this note, patient (or authorized retail field representative), and all other persons present consent to the audio recording of this visit for charting documentation purposes. documented in this encounter Plan of Treatment Upcoming Encounters Date Type Department Care Team (Late st Contact Info) Description 02/12/2025 1:30 PM CDT Appointment [facility] [address] [facility] [address] [place] [address] Joselin Delgadillo MD [address] [place] [phone] 03/11/2025 1:20 PM CDT Office Visit [address] [address] Joselin Delgadillo MD [address] [place] [phone] documented as of this encounter Visit Diagnoses Diagnosis Allergy, sequela- Primary Primary insomnia Persistent disorder of initiating or maintaining sleep Environmental and seasonal allergies documented in this encounter Additional Health Concerns Assessment Noted Time PHQ-9 Depression Total Score: 2 07/08/19 1:25 PM FAMILY LIVING EDUCATOR documented as of this encounter Care Teams Medical Director/Head Team Physician Relationship Specialty Start Date End Date Joselin Delgadillo MD [address] [place] [phone] PCP - General Family Practice 07/08/24 documented as of this encounter
--- OUTSIDE RECORDS SUMMARY | 2025-02-07 09:40 | XMS_ITS | Encounter Summary ---
Author Organization [facility] Address [address] [place] [address] Care Team Providers Care Credit Collections Rep Name Role Phone Jsoelin Delgadillo MD Primary Care Provider [phone]- [phone] Reason for Visit * Reason Comments Back Pain Encounter Details Date Type Department Care Team (Late st Contact Info) Description 02/07/2025 9:40 AM CDT Office Visit [facility] Medicine [address] [address] Roberta Washington, [address] [address] Acute bilateral thoracic back pain Social History Tobacco Use Types Packs/Day Years Used Date Smoking Tobacco: Former Cigarettes 1 2009 Smokeless Tobacco: Never Alcohol Use Standard Drinks/Week Comments No 0 (1 standard drink = 0.6 oz pur e alcohol) Comments No Sex and Gender Information Value Date Recorded Sex Assigned at Not on file Legal Sex Female 8:34 AM 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/LIFT 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 Gender Identity Not on file Sexual Orientation Not on file documented as of this encounter Last Filed Vital Signs Vital Sign Reading Time Taken Comments Blood Pressure 130/89 02/07/2025 9:19 AM CDT Pulse 87 02/07/2025 9:19 AM CDT Temperature 36.9 C (98.4 F) 02/07/2025 9:19 AM CDT Respiratory Rate 16 02/07/2025 9:19 AM CDT Oxygen Saturation 100% 02/07/2025 9:19 AM CDT Inhaled Oxygen Concentration - - Weight 56.5 kg (124 lb 9.6 oz) 02/07/2025 9:19 A M CDT Height 160 cm (5' 3 ) 02/07/2025 9:19 AM CDT Body Mass Index 22.07 02/07/2025 9:19 AM CDT documented in this encounter Progress Notes * [place], Roberta Luzmaria, SITE PHYSICIAN - 02/07/2025 9:48 AM CDT [facility] 02/07/2025 Subjective: Jenifer Cesar is a 59 y.o. female who comes today for evaluation of Back Pain . History of Present Illness The patient is a 59-year-old female who presents for evaluation of back pain and elevated blood pressure. She reports significant back pain, which she attributes to her puppy's vigorous pulling during walks. The pain is described as a pulling sensation that extends from her back to her stomach. She is seeking a steroid injection for relief. She has been advised against the use of ibuprofen due to adverse reactions. She has previously received Toradol injections but prefers to avoid them. She underwent surgery 8 months ago for a large cyst, which she feels has not fully healed internally. She also mentions that her blood pressure remains high, although she is unsure of the exact readings. She suspects that her elevated blood pressure may be due to sugar, caffeine, and soda intake. Shehas been prescribed lisinopril but has not been taking it regularly. Diet: Consumes sugar, caffeine, and soda. Coffee/Tea/Caffeine-containing Drinks: Consumes caffeine. Sleep: Reports difficulty sleeping at night. Living Condition: Lives with her boyfriend and multiple dogs. PAST SURGICAL HISTORY: Surgery for a large cyst 8 months ago. Review of Systems Constitutional: Negative for chills, fever and malaise/fatigue. HENT: Negative for congestion, ear pain and sore throat. Eyes: Negative for blurred vision. Respiratory: Negative for cough and shortness of breath. Cardiovascular: Negative for chest pain. Gastrointestinal: Negative for abdominal pain, constipation, diarrhea, nausea and vomiting. Genitourinary: Negative for dysuria and urgency. Musculoskeletal: Positive for back pain. Negative for falls, joint pain and myalgias. Neurological: Negative for dizziness, tingling and headaches. All other systems reviewed and are negative. Objective: Vitals: 02/07/25 0919 Temp: 98.4 ??F (36.9 ??C) Pulse: 87 BP: 130/89 Resp: 16 SpO2: 100% Physical Exam Constitutional: General: She is not [...] Normal range of motion and neck supple. Thoracic back: Bony tenderness present. Lumbar back: Bony tenderness present. Skin: General: Skin is warm and dry. [...] problem anxiety Procedures Assessment/Plan: ICD-10-CM ICD-9-CM 1. Acute bilateral thoracic back pain M54.6 724.1 diclofenac sodium (VOLTAREN) 1 % gel predniSONE (DELTASONE) 5 mg tablet Assessment & Plan 1. Back pain. - Symptoms suggest possible arthritis from thoracic to lumbar region; pain not muscular. - No numbness or tingling reported. - Discussed recent surgery and ongoing pain; oral steroids prescribed with tapering schedule of 6, 5, 4, 3, 2, 2, 1. - Voltaren gel prescribed for topical application; advised to avoid walking the dog to prevent further strain. 2. Elevated blood pressure. - Blood pressure readings have been consistently elevated. - Physical exam today showed BP of 130/80 with diastolic slightly high. - Reviewed previous prescription of lisinopril; patient advised to start taking it at night as she has not been taking it. - Counseling provided on the importance of managing blood pressure to prevent headaches and other complications. PRIETO Farley- This note was automatically generated by a Generative AI technology ([employer]), reviewed, edited, and finalized by PRIETO Farley. The author of this note, patient (or authorized new accounts representative), and all other persons present consent to the audio recording of this visit for charting documentation purposes. documented in this encounter Plan of Treatment Upcoming Encounters Date Type Department Care Team (Late st Contact Info) Description 02/12/2025 1:30 PM CDT Appointment [facility] [address] [facility] [address] [place] [phone] Joselin Delgadillo MD [address] [place] [phone] 03/11/2025 1:20 PM CDT Office Visit [facility] [address] [phone] Joselin Delgadillo MD [address] [phone] documented as of this encounter Visit Diagnoses Diagnosis Acute bilateral thoracic back pain documented in this encounter Additional Health Concerns Assessment Noted Time PHQ-9 Depression Total Score: 2 07/08/19 1:25 PM TESTER/LIFT TRUCKER documented as of this encounter Care Teams Credit Collections Rep Relationship Specialty Start Date End Date Joselin Delgadillo MD [address] [place] [phone] PCP - General Family Practice 07/08/24 documented as of this encounter
--- OUTSIDE RECORDS SUMMARY | 2025-02-09 17:54 | XMS_ITS | Encounter Summary ---
Author Organization [facility] Address [address] [place] [address] Care Team Providers Care Automation Tester Name Role Phone Joselin Delgadillo MD Primary Care Provider +1- [phone] Encounter Details Date Type Department Care Team (Late st Contact Info) Description 01/09/2025 Telephone [facility] [address] [phone] Joselin Delgadillo MD [address] [phone] Social History Tobacco Use Types Packs/Day Years Used Date Smoking Tobacco: Former Cigarettes 1 20 1 0 - 2009 Smokeless Tobacco: Never Alcohol Use Standard Drinks/Week Comments No 0 (1 standard drink = 0.6 oz pur e alcohol) Comments No Sex and Gender Information Value Date Recorded Sex Assigned at Not on file Legal Sex Female 8:34 AM 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 Naranjo in [facility]. Describes patient as aggressive towards him, demanding morphine injection and disrespectful of nursing staff. When explaining no current indication for morphine she stated she would just return after his shiftwas over to again request morphine. Upon chart review patient has also been utilizing the [facility] frequently. She has been seen there 5 times since last visit with me, including yesterday and today prior to going to ER. Concerns with her behavior and mis use of pain medication. No further increase and consider pain management with any further concerns. Will discuss at next appointment with me. * Telephone Encounter - Ruth Quezada - 01/09/2025 12:59 PM CDT Copied from [facility] #[id number]. Topic: Zrznuvsm-[id number] Call >> Jan 09, 2025 12:52 PM Ruth Bains wrote: Call came during - Clinical Hours Caller is a Provider (Physician, Nurse Practitioner or Physician Flag Decorator) and is requesting to speak with Clinical Care Team. Caller Name: Dr. Naranjo @ [facility] in [place] Callback Number: [phone] Call Notes: Requesting to speak to Dr. Delgadillo. Transferred to Backline/RESPONDER Line and Joyce answered call. documented in this encounter Plan of Treatment Upcoming Encounters Date Type Department Care Team (Late st Contact Info) Description 02/12/2025 1:30 PM CDT Appointment [facility] [address] [phone] Joselin Delgadillo MD [address] [place] [phone] 03/11/2025 1:20 PM CDT Office Visit [facility] Medicine [address] [phone] Joselni Delgadillo MD [address] [phone] documented as of this encounter Visit Diagnoses Not on filedocumented in this encounter Additional Health Concerns Assessment Noted Time PHQ-9 Depression Total Score: 2 07/08/19 25 1:25 PM LIBRARY SALES CONSULTANT documented as of this encounter Care Teams Automation Tester Relationship Specialty Start Date End Date Joselin Delgadillo MD [address] [place] [phone] PCP - General Family Practice 07/08/24 documented as of this encounter
--- OUTSIDE RECORDS SUMMARY | 2025-02-09 17:54 | XMS_ITS | Encounter Summary ---
Author Organization [facility] Address [address] [place] [address] Care Team Providers Care Rag Willow Operator Name Role Phone Joselin Delgadillo MD Primary Care Provider +1- [phone] Reason for Visit * Reason Comments Question Encounter Details Date Type Department Care Team (Late st Contact Info) Description 12/18/2024 Telephone [facility] [place] [address] [phone] Joselin Delgadillo MD [address] [phone] Question Social History Tobacco Use Types Packs/Day Years Used Date Smoking Tobacco: Former Cigarettes 2009 Smokeless Tobacco: Never Alcohol Use Standard Drinks/Week Comments No 0 (1 standard drink = 0.6 oz pur e alcohol) Comments No Sex and Gender Information Value Date Recorded Sex Assigned at Not on file 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 Topic: Patient or Caregiver Communication Request >> [...] Info) Description 02/12/2025 1:30 PM CDT Appointment [facility] [place] [address] [place] [address] Joselin Delgadillo MD [address] [phone] 03/11/2025 1:20 PM CDT Office Visit [facility] [address] [phone] Joselin Delgadillo MD [address] [phone] documented as of this encounter Visit Diagnoses Not on filedocumented in this encounter Additional Health Concerns Assessment Noted Time PHQ-9 Depression Total Score: 2 07/08/19 1:25 PM DEPALLETIZER OPERATOR documented as of this encounter Care Teams Rag Willow Operator Relationship Specialty Start Date End Date Joselin Delgadillo MD [address] [phone] PCP - General Family Practice 07/08/24 documented as of this encounter
--- OUTSIDE RECORDS SUMMARY | 2025-02-09 17:54 | XMS_ITS | Clinical Summary ---
Author Organization [email or web address] Address [address] [facility] Attn: Epic Prelude ADT MICHAEL DURAN [address] Care Team Providers Care Screen Printing Loader Unloader Name Role Phone Joselin Delgadillo MD Primary Care Provider +1- [phone] Allergies Active Allergy Reactions Criticality Noted Date Comments Amoxicillin Diarrhea Low 06/30/2021 Aspirin Nausea and Vomiting Low 02/17/2009 Clindamycin Nausea and Vomiting Low 02/08/2022 Ibuprofen Swelling Low 01/12/2015 Medications naloxone (NARCAN) 4 mg/spray Bly, Non-Aerosol EMERGENCY USE ONLY: Administer 1 spray (4 mg) in one nostril one time. May repeat in alternating nostrils every 2-3 min until responsive or EMS arrives. 2 Each 3 024 Active Ventolin HFA 90 mcg/actuation inhaler Take 2 Puffs by inhalation every 6 hours as needed. 024 Active Symbicort 80-4.5 mcg/actuation HFA Aerosol InhalerIndicat ions:Simple chronic bronchitis (CMS/HCC) INHALE 2 PUFFS BY MOUTH TWICE DAILY 10.2 Gram 2 025 Active Wellbutrin SR 200 mg Sustained Release 12 hour tablet Active cetirizine (ZyrTEC) 10 mg tabletIndicati ons:Post-nasal drainage Take 1 Tablet (10 mg) by mouth daily. 90 Tablet 1 025 Active omeprazole (PriLOSEC) 40 mg Capsule, Delayed Release(E.C.)I ndications:Gas troesophageal reflux disease without esophagitis TAKE 1 CAPSULE(40 MG) BY MOUTH DAILY 30 Capsule 025 Active Additional Information Patient taking differently:40 mg OralDAILY PRN, Reported on 02/07/2025 clonazePAM (KlonoPIN) 0.5 mg TabletIndicati ons:AGUEDA (generalized anxiety disorder) Take 1 Tablet (0.5 mg) by mouth 3 times daily as needed for Anxiety. 90 Tablet 5 025 Active lisinopriL (PRINIVIL) 5 mg tabletIndicati ons:HTN (hypertension) , benign Take 1 Tablet (5 mg) by mouth daily. 100 Tablet 3 Active Additional Information Patient not taking.Reported on 02/07/2025 fluconazole (DIFLUCAN) 150 mg tabletIndicati ons:Yeast infection Take 1 Tablet (150 mg) by mouth daily. 1 Tablet 025 Active HYDROcodone-ac etaminophen (NORCO) 5-325 mg tabletIndicati ons:Chronic midline low back pain with bilateral sciatica Take 1 Tablet by mouth every 8 hours as needed for Pain, Moderate. Max Daily Amount: 3 Tablets 90 Tablet 025 Active loratadine (Claritin) 10 mg tabletIndicati ons:Allergy, sequela Take 1 Tablet (10 mg) by mouth daily. 30 Tablet 025 Active traZODone (DESYREL) 50 mg tabletIndicati ons:Primary insomnia Take 1 Tablet (50 mg) by mouth daily at bedtime. 30 Tablet 025 Active diclofenac sodium (VOLTAREN) 1 % gelIndications :Acute bilateral thoracic back pain Apply 2 Grams to affected area 4 times daily for 10 days. 100 Gram 025 2024 Active predniSONE (DELTASONE) 5 mg tabletIndicati ons:Acute bilateral thoracic back pain Take 1 Tablet (5 mg) by mouth see administration instructions. 21 Tablet 025 Active HYDROcodone-ac etaminophen (NORCO) 5-325 mg tabletIndicati ons:Chronic midline low back pain with bilateral sciatica Take 1 Tablet by mouth every 8 hours as needed for Pain, Moderate. Max Daily Amount: 3 Tablets 90 Tablet 025 2024 Discontinued(R eorder) cyclobenzaprin e (FLEXERIL) 5 mg TabletIndicati ons:Muscle strain Take 1 Tablet (5 mg) by mouth nightly as needed for Spasm. 7 Tablet 025 2024 mupirocin (BACTROBAN) 2 % Ointment Apply to affected area daily for 7 days. 15 Gram 025 2024 predniSONE (DELTASONE) 5 mg tabletIndicati ons:Acute bilateral thoracic back pain Take 1 Tablet (5 mg) by mouth see administration instructions. 21 Tablet 025 2024 Discontinued(R eorder) metroNIDAZOLE (FLAGYL) 500 mg tablet Take 1 Tablet (500 mg) by mouth 2 times daily for 7 days. 14 Tablet 025 2024 traZODone (DESYREL) 50 mg tabletIndicati ons:Primary insomnia Take 1 Tablet (50 mg) by mouth daily at bedtime. 30 Tablet 025 2024 Discontinued loratadine (Claritin) 10 mg tabletIndicati ons:Allergy, sequela Take 1 Tablet (10 mg) by mouth daily. 30 Tablet 025 2024 Discontinued loratadine (Claritin) 10 mg tabletIndicati ons:Allergy, sequela Take 1 Tablet (10 mg) by mouth daily. 30 Tablet 025 2024 Discontinued(R eorder) traZODone (DESYREL) 50 mg tabletIndicati ons:Primary insomnia Take 1 Tablet (50 mg) by mouth daily at bedtime. 30 Tablet 025 2024 Discontinued(R eorder) Active Problems Problem Noted Date Diagnosed Date Environmental and seasonal allergies 02/05/2025 Abnormal vaginal bleeding in postmenopausal peri ent 12/21/2024 Dyspareunia in female 12/03/2024 AGUEDA (generalized anxiety disorder) 03/28/2024 Chronic midline low back pain with bilateral sci atica 02/12/2024 Ovarian mass 02/12/2024 Encounters Date Type Department Care Team Description 02/07/2025 9:40 AM CDT Office Visit [address] [phone] Roberta Washington FNP Acute bilateral thoracic back pain 02/05/2025 9:20 AM CDT Office Visit [address] [phone] Roberta Washington FNP Allergy, sequela (Primary Dx); Primary insomnia; Environmental and seasonal allergies 02/05/2025 Telephone [facility] [address] [phone] Joselin Delgadillo MD Pharmacy Change 01/21/2025 External Device Data [facility] ABSTRACTION Provider, Abstract 01/21/2025 External Device Data [facility] ABSTRACTION Provider, Abstract 01/21/2025 External Device Data [facility] ABSTRACTION Provider, Abstract 01/13/2025 Refill [facility] [address] [phone] Joselin Delgadillo MD Chronic midline low back pain with bilateral sciatica 01/10/2025 Orders Only [address] [phone] Roberta Washington FNP Bacterial vaginitis (Primary Dx); Yeast infection 01/10/2025 Results Follow-Up [address] [phone] Roberta Washington FNP VAGINOSIS/VAGINITIS PANEL PLUS 01/09/2025 8:40 AM CDT Office Visit [address] [phone] Roberta Washington FNP Acute bilateral thoracic back pain (Primary Dx); Suprapubic abdominal pain; Abnormal vaginal bleeding in postmenopausal patient; Chronic midline low back pain with bilateral sciatica 01/09/2025 Telephone [facility] [address] [phone] Joselin eDlgadillo MD 01/08/2025 8:00 AM CDT Office Visit [address] [phone] Roberta Washington FNP Need for tetanus, diphtheria, and acellular pertussis (Tdap) vaccine (Primary Dx); Muscle strain; HTN (hypertension), benign 12/30/[address] [phone] Joselin Delgadillo MD Question 12/26/2024 9:40 AM CDT Office Visit [address] [phone] Roberta Washington FNP Skin infection (Primary Dx); Constipation, unspecified constipation type; AGUEDA (generalized anxiety disorder); HTN (hypertension), benign 12/24/2024 External Device Data ST[facility] ABSTRACTION Provider, Abstract 12/24/2024 External Device Data [facility] ABSTRACTION Provider, Abstract 12/24/2024 External Device Data [facility] ABSTRACTION Provider, Abstract 12/23/[address] [phone] Joselin Delgadillo MD Information 12/23/2024 Orders Only [address] [phone] Joselin Delgadillo MD Vaginal bleeding (Primary Dx) 12/21/2024 7:58 AM CDT - 12/21/2024 9:19 AM CDT Emergency [facility] Emergency Medicine [address] [phone] Wilfredo Coker MD Abnormal vaginal bleeding in postmenopausal patient (Primary Dx) Discharge Disposition: Home or Self Care 12/18/2024 10:00 AM CDT Office Visit [address] [phone] Roberta Washington, PRIETO Sciatica of right side (Primary Dx) 12/18/[address] [phone] SwetaMana, RACETRACK STEWARD Reschedule Appointment 12/18/[address] [phone] Joselin Delgadillo MD 12/18/[address] [phone] Joselin Delgadillo MD Question 12/17/[address] [phone] Joselin Delgadillo MD Chronic midline low back pain with bilateral sciatica; AGUEDA (generalized anxiety disorder) 12/12/2024 10:40 AM CDT Office Visit [facility] [address] [facility] [address] [place] [phone] Lesion of skin of breast (Primary Dx) 12/09/[address] [phone] Arik Russell MD Chronic midline low back pain with bilateral sciatica 12/03/2024 2:40 PM CDT Office Visit [address] [phone] Joselin Delgadillo MD Chronic midline low back pain with bilateral sciatica (Primary Dx); Dyspareunia in female; AGUDEA (generalized anxiety disorder); Breast cancer screening by mammogram; Screening for cervical cancer; Encounter for colorectal cancer screening 12/03/[address] [phone] Joselin Delgadillo MD Patient Communication; Patient Communication 11/19/2024 External Device Data ST[facility] ABSTRACTION Provider, Abstract 11/14/2024 External Device Data [facility] ABSTRACTION Provider, Abstract 11/13/2024 External Device Data [facility] ABSTRACTION Provider, Abstract from Last 3 Months Immunizations Immunization Administration [...] 1 0 - 2009 Smokeless Tobacco: Never Tobacco Cessation:Counseling Given: Not Answered Alcohol Use Standard Drinks/Week Comments No 0 (1 standard drink = 0.6 oz pur e alcohol) Comments No Sex and Gender Information Value Date Recorded Sex Assigned at Not on file Legal Sex Female 8:34 AM SOCIAL MEDIA SPECIALIST Gender Identity Not on file Sexual [...] Mass Index 22.07 02/07/2025 9:19 AM CDT Plan of Treatment Upcoming Encounters Date Type Department Care Team (Late st Contact Info) Description 02/12/2025 1:30 PM CDT Appointment [facility] Mammography [place] [phone] [facility] [address] [place] [phone] Joselin Delgadillo MD [address] [place] [phone] 03/11/2025 1:20 PM CDT Office Visit [address] [phone] Joselin Delgadillo MD [address] [phone] Health Maintenance Due Date Last Done Comments [...] Procedure Name Priority Date/Time Associated Diagnosis Comments VAGINOSIS/VAGINITIS PANEL PLUS Routine 01/09/2025 9:38 AM CDT Suprapubic abdominal pain URINALYSIS W/REFLEX MICROSCOPIC Stat 12/21/2024 8:40 AM CDT from Last 3 Months Results * (ABNORMAL) VAGINOSIS/VAGINITIS PANEL PLUS (01/09/2025 9:38 AM CDT) BACTERIAL VAGINOSIS POSITIVE(A) NEGATIVE [facility] LYNNETTE SPECIES NOT DETECTED NOT DETECTED [facility] LYNNETTE GLABRATA DETECTED(A) NOT DETECTED [facility] Comment: C. glabrata, which is responsible for the majority of non-albicans CV in the [place] may have decreased susceptibility to standard antimycotic therapeutic intervention compared to C. albicans. Lynnette species C. albicans, C. tropicalis, C. parapsilosis, and/or C. dubliniensis can be detected, but not differentiated, in the Lynnette spp. result. TRICHOMONAS VAGINALIS (TV), TMA NOT DETECTED NOT DETECTED [facility] CHLAMYDIA TRACHOMATIS RNA, TMA, UROGENITAL NOT DETECTED NOT DETECTED [facility] NEISSERIA GONORRHOEAE RNA, TMA, UROGENITAL NOT DETECTED NOT DETECTED [facility] Comment: For additional information, please refer to https://education.inSparq/faq/PNI894 (This link is being provided for information/ educational purposes only.) Test Performed at: [facility] [address] [facility] [place] [address] Thomas Coles MD Genital SPECIMEN FROM VAGINA / Unknown 01/09/2025 9:38 AM CDT 01/10/2025 3:16 AM CDT Roberta Washington RACETRACK STEWARD MICROBIOLOGY - GENERAL TRAVIS FRANKS Final Result [facility] [phone] [facility] [address] [place] [address] * URINALYSIS WITH REFLEX MICROSCOPIC (12/21/2024 8:40 AM CDT) COLOR UA Pale Yellow Pale to Dark Yellow 12/21/2024 8:48 AM CDT [facility] CLARITY UA Clear Clear 12/21/2024 8:48 AM CDT [facility] SPECIFIC GRAVITY UA 1.010 1.003 - 1.035 12/21/2024 8:48 AM CDT [facility] PH UA 7.0 5.0 - 8.0 12/21/2024 8:48 AM CDT [facility] LEUKOCYTE ESTERASE UA Negative Negative 12/21/2024 8:48 AM CDT [facility] NITRITE UA Negative Negative 12/21/2024 8:48 AM CDT [facility] PROTEIN UA Negative Negative 12/21/2024 8:48 AM CDT [facility] GLUCOSE UA Negative Negative 12/21/2024 8:48 AM CDT [facility] KETONES UA Negative Negative 12/21/2024 8:48 AM CDT [facility] UROBILINOGEN UA 0.2 <2.0 mg/dL 8:48 AM CDT [facility] BILIRUBIN UA Negative Negative 12/21/2024 8:48 AM CDT [facility] BLOOD UA Negative Negative 12/21/2024 8:48 AM CDT [facility] Urine URINE SPECIMEN OBTAINED BY CLEAN CATCH PROCEDURE / Unknown 12/21/2024 8:40 AM CDT 12/21/2024 8:43 AM CDT us Wilfredo Coker MD URINE ORDERABLES Final Result [facility] CLIA # [id number] [address] [place] [id number] from Last 3 Months Insurance MEDICAID [place] Care Teams Screen Printing Loader Unloader Relationship Specialty Start Date End Date Joselin Delgadillo MD [address] [place] [phone] PCP - General Family Practice 07/08/24
--- OUTSIDE RECORDS SUMMARY | 2025-02-09 17:55 | XMS_ITS | Clinical Summary ---
Author Organization [facility] Address [address] [place] [address] Care Team Providers Care Auto Dismantler Name Role Phone Unavailable Primary Care Provider [...] on file Legal Sex Female 4:50 AM HIM MANAGER Gender Identity Not on file Sexual [...]
--- OUTSIDE RECORDS SUMMARY | 2025-02-09 17:55 | XMS_ITS | Encounter Summary ---
Author Organization [facility] Address [address] [place] [address] Care Team Providers Care Schedule Hanger Name Role Phone Unavailable Primary Care Provider Unavailabl e Encounter Details Date Type Department Care Team (Latest Contact Info) Description 01/27/2003 Outpatient Historical [facility] GENERAL SURGERY Claudia, Randolph Albarran MD [address] [phone] FOREIGN BODY FOREARM (Primary Dx) Social History Tobacco Use Types Packs/Day Years Used Date Smoking Tobacco: Never Assessed Comments Unknown Sex and Gender Information Value Date Recorded Sex Assigned at Not on file Legal Sex Female 4:50 AM CHIP TESTER Gender Identity Not on file Sexual Orientation Not on file documented as of this encounter Plan of Treatment Not on file documented as of this encounter Visit Diagnoses Diagnosis Elbow, forearm, and wrist, superficial foreign body (splinter), without major open wound and without mention of infection- Primary documented in this encounter
--- OUTSIDE RECORDS SUMMARY | 2025-02-09 17:55 | XMS_ITS | Encounter Summary ---
Author Organization [employer] Address [address] [place] [address] Care Team Providers Care Utilization Reviewer Name Role Phone Unavailable Primary Care Provider Unavailabl e Encounter Details Date Type Department Care Team (Latest Contact Info) Description 02/12/2003 Outpatient Historical [facility] GENERAL SURGERY Claudia, Randolph Albarran MD [address] [phone] SURGERY FOLLOWUP, UNSPEC (Primary Dx) Social History Tobacco Use Types Packs/Day Years Used Date Smoking Tobacco: Never Assessed Comments Unknown Sex and Gender Information Value Date Recorded Sex Assigned at Not on file 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
--- OUTSIDE RECORDS SUMMARY | 2025-02-09 17:55 | XMS_ITS | Encounter Summary ---
Author Organization [facility] Address [address] [place] [address] Care Team Providers Care Kelly Machine Operator Name Role Phone Joselin Delgadillo MD Primary Care Provider +1- [phone] Reason for Visit * Reason Comments Pharmacy Change Encounter Details Date Type Department Care Team (Late st Contact Info) Description 02/05/2025 Telephone [facility] [place] [address] [phone] Joselin Delgadillo MD [address] [phone] Pharmacy Change Social History Tobacco Use Types Packs/Day Years Used Date Smoking Tobacco: Former Cigarettes 2009 Smokeless Tobacco: Never Alcohol Use Standard Drinks/Week Comments No 0 (1 standard drink = 0.6 oz pur e alcohol) Comments No Sex and Gender Information Value Date Recorded Sex Assigned at Not on file 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 Moon Shea RN, 02/05/2025 11:26 AM * Telephone Encounter - Ruth Quezada - 02/05/2025 11:20 AM CDT Copied from [facility] #[id number]. Topic: Medication Request >> Feb 05, 2025 11:16 AM Ruth Bains wrote: Caller Name: Jenifer Cesar Callback Number: Telephone Information: Medication (Ask patient/caregiver to spell if possible): Trazadone, Loratadine Note: All medication prescriptions can be requested using one CRM Call Notes: Pharmacy refused to transfer these. She was told the PCP had to do it. Please change from [facility] [place] to the [facility] in [facility]. Request: Change Pharmacy Did the patient/caregiver contact their pharmacy prior to calling? Yes Caller requests to send to a different pharmacy, update and send refill to [facility] in [facility]. Is there an encounter open? No documented in this encounter Plan of Treatment Upcoming Encounters Date Type Department Care Team (Late st Contact Info) Description 02/12/2025 1:30 PM CDT Appointment [facility] [address] [facility] [address] [place] [phone] Joselin Delgadillo MD [address] [place] [phone] 03/11/2025 1:20 PM CDT Office Visit [address] [phone] Joselin Delgadillo MD [address] [place] [place] [phone] documented as of this encounter Visit Diagnoses Diagnosis Allergy, sequela Primary insomnia Persistent disorder of initiating or maintaining sleep documented in this encounter Additional Health Concerns Assessment Noted Time PHQ-9 Depression Total Score: 2 07/08/19 1:25 PM VEHICLE CARE SPECIALIST documented as of this encounter Care Teams Kelly Machine Operator Relationship Specialty Start Date End Date Joselin Delgadillo MD [address] [place] [phone] PCP - General Family Practice 07/08/24 documented as of this encounter
--- OUTSIDE RECORDS SUMMARY | 2025-02-09 17:55 | XMS_ITS | Patient Health Record ---
Author Organization [facility] Address [address] [place] [address] Care Team Providers Care Product Consultant Name Role Phone TREVON RAMOS MD Primary Care Provider Unavailab Zoya Melissa Unavailable [phone] Allergies Allergen (clinical drug ingredient) Drug/Non Drug Allergy documented on EMR Reaction Allergy Type Onset Date Status Amoxil rash Drug Allergy Active aspirin Aspirin rash Drug Allergy Active clindamycin Clindamycin HCl chest pain, diarrhea, stomach pain Drug Allergy Active Results Component Value Reference Range Flag Notes Urine Drug Screen (cup read) - 96280 Reviewed date:05/14/2024 06:18:30 PM Interpretation: Performing Lab: Notes/Report: AMP - LUIS DANIEL - BUP - BZO - MDMA - OPI - PCP - OXY - MTD - MAMP - zzzUrine Drug Screen (confir mation by instrument) - [id number] Reviewed date:05/16/2024 11:41:28 AM Interpretation: Performing Lab: Notes/Report: zzzUrine Drug Screen (confir mation by instrument) - [id number] Reviewed date:08/15/2024 12:32:56 PM Interpretation: Performing Lab: Notes/Report: Urine Confirmation Panel (in strument) - [id number] Reviewed date:08/22/2024 11:06:33 PM Interpretation: Performing Lab: [...] date:08/19/2024 07:57:58 AM Interpretation: Performing Lab: Notes/Report: marquitaUrine Drug Screen (jena escobedo by instrument) - [id number] Reviewed date:07/30/2024 01:32:16 PM Interpretation: Performing Lab: Notes/Report: Reason For Referral [...] Status Risk Notes Problem Chronic pain syndrome (415196621) Chronic pain syndrome (G89.4) Active confirmed Problem Lumbosacral spondylosis without myelopathy (disorder) (64630026) Spondylosis without myelopathy or radiculopathy, lumbosacral region (M47.817) Active confirmed Problem Lumbosacral spondylosis without myelopathy (18277309) Other spondylosis, lumbar region (M47.896) Active confirmed Problem High risk drug monitoring status (913349399) Chronic prescription opiate use (Z79.891) Active confirmed Problem Uterine mass (406957900409002) Uterine mass (N85.8) Active confirmed Problem H/O pelvic mass (Z87.898) Active confirmed Problem Generalized anxiety disorder (67093543) Generalized anxiety disorder (F41.1) 009 Active confirmed Alejandro-98 5911- Problem Lumbosacral spondylosis without myelopathy (63985198) 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 Alejandro-98 5911- Problem Screening for malignant neoplasm of colon (974559491) Screening for cancer of colon (V76.51) 019 Active confirmed Alejandro-98 5911- Problem Screening for malignant neoplasm of breast (147449524) Screening for breast cancer, unspecified (V76.10) 015 Active confirmed Alejandro-98 5911- Problem Drug withdrawal (292.0) 009 Problem resolved confirmed Alejandro-98 5911- Problem Acute sinusitis (65843419) Acute sinusitis, unspecified (461.9) 016 Problem resolved confirmed Alejandro-98 5911- Problem Dysmenorrhea (646142895) Dysmenorrhea (625.3) 016 Problem resolved confirmed Alejandro-98 5911- Problem Irregular menstrual cycle (39854025) Irregular menstrual cycle (626.4) 016 Problem resolved confirmed Alejandro-98 5911- Problem Fever (472878111) Fever, unspeci fied (780.60) 016 Problem resolved confirmed Alejandro-98 5911- Problem Memory loss (93278414) Memory loss (780.93) 012 Problem resolved confirmed Alejandro-98 5911- Problem Headache (05689455) Headache (784.0) 02/25 06/27 009 Problem resolved confirmed Alejandro-98 5911- Problem Cough (89148607) Cough (786.2) 012 Problem resolved confirmed Alejandro-98 5911- Problem Diarrhea (00446875) Diarrhea (787.91) 13/08 014 Problem resolved confirmed Alejandro-98 5911- Problem Dysuria (26969005) Dysuria (788.1) 015 Problem resolved confirmed Alejandro-98 5911- Problem Gynecological examination normal (742824869106576) Routine gynecological examination (V72.31) 008 Problem resolved confirmed Alejandro-98 5911- Problem Anemia (014906028) Anemia, unspecified (285.9) 016 Problem resolved confirmed Alejandro-98 5911- Problem Rash (081558694) Rash (782.1) 009 Problem resolved confirmed Alejandro-98 5911- Problem Dizziness (684063436) Dizziness (780.4) 010 Problem resolved confirmed Alejandro-98 5911- Problem Low back pain (601713667) Low back pain (724.2) 009 Problem resolved confirmed Alejandro-98 5911- Problem Back pain (016219479) Back pain (724.5) 019 Problem resolved confirmed Alejandro-98 5911- Problem Iron deficiency anemia (18973851) Iron deficiency anemia, unspecified (280.9) 017 Problem resolved confirmed Alejandro-98 5911- Problem Arthralgia of temporomandibular joint (91452921) TMJ arthralgias (524.62) 017 Problem resolved confirmed Alejandro-98 5911- Problem Uterine fibroids (83543188) Uterine fibroids (654.10) 011 Problem resolved confirmed Alejandro-98 5911- Problem Pain of ear (finding) (449506533) Ear pain (388.70) 016 Problem resolved confirmed Alejandro-98 5911- Problem Fibrocystic breast changes (74863274) Fibrocystic breast disease (610.1) 018 Problem resolved confirmed Alejandro-98 5911- Problem Headache (18929551) Headache (307.81) 05/27 018 Problem resolved confirmed Alejandro-98 5911- Problem Hypotension (77050860) Hypotension, other (458.8) 018 Problem resolved confirmed Alejandro-98 5911- Problem Laceration on th e finger(s) (883.0) 018 Problem resolved confirmed Alejandro-98 5911- Problem Urinary tract infection (58826031) UTI (599.0) 016 Problem resolved confirmed Alejandro-98 5911- Problem Candidal vulvovaginitis (31183971) Yeast vaginitis (112.1) 013 Problem resolved confirmed Alejandro-98 5911- Problem Disease of the oral soft tissues (26357091) Other disease of the oral soft tissues (528.9) 017 Problem resolved confirmed Alejandro-98 5911- Problem Carbuncle of trunk (28839154) Perineal carbuncle (680.2) Problem resolved confirmed Alejandro-98 5911- Problem Screening for cardiovascular system disease (procedure) (639770545) Screening for cardiovascular conditions (V81.2) 019 Problem resolved confirmed Alejandro-98 5911- Problem Screening for colon cancer (928623337) Screening for colon cancer (V76.49) 019 Problem resolved confirmed Alejandro-98 5911- Problem Acute sinusitis (93539353) Acute sinusitis (461.9) 017 Problem resolved confirmed Alejandro-98 5911- Problem Allergic rhinitis due to allergen (22176019) Allergic rhinitis, other allergen-induced, NEC (477.8) 015 Problem resolved confirmed Alejandro-98 5911- Problem Allergic rhinitis caused by pollen (50267032) Allergies (477.0) 016 Problem resolved confirmed Alejandro-98 5911- Problem Night sweats (58478690) Night sweats (780.8) 013 Problem resolved confirmed Alejandro-98 5911- Problem Disorder of hematopoietic system (12722466) Other abnormal findings on blood examination (790.99) 018 Problem resolved confirmed Alejandro-98 5911- Problem Sore throat (100314422) Sore Throat (462) 012 Problem resolved confirmed Alejandro-98 5911- Problem Epigastric pain (66284302) Abdominal pain (epigastric) (789.06) 015 Problem resolved confirmed Alejandro-98 5911- Problem Abrasion of head (395845274) Abrasion to nose (910.0) 013 Problem resolved confirmed Alejandro-98 5911- Problem Atypical mole syndrome (104382529) Atypical mole (238.2) 009 Problem resolved confirmed Alejandro-98 5911- Problem Breast lump (98428834) Breast lump (611.72) 015 Problem resolved confirmed Alejandro-98 5911- Problem Hemorrhage of rectum and anus (663181767) Bright red blood per rectum (BRBPR) (569.3) 011 Problem resolved confirmed Alejandro-98 5911- Problem Generalized abdominal pain (860595881) Generalized abdominal pain (789.07) 011 Problem resolved confirmed Alejandro-98 5911- Problem Generalized osteoarthritis (052104460) Generalized osteoarthritis, 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) 010 Problem resolved confirmed Alejandro-98 5911- Problem Hand pain (13457240) Hand pain (729.5) 018 Problem resolved confirmed Alejandro-98 5911- Problem Irritable bowel syndrome (81885405) IBS, diarrhea prominent type (564.1) 015 Problem resolved confirmed Alejandro-98 5911- Problem Ear ache (599023649) Ear ache (388.71) 009 Problem resolved confirmed Alejandro-98 5911- Problem Insomnia (625440039) Insomnia (307.41) 009 Problem resolved confirmed Alejandro-98 5911- Problem Pain in limb (48644202) Leg pain (729.5) 008 Problem resolved confirmed Alejandro-98 5911- Problem Missed period (92563133) Missed period (626.4) 009 Problem resolved confirmed Alejandro-98 5911- Problem Precordial pain (83892860) Precordial chest pain (786.51) 010 Problem resolved confirmed Alejandro-98 5911- Problem Screening for malignant neoplasm of colon (336605297) Screening for colorectal cancer (V76.49) 014 Problem resolved confirmed Alejandro-98 5911- Problem Sinus tachycardia (43947901) Sinus tachycardia (427.89) 009 Problem resolved confirmed Alejandro-98 5911- Problem Acute gingivitis (28905147) Acute gingivitis NOS (523.00) 016 Problem resolved confirmed Alejandro-98 5911- Problem Breast tenderness (49401778) Breast tenderness (611.71) 011 Problem resolved confirmed Alejandro-98 5911- Problem Iron deficiency anemia (01455851) Other specified iron deficiency anemia (280.8) 018 Problem resolved confirmed Alejandro-98 5911- Problem Neoplasm of breast (039026917) Unspecified growth in breast tissue (239.3) 017 Problem resolved confirmed Alejandro-98 5911- Problem Carbuncle of thigh (12606867) Carbuncle of thigh (680.6) 013 Problem resolved confirmed Alejandro-98 5911- Problem Swollen gums (812531637) Swollen gums (784.2) 018 Problem resolved confirmed Alejandro-98 5911- Problem Acute otitis media (7167457) Acute otitis media (382.00) 015 Problem resolved confirmed Alejandro-98 5911- Problem Neoplasm of uncertain behavior of skin (90987634) Atypical skin lesion (238.2) 008 Problem resolved confirmed Alejandro-98 5911- Problem Cellulitis and abscess of face (153580950) Cellulitis of the face (682.0) 016 Problem resolved confirmed Alejandro-98 5911- Problem Constipation (63714799) Constipation (564.01) 011 Problem resolved confirmed Alejandro-98 5911- Problem Multiple joint pain (05921145) Joint pain, multiple sites (719.49) 009 Problem resolved confirmed Alejandro-98 5911- Problem Knee pain (9966146052) Knee pain (719.46) 015 Problem resolved confirmed Alejandro-98 5911- Problem Urinary tract infection (80250632) Urinary tract infection (595.0) 012 Problem resolved confirmed Alejandro-98 5911- Problem Abdominal pain (33896370) Abdominal pain (789.00) 009 Problem resolved confirmed Alejandro-98 5911- Problem Blood chemistry abnormal (089848699) Elevated blood iron concentration (790.6) 018 Problem resolved confirmed Alejandro-98 5911- Problem Knee joint effusion (663269767) Knee swelling (719.06) 017 Problem resolved confirmed Alejandro-98 5911- Problem Toothache (47798928) Toothache (525.9) 017 Problem resolved confirmed Alejandro-98 5911- Problem Flatulence, eructation and gas pain (498088744) Bloating (787.3) 015 Problem resolved confirmed Alejandro-98 5911- Problem Gastrointestinal bleeding (37104294) Gastrointestinal bleeding (537.89) 013 Problem resolved confirmed Alejandro-98 5911- Problem Generalized osteoarthritis (286685022) Generalized osteoarthritis (715.09) 016 Problem resolved confirmed Alejandro-98 5911- Problem Insect bite (021941705) Insect bite (919.4) 017 Problem resolved confirmed Alejandro-98 5911- Problem Cramp in lower limb (816709316) Leg cramps (729.82) 018 Problem resolved confirmed Alejandro-98 5911- Problem Mouth ulcer (52473384) Mouth ulcer (528.2) 017 Problem resolved confirmed Alejandro-98 5911- Problem Perimenopausal disorder (323073306) Perimenopausal disorder (627.9) 018 Problem resolved confirmed Alejandro-98 5911- Problem 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) 018 Problem resolved confirmed Alejandro-98 5911- Problem Dry mouth (47045071) Dry mouth (527.7) 014 Problem resolved confirmed Alejandro-98 5911- Problem Hemorrhoids (disorder) (71849255) Hemorrhoids, external (455.3) 011 Problem resolved confirmed Alejandro-98 5911- Problem Opioid dependence (82381914) Opioid dependence (304.00) 013 Problem resolved confirmed Alejandro-98 5911- Problem Possible STD exposure (V15.85) 009 Problem resolved confirmed Alejandro-98 5911- Problem Neoplasm of uncertain behavior of connective and other soft tissues (79968603) Unspecified skin lesion (239.2) 008 Problem resolved confirmed Alejandro-98 5911- Problem General examination of patient (620231612) Yearly physical exam (V70.0) 008 Problem resolved confirmed Alejandro-98 5911- Problem Aphthous ulcer (659938057) Aphthous ulcer (528.2) 015 Problem resolved confirmed Alejandro-98 5911- Problem Exposure to communicable disease (698888469) Contact with or exposure to communicable diseases, unspecified (V01.9) 015 Problem resolved confirmed Alejandro-98 5911- Problem Screening mammography (65006637) Screening mammogram - other (V76.12) 019 Problem resolved confirmed Alejandro-98 5911- Vital Signs Weight-kg 55.34 kg 07/09/2024 Height 62 in 08/06/2024 Weight 122 lbs 07/09/2024 BMI 22.31 kg/m2 07/09/2024 Encounters Encounter Location Date Provider Diagnosis [facility] [address] [address] 05/14/2024 Zoya Calle e Chronic pain syndrome G89.4 ; Spondylosis without myelopathy or radiculopathy, lumbosacral region M47.817 and Chronic prescription opiate use Z79.891 Formerly [facility] [address] [address] 07/09/2024 Zoya Calle e Chronic pain syndrome G89.4 ; Spondylosis without myelopathy or radiculopathy, lumbosacral region M47.817 and Chronic prescription opiate use Z79.891 [facility] [address] [place] [address] 08/06/2024 Zoya Taverac e Chronic pain syndrome G89.4 ; Spondylosis without myelopathy or radiculopathy, lumbosacral region M47.817 and 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 Z79.891 [facility] [place] [address] [place] [facility] [place] [place] [address] 09/10/2024 Zoya Rusty-Cassandrac paul Chronic pain syndrome G89.4 ; Spondylosis without myelopathy or radiculopathy, lumbosacral region M47.817 and senior living (current) use of opiate analgesic Z79.891 [facility] [place] [address] [place] [address] 07/22/2024 Zoya Rusty-Pric e [facility] [place] [address] [place] [place] [address] 07/23/2024 Zoya Rusty-Pric e Assessments Encounter Date [...] ADLs, denies abuse and side effects. The BOY'S ADVISER was reviewed with no untoward events noted. [...] ADLs, denies abuse and side effects. The BOY'S ADVISER was reviewed with no untoward events noted. UDS reviewed and is as expected. A bowel regimen was discussed with the patient. 09/10/2024 Spondylosis without myelopathy or radiculopathy, lumbosacral region (ICD-10 - M47.817) 08/06/2024 senior living (current) use of opiate analgesic (ICD-10 - [...] End Date [place] Medicaid [address] [place] [address] [id number] Jenifer Ruiz Self - patient is the insured Medical (General) History Medical History History ICD Code Osteoarthritis Lumbar spondylarthritis Generalized anxiety disorder Fibrocystic breast disease Tooth infection migraine headaches Surgical History Surgery Date(Month/Year) Tubal Ligation Hospitalization History Reason Date(Month/Year) Child
--- OUTSIDE RECORDS SUMMARY | 2025-02-09 17:55 | XMS_ITS | Encounter Summary ---
Author Organization [facility] Address [address] [place] [address] Care Team Providers Care Fuels Sales Representative Name Role Phone Unavailable Primary Care Provider Unavailabl e Encounter Details Date Type Department Care Team (Latest Contact Info) Description 07/18/2001 Outpatient Historical [facility] [place] [address] [facility] [address] [place] [address] Zulma Posada MD NO ADDRESS ON FILE ANXIETY STATE NOS (Primary Dx) Social History Tobacco Use Types Packs/Day Years Used Date Smoking Tobacco: Never Assessed Comments Unknown Sex and Gender Information Value Date Recorded Sex Assigned at Not on file 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
[2025-02-09 18:07] VITALS: BP 155/98; PULSE 106; RESP 16; TEMP 36.4; O2SAT 97
--- NOTE | 2025-02-09 18:14 | W.ED.SKABFB ---
HPI - Skin/Abscess/Foreign Bdy General: Chief complaint: Skin/Abscess/Foreign Body Stated complaint: insect bite (fist size bruise) Time Seen by Provider: 02/09/25 18:10 Source: patient Mode of arrival: ambulatory Limitations: no limitations History of Present Illness: 59-year-old female who states she has noticed change in color to her right knee she believes a spider bite she was seen 2 days ago urgent care is prescribed antibiotic ointment states that it has not improved she denies any pain denies any fever denies any drainage denies any worse improved factors Associated symptoms: Deny chills, fever(s), nausea or vomiting Related Data Home Medications ?Medication ?Instructions ?Recorded ?Confirmed budesonide-formoterol HFA 80 2 puff inhalation BID 03/06/24 02/08/25 mcg-4.5 mcg/actuation aerosol inhaler (Symbicort) acetaminophen 500 mg tablet 500 mg PO QID PRN Pain 06/03/24 02/08/25 Previous Rx's ?Medication ?Instructions ?Recorded albuterol sulfate 90 mcg/actuation 2 puff inhalation Q6H PRN 02/07/24 aerosol inhaler shortness of breath or wheezing #8.5 grams lorazepam 0.5 mg tablet 0.5 mg PO TID PRN anxiety #90 tabs 04/23/24 benzonatate 200 mg capsule 200 mg PO TID PRN cough #20 caps 08/02/24 cetirizine 10 mg tablet (Zyrtec) 10 mg PO DAILY PRN allergy 08/02/24 symptoms #90 tabs diclofenac sodium 50 mg 50 mg PO Q12H PRN pain #20 tabs 09/16/24 tablet,delayed release mupirocin 2 % topical ointment 1 applic topical BID #15 grams 02/08/25 (Centany) Allergies Allergy/AdvReac Type Severity Reaction Status Date / Time amoxicillin (From Amoxil) Allergy Unknown ALGY-Rash Verified 02/08/25 18:21 aspirin Allergy Unknown Verified 02/08/25 18:21 clindamycin AdvReac ADR-Abdominal Verified 02/08/25 18:21 Pain Review of Systems Const: Denies: fever(s), chills, body aches or change in appetite ENMT: Denies: throat pain or dental pain Card: Denies: chest pain Resp: Denies: dyspnea GI: Denies: abdominal pain, nausea, vomiting or diarrhea Musc: Denies: neck pain or back pain Skin/Breast: Denies: rash Neuro: Denies: headache(s) PFSH ED PFSH: Medical History Acute back pain with sciatica Acute bronchitis and bronchiolitis Postoperative pelvic peritoneal adhesions Asthma Insect bite Nicotine dependence, cigarettes, in remission Post-traumatic stress disorder, chronic Generalized anxiety disorder Psychiatric care Chronic headache History of vaginal delivery Osteoarthritis Anxiety MDD (major depressive disorder) Surgical History History of tubal ligation Family History Other Family history unremarkable Social History Smoking and tobacco/nicotine status: never used tobacco/nicotine Alcohol intake: never Substance/Drug Use: never Adopted: No Caregiver/support person: No Lives independently: Yes Household members: none Housing: Apartment Marital status: Highest education level completed: High School Graduate service: No Current occupational status: unemployed Current occupational exposures/hazards: No Pets and animals: No Leisure activites: exercise, art and music Sexually active: No Do you think of yourself as: Straight/Heterosexual Current gender identity: Female Special ramin needs: No Agree to transfusion: Yes Female Reproductive History: Spontaneous abortions: No Date of menopause: 06/26/19 Physical Exam Const: COMMON NORMALS: no acute distress, patient oriented x3 and healthy appearing HENMT: COMMON NORMALS: normocephalic and atraumatic HEAD & SCALP: normocephalic and atraumatic Eye: COMMON NORMALS: conjunctivae normal CONJUNCTIVA: Yes conjunctivae normal Neck/C-Spine: COMMON NORMALS: full ROM and supple Chest: COMMONS NORMALS: normal inspection of the chest Resp: COMMON NORMALS: normal respiratory effort Cardio: COMMON NORMALS: regular rate RATE: regular rate Extremity: COMMON NORMALS: full ROM Neuro: COMMON NORMALS: patient oriented x3, moves all extremities and no focal motor deficits Psych: COMMON NORMALS: mental status grossly normal, Normal thought process present and cooperative THOUGHT PROCESS: Normal thought process present Skin: COMMON NORMALS: no wounds NARRATIVE SKIN EXAM: Appears to have a bruise to the right knee or an insect bite no signs of abscess no signs of cellulitis Course Vital Signs: Vital signs: Vital Signs Temperature 97.5 F L 02/09/25 18:07 Pulse Rate 106 H 02/09/25 18:07 Respiratory Rate 16 02/09/25 18:07 Blood Pressure 155/98 02/09/25 18:07 Pulse Oximetry 97 02/09/25 18:07 Oxygen Delivery Me thod Room Air 02/09/25 18:07 MDM - Skin/Abscess/Foreign Bdy Medicial Decision Making Patient presents here with bruise versus insect bite to her right knee no signs of cellulitis or abscess she is stable for discharge she is follow-up with PCP and return if worsening she understands agrees to plan Medical Records I reviewed the patient's medical records. No radiology studies performed this visit Discharge Plan Discharge Patient Disposition: Home Clinical Impression: Insect bites Condition: Stable Prescriptions: No Action cetirizine [Zyrtec] 10 mg tablet 10 mg PO DAILY PRN (Reason: allergy symptoms) Qty: 90 0RF benzonatate 200 mg capsule 200 mg PO TID PRN (Reason: cough) Qty: 20 0RF diclofenac sodium 50 mg tablet,delayed release (DR/EC) 50 mg PO Q12H PRN (Reason: pain) Qty: 20 0RF albuterol sulfate 90 mcg/actuation HFA aerosol inhaler 2 puff inhalation Q6H PRN (Reason: shortness of breath or wheezing) Qty: 8.5 2RF lorazepam 0.5 mg tablet 0.5 mg PO TID PRN (Reason: anxiety) Qty: 90 2RF mupirocin [Centany] 2 % ointment 1 applic topical BID Qty: 15 0RF budesonide-formoterol [Symbicort] 80-4.5 mcg/actuation HFA aerosol inhaler 2 puff INHALATION BID acetaminophen [Tylenol Ex Str Rapid Release] 500 mg Tablet 500 mg PO QID PRN (Reason: Pain) Discharge Orders: Discharge ED (Routine); Ordered 02/09/25 Ordered By: Carla Tran Discharge Diet: Advance as tolerated Discharge Activity: Resume usual activity Patient Instructions: Insect Bite or Sting (ED) Print Language: Frisian Coding Level of Care Code ED Research And Development Director for Yuniorg Jairo
== END 2025-02-09 18:18 | disposition home or self-care (01) ==
PROVIDERS: Emergency Provider Emergency Medicine
DX: S80.261A Insect bite (nonvenomous), right knee, initial encounter (principal); W57.XXXA Bitten or stung by nonvenomous insect and other nonvenomous arthropods, initial encounter
CPT/HCPCS: 99282

== ENCOUNTER 2025-04-02 12:03 | Emergency (ER) | payer MEDICAID, SELFPAY ==
[2024-01-05 11:20] VITALS: BP 117/83; BMI 22.0
[2025-04-02 12:04] VITALS: BP 133/83; PULSE 85; RESP 14; TEMP 36.8; O2SAT 98; BMI 21.1
--- NOTE | 2025-04-02 12:22 | XR_ITS ---
WS: [id number] Sacrum and coccyx, AP and lateral views, 04/02/2025 Clinical Data: fall Comparison: Lumbar spine, 03/20/2019 Findings: There is a small line at the level of the lower sacrum which could represent an undisplaced fracture.. The SI joints and pubic symphysis are unremarkable. No bone destruction or erosion is seen. . XR/XR coccyx 2V [id number] Impression: Possible undisplaced fracture of lower sacrum seen best on the lateral view.
--- NOTE | 2025-04-02 12:22 | ED_ITS ---
HPI - Back Pain/Injury General: Chief Complaint: Back Pain/Injury Stated Complaint: fall on butt on concrete Time Seen by Provider: 04/02/25 12:12 Source: patient Mode of arrival: ambulatory Limitations: no limitations History of Present Illness: 60-year-old female states that just befo re arrival she tripped and fell straight on her buttocks. States she is having pain over her tailbone rates the pain a 6 out of 10 is worse with movement or sitting she denies any other injuries denies any hip pain denies hitting her head. Related Data Home Medications ?Medication ?Instructions ?Recorded ?Confirmed budesonide-formoterol HFA 80 2 puff inhalation BID 05/1902/08/25 mcg-4.5 mcg/actuation aerosol inhaler (Symbicort) acetaminophen 500 mg tablet 500 mg PO QID PRN Pain 03/1902/08/25 Previous Rx's ?Medication ?Instructions ?Recorded albuterol sulfate 90 mcg/actuation 2 puff inhalation Q 6H PRN 02/07/24 aerosol inhaler shortness of breath or wheez ing #8.5 grams lorazepam 0.5 mg tablet 0.5 mg PO TID PRN anxiety #9 0 tabs 04/23/24 benzonatate 200 mg capsule 200 mg PO TID PRN cough #20 caps 08/02/24 cetirizine 10 mg tablet (Zyrtec) 10 mg PO DAILY PRN al lergy 08/02/24 symptoms #90 tabs diclofenac sodium 50 mg 50 mg PO Q12H PRN pain #20 t abs 09/16/24 tablet,delayed release mupirocin 2 % topical ointment 1 applic topical BID #1 5 grams 02/08/25 (Centany) Allergies Allergy/AdvReac Type Severity Reaction Status Date / Time amoxicillin (From Amoxil) Allergy Unknown ALGY-Rash Verified 04/02/25 12:04 aspirin Allergy Unknown Verified 04/02/25 12:04 clindamycin AdvReac ADR-Abdominal Verified 04/02/25 12:04 Pain PFSH ED PFSH: Medical History Acute back pain with sciatica Acute bronchitis and bronchiolitis Postoperative pelvic peritoneal adhesions Asthma Insect bite Nicotine dependence, cigarettes, in remission Post-traumatic stress disorder, chronic Generalized anxiety disorder Psychiatric care Chronic headache History of vaginal delivery Osteoarthritis Anxiety MDD (major depressive disorder) Surgical History History of tubal ligation Family History Other Family history unremarkable Social History Smoking and tobacco/nicotine status: never used tobacco/nicotine Alcohol intake: never Substance/Drug Use: never Adopted: No Caregiver/support person: No Lives independently: Yes Household members: none Housing: Apartment Marital status: Highest education level completed: High School Graduate service: No Current occupational status: unemployed Current occupational exposures/hazards: No Pets and animals: No Leisure activites: exercise, art and music Sexually active: No Do you think of yourself as: Straight/Heterosexual Current gender identity: Female Special ramin needs: No Agree to transfusion: Yes Female Reproductive History: Spontaneous abortions: No Date of menopause: 06/26/19 Physical Exam Const: COMMON NORMALS: no acute distress, patient oriented x3 and healthy appearing HENMT: COMMON NORMALS: normocephalic and atraumatic HEAD & SCALP: normocephalic and atraumatic Neck/C-Spine: COMMON NORMALS: full ROM and supple Chest: COMMONS NORMALS: normal inspection of the chest Resp: COMMON NORMALS: normal respiratory effort Cardio: COMMON NORMALS: regular rate RATE: regular rate Back/Pelvis: OTHER: Tenderness over her tailbone no tenderness in the hips Extremity: COMMON NORMALS: normal to inspection and full ROM Neuro: COMMON NORMALS: patient oriented x3, moves all extremities and no focal motor deficits Psych: COMMON NORMALS: mental status grossly normal, Normal thought process present and cooperative THOUGHT PROCESS: Normal thought process present Skin: COMMON NORMALS: no rashes or lesions noted and no wounds GENERAL SKIN EXAM: no rashes or lesions noted Course Vital Signs: Vital signs: Vital Signs Temperature 98.3 F 04/02/25 12:04 Pulse Rate 85 04/02/25 12:04 Respiratory Rate 14 04/02/25 12:04 Blood Pressure 133/83 04/02/25 12:04 Pulse Oximetry 98 04/02/25 12:04 MDM - Back Pain/Injury Medical Decision Making Patient presents after falling on her buttocks she does have tenderness of her coccyx x-ray shows a possible undisplaced fracture of the lower sacrum. She has no tenderness in her hip she is able to ambulate no lumbar pain or sign of lumbar injury her pain has improved after [place] she is take ibuprofen Tylenol at home she is stable for discharge she is return if worsening she understands agrees to plan. Medical Records I reviewed the patient's medical records. Labs Radiology Impressions Coccyx X-Ray 04/02/25 12:22 Impression: Possible undisplaced fracture of lower sacrum seen best on the lateral view. All radiology interpretation(s) finalized by discharge Discharge Plan Discharge Patient Disposition: Home Clinical Impression: Fractured coccyx Qualifiers: Encounter type: initial encounter Fracture type: closed Qualified Code(s): S32.2XXA - Fracture of coccyx, initial encounter for closed fracture Condition: Stable Prescriptions: No Action cetirizine [Zyrtec] 10 mg tablet 10 mg PO DAILY PRN (Reason: allergy symptoms) Qty: 90 0RF benzonatate 200 mg capsule 200 mg PO TID PRN (Reason: cough) Qty: 20 0RF diclofenac sodium 50 mg tablet,delayed release (DR/EC) 50 mg PO Q12H PRN (Reason: pain) Qty: 20 0RF albuterol sulfate 90 mcg/actuation HFA aerosol inhaler 2 puff inhalation Q6H PRN (Reason: shortness of breath or wheezing) Qty: 8.5 2RF lorazepam 0.5 mg tablet 0.5 mg PO TID PRN (Reason: anxiety) Qty: 90 2RF mupirocin [Centany] 2 % ointment 1 applic topical BID Qty: 15 0RF budesonide-formoterol [Symbicort] 80-4.5 mcg/actuation HFA aerosol inhaler 2 puff INHALATION BID acetaminophen [Tylenol Ex Str Rapid Release] 500 mg Tablet 500 mg PO QID PRN (Reason: Pain) Discharge Orders: Discharge ED (Routine); Ordered 04/02/25 Ordered By: Carla Tran Referrals: Joselin Delgadillo MD [Primary Care Provider, Family Practice] - 4-7 days Discharge Diet: Advance as tolerated Discharge Activity: Resume usual activity Patient Instructions: Coccyx Injury (ED) Print Language: Slovenian Coding Level of Care Code ED Steamer Gum Candy for Pritesh Gill
[2025-04-02] MEDS: HYDROcodone-acetaminophen 5-325 mg Tablet 1 TAB PO (12:26)
[2025-04-02 13:24] VITALS: BP 142/97; PULSE 77; PULSE 79; O2SAT 98
== END 2025-04-02 13:26 | disposition home or self-care (01) ==
PROVIDERS: Emergency Provider Emergency Medicine; PCP Family Medicine
DX: S32.2XXA Fracture of coccyx, initial encounter for closed fracture (principal); W19.XXXA Unspecified fall, initial encounter
CPT/HCPCS: 72220; 99283; J9999

== ENCOUNTER → 2025-05-13 12:04 | Outpatient (BNVA) | payer MEDICAID, SELFPAY ==
[2024-01-05 11:20] VITALS: BP 117/83; BMI 22.0
== END ==
PROVIDERS: PCP Family Medicine; Visit Provider Nurse Practitioner Family
DX: L82.1 Other seborrheic keratosis (principal); L81.4 Other melanin hyperpigmentation; L53.8 Other specified erythematous conditions; L73.8 Other specified follicular disorders; D48.5 Neoplasm of uncertain behavior of skin
CPT/HCPCS: 11102; 17110; 99203